=== PATIENT | female | born 1955 | race Caucasian/White ===

== ENCOUNTER 2020-04-11 06:45 | Inpatient (IN) | payer OTHER, SELFPAY ==
[2020-04-11] VITALS (12 sets, daily range): BP systolic 134–172; BP diastolic 56–99; PULSE 84–111; RESP 16–26; TEMP 36.9–37.1; O2SAT 91–97; BMI 44.8
--- NOTE | 2020-04-11 06:59 | PC.NURSE ---
orthopedic technician at bedside obtaining EKG.
--- NOTE | 2020-04-11 07:10 | ED.SOB ---
HPI - SOB/Dyspnea General Chief Complaint: Dyspnea Stated Complaint: SOB Time Seen by Provider: 04/11/20 07:10 Source: patient, EMS and old records reviewed Mode of arrival: EMS Limitations: other (very poor historian) History of Present Illness HPI Narrative: patient with recent PE and not sure she is taking her eliquis she is very anxious, has no chest pain, she is not the best historian but recent records reviewed, EMS was called for dyspnea the patient was found to be hypoxic with wheezes in the 60s, given duoneb and 6L NC - sats in 90s, the patient also notes she has had upper abdominal pain due to her breathing and some nausea MD elicited complaint: shortness of breath Pertinent past history: other (recent PE beginning of March) Onset (ago): day(s) Context: recent illness Timing: intermittent Severity: moderate Exacerbating factors: exertion Relieving factors: oxygen, rest and bronchodilators Known history of: PE Associated symptoms: abdominal pain Treatment prior to arrival: oxygen and bronchodilator Related Data Home Medications Medication Instructions Recorded Confirmed apixaban [Eliquis] 5 mg BID 04/11/20 04/11/20 aspirin [Aspirin Low Dose] 81 mg PO DAILY 04/11/20 04/11/20 buspirone [BuSpar] 5 mg PO TID 04/11/20 04/11/20 calcium carbonate [Calcium 600] 600 mg PO BID 04/11/20 04/11/20 cyanocobalamin (vitamin B-12) 1,000 mcg PO DAILY 04/11/20 04/11/20 [Vitamin B-12] famotidine 40 mg PO BEDTIME 04/11/20 04/11/20 gabapentin 800 mg PO TID 04/11/20 04/11/20 imatinib 400 mg PO DAILY 04/11/20 04/11/20 lurasidone [Latuda] 40 mg PO DAILY 04/11/20 04/11/20 mirabegron [Myrbetriq] 50 mg PO DAILY 04/11/20 04/11/20 omeprazole 40 mg PO DAILY 04/11/20 04/11/20 ondansetron 8 mg PO Q8H PRN 04/11/20 04/11/20 oxybutynin chloride 15 mg PO DAILY 04/11/20 04/11/20 tramadol 50 mg PO TID PRN 04/11/20 04/11/20 trazodone 300 mg PO BEDTIME 04/11/20 04/11/20 venlafaxine 75 mg PO DAILY 04/11/20 04/11/20 venlafaxine 150 mg PO DAILY 04/11/20 04/11/20 Allergies Allergy/AdvReac Type Severity Reaction Status Date / Time celecoxib [From CELEBREX] Allergy Mild DIZZY, Verified 04/11/20 07:46 TIRED alprazolam Allergy Unknown U Verified 04/11/20 07:46 carbamazepine [Tegretol] Allergy Unknown Unknown Verified 04/11/20 07:46 clonazepam Allergy Unknown U Verified 04/11/20 07:46 diclofenac Allergy Unknown Unknown Verified 04/11/20 07:46 lamotrigine Allergy Unknown NIGHTMARES Verified 04/11/20 07:46 meloxicam Allergy Unknown Unknown Verified 04/11/20 07:46 oxcarbazepine Allergy Unknown U Verified 04/11/20 07:46 pregabalin Allergy Unknown Unknown Verified 04/11/20 07:46 simvastatin [SIMVASTATIN] Allergy Unknown MUSCLE PAIN Verified 04/11/20 07:46 Darvon Allergy Unknown Unknown Uncoded 04/11/20 07:46 simvastatin AdvReac Unknown muscle pain Uncoded 04/11/20 07:46 Review of Systems Review of Systems: Constitutional : No Fever, No Chills ENT/Mouth : No sore throat, No Rhinorrhea Cardiovascular : No Chest Pain, positive SOB, No Orthopnea, no edema Respiratory : No Cough, No Sputum, No Wheezing, positive dyspnea, I have impairment in my breathing. Gastrointestinal : No Nausea, No Vomiting, No Diarrhea, + abdominal Pain, No Hematochezia, No Melena Genitourinary : No Dysuria, No Urinary Frequency, No Hematuria Musculoskeletal : No joint pain, No Myalgias Skin : No Skin Lesions, No rash Neuro : No Weakness, No Numbness, No Dizziness, No Headache Psych : + Anxiety/Panic, No Depression Heme/Lymph: No Bruising, No Lymphadenopathy Endocrine : No Polyuria, No Polydipsia All other systems reviewed and are negative [facility] Past Medical History Medical History (Updated 04/11/20 @ 11:28 by Nubia Alvarado DO) Anxiety Atrial fibrillation Bipolar 1 disorder GERD (gastroesophageal reflux disease) Leukemia in remission Pulmonary embolism Social History Social History (Updated 04/11/20 @ 07:12 by Nubia Alvarado DO) Alcohol intake: unknown Smoking Status: Former smoker Use of substances other than those prescribed or required for medical reasons: No Advance Directives: No Advance Directives Information Provided: Yes Physical Exam Vital Signs and I&O and Narrative: Vital Signs and I&O: Vital Signs Temp 98.6 F 04/11/20 08:38 Pulse 100 04/11/20 10:26 Resp 18 04/11/20 10:26 BP 144/85 H 04/11/20 10:26 Pulse Ox 97 04/11/20 10:26 Intake & Output 04/10/20 04/11/20 04/11/20 18:59 06:59 18:59 Output Total 1800 / 1800 Balance -1800 / -1800 Urine Output (Aver age ml/kg/hr) 1.65 Weight 90.718 kg Output: Output, Urine Am ount (Catheter) 1800 / 1800 Urethral 1800 / 1800 Other: Continuous Bladd er Irrigation Fluid - Amount I nstilled 2-way Urethral 0 Body Mass Index 44.8 Appearance: Alert. Oriented X3. mild distress. Eyes: Pupils equal, round and reactive to light. ENT: Pharynx normal. Neck: Normal inspection. Neck supple. CVS: tachycardic. Pulses normal. Respiratory: mild respiratory distress. Breath sounds decreased bilaterally, rales at base Abdomen: Soft and mild ttp along epigastric area Skin: Skin warm and dry. Normal skin color. Normal skin turgor. Extremities: No lower extremity edema. no pain noted Neuro: Oriented X 3. No motor deficit. No sensory deficit. Course Course Course Narrative: + BNP and + troponin, has no chest pain, has rales, IV morphine and IV lasix ordered, imaging pending Reevaluation(s) Reevaluation #1: will admit for further workup and diuresis MDM - SOB/Dyspnea MDM Narrative Medical decision making narrative: patient with hx of PE and afib here with c/o shortness of breath and nausea and epigastric pain at this time will need labs, EKG, CTA:PE unsure if she is taking her eliquis, her abdomen is not overly concerning but she c/o p ain and nausea will need CT scan for mass/obstruction, neb ordered, IV zofran, dispo per results and improvement Lab Data Result diagrams: 04/11/20 07:31 04/11/20 07:30 Labs: Lab Results 04/11/20 04/11/20 04/11/20 Range/Units 07:29 07:30 07:30 WBC (4.8-10.8) X10*3/uL RBC (4.20-5.50) X10*6/uL Hgb (12.0-16.0) g/dl Hct (37-47) % MCV (80-98) fL MCH (27.0-33.0) pg MCHC (31.0-35.0) g/dl RDW (11.0-16.0) % Plt Count (160-400) X10*3/uL MPV (9.4-12.3) fL Immature Gran % (Auto) (0.0-0.4) % Neut % (Auto) (45-73) % Lymph % (Auto) (20-40) % [place] % (Auto) (2-11) % Eos % (Auto) (0-4) % Baso % (Auto) (0-2) % Neut # (Auto) (2.0-8.3) X10*3/uL Lymph # (Auto) (1.2-4.9) X10*3/uL [place] # (Auto) (0.1-1.2) X10*3/uL Eos # (Auto) (0.0-0.4) X10*3/uL Baso # (Auto) (0.0-0.2) X10*3/uL Abs Immat Gran (auto) (0.00-0.03) X10*3/uL Absolute Nucleated RBC (0.0-0.012) X10*3/uL Nucleated RBC % (auto) (0.0-0.2) /100WBC Smear Tech's Comments PT 30.3 H (10.8-13.0) SEC INR 2.5 H (0.9-1.1) APTT 33.8 (24.1-38.0) SEC Sodium (135-145) mmol/L Potassium (3.3-5.1) mmol/l Chloride (96-108) mmol/L Carbon Dioxide (22-29) mmol/L Anion Gap (12-20) BUN (9-16) mg/dL Creatinine (0.5-1.4) mg/dL Estim Creat Clear Calc Estimated GFR Random Glucose (60-115) mg/dL Lactic Acid (0.5-2.0) mmol/L Calcium (8.4-10.2) mg/dL Magnesium (1.6-2.6) mg/dL Total Bilirubin (0.0-1.0) mg/dL Direct Bilirubin (0.0-0.5) mg/dL AST (5-31) U/L ALT (0-31) U/L Alkaline Phosphatase (39-117) U/L Troponin I High Sens 144.3 H (<3.5-17.0) ng/L B-Natriuretic Peptide 1062 H (<100) pg/mL Total Protein (6.5-8.0) g/dL Albumin (3.5-5.0) g/dL Lipase (8-78) U/L TSH (0.32-4.0) mIU/mL 04/11/20 04/11/20 04/11/20 Range/Units 07:30 07:30 07:30 WBC (4.8-10.8) X10*3/uL RBC (4.20-5.50) X10*6/uL Hgb (12.0-16.0) g/dl Hct (37-47) % MCV (80-98) fL MCH (27.0-33.0) pg MCHC (31.0-35.0) g/dl RDW (11.0-16.0) % Plt Count (160-400) X10*3/uL MPV (9.4-12.3) fL Immature Gran % (Auto) (0.0-0.4) % Neut % (Auto) (45-73) % Lymph % (Auto) (20-40) % [place] % (Auto) (2-11) % Eos % (Auto) (0-4) % Baso % (Auto) (0-2) % Neut # (Auto) (2.0-8.3) X10*3/uL Lymph # (Auto) (1.2-4.9) X10*3/uL [place] # (Auto) (0.1-1.2) X10*3/uL Eos # (Auto) (0.0-0.4) X10*3/uL Baso # (Auto) (0.0-0.2) X10*3/uL Abs Immat Gran (auto) (0.00-0.03) X10*3/uL Absolute Nucleated RBC (0.0-0.012) X10*3/uL Nucleated RBC % (auto) (0.0-0.2) /100WBC Smear Tech's Comments PT (10.8-13.0) SEC INR (0.9-1.1) APTT (24.1-38.0) SEC Sodium 136 (135-145) mmol/L Potassium 3.8 (3.3-5.1) mmol/l Chloride 97 (96-108) mmol/L Carbon Dioxide 28 (22-29) mmol/L Anion Gap 15 (12-20) BUN 11 (9-16) mg/dL Creatinine 0.74 (0.5-1.4) mg/dL Estim Creat Clear Calc 70.4 Estimated GFR > 60 Random Glucose 91 (60-115) mg/dL Lactic Acid 0.9 (0.5-2.0) mmol/L Calcium 8.6 (8.4-10.2) mg/dL Magnesium 1.7 (1.6-2.6) mg/dL Total Bilirubin 1.1 H (0.0-1.0) mg/dL Direct Bilirubin 0.7 H (0.0-0.5) mg/dL AST 38 H (5-31) U/L ALT 29 (0-31) U/L Alkaline Phosphatase 71 (39-117) U/L Troponin I High Sens (<3.5-17.0) ng/L B-Natriuretic Peptide (<100) pg/mL Total Protein 6.1 L (6.5-8.0) g/dL Albumin 4.0 (3.5-5.0) g/dL Lipase 20 (8-78) U/L TSH 0.12 L (0.32-4.0) mIU/mL 04/11/20 Range/Units 07:31 WBC 4.4 L (4.8-10.8) X10*3/uL RBC 2.42 L (4.20-5.50) X10*6/uL Hgb 8.0 L (12.0-16.0) g/dl Hct 25.4 L (37-47) % MCV 105.0 H (80-98) fL MCH 33.1 H (27.0-33.0) pg MCHC 31.5 (31.0-35.0) g/dl RDW 17.7 H (11.0-16.0) % Plt Count 220 (160-400) X10*3/uL MPV 9.8 (9.4-12.3) fL Immature Gran % (Auto) 0.5 H (0.0-0.4) % Neut % (Auto) 77.8 H (45-73) % Lymph % (Auto) 7.7 L (20-40) % [place] % (Auto) 12.8 H (2-11) % Eos % (Auto) 0.7 (0-4) % Baso % (Auto) 0.5 (0-2) % Neut # (Auto) 3.5 (2.0-8.3) X10*3/uL Lymph # (Auto) 0.3 L (1.2-4.9) X10*3/uL [place] # (Auto) 0.6 (0.1-1.2) X10*3/uL Eos # (Auto) 0.0 (0.0-0.4) X10*3/uL Baso # (Auto) 0.0 (0.0-0.2) X10*3/uL Abs Immat Gran (auto) 0.02 (0.00-0.03) X10*3/uL Absolute Nucleated RBC 0.050 H (0.0-0.012) X10*3/uL Nucleated RBC % (auto) 1.1 H (0.0-0.2) /100WBC Smear Tech's Comments VERIFIED PT (10.8-13.0) SEC INR (0.9-1.1) APTT (24.1-38.0) SEC Sodium (135-145) mmol/L Potassium (3.3-5.1) mmol/l Chloride (96-108) mmol/L Carbon Dioxide (22-29) mmol/L Anion Gap (12-20) BUN (9-16) mg/dL Creatinine (0.5-1.4) mg/dL Estim Creat Clear Calc Estimated GFR Random Glucose (60-115) mg/dL Lactic Acid (0.5-2.0) mmol/L Calcium (8.4-10.2) mg/dL Magnesium (1.6-2.6) mg/dL Total Bilirubin (0.0-1.0) mg/dL Direct Bilirubin (0.0-0.5) mg/dL AST (5-31) U/L ALT (0-31) U/L Alkaline Phosphatase (39-117) U/L Troponin I High Sens (<3.5-17.0) ng/L B-Natriuretic Peptide (<100) pg/mL Total Protein (6.5-8.0) g/dL Albumin (3.5-5.0) g/dL Lipase (8-78) U/L TSH (0.32-4.0) mIU/mL ECG Data Attestation: I personally reviewed and interpreted this ECG as follows: ECG interpretation date: 04/11/20 ECG interpretation time: 07:14 Interpretation: Rate: 109 Rhythm: sinus tachycardia [place]: normal Normal P waves. Normal CRUZ. LBBB ST T wave : nonspecific, no MICHELLE qTC:normal frequent PACs prior studies: no change 03/09/2020 The study has been interpreted contemporaneously by me. . EKG #2 Rate: 105 Rhythm: sinus tachycardia [place]: normal Normal P waves. Normal CRUZ. Normal QRS complex. LBBB ST T wave : nonspecific qTC: normal prior studies: unchanged The study has been interpreted contemporaneously by me. . Discharge Plan Discharge Clinical Impression: Acute dyspnea, CHF (congestive heart failure), Abdominal pain Patient Disposition: Admitted As Inpatient Prescriptions: No Action buspirone [BuSpar] 5 mg Tablet 5 mg PO TID RF: 0 cyanocobalamin (vitamin B-12) [Vitamin B-12] 1,000 mcg Tablet 1,000 mcg PO DAILY RF: 0 omeprazole 40 mg Capsule,Delayed Release(Dr/Ec) 40 mg PO DAILY RF: 0 aspirin [Aspirin Low Dose] 81 mg Tablet,Delayed Release (Dr/Ec) 81 mg PO DAILY RF: 0 tramadol 50 mg Tablet 50 mg PO TID PRN (Reason: Pain (Scale Score 4-6)) RF: 0 gabapentin 800 mg Tablet 800 mg PO TID RF: 0 trazodone 300 mg Tablet 300 mg PO BEDTIME RF: 0 imatinib 400 mg Tablet 400 mg PO DAILY RF: 0 Latuda 40 mg Tablet 40 mg PO DAILY RF: 0 Myrbetriq 50 mg Tablet Extended Release 24 Hr 50 mg PO DAILY RF: 0 Eliquis 5 mg Tablet 5 mg BID RF: 0 ondansetron 8 mg Tablet,Disintegrating 8 mg PO Q8H PRN (Reason: Nausea And Vomiting) RF: 0 calcium carbonate [Calcium 600] 600 mg calcium (1,500 mg) Tablet 600 mg PO BID RF: 0 venlafaxine 150 mg Capsule,Extended Release 24hr 150 mg PO DAILY RF: 0 venlafaxine 75 mg Tablet Extended Release 24hr 75 mg PO DAILY RF: 0 oxybutynin chloride 15 mg Tablet Extended Release 24hr 15 mg PO DAILY RF: 0 famotidine 40 mg Tablet 40 mg PO BEDTIME RF: 0
--- NOTE | 2020-04-11 07:12 | CT_ITS ---
EXAMINATION: CT ABDOMEN AND PELVIS WITH CONTRAST CLINICAL INFORMATION: Pain COMPARISON: CT chest 03/09/2020 TECHNIQUE: Multidetector volumetric images were obtained from the superior aspect of the liver through the pubic symphysis following administration 85 mL of Omnipaque 350 intravenous contrast. Sagittal and coronal reformatted images were obtained on the technologist's workstation. Oral contrast: No This CT examination was performed using dose optimization techniques as appropriate, variously including the following: *Automated exposure control *Adjustment of mA and/or kV according to patient size (this includes techniques or standardized protocols for targeted exams where dose is matched to indication/reason for exam; i.e. extremities or head) *Use of iterative reconstruction technique DLP: 533 mGy-cm FINDINGS: LUNG BASES: Moderate bilateral pleural effusions with bibasilar atelectasis. LIVER, GALLBLADDER, AND BILIARY TREE: No focal lesions. No biliary duct dilatation. The gallbladder is unremarkable with no evidence of radiopaque gallstones, gallbladder wall thickening, or obvious pericholecystic inflammatory changes. PANCREAS: Pancreas atrophic.. Haziness in the fat adjacent to the head and neck of the pancreas, could represent mild pancreatitis in the appropriate clinical circumstance. SPLEEN: Unremarkable. ADRENAL GLANDS: A 1.1 cm left adrenal nodule, Hounsfield measurements 19, indeterminate. Right adrenal gland appears unremarkable. KIDNEYS AND URETERS: No suspicious renal lesions. No calculi. No hydronephrosis. Mild bilateral perinephric stranding. BLADDER: Lutz catheter present, partially distended. GASTROINTESTINAL TRACT: Stomach is nondistended. No dilated small bowel loops. The large colon is nondistended. Lack of distention especially limits evaluation of the wall thickness of the descending and sigmoid colon. No pericolonic inflammatory changes are seen. There is small free fluid in the right lower quadrant. The tip of the appendix extends to the area of the free fluid and is obscured. More proximally, the appendix appears unremarkable. There is small free fluid in the pelvis. No free air is seen. ABDOMINAL WALL: Small fat-containing umbilical hernia. LYMPH NODES: No pathologically enlarged lymph nodes are seen. VASCULAR: Normal caliber aorta. Portal vein is enhancing. PELVIC VISCERA: Anteverted uterus, appearing within normal limits. Adnexa are within normal limits. Small free fluid in the pelvis. OSSEOUS STRUCTURES: Hardware in the proximal left femur. Grade 1 anterolisthesis of L4 and L5. There is undulation, depression of the superior aspect of the L3 vertebral body, of indeterminate age. Disc degenerative changes at L4-L5, L3-L4, with air within the disc space. Disc degenerative changes, with foci of air in the L2-L3 disc space well. IMPRESSION: 1. Pancreas is atrophic. There is haziness in the peripancreatic fat region of the head and neck. Clinically correlate, correlate with blood work, to evaluate for pancreatitis. 2. Moderate bilateral pleural effusions with bibasilar atelectasis. 3. Indeterminate 1.1 cm left adrenal nodule. Follow-up CT abdomen using adrenal mass protocol for further evaluation as clinically warranted. 4. The large colon is nondistended. Apparent prominence of the wall of the descending and sigmoid colon, could be related to lack of distention, with mild colitis not excluded. 5. There is small free fluid in the abdomen or pelvis. The tip of the appendix is obscured by the fluid, where the more proximal aspect of the appendix appears unremarkable. Please clinically correlate. 6. Undulation and depression of the superior aspect of the L3 vertebral body, of indeterminate age. Please clinically correlate. Further evaluation with MRI as clinically warranted. 7. There is air in the L2-L3, L3-L4, L4-L5 disc spaces. This could be related to disc degenerative changes. In the appropriate clinical circumstance, discitis cannot be excluded. Please clinically correlate.
--- NOTE | 2020-04-11 07:12 | CT_ITS ---
EXAMINATION: CT ANGIOGRAM OF THE CHEST WITH AND WITHOUT CONTRAST (CT PULMONARY ANGIOGRAM FOR PE) CLINICAL INFORMATION: Dyspnea, ? not taking her Eliquis. COMPARISON: 03/09/2020 TECHNIQUE: Prior to contrast administration, noncontrast localization images were obtained. Subsequently, multidetector volumetric imaging was performed from the thoracic inlet to below the diaphragms following the administration of 80 mL Omnipaque 350 intravenous contrast. No contrast reaction reported Sagittal, coronal, and MIP oblique sagittal reformatted images were obtained on the CT workstation, uploaded to PACS, and reviewed. This CT examination was performed using dose optimization techniques as appropriate, variously including the following: *Automated exposure control *Adjustment of mA and/or kV according to patient size (this includes techniques or standardized protocols for targeted exams where dose is matched to indication/reason for exam; i.e. extremities or head) *Use of iterative reconstruction technique Total exam dose-length product 1701 mGy-cm FINDINGS: PULMONARY ARTERIES: Grainy images from patient body habitus, suboptimal opacification of the pulmonary arteries, significant respiratory motion artifact, markedly degrading images, limiting evaluation. Patient had segmental pulmonary emboli demonstrated on the prior study of 03/09/2020. In today's study, no definite filling defects identified within the central pulmonary vasculature to indicate large pulmonary embolus. Limited evaluation of the segmental and subsegmental vasculature. The previously seen pulmonary emboli in the lower lobe segmental arteries are not clearly visualize in today's study. THORACIC AORTA: Normal caliber aorta. LUNG: Airspace opacities adjacent to the pleural effusions, probably reflecting atelectasis. There is heterogeneous attenuation of the lung parenchyma, probably related to a degree of inspiration, respiratory motion artifact. Scattered ground-glass opacities in bilateral lungs, nonspecific. Within the limitations of study, no suspicious nodules identified. PLEURA: Moderate bilateral pleural effusions. MEDIASTINUM: Heart is mildly enlarged. No pericardial effusion. No pathologically enlarged lymph nodes identified in the mediastinum or pantera. CHEST WALL/AXILLA: No axillary or internal mammary lymphadenopathy. OSSEOUS STRUCTURES: No acute or suspicious osseous abnormality. Bilateral shoulder joint arthritis. UPPER ABDOMEN: No reflux of contrast into the hepatic veins to suggest elevated right heart pressures. IMPRESSION: 1. Prior study 03/09/2020 was positive for segmental pulmonary emboli. Limited study today, including significant respiratory motion artifact degrading images, limiting evaluation. No definite significant filling defect is identified within the central pulmonary vasculature. Prior study of 03/09/2020 demonstrated lower lobe segmental pulmonary emboli, which are not evaluated in today's study. 2. Moderate bilateral pleural effusions with subjacent atelectasis. 3. Scattered ground-glass opacities in bilateral lungs, nonspecific, could be related to a degree of inspiration, respiratory motion, or could represent an infectious or inflammatory process. Follow-up/repeat CT scan for evaluation as clinically warranted. 4. Thyroid nodule. This is amenable to nonemergent thyroid ultrasound for further evaluation.
[2020-04-11] MEDS: Albuterol/Iprat 2.5/0.5MG 3 ML AMPUL.NEB INHALE (07:29)
[2020-04-11] MEDS: ondansetron HCL 4 MG/2 ML VIAL IVPUSH (07:41)
--- NOTE | 2020-04-11 07:43 | PC.NURSE ---
PT ANXIOUS AND STATES HER ABD IS PAINFUL AND DIFF BREATHING SHE HAD AN UPDRAFT AND WAS MEDICATED CHARTED
[2020-04-11 07:46] LABS: INTERNATIONAL NORM RATIO 2.5 (0.9-1.1); Prothrombin Time 30.3 SEC (10.8-13.0)
[2020-04-11 07:48] LABS: Partial Thromboplastin Time 33.8 SEC (24.1-38.0)
[2020-04-11 07:52] LABS: Basophils Percent Auto 0.5 % (0-2); Eosinophils Percent Auto 0.7 % (0-4); Hematocrit 25.4 % (37-47); Imm Gran Abs Auto 0.02 X10*3/uL (0.00-0.03); Imm Gran Pct Auto 0.5 % (0.0-0.4); Lymphocytes Absolute Auto 0.3 X10*3/uL (1.2-4.9); Lymphocytes Percent Auto 7.7 % (20-40); MANUAL DIFF FLAG SCAN; Mean Corpuscular HGB Conc 31.5 g/dl (31.0-35.0); Mean Corpuscular Hemoglobin 33.1 pg (27.0-33.0); Mean Platelet Volume 9.8 fL (9.4-12.3); Monocytes Absolute Auto 0.6 X10*3/uL (0.1-1.2); Monocytes Percent Auto 12.8 % (2-11); Neutrophils Absolute Auto 3.5 X10*3/uL (2.0-8.3); Neutrophils Percent Auto 77.8 % (45-73); Platelet Count 220 X10*3/uL (160-400); Red Blood Count 2.42 X10*6/uL (4.20-5.50); Red Cell Distribution Width 17.7 % (11.0-16.0); SCAN SMEAR FLAG 1; White Blood Count 4.4 X10*3/uL (4.8-10.8)
[2020-04-11 07:58] LABS: NRBC Pct Auto 1.1 /100WBC (0.0-0.2)
[2020-04-11 08:02] LABS: Lactic Acid 0.9 mmol/L (0.5-2.0)
[2020-04-11 08:04] LABS: Anion Gap 15 (12-20); Blood Urea Nitrogen 11 mg/dL (9-16); Calcium 8.6 mg/dL (8.4-10.2); Carbon Dioxide 28 mmol/L (22-29); Chloride 97 mmol/L (96-108); Creatinine Clr Calc Pharmacy 70.4; Estimated Glomerular Filt Rate > 60; Glucose Random 91 mg/dL (60-115); Potassium 3.8 mmol/l (3.3-5.1); Sodium 136 mmol/L (135-145)
[2020-04-11 08:07] LABS: Alanine Aminotransferase 29 U/L (0-31); Alkaline Phosphatase 71 U/L (39-117); Aspartate Amino Transferase 38 U/L (5-31); Bilirubin Direct 0.7 mg/dL (0.0-0.5); Bilirubin Total 1.1 mg/dL (0.0-1.0); Lipase 20 U/L (8-78); Magnesium 1.7 mg/dL (1.6-2.6); Total Protein 6.1 g/dL (6.5-8.0)
[2020-04-11 08:10] LABS: B Type Natriuretic Peptide 1062 pg/mL (<100)
[2020-04-11 08:13] LABS: Troponin-I High Sensitivity 144.3 ng/L (<3.5-17.0)
[2020-04-11] MEDS: Morphine Sulfate 2 MG/ML CARTRIDGE IVPUSH (08:13)
--- NOTE | 2020-04-11 08:13 | ECG_ITS ---
Test Reason : REPEAT SOB Blood Pressure : / mmHG Vent. Rate : 105 BPM Atrial Rate : 105 BPM P-R Int : 148 ms QRS Dur : 138 ms QT Int : 360 ms P-R-T Axes : 050 061 -35 degrees QTc Int : 475 ms Sinus tachycardia Left bundle branch block Abnormal ECG When compared with ECG of 09-MAR-2020 13:01, Premature atrial complexes are no longer Present Referred By: Nubia Alvarado Electronically Signed By:NATHALY STEPHENS
[2020-04-11] MEDS: Furosemide 40 MG/4 ML VIAL IVPUSH (08:18)
[2020-04-11 08:26] LABS: Thyroid Stimulating Hormone 0.12 mIU/mL (0.32-4.0)
[2020-04-11 08:59] LABS: SLIDE REVIEW VERIFIED
[2020-04-11] MEDS: iohexoL 350 MG/ML 100 ML INFUS..BTL IV (09:51)
--- NOTE | 2020-04-11 10:37 | PC.NURSE ---
pt states she is feeling better napping
--- NOTE | 2020-04-11 10:47 | PC.NURSE ---
please call with updates [place] [id number] [phone]
--- NOTE | 2020-04-11 13:53 | PC.NURSE ---
awaiting room assignment for admission resting quietly with periodic episodes of anxiety
--- NOTE | 2020-04-11 14:30 | PC.NURSE ---
REPORT GIVEN TO EDWARDO FOR ADMISSION
[2020-04-11] MEDS: Venlafaxine HCl ER 150 MG CAP.ER.24H PO (18:55)
[2020-04-11] MEDS: Mirabegron 50 MG TAB.ER.24H PO (18:55)
[2020-04-11] MEDS: busPIRone HCl 5 MG TABLET PO (18:55)
[2020-04-11] MEDS: Lurasidone HCl 40 MG TABLET PO (18:55)
[2020-04-11] MEDS: Furosemide 20 MG/2 ML VIAL IVPUSH (18:56)
[2020-04-11] MEDS: Gabapentin 400 MG CAPSULE 800 MG PO (18:56)
[2020-04-11 19:20] LABS: Alanine Aminotransferase 26 U/L (0-31); Albumin Level 3.6 g/dL (3.5-5.0); Alkaline Phosphatase 62 U/L (39-117); Aspartate Amino Transferase 30 U/L (5-31); Bilirubin Direct 0.7 mg/dL (0.0-0.5); Total Protein 5.5 g/dL (6.5-8.0)
--- NOTE | 2020-04-11 19:22 | PM.EVENT ---
Event Note Event Note: Patient seen and examined. Case discussed with Veronique Hernadez NP. Agree with her history and physical. 64 yo being admitted for chf. iv lasix cardiology consult 2d echo if not recently done trend trop-I -- likely demand mediated remainder per H&P rapid test for covid 19
[2020-04-11 19:37] LABS: Troponin-I High Sensitivity 153.2 ng/L (<3.5-17.0)
[2020-04-11] MEDS: LORazepam 2 MG/ML VIAL 0.5 MG IV (20:48)
[2020-04-11] MEDS: Apixaban 5 MG TABLET PO (20:49)
[2020-04-11 21:12] LABS: SARS COV2 PCR INHOUSE NEGATIVE (Negative)
[2020-04-11] MEDS: traZODone HCL 100 MG TABLET 300 MG PO (22:10)
[2020-04-11] MEDS: traMADoL HCL 50 MG TABLET PO (22:27)
[2020-04-12 04:00] VITALS: BP 125/78; PULSE 93; RESP 22; TEMP 36.8; O2SAT 93
[2020-04-12] MEDS: Omeprazole 40 MG CAPSULE.DR PO (06:27)
[2020-04-12 06:46] LABS: Basophils Percent Auto 0.7 % (0-2); Eosinophils Absolute Auto 0.1 X10*3/uL (0.0-0.4); Eosinophils Percent Auto 3.5 % (0-4); Hematocrit 24.1 % (37-47); Hemoglobin 7.4 g/dl (12.0-16.0); Imm Gran Abs Auto 0.02 X10*3/uL (0.00-0.03); Imm Gran Pct Auto 0.5 % (0.0-0.4); Lymphocytes Absolute Auto 0.6 X10*3/uL (1.2-4.9); Lymphocytes Percent Auto 13.6 % (20-40); MANUAL DIFF FLAG SCAN; Mean Corpuscular HGB Conc 30.7 g/dl (31.0-35.0); Mean Corpuscular Hemoglobin 32.3 pg (27.0-33.0); Mean Corpuscular Volume 105.2 fL (80-98); Mean Platelet Volume 9.9 fL (9.4-12.3); Monocytes Absolute Auto 0.7 X10*3/uL (0.1-1.2); Monocytes Percent Auto 17.9 % (2-11); NRBC Pct Auto 0.5 /100WBC (0.0-0.2); Neutrophils Absolute Auto 2.6 X10*3/uL (2.0-8.3); Neutrophils Percent Auto 63.8 % (45-73); Platelet Count 212 X10*3/uL (160-400); Red Blood Count 2.29 X10*6/uL (4.20-5.50); Red Cell Distribution Width 17.8 % (11.0-16.0); SCAN SMEAR FLAG 1
[2020-04-12 07:16] LABS: Anion Gap 11 (12-20); Blood Urea Nitrogen 7 mg/dL (9-16); Carbon Dioxide 35 mmol/L (22-29); Chloride 97 mmol/L (96-108); Creatinine Clr Calc Pharmacy 71.3; Estimated Glomerular Filt Rate > 60; Glucose Random 83 mg/dL (60-115); Potassium 3.3 mmol/l (3.3-5.1); Sodium 140 mmol/L (135-145)
[2020-04-12 07:20] LABS: B Type Natriuretic Peptide 1028 pg/mL (<100)
[2020-04-12 07:29] LABS: SLIDE REVIEW VERIFIED
[2020-04-12 07:32] LABS: Calcium 7.8 mg/dL (8.4-10.2)
[2020-04-12 07:41] VITALS: BP 116/71; PULSE 92; RESP 18; TEMP 36.8; O2SAT 93
[2020-04-12] MEDS: Furosemide 20 MG/2 ML VIAL IVPUSH ×2 (07:51→15:35)
[2020-04-12] MEDS: busPIRone HCl 5 MG TABLET PO ×3 (07:51→21:31)
[2020-04-12] MEDS: Cyanocobalamin (Vitamin B-12) 1,000 MCG TABLET 1000 MCG PO (07:51)
[2020-04-12] MEDS: Aspirin Enteric Coated 81 MG TABLET.DR PO (07:51)
[2020-04-12] MEDS: Apixaban 5 MG TABLET PO ×2 (07:52→21:31)
[2020-04-12] MEDS: Gabapentin 400 MG CAPSULE 800 MG PO ×3 (07:52→21:31)
[2020-04-12] MEDS: Lurasidone HCl 40 MG TABLET PO (07:53)
[2020-04-12] MEDS: Mirabegron 50 MG TAB.ER.24H PO (07:53)
[2020-04-12] MEDS: Venlafaxine HCl ER 150 MG CAP.ER.24H PO (07:54)
[2020-04-12] MEDS: Venlafaxine HCl ER 75 MG CAP.ER.24H PO (07:55)
--- NOTE | 2020-04-12 08:34 | MHC.CM.PN ---
Addendum entered by Nicci Gutierrez 04/12/20 09:09: PATIENT WILL NEED TRANSPORTATION WC VAN PER PT REQUEST. Original Note: IMM 04/12/20 FEMALE DX SOB. Lives with . Dependent adls, [facility] [employer] service in place, [place]. Pt uses WC. DP resume [facility] [employer] services will transport. CM will follow.
[2020-04-12 08:51] LABS: Basophils Percent Auto 0.5 % (0-2); Eosinophils Absolute Auto 0.2 X10*3/uL (0.0-0.4); Eosinophils Percent Auto 4.4 % (0-4); Hematocrit 26.8 % (37-47); Hemoglobin 8.3 g/dl (12.0-16.0); Imm Gran Abs Auto 0.02 X10*3/uL (0.00-0.03); Imm Gran Pct Auto 0.5 % (0.0-0.4); Lymphocytes Absolute Auto 0.4 X10*3/uL (1.2-4.9); Lymphocytes Percent Auto 10.7 % (20-40); MANUAL DIFF FLAG SCAN; Mean Corpuscular Hemoglobin 32.4 pg (27.0-33.0); Mean Corpuscular Volume 104.7 fL (80-98); Mean Platelet Volume 9.9 fL (9.4-12.3); Monocytes Absolute Auto 0.6 X10*3/uL (0.1-1.2); Monocytes Percent Auto 14.6 % (2-11); NRBC Pct Auto 0.5 /100WBC (0.0-0.2); Neutrophils Absolute Auto 2.9 X10*3/uL (2.0-8.3); Neutrophils Percent Auto 69.3 % (45-73); Platelet Count 235 X10*3/uL (160-400); Red Blood Count 2.56 X10*6/uL (4.20-5.50); Red Cell Distribution Width 17.9 % (11.0-16.0); SCAN SMEAR FLAG 1; White Blood Count 4.1 X10*3/uL (4.8-10.8)
[2020-04-12 09:27] LABS: Anion Gap 12 (12-20); Blood Urea Nitrogen 7 mg/dL (9-16); Calcium 8.4 mg/dL (8.4-10.2); Carbon Dioxide 34 mmol/L (22-29); Chloride 96 mmol/L (96-108); Creatinine Clr Calc Pharmacy 68.5; Estimated Glomerular Filt Rate > 60; Glucose Fasting 115 mg/dL (60-99); Potassium 3.5 mmol/l (3.3-5.1); Sodium 138 mmol/L (135-145)
[2020-04-12 09:29] LABS: Free T4 (Free Thyroxine) 1.69 ng/dL (0.71-1.85)
--- NOTE | 2020-04-12 11:13 | PM.CNCAR ---
History of Present Illness History of Present Illness Date of Consult: April 12, 2020 Requesting physician: Vinay Zarate Consult reason: congestive heart failure Chief complaint: SOB Narrative: This is a cardiology consultation for shortness of breath and congestive heart failure. Patient is a very poor historian and not really able to give any history at all. EMS was apparently call for shortness of breath and found to be hypoxic with wheezing in the 60s. She was given some nebulizers and oxygen. Then sats came to the 90s. She also was having some abdominal pain in the upper abdomen due to her breathing and some nausea. Subsequently she was admitted with a diagnosis of congestive heart failure. Patient is not able to tell me anything more this time. When I questioned her regarding coronary disease or any prior cardiac issues she states she does not know. Review of Systems Review of Systems: Cardiac positive for shortness of breath. No angina. No palpitations, dizzy spells or syncope. No significant leg swelling. Remainder of the 10 system review is negative. [facility] Past Medical History Medical History (Updated 04/12/20 @ 11:22 by Greg Matt MD) Anxiety Atrial fibrillation Bipolar 1 disorder GERD (gastroesophageal reflux disease) Leukemia in remission Pulmonary embolism Family History Pertinent family history: No significant family history relevant to this admission. Social History Social History Household Members: Spouse Housing: Apartment Alcohol intake: unknown Smoking Status: Former smoker Use of substances other than those prescribed or required for medical reasons: No Currently Displaying Signs/Symptoms of Drug Intoxication Withdrawal: No Have you been hit, kicked, punched, or otherwise hurt by someone within the past year? If so, by whom?: No Do you feel safe in your current relationship?: No Is there a partner from a previous relationship who is making you feel unsafe now?: No Are you made to feel afraid or neglected: No Advance Directives: No Advance Directives Information Provided: Yes Do you have thoughts of harming others: None Recently lost weight without trying: No service: No Current occupational status: disabled Meds Allergies Allergy/AdvReac Type Severity Reaction Status Date / Time celecoxib [From CELEBREX] Allergy Mild DIZZY, Verified 04/11/20 07:46 TIRED alprazolam Allergy Unknown U Verified 04/11/20 07:46 carbamazepine [Tegretol] Allergy Unknown Unknown Verified 04/11/20 07:46 clonazepam Allergy Unknown U Verified 04/11/20 07:46 diclofenac Allergy Unknown Unknown Verified 04/11/20 07:46 lamotrigine Allergy Unknown NIGHTMARES Verified 04/11/20 07:46 meloxicam Allergy Unknown Unknown Verified 04/11/20 07:46 oxcarbazepine Allergy Unknown U Verified 04/11/20 07:46 pregabalin Allergy Unknown Unknown Verified 04/11/20 07:46 simvastatin [SIMVASTATIN] Allergy Unknown MUSCLE PAIN Verified 04/11/20 07:46 Darvon Allergy Unknown Unknown Uncoded 04/11/20 07:46 simvastatin AdvReac Unknown muscle pain Uncoded 04/11/20 07:46 Home Medications Medication Instructions Recorded Confirmed Type apixaban [Eliquis] 5 mg BID 04/11/20 04/11/20 History aspirin [Aspirin Low Dose] 81 mg PO DAILY 04/11/20 04/11/20 History buspirone [BuSpar] 5 mg PO TID 04/11/20 04/11/20 History calcium carbonate [Calcium 600] 600 mg PO BID 04/11/20 04/11/20 History cyanocobalamin (vitamin B-12) 1,000 mcg PO DAILY 04/11/20 04/11/20 History [Vitamin B-12] famotidine 40 mg PO BEDTIME 04/11/20 04/11/20 History gabapentin 800 mg PO TID 04/11/20 04/11/20 History imatinib 400 mg PO DAILY 04/11/20 04/11/20 History lurasidone [Latuda] 40 mg PO DAILY 04/11/20 04/11/20 History mirabegron [Myrbetriq] 50 mg PO DAILY 04/11/20 04/11/20 History omeprazole 40 mg PO DAILY 04/11/20 04/11/20 History ondansetron 8 mg PO Q8H PRN 04/11/20 04/11/20 History oxybutynin chloride 15 mg PO DAILY 04/11/20 04/11/20 History tramadol 50 mg PO TID PRN 04/11/20 04/11/20 History trazodone 300 mg PO BEDTIME 04/11/20 04/11/20 History venlafaxine 75 mg PO DAILY 04/11/20 04/11/20 History venlafaxine 150 mg PO DAILY 04/11/20 04/11/20 History Physical Exam Vital Signs and I&O and Narrative: Vital Signs and I&O: Vital Signs Temp 98.2 F 04/12/20 07:41 Pulse 92 04/12/20 07:41 Resp 18 04/12/20 07:41 BP 116/71 04/12/20 07:41 Pulse Ox 93 04/12/20 07:41 Comfortable, no distress No pallor, icterus or cyanosis HEENT -unremarkable JVD- normal Cardiac- normal heart sounds, no murmurs, gallops or rubs, normal PMI Respiratory- few scattered crackles Abdomen- soft, nontender Neuro- alert and oriented Lower extremities- no significant edema, warm well perfused Results Labs and Meds Result diagrams: 04/12/20 08:21 04/12/20 08:20 Lab results: Laboratory Tests 04/11/20 04/11/20 04/12/20 18:29 18:29 05:41 Hgb Creatinine Troponin I High Sens 153.2 H B-Natriuretic Peptide 1028 H Albumin 3.6 04/12/20 04/12/20 08:20 08:21 Hgb 8.3 L Creatinine 0.76 Troponin I High Sens B-Natriuretic Peptide Albumin EKG Interpretation EKG Comments: EKG was reviewed by me. She has underlying sinus tachycardia at 01:05/Min. Left bundle-branch block type pattern. Overall, similar to the recent study from March. Telemetry was reviewed. She has frequent ectopy. Some of it looks like supraventricular with aberrancy. PVCs could also be possible but less likely. Assessment and Plan (1) Acute dyspnea: Status: Acute (2) CHF (congestive heart failure): Qualifiers: Heart failure chronicity: acute Heart failure type: unspecified Qualified Code(s): I50.9 - Heart failure, unspecified Status: Acute (3) LBBB (left bundle branch block): Status: Acute (4) Pulmonary embolism: Status: Acute Difficult to obtain a clear history but based on patient's description, recent shortness of breath as well as a history of pulmonary embolism. Cardiac BNP is clearly elevated. We will obtain an echocardiogram for LV function assessment/ RV function as well as pulmonary hypertension. Continue with gentle diuretics. We will follow up with you.
[2020-04-12 12:00] VITALS: BP 169/75; PULSE 94; RESP 18; TEMP 36.9; O2SAT 94
--- NOTE | 2020-04-12 13:00 | CA_ITS ---
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 The visually estimated ejection fraction is between 45-50%. - Evidence suggests grade II (moderate) diastolic dysfunction. - There is mild aortic valve stenosis. - There is mild mitral annular calcification. - Mild pulmonary hypertension is present. Findings Left Ventricle Normal left ventricular cavity size. There is mildly increased left ventricular wall thickness. The left ventricular systolic function is mildly decreased. The visually estimated ejection fraction is between 45-50%. There is paradoxical septal motion consistent with a left bundle branch block. E/E prime ratio is >15, consistent with elevated filling pressures. Evidence suggests grade II (moderate) diastolic dysfunction. Right Ventricle The right ventricle was not well visualized. Atria The left atrium is moderately dilated. The right atrium is normal in size. Aortic Valve There is a normal trileaflet aortic valve. There is mild aortic valve stenosis. The peak aortic velocity is 2.53 m/s with a calculated peak gradient of 26 mmHg. The mean gradient is 15 mmHg. The aortic valve area is 1.72 cm2. There is no aortic valve regurgitation. Mitral Valve There is mild mitral annular calcification. There is trace mitral valve regurgitation. There is no mitral valve stenosis. Pulmonic Valve The pulmonic valve was not well visualized. Tricuspid Valve Normal tricuspid valve structure. There is trace tricuspid valve regurgitation. The right ventricular systolic pressure is 38 mmHg. Mild pulmonary hypertension is present. Great Vessels The aortic annulus, sinuses of valsalva, and asc aorta are normal in size. Venous The inferior vena cava is normal in size and collapses greater than 50% with inspiration. Pericardium/Pleural There is no evidence of pericardial effusion. There is a large left sided pleural effusion. Prior Study Comparison No significant change compared to prior study dated: 03/05/2019. Measurements 2D Linear Measurements IVSd: 1.17 0.6-0.9/0.6-1.0 cm LVIDd: 4.78 3.9-5.3/4.2-5.9 cm LVIDd Index: 2.75 2.4-3.2/2.2-3.1 cm/m2 LVIDs: 3.01 2.0-3.6 cm LVPWd: 1.14 0.7-1.1 cm Ao Root: 3.50 2.1-3.5 cm LA Diam: 3.20 2.7-3.8/3.0-4.0 cm LAIDs Index: 1.84 1.5-2.3 cm/m2 LV Mass: 257.07 67-162/88-224 g LV Mass Index: 147.74 43-95/49-115 g/m2 LVOT Diam: 2.00 3.0+(-)1.3 cm 2D Systolic Function EF 4C: 53.90 >55% EF 2C: 48.80 >55% EF BiP: 50.50 >55% Mitral Valve MV Pk E: 1.12 MV PK A: 1.30 MV Decel Time: 129.00 E/A: 0.90 E'Lateral: 8.51 E'Medial: 4.35 E/E' Med: 25.70 E/E' Lat: 13.20 PHT: 38.00 MVA PHT: 5.79 Decel [place]: 8.66 Aortic Valve AoV Pk Kojo: 2.53 AoV Mn Kojo: 1.79 AoV VTI: 0.53 AoV Pk Grad: 26.00 Aov Mn Grad: 15.00 MARIA LUZ Cont.VTI: 1.72 LVOT LVOT Pk Kojo: 1.37 LVOT Mn Kojo: 0.93 LVOT VTI: 0.29 LVOT Pk Grad: 8.00 LVOT Mn Grad: 4.00 LVOT Diam: 2.00 LVOT Area: 3.14 Diastolic Function MV Pk E: 1.12 MV Pk A: 1.30 E/A: 0.90 E'Medial: 4.35 E/E' Med: 25.70 E' Laterial: 8.51 E/E' Lat: 13.20 Tricuspid Valve TR Pk Kojo: 2.95 TR Pk Grad: 35.00 RA Press: 3.00 RVSP: 38.00 Great Vessels Aorta Ao Root-2D: 3.50 2.0-3.7 cm Ao Asc: 3.50 2.1-3.4 cm Pulmonary Valve PV Pk Kojo: 1.43 Peak PV Grad: 8.00 Updated in Other Vendor System with Status of Final Greg Matt MD electronically signed on 04/12/2020 5:10:28 PM with status of Final
--- NOTE | 2020-04-12 14:17 | PM.IMPN ---
Subjective Subjective Date of Service: 04/12/20 Interval History: seen and examined reports breathing better difficult to obtain history, requiring constant redirection seen later with the bedside. updates given at that time, pt reports improvement from AM Review of Systems General - no fevers or chills Cardiovascular - no chest pain Respiratory short of breath, but improving Abdominal- no abdominal pain, nausea, vomiting, diarrhea Physical Exam Vital Signs and I&O and Narrative: Vital Signs and I&O: Vital Signs Temp 98.4 F 04/12/20 12:00 Pulse 94 04/12/20 12:00 Resp 18 04/12/20 12:00 BP 169/75 H 04/12/20 12:00 Pulse Ox 94 04/12/20 12:00 Intake & Output 04/11/20 04/12/20 04/12/20 18:59 06:59 18:59 Intake Total 240 / 240 240 / 240 Output Total 3200 / 4960 1760 / 4960 Balance -3200 / -4720 -1520 / -4720 240 / 240 Urine Output (Aver age ml/kg/hr) 2.94 1.62 1.62 Intake: Intake, Oral Harjeet unt 240 / 240 240 / 240 Output: Output, Urine Am ount 1400 / 1400 Output, Urine Am ount (Catheter) 1800 / 3560 1760 / 3560 2-way Urethral 1400 / 1400 Urethral 1800 / 2160 360 / 2160 Other: Breakfast % Eate n 75% Lunch % Eaten 75% Urine Color Yellow Continuous Bladd er Irrigation Fluid - Amount I nstilled 2-way Urethral 0 Body Mass Index 44.8 General - no acute distress, appears comfortable Cardiovascular - rales, mostly at bases, no jvd Lungs - normal respiratory effort, clear to auscultation bilaterally, no wheezing Abdomen - soft, nontender, no rebound regarding Extremities - no edema bilaterally Neuro - awake and alert, no focal deficits Objective Data Current Medications Generic Name Dose Route Start Last Admin Trade Name Freq PRN Reason Stop Dose Admin Apixaban 5 mg 04/11/20 21:00 04/12/20 07:52 Apixaban 5 Mg Tablet PO 5 mg BID SHEN Administration Aspirin 81 mg 04/12/20 09:00 04/12/20 07:51 Aspirin Enteric Coated 81 Mg Tablet. PO 81 mg DAILY SHEN Administration Buspirone HCl 5 mg 04/11/20 15:54 04/12/20 07:51 Buspirone Hcl 5 Mg Tablet PO 5 mg TID SHEN Administration Calcium Carbonate 500 mg 04/11/20 21:00 04/12/20 07:52 Calcium Carbonate 500 Mg Tablet PO 500 mg BID SHEN Administration Cyanocobalamin 1,000 mcg 04/12/20 09:00 04/12/20 07:51 Cyanocobalamin (Vitamin B-12) 1,000 Mcg Tablet PO 1,000 mcg DAILY SHEN Administration Furosemide 20 mg 04/11/20 17:00 04/12/20 07:51 Furosemide 20 Mg/2 Ml Vial IVPUSH 20 mg BIDWM SHEN Administration Protocol Gabapentin 800 mg 04/11/20 15:54 04/12/20 07:52 Gabapentin 400 Mg Capsule PO 800 mg TID SHEN Administration Lurasidone HCl 40 mg 04/11/20 15:54 04/12/20 07:53 Lurasidone Hcl 40 Mg Tablet PO 40 mg DAILY SHEN Administration Mirabegron 50 mg 04/11/20 15:54 04/12/20 07:53 Mirabegron 50 Mg Tab.Er.24h PO 50 mg DAILY SHEN Administration Non-Formulary Medication 400 mg 04/11/20 15:54 Imatinib PO DAILY [facility] Omeprazole 40 mg 04/12/20 06:30 04/12/20 06:27 Omeprazole 40 Mg Capsule.Dr PO 40 mg DAILY@0630 SHEN Administration Ondansetron HCl 4 mg 04/11/20 19:21 Ondansetron Hcl 4 Mg/2 Ml Vial IVPUSH Q8H PRN Nausea and Vomiting Oxybutynin Chloride 15 mg 04/12/20 09:00 04/12/20 07:54 Oxybutynin Chloride Er 5 Mg Tab.Er.24 PO 15 mg DAILY SHEN Administration Pharmacy Consult 1 each 04/11/20 08:18 Consult Rx Perform Med Rec MISCELLANE ONCE PRN Consult order Tramadol HCl 50 mg 04/11/20 15:54 04/11/20 22:27 Tramadol Hcl 50 Mg Tablet PO 50 mg TID PRN Administration Pain (Scale Score 4-6) Trazodone HCl 300 mg 04/11/20 21:00 04/11/20 22:10 Trazodone Hcl 100 Mg Tablet PO 300 mg BEDTIME SHEN Administration Venlafaxine HCl 150 mg 04/11/20 15:54 04/12/20 07:54 Venlafaxine Hcl Er 150 Mg Cap.Er.24h PO 150 mg DAILY SHEN Administration Venlafaxine HCl 75 mg 04/12/20 09:00 04/12/20 07:55 Venlafaxine Hcl Er 75 Mg Cap.Er.24h PO 75 mg DAILY SHEN Administration Labs CBC & Chem 7: 04/12/20 08:21 04/12/20 08:20 Labs: Laboratory Results - last 24 hr 04/11/20 04/11/20 04/11/20 18:29 18:29 19:46 MCV MCH MCHC RDW Plt Count MPV Immature Gran % (Auto) Neut % (Auto) Lymph % (Auto) [place] % (Auto) Eos % (Auto) Baso % (Auto) Neut # (Auto) Lymph # (Auto) [place] # (Auto) Eos # (Auto) Baso # (Auto) Abs Immat Gran (auto) Absolute Nucleated RBC Nucleated RBC % (auto) Smear Tech's Comments Anion Gap Estim Creat Clear Calc Estimated GFR Random Glucose Fasting Glucose Calcium Total Bilirubin 1.0 Direct Bilirubin 0.7 H AST 30 ALT 26 Alkaline Phosphatase 62 Troponin I High Sens 153.2 H B-Natriuretic Peptide Total Protein 5.5 L Albumin 3.6 Free T4 Coronavirus (PCR) NEGATIVE 04/12/20 04/12/20 04/12/20 05:41 05:41 05:41 MCV 105.2 H MCH 32.3 MCHC 30.7 L RDW 17.8 H Plt Count 212 MPV 9.9 Immature Gran % (Auto) 0.5 H Neut % (Auto) 63.8 Lymph % (Auto) 13.6 L [place] % (Auto) 17.9 H Eos % (Auto) 3.5 Baso % (Auto) 0.7 Neut # (Auto) 2.6 Lymph # (Auto) 0.6 L [place] # (Auto) 0.7 Eos # (Auto) 0.1 Baso # (Auto) 0.0 Abs Immat Gran (auto) 0.02 Absolute Nucleated RBC 0.020 H Nucleated RBC % (auto) 0.5 H Smear Tech's Comments VERIFIED Anion Gap 11 L Estim Creat Clear Calc 71.3 Estimated GFR > 60 Random Glucose 83 Fasting Glucose Calcium 7.8 L Total Bilirubin Direct Bilirubin AST ALT Alkaline Phosphatase Troponin I High Sens B-Natriuretic Peptide 1028 H Total Protein Albumin Free T4 Coronavirus (PCR) 04/12/20 04/12/20 08:20 08:21 MCV 104.7 H MCH 32.4 MCHC 31.0 RDW 17.9 H Plt Count 235 MPV 9.9 Immature Gran % (Auto) 0.5 H Neut % (Auto) 69.3 Lymph % (Auto) 10.7 L [place] % (Auto) 14.6 H Eos % (Auto) 4.4 H Baso % (Auto) 0.5 Neut # (Auto) 2.9 Lymph # (Auto) 0.4 L [place] # (Auto) 0.6 Eos # (Auto) 0.2 Baso # (Auto) 0.0 Abs Immat Gran (auto) 0.02 Absolute Nucleated RBC 0.020 H Nucleated RBC % (auto) 0.5 H Smear Tech's Comments Anion Gap 12 Estim Creat Clear Calc 68.5 Estimated GFR > 60 Random Glucose Fasting Glucose 115 H Calcium 8.4 Total Bilirubin Direct Bilirubin AST ALT Alkaline Phosphatase Troponin I High Sens B-Natriuretic Peptide Total Protein Albumin Free T4 1.69 Coronavirus (PCR) Microbiology Microbiology Results: Microbiology 04/11/20 08:05 Blood - Venous Blood Culture - Preliminary No growth after 24 hours. 04/11/20 07:29 Blood - Venous Blood Culture - Preliminary No growth after 24 hours. 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 1. acute respiratory failure with hypoxia From fluid overload, possibly due to heart failure See details below 2. question congestive heart failure BNP is up she is improving with some IV Lasix, will continue with 20 mg twice daily 2D echo to be completed Cardiology input appreciated 3. pulmonary embolism, recently diagnosed Continue her Eliquis 4. CML Continue imatinib -- needs to be brought in 5. mood Continue her chronic psychiatric medications at her home doses 6. pancytopenia Chronic, presumably related to her CML Continue monitoring next full code DVT prophylaxis, on Eliquis
[2020-04-12 14:20] VITALS: BMI 44.8
[2020-04-12 15:34] VITALS: BP 105/53; PULSE 91; RESP 20; TEMP 36.5; O2SAT 96
[2020-04-12 19:46] VITALS: BP 96/45; PULSE 107; RESP 18; TEMP 36.8; O2SAT 92
[2020-04-12 20:00] VITALS: BP 96/45; PULSE 107; RESP 18; TEMP 36.8; O2SAT 91
[2020-04-12] MEDS: traMADoL HCL 50 MG TABLET PO (20:27)
[2020-04-12] MEDS: traZODone HCL 100 MG TABLET 300 MG PO (21:31)
[2020-04-13] VITALS (10 sets, daily range): BP systolic 101–142; BP diastolic 54–90; PULSE 72–100; RESP 18–22; TEMP 36.5–37.2; O2SAT 94–98
[2020-04-13] MEDS: traMADoL HCL 50 MG TABLET PO ×3 (04:46→22:01)
[2020-04-13] MEDS: Omeprazole 40 MG CAPSULE.DR PO (05:44)
[2020-04-13 06:53] LABS: Basophils Percent Auto 0.4 % (0-2); Eosinophils Absolute Auto 0.3 X10*3/uL (0.0-0.4); Eosinophils Percent Auto 6.3 % (0-4); Hematocrit 23.5 % (37-47); Hemoglobin 7.2 g/dl (12.0-16.0); Imm Gran Abs Auto 0.01 X10*3/uL (0.00-0.03); Imm Gran Pct Auto 0.2 % (0.0-0.4); Lymphocytes Absolute Auto 0.5 X10*3/uL (1.2-4.9); Lymphocytes Percent Auto 10.9 % (20-40); MANUAL DIFF FLAG SCAN; Mean Corpuscular HGB Conc 30.6 g/dl (31.0-35.0); Mean Corpuscular Hemoglobin 32.1 pg (27.0-33.0); Mean Corpuscular Volume 104.9 fL (80-98); Mean Platelet Volume 10.1 fL (9.4-12.3); Monocytes Absolute Auto 0.7 X10*3/uL (0.1-1.2); Monocytes Percent Auto 15.5 % (2-11); Neutrophils Absolute Auto 3.1 X10*3/uL (2.0-8.3); Neutrophils Percent Auto 66.7 % (45-73); Platelet Count 212 X10*3/uL (160-400); Red Blood Count 2.24 X10*6/uL (4.20-5.50); Red Cell Distribution Width 17.7 % (11.0-16.0); SCAN SMEAR FLAG 1; White Blood Count 4.6 X10*3/uL (4.8-10.8)
[2020-04-13 07:26] LABS: Anion Gap 10 (12-20); Blood Urea Nitrogen 10 mg/dL (9-16); Calcium 7.9 mg/dL (8.4-10.2); Carbon Dioxide 36 mmol/L (22-29); Chloride 95 mmol/L (96-108); Creatinine Clr Calc Pharmacy 68.5; Estimated Glomerular Filt Rate > 60; Glucose Fasting 111 mg/dL (60-99); Potassium 3.4 mmol/l (3.3-5.1); Sodium 138 mmol/L (135-145)
[2020-04-13 07:38] LABS: SLIDE REVIEW VERIFIED
[2020-04-13] MEDS: Furosemide 20 MG/2 ML VIAL IVPUSH ×2 (08:48→16:19)
[2020-04-13] MEDS: Venlafaxine HCl ER 75 MG CAP.ER.24H PO (08:48)
[2020-04-13] MEDS: Aspirin Enteric Coated 81 MG TABLET.DR PO (08:48)
[2020-04-13] MEDS: Venlafaxine HCl ER 150 MG CAP.ER.24H PO (08:49)
[2020-04-13] MEDS: Lurasidone HCl 40 MG TABLET PO (08:49)
[2020-04-13] MEDS: Apixaban 5 MG TABLET PO ×2 (08:49→22:01)
[2020-04-13] MEDS: busPIRone HCl 5 MG TABLET PO ×3 (08:49→22:01)
[2020-04-13] MEDS: Gabapentin 400 MG CAPSULE 800 MG PO ×3 (08:49→22:01)
[2020-04-13] MEDS: Mirabegron 50 MG TAB.ER.24H PO (08:49)
[2020-04-13] MEDS: Cyanocobalamin (Vitamin B-12) 1,000 MCG TABLET 1000 MCG PO (08:49)
[2020-04-13] MEDS: Metoprolol Tartrate 25 MG TABLET PO ×2 (10:01→22:02)
--- NOTE | 2020-04-13 11:43 | P.PNCA_ITS ---
Subjective Subjective Interval history: Seen and examined patient. She states that her breathing is better today. However, she still not a good historian and difficult to obtain lot of information. No anginal-type symptoms. Review of Systems Review of Systems Denies any angina. Shortness of breath is at baseline. No dizzy spells or syncopal episodes. Remainder of the 10 system review is negative. Physical Exam Vital Signs and I&O: Vital Signs Temp 98.0 F 04/13/20 11:01 Pulse 85 04/13/20 11:01 Resp 18 04/13/20 11:01 BP 105/61 04/13/20 11:01 Pulse Ox 96 04/13/20 08:00 Comfortable, no distress No pallor, icterus or cyanosis HEENT -unremarkable JVD- normal Cardiac- normal heart sounds, 2/6 FRANK aortic area, no gallops or rubs, normal PMI Respiratory- few scattered crackles Abdomen- soft, nontender Neuro- alert and oriented Lower extremities- no significant edema, warm well perfused Progress Note: A&P Assessment and plan (1) Acute dyspnea: Status: Acute (2) CHF (congestive heart failure): Status: Acute (3) LBBB (left bundle branch block): Status: Acute (4) Pulmonary embolism: Status: Acute Assessment and Plan: Difficult to obtain a clear history but based on patient's description, recent shortness of breath as well as a history of pulmonary embolism. Cardiac BNP is clearly elevated. Echocardiogram Conclusions: - The left ventricular systolic function is mildly decreased. The visually estimated ejection fraction is between 45-50%. - Evidence suggests grade II (moderate) diastolic dysfunction. - There is mild aortic valve stenosis. - There is mild mitral annular calcification. - Mild pulmonary hypertension is present. Telemetry shows underlying sinus rhythm but there is lot of PACs and probably runs of atrial tachycardia; I really doubt these are NSVT episodes. overall, we can treat her with gentle diuretics for diastolic heart failure. We can start her on beta-blockers due to the telemetry runs of atrial tachycardia. There is a mention of proximal atrial fibrillation that was apparently a transient episode during endoscopy but I am again not clear if that was ?atrial tachycardia as well. In any case, she needs anticoagulation for the pulmonary embolism. Fall Risk Details Current Medications: Current Medications Generic Name Dose Route Start Last Admin Trade Name Freq PRN Reason Stop Dose Admin Apixaban 5 mg 04/11/20 21:00 04/13/20 08:49 Apixaban 5 Mg Tablet PO 5 mg BID SHEN Administration Aspirin 81 mg 04/12/20 09:00 04/13/20 08:48 Aspirin Enteric Coated 81 Mg Tablet. PO 81 mg DAILY SHEN Administration Buspirone HCl 5 mg 04/11/20 15:54 04/13/20 08:49 Buspirone Hcl 5 Mg Tablet PO 5 mg TID SHEN Administration Calcium Carbonate 500 mg 04/11/20 21:00 04/13/20 08:49 Calcium Carbonate 500 Mg Tablet PO 500 mg BID SHEN Administration Cyanocobalamin 1,000 mcg 04/12/20 09:00 04/13/20 08:49 Cyanocobalamin (Vitamin B-12) 1,000 Mcg Tablet PO 1,000 mcg DAILY SHEN Administration Furosemide 20 mg 04/11/20 17:00 04/13/20 08:48 Furosemide 20 Mg/2 Ml Vial IVPUSH 20 mg BIDWM SHEN Administration Protocol Gabapentin 800 mg 04/11/20 15:54 04/13/20 08:49 Gabapentin 400 Mg Capsule PO 800 mg TID SHEN Administration Lurasidone HCl 40 mg 04/11/20 15:54 04/13/20 08:49 Lurasidone Hcl 40 Mg Tablet PO 40 mg DAILY SHEN Administration Mirabegron 50 mg 04/11/20 15:54 04/13/20 08:49 Mirabegron 50 Mg Tab.Er.24h PO 50 mg DAILY SHEN Administration Non-Formulary Medication 400 mg 04/11/20 15:54 Imatinib PO DAILY [facility] Omeprazole 40 mg 04/12/20 06:30 04/13/20 05:44 Omeprazole 40 Mg Capsule. PO 40 mg DAILY@0630 [facility] Administration Ondansetron HCl 4 mg 04/11/20 19:21 Ondansetron Hcl 4 Mg/2 Ml Vial IVPUSH Q8H PRN Nausea and Vomiting Oxybutynin Chloride 15 mg 04/12/20 09:00 04/13/20 08:49 Oxybutynin Chloride Er 5 Mg Tab.Er.24 PO 15 mg DAILY SHEN Administration Pharmacy Consult 1 each 04/11/20 08:18 Consult Rx Perform Med Rec MISCELLANE ONCE PRN Consult order Tramadol HCl 50 mg 04/11/20 15:54 04/13/20 04:46 Tramadol Hcl 50 Mg Tablet PO 50 mg TID PRN Administration Pain (Scale Score 4-6) Trazodone HCl 300 mg 04/11/20 21:00 04/12/20 21:31 Trazodone Hcl 100 Mg Tablet PO 300 mg BEDTIME SHEN Administration Venlafaxine HCl 150 mg 04/11/20 15:54 04/13/20 08:49 Venlafaxine Hcl Er 150 Mg Cap.Er.24h PO 150 mg DAILY SHEN Administration Venlafaxine HCl 75 mg 04/12/20 09:00 04/13/20 08:48 Venlafaxine Hcl Er 75 Mg Cap.Er.24h PO 75 mg DAILY SHEN Administration Time Spent With Patient Time: Total time spent is greater than 50% in coordination of care (as documented) at patient's floor/unit and/or counseling patient: Time with patient: 15 - 24 minutes
--- NOTE | 2020-04-13 16:07 | PM.IMPN ---
Subjective Subjective Date of Service: 04/13/20 Interval History: seen and examined breathing improved very emtional and difficulty articulating her concerns reports not eating well, reports dysphagia but no odynophagia or abdominal pain Review of Systems General - no fevers or chills Cardiovascular - no chest pain Respiratory - sob improved Abdominal- no abdominal pain, nausea, vomiting, diarrhea ent - dysphagia, no odynophagia Physical Exam Vital Signs and I&O and Narrative: Vital Signs and I&O: Vital Signs Temp 97.7 F 04/13/20 15:34 Pulse 97 04/13/20 15:34 Resp 22 H 04/13/20 15:34 BP 106/58 L 04/13/20 15:34 Pulse Ox 94 04/13/20 15:34 Intake & Output 04/12/20 04/13/20 04/13/20 18:59 06:59 18:59 Intake Total 240 / 240 522 / 522 Output Total 300 / 1300 1000 / 1300 500 / 500 Balance -60 / -1060 -1000 / -1060 22 / 22 Urine Output (Aver age ml/kg/hr) 0.28 0.92 0.46 Weight 90.718 kg Intake: Intake, Oral [place] unt 240 / 240 240 / 240 Intake (Blood Pr oduct) Amount 282 / 282 Red Blood Cell s Aph (E0685) 282 / 282 Unit [id number] Output: Output, Urine Am ount 500 / 500 Output, Urine Am ount (Catheter) 300 / 1300 1000 / 1300 2-way Urethral 300 / 300 Urethral 300 / 1000 700 / 1000 Other: Breakfast % Eate n 75% Lunch % Eaten 75% 75% Urine sky Urine Color Yellow Tea Hilda Body Mass Index 44.8 General - no acute distress, appears comfortable Cardiovascular - regular rate and rhythm, S1-S2 Lungs - rhonchi, improving Abdomen - soft, nontender, no rebound regarding Extremities - no edema bilaterally Neuro - awake and alert, no focal deficits Objective Data Current Medications Generic Name Dose Route Start Last Admin Trade Name Freq PRN Reason Stop Dose Admin Apixaban 5 mg 04/11/20 21:00 04/13/20 08:49 Apixaban 5 Mg Tablet PO 5 mg BID SHEN Administration Aspirin 81 mg 04/12/20 09:00 04/13/20 08:48 Aspirin Enteric Coated 81 Mg Tablet. PO 81 mg DAILY SHEN Administration Buspirone HCl 5 mg 04/11/20 15:54 04/13/20 08:49 Buspirone Hcl 5 Mg Tablet PO 5 mg TID SHEN Administration Calcium Carbonate 500 mg 04/11/20 21:00 04/13/20 08:49 Calcium Carbonate 500 Mg Tablet PO 500 mg BID SHEN Administration Cyanocobalamin 1,000 mcg 04/12/20 09:00 04/13/20 08:49 Cyanocobalamin (Vitamin B-12) 1,000 Mcg Tablet PO 1,000 mcg DAILY SHEN Administration Furosemide 20 mg 04/11/20 17:00 04/13/20 08:48 Furosemide 20 Mg/2 Ml Vial IVPUSH 20 mg BIDWM SHEN Administration Protocol Gabapentin 800 mg 04/11/20 15:54 04/13/20 08:49 Gabapentin 400 Mg Capsule PO 800 mg TID SHEN Administration Lurasidone HCl 40 mg 04/11/20 15:54 04/13/20 08:49 Lurasidone Hcl 40 Mg Tablet PO 40 mg DAILY SHEN Administration Mirabegron 50 mg 04/11/20 15:54 04/13/20 08:49 Mirabegron 50 Mg Tab.Er.24h PO 50 mg DAILY SHEN Administration (Pt Own) Imatinib 1 each 04/14/20 09:00 400mg Tab) PO DAILY SHEN Omeprazole 40 mg 04/12/20 06:30 04/13/20 05:44 Omeprazole 40 Mg Capsule.Dr PO 40 mg DAILY@0630 SHEN Administration Ondansetron HCl 4 mg 04/11/20 19:21 Ondansetron Hcl 4 Mg/2 Ml Vial IVPUSH Q8H PRN Nausea and Vomiting Oxybutynin Chloride 15 mg 04/12/20 09:00 04/13/20 08:49 Oxybutynin Chloride Er 5 Mg Tab.Er.24 PO 15 mg DAILY SHEN Administration Pharmacy Consult 1 each 04/11/20 08:18 Consult Rx Perform Med Rec MISCELLANE ONCE PRN Consult order Tramadol HCl 50 mg 04/11/20 15:54 04/13/20 11:48 Tramadol Hcl 50 Mg Tablet PO 50 mg TID PRN Administration Pain (Scale Score 4-6) Trazodone HCl 300 mg 04/11/20 21:00 04/12/20 21:31 Trazodone Hcl 100 Mg Tablet PO 300 mg BEDTIME SHEN Administration Venlafaxine HCl 150 mg 04/11/20 15:54 04/13/20 08:49 Venlafaxine Hcl Er 150 Mg Cap.Er.24h PO 150 mg DAILY SHEN Administration Venlafaxine HCl 75 mg 04/12/20 09:00 04/13/20 08:48 Venlafaxine Hcl Er 75 Mg Cap.Er.24h PO 75 mg DAILY SHEN Administration Labs CBC & Chem 7: 04/13/20 06:01 04/13/20 06:01 Microbiology Microbiology Results: Microbiology 04/11/20 08:05 Blood - Venous Blood Culture - Preliminary No growth after 48 hours. 04/11/20 07:29 Blood - Venous Blood Culture - Preliminary No growth after 48 hours. 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 1. acute respiratory failure with hypoxia From fluid overload, possibly due to heart failure, recent pe wean o2 as possible See details below 2. Acute HFrEF / arrythmia echo showing ef down but about the same as echo from [facility] change to PO lasix by tomorrow low dose metoprolol Cardiology input appreciated low dose bb 3. pulmonary embolism, recently diagnosed Continue her Eliquis 4. CML Continue imatinib -- needs to be brought in 5. mood Continue her chronic psychiatric medications at her home doses 6. pancytopenia Chronic, presumably related to her CML Continue monitoring next full code DVT prophylaxis, on Eliquis
[2020-04-13] MEDS: traZODone HCL 100 MG TABLET 300 MG PO (22:01)
[2020-04-14] VITALS (7 sets, daily range): BP systolic 95–136; BP diastolic 53–74; PULSE 70–86; RESP 16–22; TEMP 36.2–37.1; O2SAT 90–97
--- NOTE | 2020-04-14 | XR_ITS ---
EXAMINATION: XR ANKLE, LEFT CLINICAL INFORMATION: Lateral malleolar fracture, follow-up. COMPARISON: 03/09/2020 left ankle radiographs. TECHNIQUE: AP, lateral, and mortise views of the left ankle. FINDINGS: Again seen is a minimally displaced lateral malleolus fracture. There is a nondisplaced transverse fracture of the medial malleolus distally. The tibiotalar joint space is unremarkable. The tarsal bones are normally aligned. The soft tissues are unremarkable. Moderate to severe small vessel arteriosclerosis is again noted. IMPRESSION: 1. Minimally displaced lateral malleolus fracture without significant change. 2. Nondisplaced medial malleolus fracture was not seen previously. The lack of significant soft tissues swelling suggests this is not acute and is likely occult on the previous study.
[2020-04-14] MEDS: Omeprazole 40 MG CAPSULE.DR PO (06:29)
[2020-04-14] MEDS: traMADoL HCL 50 MG TABLET PO ×2 (06:32→13:41)
[2020-04-14 06:57] LABS: Basophils Percent Auto 0.7 % (0-2); Eosinophils Absolute Auto 0.4 X10*3/uL (0.0-0.4); Eosinophils Percent Auto 9.8 % (0-4); Hematocrit 26.9 % (37-47); Hemoglobin 8.2 g/dl (12.0-16.0); Imm Gran Abs Auto 0.01 X10*3/uL (0.00-0.03); Imm Gran Pct Auto 0.2 % (0.0-0.4); Lymphocytes Absolute Auto 0.7 X10*3/uL (1.2-4.9); Lymphocytes Percent Auto 15.3 % (20-40); MANUAL DIFF FLAG SCAN; Mean Corpuscular HGB Conc 30.5 g/dl (31.0-35.0); Mean Corpuscular Hemoglobin 31.3 pg (27.0-33.0); Mean Corpuscular Volume 102.7 fL (80-98); Mean Platelet Volume 10.1 fL (9.4-12.3); Monocytes Absolute Auto 0.8 X10*3/uL (0.1-1.2); Monocytes Percent Auto 18.7 % (2-11); Neutrophils Absolute Auto 2.4 X10*3/uL (2.0-8.3); Neutrophils Percent Auto 55.3 % (45-73); Platelet Count 196 X10*3/uL (160-400); Red Blood Count 2.62 X10*6/uL (4.20-5.50); Red Cell Distribution Width 19.6 % (11.0-16.0); SCAN SMEAR FLAG 1; White Blood Count 4.4 X10*3/uL (4.8-10.8)
[2020-04-14 07:34] LABS: Anion Gap 11 (12-20); Blood Urea Nitrogen 13 mg/dL (9-16); Calcium 8.5 mg/dL (8.4-10.2); Carbon Dioxide 36 mmol/L (22-29); Chloride 95 mmol/L (96-108); Creatinine Clr Calc Pharmacy 68.5; Estimated Glomerular Filt Rate > 60; Glucose Fasting 88 mg/dL (60-99); Sodium 138 mmol/L (135-145)
[2020-04-14 08:23] LABS: SLIDE REVIEW VERIFIED
[2020-04-14] MEDS: Cyanocobalamin (Vitamin B-12) 1,000 MCG TABLET 1000 MCG PO (10:21)
[2020-04-14] MEDS: Venlafaxine HCl ER 150 MG CAP.ER.24H PO (10:21)
[2020-04-14] MEDS: Lurasidone HCl 40 MG TABLET PO (10:21)
[2020-04-14] MEDS: Apixaban 5 MG TABLET PO ×2 (10:21→22:39)
[2020-04-14] MEDS: Venlafaxine HCl ER 75 MG CAP.ER.24H PO (10:21)
[2020-04-14] MEDS: Metoprolol Tartrate 25 MG TABLET PO ×2 (10:21→22:39)
[2020-04-14] MEDS: Gabapentin 400 MG CAPSULE 800 MG PO ×3 (10:22→22:38)
[2020-04-14] MEDS: busPIRone HCl 5 MG TABLET PO ×3 (10:22→22:38)
[2020-04-14] MEDS: Aspirin Enteric Coated 81 MG TABLET.DR PO (10:22)
[2020-04-14] MEDS: Mirabegron 50 MG TAB.ER.24H PO (10:22)
--- NOTE | 2020-04-14 10:44 | PM.PNCARD ---
Subjective Subjective Interval history: Seen regarding shortness of breath. Patient states that she feels better in that regard. No new cardiac complaints. Review of Systems Review of Systems Cardiac- improved shortness of breath. No angina. No palpitations, dizzy spells or syncopal episodes. Remainder of the 10 system review is negative. Physical Exam Vital Signs and I&O: Vital Signs Temp 97.2 F 04/14/20 07:15 Pulse 71 04/14/20 07:15 Resp 18 04/14/20 07:15 BP 126/69 04/14/20 07:15 Pulse Ox 94 04/14/20 07:15 Intake & Output 04/13/20 04/14/20 04/14/20 18:59 06:59 18:59 Intake Total 522 / 762 240 / 762 120 / 120 Output Total 500 / 1300 800 / 1300 Balance 22 / -538 -560 / -538 120 / 120 Urine Output (Average ml/kg/hr) 0.46 0.73 0.73 Intake: Intake, Oral Amount 240 / 480 240 / 480 120 / 120 Intake (Blood Product) Amount 282 / 282 Red Blood Cells Aph (E0685) 282 / 282 Unit [id number] Output: Output, Urine Amount 500 / 500 Output, Urine Amount (Catheter) 800 / 800 2-way Urethral 800 / 800 Other: Meal Refused No NPO No Breakfast % Eaten 25% Lunch % Eaten 75% Dinner % Eaten 100% Urine sky sky Urine Color Hilda Tea Stool Bedpan Weight 200 lb Comfortable, no distress No pallor, icterus or cyanosis HEENT -unremarkable JVD- normal Cardiac- normal heart sounds, 2/6 FRANK aortic area, no gallops or rubs, normal PMI Respiratory- few scattered crackles Abdomen- soft, nontender Neuro- alert and oriented Lower extremities- no significant edema, warm well perfused Progress Note: A&P Assessment and plan (1) Acute dyspnea: Status: Acute (2) LBBB (left bundle branch block): Status: Acute (3) Atrial tachycardia: Status: Acute (4) Acute diastolic CHF (congestive heart failure): Status: Acute (5) Pulmonary embolism: Status: Acute Assessment and Plan: Difficult to obtain a clear history but based on patient's description, recent shortness of breath as well as a history of pulmonary embolism. Cardiac BNP is clearly elevated. Echocardiogram Conclusions: - The left ventricular systolic function is mildly decreased. The visually estimated ejection fraction is between 45-50%. - Evidence suggests grade II (moderate) diastolic dysfunction. - There is mild aortic valve stenosis. - There is mild mitral annular calcification. - Mild pulmonary hypertension is present. Telemetry shows underlying sinus rhythm; Much improved PACs after starting beta-blockers. Overall, we can treat her with gentle diuretics for diastolic heart failure. Continue beta-blockers due to the telemetry runs of atrial tachycardia. There is a mention of paroxysmal atrial fibrillation that was apparently a transient episode during endoscopy but I am again not clear if that was ?atrial tachycardia as well. In any case, she needs anticoagulation for the pulmonary embolism. Fall Risk Details Current Medications: Current Medications Generic Name Dose Route Start Last Admin Trade Name Freq PRN Reason Stop Dose Admin Apixaban 5 mg 04/11/20 21:00 04/14/20 10:21 Apixaban 5 Mg Tablet PO 5 mg BID SHEN Administration Aspirin 81 mg 04/12/20 09:00 04/14/20 10:22 Aspirin Enteric Coated 81 Mg Tablet.Dr PO 81 mg DAILY SHEN Administration Buspirone HCl 5 mg 04/11/20 15:54 04/14/20 10:22 Buspirone Hcl 5 Mg Tablet PO 5 mg TID SHEN Administration Calcium Carbonate 500 mg 04/11/20 21:00 04/14/20 10:21 Calcium Carbonate 500 Mg Tablet PO 500 mg BID SHEN Administration Cyanocobalamin 1,000 mcg 04/12/20 09:00 04/14/20 10:21 Cyanocobalamin (Vitamin B-12) 1,000 Mcg Tablet PO 1,000 mcg DAILY SHEN Administration Gabapentin 800 mg 04/11/20 15:54 04/14/20 10:22 Gabapentin 400 Mg Capsule PO 800 mg TID SHEN Administration Lurasidone HCl 40 mg 04/11/20 15:54 04/14/20 10:21 Lurasidone Hcl 40 Mg Tablet PO 40 mg DAILY SHEN Administration Metoprolol Tartrate 25 mg 04/13/20 21:00 04/14/20 10:21 Metoprolol Tartrate 25 Mg Tablet PO 25 mg BID SHEN Administration Protocol Mirabegron 50 mg 04/11/20 15:54 04/14/20 10:22 Mirabegron 50 Mg Tab.Er.24h PO 50 mg DAILY SHEN Administration (Pt Own) Imatinib 1 each 10/09/20 09:00 04/14/20 10:23 400mg Tab) PO 1 each DAILY SHEN Administration Omeprazole 40 mg 04/12/20 06:30 04/14/20 06:29 Omeprazole 40 Mg Capsule.Dr PO 40 mg DAILY@0630 SHEN Administration Ondansetron HCl 4 mg 04/11/20 19:21 Ondansetron Hcl 4 Mg/2 Ml Vial IVPUSH Q8H PRN Nausea and Vomiting Oxybutynin Chloride 15 mg 04/12/20 09:00 04/14/20 10:20 Oxybutynin Chloride Er 5 Mg Tab.Er.24 PO 15 mg DAILY SHEN Administration Pharmacy Consult 1 each 04/11/20 08:18 Consult Rx Perform Med Rec MISCELLANE ONCE PRN Consult order Tramadol HCl 50 mg 04/11/20 15:54 04/14/20 06:32 Tramadol Hcl 50 Mg Tablet PO 50 mg TID PRN Administration Pain (Scale Score 4-6) Trazodone HCl 300 mg 04/11/20 21:00 04/13/20 22:01 Trazodone Hcl 100 Mg Tablet PO 300 mg BEDTIME SHEN Administration Venlafaxine HCl 150 mg 04/11/20 15:54 04/14/20 10:21 Venlafaxine Hcl Er 150 Mg Cap.Er.24h PO 150 mg DAILY SHEN Administration Venlafaxine HCl 75 mg 04/12/20 09:00 04/14/20 10:21 Venlafaxine Hcl Er 75 Mg Cap.Er.24h PO 75 mg DAILY SHEN Administration Time Spent With Patient Time: Total time spent is greater than 50% in coordination of care (as documented) at patient's floor/unit and/or counseling patient: Time with patient: 15 - 24 minutes
--- NOTE | 2020-04-14 13:24 | MHC.CM.PN ---
[facility] TRANSPORT
--- NOTE | 2020-04-14 14:38 | PM.IMPN ---
Subjective Subjective Date of Service: 04/14/20 Interval History: seen and examined no new complaints Review of Systems General - no fevers or chills Cardiovascular - no chest pain Respiratory - no shortness of breath or cough Abdominal- no abdominal pain, nausea, vomiting, diarrhea Physical Exam Vital Signs and I&O and Narrative: Vital Signs and I&O: Vital Signs Temp 97.8 F 04/14/20 12:00 Pulse 71 04/14/20 07:15 Resp 18 04/14/20 12:00 BP 136/74 04/14/20 12:00 Pulse Ox 95 04/14/20 12:00 Intake & Output 04/13/20 04/14/20 04/14/20 18:59 06:59 18:59 Intake Total 522 / 762 240 / 762 580 / 580 Output Total 500 / 1300 800 / 1300 450 / 450 Balance 22 / -538 -560 / -538 130 / 130 Urine Output (Aver age ml/kg/hr) 0.46 0.73 0.41 Intake: Intake, Oral [place] unt 240 / 480 240 / 480 580 / 580 Intake (Blood Pr oduct) Amount 282 / 282 Red Blood Cell s Aph (E0685) 282 / 282 Unit [id number] Output: Output, Urine Am ount 500 / 500 Output, Urine Am ount (Catheter) 800 / 800 450 / 450 2-way Urethral 800 / 800 Urethral 450 / 450 Other: Meal Refused No No NPO No Breakfast % Eate n 25% Lunch % Eaten 75% 50% Dinner % Eaten 100% Urine sky sky Urine Color Hilda Tea Stool Bedpan Body Mass Index 44.8 General - no acute distress, appears comfortable Cardiovascular - regular rate and rhythm, S1-S2 Lungs - no distress Abdomen - soft, nontender, no rebound regarding Extremities - no edema bilaterally Neuro - awake and alert, no focal deficits Objective Data Current Medications Generic Name Dose Route Start Last Admin Trade Name Freq PRN Reason Stop Dose Admin Apixaban 5 mg 04/11/20 21:00 04/14/20 10:21 Apixaban 5 Mg Tablet PO 5 mg BID SHEN Administration Aspirin 81 mg 04/12/20 09:00 04/14/20 10:22 Aspirin Enteric Coated 81 Mg Tablet. PO 81 mg DAILY SHEN Administration Buspirone HCl 5 mg 04/11/20 15:54 04/14/20 13:41 Buspirone Hcl 5 Mg Tablet PO 5 mg TID SHEN Administration Calcium Carbonate 500 mg 04/11/20 21:00 04/14/20 10:21 Calcium Carbonate 500 Mg Tablet PO 500 mg BID SHEN Administration Cyanocobalamin 1,000 mcg 04/12/20 09:00 04/14/20 10:21 Cyanocobalamin (Vitamin B-12) 1,000 Mcg Tablet PO 1,000 mcg DAILY SHEN Administration Gabapentin 800 mg 04/11/20 15:54 04/14/20 13:41 Gabapentin 400 Mg Capsule PO 800 mg TID SHEN Administration Lurasidone HCl 40 mg 04/11/20 15:54 04/14/20 10:21 Lurasidone Hcl 40 Mg Tablet PO 40 mg DAILY SHEN Administration Metoprolol Tartrate 25 mg 04/13/20 21:00 04/14/20 10:21 Metoprolol Tartrate 25 Mg Tablet PO 25 mg BID SHEN Administration Protocol Mirabegron 50 mg 04/11/20 15:54 04/14/20 10:22 Mirabegron 50 Mg Tab.Er.24h PO 50 mg DAILY SHEN Administration (Pt Own) Imatinib 1 each 04/14/20 09:00 04/14/20 10:23 400mg Tab) PO 1 each DAILY SHEN Administration Omeprazole 40 mg 04/12/20 06:30 04/14/20 06:29 Omeprazole 40 Mg Capsule.Dr PO 40 mg DAILY@0630 SHEN Administration Ondansetron HCl 4 mg 04/11/20 19:21 Ondansetron Hcl 4 Mg/2 Ml Vial IVPUSH Q8H PRN Nausea and Vomiting Oxybutynin Chloride 15 mg 04/12/20 09:00 04/14/20 10:20 Oxybutynin Chloride Er 5 Mg Tab.Er.24 PO 15 mg DAILY SHEN Administration Pharmacy Consult 1 each 04/11/20 08:18 Consult Rx Perform Med Rec MISCELLANE ONCE PRN Consult order Tramadol HCl 50 mg 04/11/20 15:54 04/14/20 13:41 Tramadol Hcl 50 Mg Tablet PO 50 mg TID PRN Administration Pain (Scale Score 4-6) Trazodone HCl 300 mg 04/11/20 21:00 04/13/20 22:01 Trazodone Hcl 100 Mg Tablet PO 300 mg BEDTIME SHEN Administration Venlafaxine HCl 150 mg 04/11/20 15:54 04/14/20 10:21 Venlafaxine Hcl Er 150 Mg Cap.Er.24h PO 150 mg DAILY SHEN Administration Venlafaxine HCl 75 mg 04/12/20 09:00 04/14/20 10:21 Venlafaxine Hcl Er 75 Mg Cap.Er.24h PO 75 mg DAILY SHEN Administration Labs CBC & Chem 7: 04/14/20 05:59 04/14/20 05:59 Labs: Laboratory Results - last 24 hr 04/14/20 04/14/20 05:59 05:59 MCV 102.7 H MCH 31.3 MCHC 30.5 L RDW 19.6 H Plt Count 196 MPV 10.1 Immature Gran % (Auto) 0.2 Neut % (Auto) 55.3 Lymph % (Auto) 15.3 L Ray % (Auto) 18.7 H Eos % (Auto) 9.8 H Baso % (Auto) 0.7 Lymph # (Auto) 0.7 L Ray # (Auto) 0.8 Eos # (Auto) 0.4 Baso # (Auto) 0.0 Abs Immat Gran (auto) 0.01 Absolute Neuts (auto) 2.4 Absolute Nucleated RBC 0.000 Nucleated RBC % (auto) 0.0 Smear Tech's Comments VERIFIED Anion Gap 11 L Estim Creat Clear Calc 68.5 Estimated GFR > 60 Fasting Glucose 88 Calcium 8.5 Microbiology Microbiology Results: Microbiology 04/11/20 08:05 Blood - Venous Blood Culture - Preliminary No growth after 48 hours. 04/11/20 07:29 Blood - Venous Blood Culture - Preliminary No growth after 48 hours. 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 1. acute respiratory failure with hypoxia From fluid overload, possibly due to heart failure, recent pe wean o2 as possible See details below 2. Acute HFrEF / arrythmia echo showing reduced EF but about the same as echo from [facility] PO lasix low dose metoprolol Cardiology input appreciated remove asya 3. pulmonary embolism, recently diagnosed Continue her Eliquis 4. CML Continue imatinib -- needs to be brought in 5. mood Continue her chronic psychiatric medications at her home doses 6. pancytopenia Chronic, presumably related to her CML Continue monitoring full code DVT prophylaxis, on Eliquis
--- NOTE | 2020-04-14 14:45 | PM.CNOR ---
History of Present Illness HPI Chief complaint: left ankle pain Review of Systems Review of Systems: Yes all other systems are reviewed and are negative [facility] Past Medical History Medical History Anxiety Atrial fibrillation Atrial tachycardia Bipolar 1 disorder GERD (gastroesophageal reflux disease) Leukemia in remission Pulmonary embolism Social History Social History Household Members: Spouse Housing: Apartment Alcohol intake: unknown Smoking Status: Former smoker Use of substances other than those prescribed or required for medical reasons: No Currently Displaying Signs/Symptoms of Drug Intoxication Withdrawal: No Have you been hit, kicked, punched, or otherwise hurt by someone within the past year? If so, by whom?: No Do you feel safe in your current relationship?: No Is there a partner from a previous relationship who is making you feel unsafe now?: No Are you made to feel afraid or neglected: No Advance Directives: No Advance Directives Information Provided: Yes Do you have thoughts of harming others: None Do you have a plan to hurt others: No Plan Recently lost weight without trying: No service: No Current occupational status: disabled Meds Allergies Allergy/AdvReac Type Severity Reaction Status Date / Time celecoxib [From CELEBREX] Allergy Mild DIZZY, Verified 04/11/20 07:46 TIRED alprazolam Allergy Unknown U Verified 04/11/20 07:46 carbamazepine [Tegretol] Allergy Unknown Unknown Verified 04/11/20 07:46 clonazepam Allergy Unknown U Verified 04/11/20 07:46 diclofenac Allergy Unknown Unknown Verified 04/11/20 07:46 lamotrigine Allergy Unknown NIGHTMARES Verified 04/11/20 07:46 meloxicam Allergy Unknown Unknown Verified 04/11/20 07:46 oxcarbazepine Allergy Unknown U Verified 04/11/20 07:46 pregabalin Allergy Unknown Unknown Verified 04/11/20 07:46 simvastatin [SIMVASTATIN] Allergy Unknown MUSCLE PAIN Verified 04/11/20 07:46 Darvon Allergy Unknown Unknown Uncoded 04/11/20 07:46 simvastatin AdvReac Unknown muscle pain Uncoded 04/11/20 07:46 Home Medications Medication Instructions Recorded Confirmed Type apixaban [Eliquis] 5 mg BID 04/11/20 04/11/20 History aspirin [Aspirin Low Dose] 81 mg PO DAILY 04/11/20 04/11/20 History buspirone [BuSpar] 5 mg PO TID 04/11/20 04/11/20 History calcium carbonate [Calcium 600] 600 mg PO BID 04/11/20 04/11/20 History cyanocobalamin (vitamin B-12) 1,000 mcg PO DAILY 04/11/20 04/11/20 History [Vitamin B-12] famotidine 40 mg PO BEDTIME 04/11/20 04/11/20 History gabapentin 800 mg PO TID 04/11/20 04/11/20 History imatinib 400 mg PO DAILY 04/11/20 04/11/20 History lurasidone [Latuda] 40 mg PO DAILY 04/11/20 04/11/20 History mirabegron [Myrbetriq] 50 mg PO DAILY 04/11/20 04/11/20 History omeprazole 40 mg PO DAILY 04/11/20 04/11/20 History ondansetron 8 mg PO Q8H PRN 04/11/20 04/11/20 History oxybutynin chloride 15 mg PO DAILY 04/11/20 04/11/20 History tramadol 50 mg PO TID PRN 04/11/20 04/11/20 History trazodone 300 mg PO BEDTIME 04/11/20 04/11/20 History venlafaxine 75 mg PO DAILY 04/11/20 04/11/20 History venlafaxine 150 mg PO DAILY 04/11/20 04/11/20 History Physical Exam Vital Signs and I&O and Narrative: Vital Signs and I&O: Vital Signs Temp 97.8 F 04/14/20 12:00 Pulse 71 04/14/20 07:15 Resp 18 04/14/20 12:00 BP 136/74 04/14/20 12:00 Pulse Ox 95 04/14/20 12:00 Intake & Output 04/13/20 04/14/20 04/14/20 18:59 06:59 18:59 Intake Total 522 / 762 240 / 762 580 / 580 Output Total 500 / 1300 800 / 1300 450 / 450 Balance 22 / -538 -560 / -538 130 / 130 Urine Output (Aver age ml/kg/hr) 0.46 0.73 0.41 Intake: Intake, Oral [place] unt 240 / 480 240 / 480 580 / 580 Intake (Blood Pr oduct) Amount 282 / 282 Red Blood Cell s Aph (E0685) 282 / 282 Unit [id number] Output: Output, Urine Am ount 500 / 500 Output, Urine Am ount (Catheter) 800 / 800 450 / 450 2-way Urethral 800 / 800 Urethral 450 / 450 Other: Meal Refused No No NPO No Breakfast % Eate n 25% Lunch % Eaten 75% 50% Dinner % Eaten 100% Urine sky sky Urine Color Hilda Tea Stool Bedpan Body Mass Index 44.8 Const: General: cooperative and no acute distress Orientation/consciousness: patient oriented x3 Resp: Effort & Inspection: normal respiratory effort and able to speak in complete sentences Cardio: Peripheral pulses: Peripheral pulses 2+ throughout Neuro: General: patient oriented x3 Extrem: Other: Left ankle skin intact. No erythema or swelling. There is mild tenderness to palpation over the lateral malleolus. Full range of motion without pain. Pulses present. Sensation intact. X-rays of the left ankle are significant for minimally displaced lateral malleolar fracture without change from previous studies. Results Labs Result Diagrams: 04/14/20 05:59 04/14/20 05:59 Labs: Abnormal lab results 04/14/20 04/14/20 Range/Units 05:59 05:59 WBC 4.4 L (4.8-10.8) X10*3/uL RBC 2.62 L (4.20-5.50) X10*6/uL Hgb 8.2 L (12.0-16.0) g/dl Hct 26.9 L (37-47) % MCV 102.7 H (80-98) fL MCHC 30.5 L (31.0-35.0) g/dl RDW 19.6 H (11.0-16.0) % Lymph % (Auto) 15.3 L (20-40) % [place] % (Auto) 18.7 H (2-11) % Eos % (Auto) 9.8 H (0-4) % Lymph # (Auto) 0.7 L (1.2-4.9) X10*3/uL Chloride 95 L (96-108) mmol/L Carbon Dioxide 36 H (22-29) mmol/L Anion Gap 11 L (12-20) H & H 04/11/20 04/12/20 04/12/20 Range/Units 07:31 05:41 08:21 Hgb 8.0 L 7.4 L 8.3 L (12.0-16.0) g/dl Hct 25.4 L 24.1 L 26.8 L (37-47) % 04/13/20 04/14/20 Range/Units 06:01 05:59 Hgb 7.2 L 8.2 L (12.0-16.0) g/dl Hct 23.5 L 26.9 L (37-47) % Coagulation 04/11/20 Range/Units 07:30 INR 2.5 H (0.9-1.1) All other labs normal. Assessment and Plan (1) Lateral malleolar fracture: Status: Acute I recommend she continue to weightbear as tolerated with the boot. I would like her to see me back in the office in 4 weeks with x-rays, sooner if needed.
--- NOTE | 2020-04-14 14:59 | MHC.CM.PN ---
Pt is active with [facility]. They will resume services at [place]. CM will follow
[2020-04-14] MEDS: Furosemide 20 MG TABLET PO (16:46)
[2020-04-14] MEDS: traZODone HCL 100 MG TABLET 300 MG PO (22:38)
[2020-04-15] VITALS: BP 113/59; PULSE 70; RESP 20; TEMP 36.4; O2SAT 93
[2020-04-15] MEDS: traMADoL HCL 50 MG TABLET PO ×2 (00:03→11:19)
[2020-04-15 04:00] VITALS: BP 127/77; PULSE 98; RESP 20; TEMP 36.4; O2SAT 94
[2020-04-15] MEDS: Omeprazole 40 MG CAPSULE.DR PO (05:29)
[2020-04-15 08:00] VITALS: BP 119/92; PULSE 82; RESP 16; TEMP 36.6; O2SAT 97
[2020-04-15] MEDS: ondansetron HCL 4 MG/2 ML VIAL IVPUSH (08:53)
[2020-04-15] MEDS: Venlafaxine HCl ER 150 MG CAP.ER.24H PO (08:55)
[2020-04-15] MEDS: Cyanocobalamin (Vitamin B-12) 1,000 MCG TABLET 1000 MCG PO (08:55)
[2020-04-15] MEDS: Metoprolol Tartrate 25 MG TABLET PO (08:55)
[2020-04-15] MEDS: Furosemide 20 MG TABLET PO (08:55)
[2020-04-15] MEDS: Gabapentin 400 MG CAPSULE 800 MG PO ×2 (08:55→15:09)
[2020-04-15] MEDS: Mirabegron 50 MG TAB.ER.24H PO (08:55)
[2020-04-15] MEDS: Apixaban 5 MG TABLET PO (08:55)
[2020-04-15] MEDS: Lurasidone HCl 40 MG TABLET PO (08:55)
[2020-04-15] MEDS: busPIRone HCl 5 MG TABLET PO ×2 (08:55→15:09)
[2020-04-15] MEDS: Venlafaxine HCl ER 75 MG CAP.ER.24H PO (08:56)
[2020-04-15 12:00] VITALS: BP 106/46; PULSE 76; RESP 20; TEMP 37.2; O2SAT 96
--- NOTE | 2020-04-15 13:25 | MHC.CM.PN ---
Per MD discussion, Patient has been medically cleared for dc to home today with [facility]. Patient was active with [facility], who has been notified verbally and via faxed dc summary, of today's dc. Patient and are aware of and in agreement with the dc plan. Second IMM addressed with Patient. Patient will return home via [facility] at 4 PM.
--- NOTE | 2020-04-15 15:22 | PM.DS ---
DS: Providers Provider Date of admission: 04/11/20 15:33 Primary care physician: Vandana Gomez MD Consults: 04/11/20 15:54 Consult to Cardiology Routine Consulting Provider: [facility] Cardiovascular Services Reason for consultation: CHF Has provider been notified: No 04/13/20 13:31 Consult to Orthopedics Routine Consulting Provider: Oniel Mancini Reason for consultation: follow ankle fracture DS: Diagnosis Discharge Diagnosis (1) Acute respiratory failure with hypoxia: Status: Inactive (2) Acute systolic HF (heart failure): Status: Acute (3) Acute on chronic anemia: Status: Acute (4) Pulmonary embolism: Status: Acute (5) Lateral malleolar fracture: Status: Acute DS: Summary Hospital Course Hospital Course: Patient presented with multiple problems. Workup was initiated for her shortness of breath which was presumed secondary to acute congestive heart failure. She underwent IV diuresis, cardiology consultation and 2D echo. Echo showed a reduced ejection fraction between 45-50, unchanged from her prior echo at [facility].. She was transitioned from IV Lasix to p.o. 20 mg at the time of discharge. there was a question regarding patient's cardiac rhythm with frequent ectopic beats. detailed review was done by Cardiology and deemed not to have atrial fibrillation. Nonetheless, since she is on Eliquis for her history of pulmonary embolism, she will be covered with anticoagulation. She was commenced on low-dose metoprolol 25 b.i.d.. patient's hospital course was further complicated by acute on chronic anemia. She was transfused 1 unit packed red cells with improvement in her symptoms as well as H&H. Lastly in regards to the patient's known left ankle fracture, she was unable to make it to her orthopedic appointments as an outpatient and so ortho evaluated her in house. They recommended weight-bearing as tolerated and to see them in the office in about 4 weeks or sooner with x-rays. Patient's oxygen requirements did improve in the hospital but she was evaluated for home O2 at the time of discharge for which she qualified. Detailed discussion with the patient and her was held daily in regards to appropriate disposition. Physical therapy evaluation and subsequent short-term rehab was discussed, however the opted for home with services. Time Spent with Patient Time attestation: Total time spent providing and/or coordinating discharge services: Physical Exam Vital Signs: Vital Signs: Vital Signs Temp Pulse Resp BP Pulse Ox 04/15/20 12:00 98.9 F 76 20 106/46 L 96 04/15/20 08:00 97.8 F 82 16 119/92 H 97 04/15/20 04:00 97.6 F 98 20 127/77 94 04/15/20 00:00 97.5 F 70 20 113/59 L 93 04/14/20 22:39 81 108/53 L 04/14/20 20:00 98.8 F 86 20 113/56 L 95 04/14/20 16:00 98.3 F 79 22 H 116/62 90 L Body Mass Index 44.8 DS: Data Data Completed and Pending Labs on day of discharge: Preliminary micro results at discharge 04/11/20 08:05 Blood Culture - Preliminary Blood - Venous No growth after 48 hours. 04/11/20 07:29 Blood Culture - Preliminary Blood - Venous No growth after 48 hours. Discharge Plan Discharge Patient Disposition: Home Health Service Referrals: [facility] [Outside] Vandana Gomez MD [Primary Care Provider] - 1 Week (Please call and schedule a follow up appointment within 1 week.) Oniel Mancini PA-C [Physician Voltage Inspector] - 4 Weeks (follow up in 4 weeks) Discharge Medications: New furosemide 20 mg Tablet 20 mg PO DAILY Qty: 30 RF: 0 metoprolol tartrate 25 mg Tablet 25 mg PO BID Qty: 60 RF: 0 Continued buspirone 5 mg Tablet 5 mg PO TID RF: 0 cyanocobalamin (vitamin B-12) [Vitamin B-12] 1,000 mcg Tablet 1,000 mcg PO DAILY RF: 0 omeprazole 40 mg Capsule,Delayed Release(Dr/Ec) 40 mg PO DAILY RF: 0 aspirin [Aspirin Low Dose] 81 mg Tablet,Delayed Release (Dr/Ec) 81 mg PO DAILY RF: 0 tramadol 50 mg Tablet 50 mg PO TID PRN (Reason: Pain (Scale Score 4-6)) RF: 0 gabapentin 800 mg Tablet 800 mg PO TID RF: 0 trazodone 300 mg Tablet 300 mg PO BEDTIME RF: 0 imatinib 400 mg Tablet 400 mg PO DAILY RF: 0 Latuda 40 mg Tablet 40 mg PO DAILY RF: 0 Myrbetriq 50 mg Tablet Extended Release 24 Hr 50 mg PO DAILY RF: 0 Eliquis 5 mg Tablet 5 mg BID RF: 0 ondansetron 8 mg Tablet,Disintegrating 8 mg PO Q8H PRN (Reason: Nausea And Vomiting) RF: 0 calcium carbonate [Calcium 600] 600 mg calcium (1,500 mg) Tablet 600 mg PO BID RF: 0 venlafaxine 150 mg Capsule,Extended Release 24hr 150 mg PO DAILY RF: 0 venlafaxine 75 mg Tablet Extended Release 24hr 75 mg PO DAILY RF: 0 oxybutynin chloride 15 mg Tablet Extended Release 24hr 15 mg PO DAILY RF: 0 famotidine 40 mg Tablet 40 mg PO BEDTIME RF: 0 Discharge Orders: Discharge Order (Routine); Ordered 04/15/20 Ordered By: Vinay Zarate Diet: advance to your usual diet Activity on Discharge: As tolerated Discharge Date/Time: 04/15/20 16:04 Visit Report Forms: Patient Portal Discharge page Care Plan Goals: To feel better and stay out of the hospital Health Concerns: chf pulmonary embolism Plan of Treatment: take lasix take metoprolol take eliquis
[2020-04-15 15:39] VITALS: BP 108/58; PULSE 75; RESP 18; TEMP 37.1; O2SAT 97
== END 2020-04-15 16:04 | disposition home health service (06) | DRG 291 ==
LOC: HO.ED 11:45 → HO.S3 15:45 → HO.IMC 16:20
PROVIDERS: Admitting Provider Nurse Practitioner Acute Care; Emergency Provider Emergency Medicine; PCP Internal Medicine; Visit Provider Family Medicine
DX: I50.21 Acute systolic (congestive) heart failure (principal); J96.01 Acute respiratory failure with hypoxia; C95.91 Leukemia, unspecified, in remission; D61.818 Other pancytopenia; I44.7 Left bundle-branch block, unspecified; F41.9 Anxiety disorder, unspecified; F31.9 Bipolar disorder, unspecified; Z20.828 Contact with and (suspected) exposure to other viral communicable diseases; Z86.711 Personal history of pulmonary embolism; Z87.891 Personal history of nicotine dependence; S82.62XA Displaced fracture of lateral malleolus of left fibula, initial encounter for closed fracture; X58.XXXA Exposure to other specified factors, initial encounter; Y93.9 Activity, unspecified; Y92.9 Unspecified place or not applicable; Y99.9 Unspecified external cause status; Z91.14 Patient's other noncompliance with medication regimen; Z88.6 Allergy status to analgesic agent; Z79.01 Long term (current) use of anticoagulants; Z79.82 Long term (current) use of aspirin; Z79.899 Other long term (current) drug therapy
CPT/HCPCS: 36415; 71275; 73610; 74177; 80048; 80076; 83605; 83690; 83735; 83880; 84439; 84443; 84484; 85025; 85610; 85730; 86850; 86900; 86901; 86920; 86923; 87040; 87635; 92610; 93005; 93010; 93306; 96374; 96375; 96376; 99284; 99285; J1940; J2060; J2270; J2405; P9016; Q9957

== ENCOUNTER 2020-04-16 18:49 | Emergency (ER) | payer OTHER, SELFPAY ==
[2020-04-16 18:59] VITALS: PULSE 100; RESP 18; TEMP 36.8; O2SAT 98; BMI 45.5
--- NOTE | 2020-04-16 19:14 | XR_ITS ---
EXAMINATION: XR CHEST CLINICAL INFORMATION: Shortness of breath COMPARISON: CT angiogram chest 04/11/2020, single view chest 10/23/2006, report only TECHNIQUE: Frontal view of the chest was obtained. FINDINGS: Heart size within normal limits. There is no evidence of CHF. At the left lung base in the retrocardiac region there is atelectasis/infiltrate similar findings seen on the prior CT scan. A pleural fusion is present on the left which I suspect may be decreased when compared to the prior exam although comparison is difficult as this CT is supine in the chest radiograph is upright. No definite right-sided pleural effusion is present although a moderate-sized effusion was present at the time of the prior CT. A small subpulmonic right pleural effusion cannot be entirely excluded. Severe degenerative changes present in the shoulders. IMPRESSION: 1. Atelectasis/infiltrate posterior basal segment left lower lobe. 2. Left pleural effusion
--- NOTE | 2020-04-16 19:14 | ECG_ITS ---
Test Reason : ANXIETY Blood Pressure : / mmHG Vent. Rate : 103 BPM Atrial Rate : 103 BPM P-R Int : 158 ms QRS Dur : 092 ms QT Int : 344 ms P-R-T Axes : 041 002 061 degrees QTc Int : 450 ms Sinus tachycardia with Premature atrial complexes Possible Left atrial enlargement Nonspecific ST abnormality Intra-ventricular conduction delay Abnormal ECG When compared with ECG of 11-APR-2020 08:32, Premature atrial complexes are now Present Left bundle branch block is no longer Present Referred By: Belinda Torres Electronically Signed By:REGAN ABRAHAM MD
--- NOTE | 2020-04-16 19:15 | ED.ANXIETY ---
HPI - Anxiety General Chief Complaint: Anxiety Stated Complaint: anxiety Time Seen by Provider: 04/16/20 19:00 History of Present Illness HPI narrative: patient is a 64-year-old female with a history of an of anxiety. History of pulmonary emboli. Currently on Eliquis. Patient claims compliance with medication. Also history of congestive heart failure patient was in the emergency department on April [address] scan of the chest which did not show any large PE. Also had CT scan of the abdomen at that time did not show any acute abdomen. Patient's feel very anxious was sent back to the emergency department for further evaluation. Patient cannot give detailed history given her condition. No fever no chills no chest pain or shortness of breath no diaphoresis Related Data Home Medications Medication Instructions Recorded Confirmed Eliquis 5 mg BID 04/11/20 04/11/20 Latuda 40 mg PO DAILY 04/11/20 04/11/20 Myrbetriq 50 mg PO DAILY 04/11/20 04/11/20 aspirin [Aspirin Low Dose] 81 mg PO DAILY 04/11/20 04/11/20 buspirone 5 mg PO TID 04/11/20 04/11/20 calcium carbonate [Calcium 600] 600 mg PO BID 04/11/20 04/11/20 cyanocobalamin (vitamin B-12) 1,000 mcg PO DAILY 04/11/20 04/11/20 [Vitamin B-12] famotidine 40 mg PO BEDTIME 04/11/20 04/11/20 gabapentin 800 mg PO TID 04/11/20 04/11/20 imatinib 400 mg PO DAILY 04/11/20 04/11/20 omeprazole 40 mg PO DAILY 04/11/20 04/11/20 ondansetron 8 mg PO Q8H PRN 04/11/20 04/11/20 oxybutynin chloride 15 mg PO DAILY 04/11/20 04/11/20 tramadol 50 mg PO TID PRN 04/11/20 04/11/20 trazodone 300 mg PO BEDTIME 04/11/20 04/11/20 venlafaxine 75 mg PO DAILY 04/11/20 04/11/20 venlafaxine 150 mg PO DAILY 04/11/20 04/11/20 Previous Rx's Medication Instructions Recorded furosemide 20 mg PO DAILY #30 tab 04/15/20 metoprolol tartrate 25 mg PO BID #60 tab 04/15/20 Allergies Allergy/AdvReac Type Severity Reaction Status Date / Time celecoxib [From CELEBREX] Allergy Mild DIZZY, Verified 04/11/20 07:46 TIRED alprazolam Allergy Unknown U Verified 04/11/20 07:46 carbamazepine [Tegretol] Allergy Unknown Unknown Verified 04/11/20 07:46 clonazepam Allergy Unknown U Verified 04/11/20 07:46 diclofenac Allergy Unknown Unknown Verified 04/11/20 07:46 lamotrigine Allergy Unknown NIGHTMARES Verified 04/11/20 07:46 meloxicam Allergy Unknown Unknown Verified 04/11/20 07:46 oxcarbazepine Allergy Unknown U Verified 04/11/20 07:46 pregabalin Allergy Unknown Unknown Verified 04/11/20 07:46 simvastatin [SIMVASTATIN] Allergy Unknown MUSCLE PAIN Verified 04/11/20 07:46 Darvon Allergy Unknown Unknown Uncoded 04/11/20 07:46 simvastatin AdvReac Unknown muscle pain Uncoded 04/11/20 07:46 Review of Systems Review of Systems: unobtainable due to patient's extreme anxiety. COUNT INCLUDES THE [facility] Past Medical History Medical History Acute on chronic anemia Acute respiratory failure with hypoxia Acute systolic HF (heart failure) Anxiety Atrial fibrillation Atrial tachycardia Bipolar 1 disorder GERD (gastroesophageal reflux disease) Leukemia in remission Pulmonary embolism Social History Social History Household Members: Spouse Housing: Apartment Alcohol intake: unknown Smoking Status: Former smoker Advance Directives: No Advance Directives Information Provided: No service: No Current occupational status: disabled Physical Exam Vital Signs: Vital Signs: Vital Signs Temp Pulse Resp Pulse Ox 04/16/20 18:59 98.2 F 100 18 98 Body Mass Index 45.5 O2 sats 98% on room air. Normal. Appearance: Alert. Oriented X3. Extremely anxious. Able to speak in complete sentences Eyes: Pupils equal, round and reactive to light. ENT: Pharynx normal. Neck: Normal inspection. Neck supple. No lymph nodes noted. No crepitus CVS: Normal heart rate and rhythm. Pulses normal. Normal S1 and S2 Respiratory: No respiratory distress. Breath sounds normal. No Wheezing. No rales Abdomen: Soft and nontender. No rigidity. No distention. good BS x4 Skin: Skin warm and dry. Normal skin color. Normal skin turgor. Extremities: No lower extremity edema. Neurovascular intact to all extremities. No Lacerations. No Rash Neuro: Oriented X 3. No motor deficit. No sensory deficit. Moving all extermities. No slurred speech MDM - Anxiety MDM Narrative Medical decision making narrative: patient evaluated by Care Team. Once patient be evaluated by social Work in the morning. Currently in stable condition. Patient has no suicidal homicidal ideation at this time. Per feels extremely anxious. Patient had a recent workup for PE already. CTA of the chest and CT of the abdomen pelvis done recently. Differential Diagnosis Differential diagnosis: Likely panic disorder Medical Records Attestation: I reviewed the patient's medical records. Lab Data Attestation: I reviewed the patient's lab results. Result diagrams: 04/16/20 20:12 04/16/20 20:12 Labs: Lab Results 04/16/20 04/16/20 04/16/20 Range/Units 20:11 20:12 20:12 WBC 5.7 (4.8-10.8) X10*3/uL RBC 2.85 L (4.20-5.50) X10*6/uL Hgb 8.9 L (12.0-16.0) g/dl Hct 28.5 L (37-47) % MCV 100.0 H (80-98) fL MCH 31.2 (27.0-33.0) pg MCHC 31.2 (31.0-35.0) g/dl RDW 17.4 H (11.0-16.0) % Plt Count 200 (160-400) X10*3/uL MPV 9.3 L (9.4-12.3) fL Immature Gran % (Auto) 0.4 (0.0-0.4) % Neut % (Auto) 75.7 H (45-73) % Lymph % (Auto) 9.5 L (20-40) % [place] % (Auto) 12.2 H (2-11) % Eos % (Auto) 1.8 (0-4) % Baso % (Auto) 0.4 (0-2) % Lymph # (Auto) 0.5 L (1.2-4.9) X10*3/uL [place] # (Auto) 0.7 (0.1-1.2) X10*3/uL Eos # (Auto) 0.1 (0.0-0.4) X10*3/uL Baso # (Auto) 0.0 (0.0-0.2) X10*3/uL Abs Immat Gran (auto) 0.02 (0.00-0.03) X10*3/uL Absolute Neuts (auto) 4.3 (2.0-8.3) X10*3/uL Absolute Nucleated RBC 0.000 (0.0-0.012) X10*3/uL Nucleated RBC % (auto) 0.0 (0.0-0.2) /100WBC Smear Tech's Comments VERIFIED Sodium (135-145) mmol/L Potassium (3.3-5.1) mmol/l Chloride (96-108) mmol/L Carbon Dioxide (22-29) mmol/L Anion Gap (12-20) BUN (9-16) mg/dL Creatinine (0.5-1.4) mg/dL Estim Creat Clear Calc Estimated GFR Random Glucose (60-115) mg/dL Calcium (8.4-10.2) mg/dL Total Bilirubin (0.0-1.0) mg/dL AST (5-31) U/L ALT (0-31) U/L Alkaline Phosphatase (39-117) U/L B-Natriuretic Peptide 856 H (<100) pg/mL Total Protein (6.5-8.0) g/dL Albumin (3.5-5.0) g/dL Ethyl Alcohol < 10 mg/dL 04/16/20 Range/Units 20:12 WBC (4.8-10.8) X10*3/uL RBC (4.20-5.50) X10*6/uL Hgb (12.0-16.0) g/dl Hct (37-47) % MCV (80-98) fL MCH (27.0-33.0) pg MCHC (31.0-35.0) g/dl RDW (11.0-16.0) % Plt Count (160-400) X10*3/uL MPV (9.4-12.3) fL Immature Gran % (Auto) (0.0-0.4) % Neut % (Auto) (45-73) % Lymph % (Auto) (20-40) % [place] % (Auto) (2-11) % Eos % (Auto) (0-4) % Baso % (Auto) (0-2) % Lymph # (Auto) (1.2-4.9) X10*3/uL [place] # (Auto) (0.1-1.2) X10*3/uL Eos # (Auto) (0.0-0.4) X10*3/uL Baso # (Auto) (0.0-0.2) X10*3/uL Abs Immat Gran (auto) (0.00-0.03) X10*3/uL Absolute Neuts (auto) (2.0-8.3) X10*3/uL Absolute Nucleated RBC (0.0-0.012) X10*3/uL Nucleated RBC % (auto) (0.0-0.2) /100WBC Smear Tech's Comments Sodium 137 (135-145) mmol/L Potassium 3.8 (3.3-5.1) mmol/l Chloride 99 (96-108) mmol/L Carbon Dioxide 31 H (22-29) mmol/L Anion Gap 11 L (12-20) BUN 8 L (9-16) mg/dL Creatinine 0.73 (0.5-1.4) mg/dL Estim Creat Clear Calc 72.0 Estimated GFR > 60 Random Glucose 90 (60-115) mg/dL Calcium 8.8 (8.4-10.2) mg/dL Total Bilirubin 0.8 (0.0-1.0) mg/dL AST 20 (5-31) U/L ALT 19 (0-31) U/L Alkaline Phosphatase 61 (39-117) U/L B-Natriuretic Peptide (<100) pg/mL Total Protein 5.5 L (6.5-8.0) g/dL Albumin 3.5 (3.5-5.0) g/dL Ethyl Alcohol mg/dL Discharge Plan Discharge Clinical Impression: Acute anxiety Prescriptions: No Action buspirone 5 mg Tablet 5 mg PO TID RF: 0 cyanocobalamin (vitamin B-12) [Vitamin B-12] 1,000 mcg Tablet 1,000 mcg PO DAILY RF: 0 omeprazole 40 mg Capsule,Delayed Release(Dr/Ec) 40 mg PO DAILY RF: 0 aspirin [Aspirin Low Dose] 81 mg Tablet,Delayed Release (Dr/Ec) 81 mg PO DAILY RF: 0 tramadol 50 mg Tablet 50 mg PO TID PRN (Reason: Pain (Scale Score 4-6)) RF: 0 gabapentin 800 mg Tablet 800 mg PO TID RF: 0 trazodone 300 mg Tablet 300 mg PO BEDTIME RF: 0 imatinib 400 mg Tablet 400 mg PO DAILY RF: 0 Latuda 40 mg Tablet 40 mg PO DAILY RF: 0 Myrbetriq 50 mg Tablet Extended Release 24 Hr 50 mg PO DAILY RF: 0 Eliquis 5 mg Tablet 5 mg BID RF: 0 ondansetron 8 mg Tablet,Disintegrating 8 mg PO Q8H PRN (Reason: Nausea And Vomiting) RF: 0 calcium carbonate [Calcium 600] 600 mg calcium (1,500 mg) Tablet 600 mg PO BID RF: 0 venlafaxine 150 mg Capsule,Extended Release 24hr 150 mg PO DAILY RF: 0 venlafaxine 75 mg Tablet Extended Release 24hr 75 mg PO DAILY RF: 0 oxybutynin chloride 15 mg Tablet Extended Release 24hr 15 mg PO DAILY RF: 0 famotidine 40 mg Tablet 40 mg PO BEDTIME RF: 0 furosemide 20 mg Tablet 20 mg PO DAILY Qty: 30 RF: 0 metoprolol tartrate 25 mg Tablet 25 mg PO BID Qty: 60 RF: 0
[2020-04-16] MEDS: LORazepam 1 MG TABLET PO ×2 (19:25→23:45)
--- NOTE | 2020-04-16 20:02 | PC.NURSE ---
Patient increasingly anxious requiring continuous reassurance & redirection. Pt states she feels her throat is closing. Resp even & unlabored, pt able to yell out for this nurse numerous times. Pt speaking in full clear sentences, o2 sat 96% on RA. Pt has been medicated per EMAR, ekg done, PCT at bedside for labs now.
[2020-04-16 20:17] LABS: Basophils Percent Auto 0.4 % (0-2); Eosinophils Absolute Auto 0.1 X10*3/uL (0.0-0.4); Eosinophils Percent Auto 1.8 % (0-4); Hematocrit 28.5 % (37-47); Hemoglobin 8.9 g/dl (12.0-16.0); Imm Gran Abs Auto 0.02 X10*3/uL (0.00-0.03); Imm Gran Pct Auto 0.4 % (0.0-0.4); Lymphocytes Absolute Auto 0.5 X10*3/uL (1.2-4.9); Lymphocytes Percent Auto 9.5 % (20-40); MANUAL DIFF FLAG SCAN; Mean Corpuscular HGB Conc 31.2 g/dl (31.0-35.0); Mean Corpuscular Hemoglobin 31.2 pg (27.0-33.0); Mean Platelet Volume 9.3 fL (9.4-12.3); Monocytes Absolute Auto 0.7 X10*3/uL (0.1-1.2); Monocytes Percent Auto 12.2 % (2-11); Neutrophils Absolute Auto 4.3 X10*3/uL (2.0-8.3); Neutrophils Percent Auto 75.7 % (45-73); Platelet Count 200 X10*3/uL (160-400); Red Blood Count 2.85 X10*6/uL (4.20-5.50); Red Cell Distribution Width 17.4 % (11.0-16.0); SCAN SMEAR FLAG 1; White Blood Count 5.7 X10*3/uL (4.8-10.8)
[2020-04-16 20:32] LABS: SLIDE REVIEW VERIFIED
[2020-04-16 20:39] LABS: Ethanol < 10 mg/dL
[2020-04-16 20:42] LABS: Alanine Aminotransferase 19 U/L (0-31); Albumin Level 3.5 g/dL (3.5-5.0); Alkaline Phosphatase 61 U/L (39-117); Anion Gap 11 (12-20); Aspartate Amino Transferase 20 U/L (5-31); Bilirubin Total 0.8 mg/dL (0.0-1.0); Blood Urea Nitrogen 8 mg/dL (9-16); Calcium 8.8 mg/dL (8.4-10.2); Carbon Dioxide 31 mmol/L (22-29); Chloride 99 mmol/L (96-108); Estimated Glomerular Filt Rate > 60; Glucose Random 90 mg/dL (60-115); Potassium 3.8 mmol/l (3.3-5.1); Sodium 137 mmol/L (135-145); Total Protein 5.5 g/dL (6.5-8.0)
[2020-04-16 20:52] LABS: B Type Natriuretic Peptide 856 pg/mL (<100)
--- NOTE | 2020-04-16 21:55 | MHC.CARE ---
CARE team consult requested by ED physician for 64 year old female who arrived to ED with complaints of anxiety associated with being home and unable to care for herself or her . Pt discharged from [facility] medical floor on 04/15/20, had another admission in March, and was in STR following surgery on her left foot (?). Pt initially did not respond to this fiction and nonfiction prose writer when contact was attempted, instead opening her eyes slightly and then closing them again and pushing her face further into her pillow. ED physician and nurse updated, and nurse assisted with engaging with pt. Pt was restless, hyperverbal, tangential, and agitated throughout the consultation, kicking her legs, complaining that she wasn't covered or she was too warm, crying about having to wear an orthopedic boot, and stating that she needs to be in a snf because she can't be home wearing the boot for the next 4 weeks. Pt was difficult to redirect, and with her constant thrashing around in bed and asking this fiction and nonfiction prose writer to help her readjust her pillows, blankets, and incline of the stretcher it was challenging to speak with pt about her anxiety. Pt began crying several times when talking about being home with the boot on, stating that she has to pee every hour and would have to keep the boot on even though she doesn't have to have it on when she isn't walking or bearing weight on it. Pt reported that she can't go home, and that if she goes home that she'll end up right back here. Pt would not share whether she and her had a EXPENSE ANALYST or visiting nurse that assisted with ADLs, and would become irritated when the question was asked. Pt began to cry again after starting to say if I have to go home with this boot, I'll... oh I can't say it because I know what will happen, I don't want to I don't want to kill myself, I just don't want to go home with this on me. Pt was not receptive to discussing outpatient supports and providers, instead kicking the blankets around and talking about her bottom being exposed. This fiction and nonfiction prose writer consulted with ED physician to request that pt speak with someone from Case Management, who would be more knowledgeable of qualifications and requirements for any fci facility placements. Pt is preoccupied with the notion of returning home, insisting that she needs to go to a snf until she doesn't have to wear the boot, and was not receptive to behavioral health intervention at this time. If pt demonstrates concerning behavior that requires crisis evaluation, [facility] crisis will be consulted due to pt's insurance ([facility] medicare). Per [facility], pt has no history of crisis evaluations, however pt has care management through her insurance company and is connected with some [facility] services.
[2020-04-16 23:06] VITALS: BP 130/71; PULSE 80; RESP 20; TEMP 36.7; O2SAT 96
--- NOTE | 2020-04-16 23:08 | PC.NURSE ---
PT REFUSING TO GO HOME, STATING SHE IS NOT SAFE TO BE HOME. REQUESTING SKILLED NURSING PLACEMENT.
[2020-04-17] VITALS (14 sets, daily range): BP systolic 109–155; BP diastolic 62–83; PULSE 68–115; RESP 16–20; TEMP 36.4–37.2; O2SAT 93–97
[2020-04-17 00:48] LABS: Amphetamine Screen Urine Not Detected (Not Detect); Barbiturates, Urine Not Detected (Not Detect); Benzodiazepines Screen Urine Not Detected (Not Detect); Cannabinoid Screen Urine Not Detected (Not Detect); Cocaine Screen Urine Not Detected (Not Detect); Opiate Screen Urine Not Detected (Not Detect); Phencyclidine Screen Urine Not Detected (Not Detect)
[2020-04-17 01:17] LABS: Troponin-I High Sensitivity 58.6 ng/L (<3.5-17.0)
[2020-04-17] MEDS: Dicyclomine HCl 10 MG CAPSULE PO (05:26)
--- NOTE | 2020-04-17 05:59 | PC.NURSE ---
PT HAS BEEN RELENTLESSLY ON CALLBELL, YELLING, CRYING, ALL NIGHT. THIS RN HAS BEEN CALLED TO THE ROOM >40 TIMES SINCE 0000. PT IS VERY RESTLESS, HAS SLEPT NO MORE THAN 1-2 HOURS THROUGH THE NIGHT. ON/OFF THE BEDPAIN. PT IS ABLE TO LIFT BOTTOM AND MOVE ABOUT STRETCHER W/MINIMAL ASSISTANCE. PT HAD C/O ABD PAIN- GIVEN BENTYL PER JOHN. PT GIVEN HALDOL PRN PER MD D/T RESTLESSNESS & BELLY PAIN. CHARGE NURSE AT BEDSIDE TO HELP W/CARE.
--- NOTE | 2020-04-17 06:56 | PC.NURSE ---
DESPITE MULTIPLE PLACEMENTS ON THE BEDPAN, CALL SILVA WITHIN REACH, RN FOUND PT TO BE YELLING OUT I SHIT IN THE BED PT SITTING UP IN STRETCHER W/LARGE FORMED BOWEL MOVEMENT ON PAD BETWEEN HER LEGS. PT WAS CLEANED, SHEETS CHANGED, REPOSITIONED, CALL SILVA PLACED IN HANDS AND CURTAIN LEFT OPEN. PT HAS ALL NEEDS MET AT THIS TIME.
[2020-04-17] MEDS: diphenhydrAMINE HCL 25 MG TABLET PO (08:17)
--- NOTE | 2020-04-17 09:40 | CT_ITS ---
EXAMINATION: CT HEAD WITHOUT CONTRAST CLINICAL INFORMATION: Mental status change and agitation COMPARISON: Previous exam 03/09/2020 TECHNIQUE: Contiguous axial imaging was performed from the skull base to vertex without intravenous administration of contrast. This CT examination was performed using dose optimization techniques as appropriate, variously including the following: *Automated exposure control *Adjustment of mA and/or kV according to patient size (this includes techniques or standardized protocols for targeted exams where dose is matched to indication/reason for exam; i.e. extremities or head) *Use of iterative reconstruction technique DLP: 980 mGy-cm FINDINGS: There is no evidence of an extra-axial collection. There is no evidence of intra or extra-axial hemorrhage. The ventricles and extra-axial CSF spaces are appropriate. There is an old right basal ganglia lacunar infarct and left frontal subcortical and periventricular white matter infarct that appears unchanged. No mass, mass effect or acute infarct is seen. No skull fracture is seen. There is underaeration or hypoplasia of the right frontal sinus. There is a device in the right ear near the semicircular canals that appear unchanged.. Visualized paranasal sinuses, mastoid air cells and middle ears are otherwise clear. IMPRESSION: No acute findings. 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
--- NOTE | 2020-04-17 09:52 | PC.NURSE ---
PT REFUSED BREAKFAST EARLIER STATING THAT SHE IS SLIGHTLY NAUSEOUS. MD AWARE. PT MED X 1 WITH ZOFRAN 4MG SL X 1.
--- NOTE | 2020-04-17 09:52 | PC.NURSE ---
confirmed pt medications with [facility] in [place]
--- NOTE | 2020-04-17 10:14 | MHC.CM.ED ---
Received case management consult overnight. Patient was recently dischrged from [facility] for STR. Patient has not been doing well at home. Physical therapy eval is pending. Spoke with patient's , Denys via telephone at [phone]. He feels patient needs to return to short term rehab. SNF choices: 1)[facility] 2)[facility]. Referrals made via allscripts. Continue to monitor for d/c neeeds.
[2020-04-17 11:29] LABS: Glucose Urine UA NEG (NEG); Leukocyte Esterase Urine NEG (NEG); Nitrite Urine NEG (NEG); Urine Blood TRACE (NEG); Urine Ketones 40 MG/DL (NEG); Urine Protein NEG (NEG-TRACE)
[2020-04-17 11:37] LABS: Appearance Urine CLEAR; Color Urine YELLOW
[2020-04-17 11:48] LABS: Bacteria Urine TRACE /LPF; RBC Urine 0-2 /HPF (0); Squamous Epithelial Cell Urine 1+ /LPF
--- NOTE | 2020-04-17 12:40 | MHC.CM.ED ---
[facility]. [facility] able to offer [facility] bed. Requesting physical therapy eval. Physical therapist came to evaluate patient. Patient refused to participate in eval. Covid swab ordered and pending. Continue to monitor for d/c needs.
--- NOTE | 2020-04-17 14:09 | MHC.CM.ED ---
[facility] is going to attempt to obtain correction authorization from [facility]. Continue to mointor for d/c needs.
--- NOTE | 2020-04-17 15:00 | PC.NURSE ---
Report received from Frances RIOS. Patient resting on stretcher, frequently repositioning self. Frequently calling out and requesting for head of bed to be raised/lowered, repositioned, and cleaned. Patient appears to be in no distress. Respirations regular and even. Skin pwd. Call butler in reach.
[2020-04-17] MEDS: Gabapentin 400 MG CAPSULE 800 MG PO ×2 (16:08→21:50)
[2020-04-17] MEDS: Furosemide 20 MG TABLET PO (16:09)
[2020-04-17] MEDS: busPIRone HCl 5 MG TABLET PO ×2 (16:09→21:50)
[2020-04-17] MEDS: Venlafaxine HCl ER 150 MG CAP.ER.24H PO (16:09)
[2020-04-17] MEDS: Apixaban 5 MG TABLET PO ×2 (16:09→21:50)
[2020-04-17] MEDS: Lurasidone HCl 40 MG TABLET PO (16:10)
[2020-04-17] MEDS: Omeprazole 40 MG CAPSULE.DR PO (16:11)
--- NOTE | 2020-04-17 17:00 | PC.NURSE ---
Patient moved into hospital bed. Reports bed is more comfortable and now able to reposition bed by self. Patient continues to yell out for multiple requests. All needs continually met. Patient linen and gown changed multiple times due to urinary incontinence. Respirations remain regular and even. Skin pwd. Call butler in reach.
--- NOTE | 2020-04-17 19:11 | PC.NURSE ---
REPORT RECEIVED. PATIENT IN BED. FREQUENTLY YELLING OUT. DOES NOT USE CALL SILVA.
--- NOTE | 2020-04-17 19:34 | PC.NURSE ---
PATIENT REQUESTING ALL 4 SIDE RAILS UP AT THIS TIME. THIS HAS REDUCED PATIENT SCREAMING OUT.
--- NOTE | 2020-04-17 21:46 | MHC.CARE ---
CARE team provided support to pt while ED nurse and tech were caring for other patients. This proposal manager writer helped pt reposition her pillows, bed, and blankets several times. Pt was given lubricating jelly for her lips, which appeared chapped, and a warm wash cloth for her eyes/face as she was complaining that she had eye boogers. This proposal manager writer offered emotional support to pt, who was expressing that she felt that she was acting cuckoo and doesn't know what's wrong with her. Pt repeatedly requested medication for generalized pain, which was relayed to the ED physician.
[2020-04-17] MEDS: Metoprolol Tartrate 25 MG TABLET PO (21:47)
[2020-04-17] MEDS: traMADoL HCL 50 MG TABLET PO (21:50)
[2020-04-17] MEDS: traZODone HCL 100 MG TABLET 300 MG PO (21:50)
[2020-04-18 02:00] VITALS: BP 109/56; PULSE 105; RESP 18; O2SAT 92
[2020-04-18] MEDS: Acetaminophen 325 MG TABLET 650 MG PO (02:17)
[2020-04-18] MEDS: LORazepam 1 MG TABLET 2 MG PO (02:17)
--- NOTE | 2020-04-18 02:35 | PC.NURSE ---
medicated with tylenol and ativan as charted per patient request. Continues to cry out. patient is able to move self and wants everything done for her. Multiple staff have explained to patient that she is capable of moving her pillows her self and should attempt to do so versus crying out for staff to do everything for her.
--- NOTE | 2020-04-18 03:45 | PC.NURSE ---
PT SLEEPING NO S/S OF DISTRESS NOTED. NURSE TO NURSE REPORT RECEIVED FROM JAN RIOS AT 0300
[2020-04-18 04:00] VITALS: BP 125/57; PULSE 88; RESP 18; TEMP 37; O2SAT 93
--- NOTE | 2020-04-18 04:25 | PC.NURSE ---
pt sat on room air 88% and on 2l sat improved to 97%
[2020-04-18 06:00] VITALS: BP 95/32; PULSE 74; RESP 16; TEMP 37.1
[2020-04-18 08:00] VITALS: RESP 18
[2020-04-18 10:00] VITALS: BP 122/65; PULSE 98; RESP 20; TEMP 36.9
--- NOTE | 2020-04-18 10:21 | MHC.CM.ED ---
PATIENT ASSIGNED HCP AGENT (SPOUSE DAKOTA) DOCUMENTATION NOW IN CHART. COPY UPLOADED TO SCOUT BROWN
--- NOTE | 2020-04-18 10:56 | MHC.CM.ED ---
PATIENT TO TRANSFER TO [facility] FOR NOON [facility]IA [facility]. RN, UNIT, PATIENT AND SPOUSE (DAKOTA [phone]) AWARE.
[2020-04-18] MEDS: Gabapentin 400 MG CAPSULE 800 MG PO (11:06)
[2020-04-18] MEDS: Omeprazole 40 MG CAPSULE.DR PO (11:07)
[2020-04-18] MEDS: Metoprolol Tartrate 25 MG TABLET PO (11:07)
[2020-04-18] MEDS: busPIRone HCl 5 MG TABLET PO (11:07)
[2020-04-18] MEDS: Aspirin Enteric Coated 81 MG TABLET.DR PO (11:07)
[2020-04-18] MEDS: Apixaban 5 MG TABLET PO (11:08)
[2020-04-18] MEDS: Furosemide 20 MG TABLET PO (11:08)
[2020-04-18] MEDS: Venlafaxine HCl ER 75 MG CAP.ER.24H PO (11:08)
[2020-04-18] MEDS: Venlafaxine HCl ER 150 MG CAP.ER.24H PO (11:09)
[2020-04-18] MEDS: Acetaminophen 325 MG TABLET 975 MG PO (11:44)
[2020-04-18] MEDS: Lurasidone HCl 40 MG TABLET PO (11:44)
== END 2020-04-19 05:53 | disposition skilled nursing facility (03) ==
PROVIDERS: Emergency Medicine; Emergency Medicine Emergency Medical Services; Emergency Provider Emergency Medicine
DX: F41.9 Anxiety disorder, unspecified (principal); Z20.828 Contact with and (suspected) exposure to other viral communicable diseases; Z86.711 Personal history of pulmonary embolism; I48.91 Unspecified atrial fibrillation; Z79.01 Long term (current) use of anticoagulants; Z79.899 Other long term (current) drug therapy
CPT/HCPCS: 36415; 70450; 71045; 80053; 80307; 80320; 81001; 83880; 84484; 85025; 87635; 93005; 97162; 99284; 99285; Q0163

== ENCOUNTER 2020-04-19 06:51 | Outpatient (REF) | payer OTHER, SELFPAY ==
[2020-04-19 07:43] LABS: Hematocrit 29.1 % (37-47); Mean Corpuscular HGB Conc 30.9 g/dl (31.0-35.0); Mean Corpuscular Hemoglobin 30.8 pg (27.0-33.0); Mean Corpuscular Volume 99.7 fL (80-98); Mean Platelet Volume 10.5 fL (9.4-12.3); Platelet Count 245 X10*3/uL (160-400); Red Blood Count 2.92 X10*6/uL (4.20-5.50); Red Cell Distribution Width 17.2 % (11.0-16.0); White Blood Count 4.9 X10*3/uL (4.8-10.8)
[2020-04-19 08:08] LABS: Alanine Aminotransferase 18 U/L (0-31); Albumin Level 3.2 g/dL (3.5-5.0); Alkaline Phosphatase 58 U/L (39-117); Anion Gap 12 (12-20); Aspartate Amino Transferase 19 U/L (5-31); Bilirubin Total 0.8 mg/dL (0.0-1.0); Blood Urea Nitrogen 15 mg/dL (9-16); Calcium 7.7 mg/dL (8.4-10.2); Carbon Dioxide 29 mmol/L (22-29); Chloride 97 mmol/L (96-108); Estimated Glomerular Filt Rate 55; Glucose Random 75 mg/dL (60-115); Potassium 3.4 mmol/l (3.3-5.1); Sodium 135 mmol/L (135-145); Total Protein 5.1 g/dL (6.5-8.0)
== END 2020-04-19 06:52 | disposition home or self-care (01) ==
LOC: HO.MMNH1L 06:51
PROVIDERS: Visit Provider Family Medicine
DX: I48.91 Unspecified atrial fibrillation (principal)
CPT/HCPCS: 36415; 80053; 85027

== ENCOUNTER 2020-04-24 | Outpatient (REF) | payer OTHER, SELFPAY ==
[2020-04-24 06:00] LABS: Hematocrit 27.7 % (37-47); Hemoglobin 8.5 g/dl (12.0-16.0); Mean Corpuscular HGB Conc 30.7 g/dl (31.0-35.0); Mean Corpuscular Hemoglobin 31.3 pg (27.0-33.0); Mean Corpuscular Volume 101.8 fL (80-98); Mean Platelet Volume 9.9 fL (9.4-12.3); Platelet Count 256 X10*3/uL (160-400); Red Blood Count 2.72 X10*6/uL (4.20-5.50); Red Cell Distribution Width 15.9 % (11.0-16.0); White Blood Count 4.2 X10*3/uL (4.8-10.8)
[2020-04-24 06:19] LABS: Anion Gap 8 (12-20); Blood Urea Nitrogen 15 mg/dL (9-16); Calcium 8.2 mg/dL (8.4-10.2); Carbon Dioxide 32 mmol/L (22-29); Chloride 102 mmol/L (96-108); Estimated Glomerular Filt Rate > 60; Glucose Random 80 mg/dL (60-115); Potassium 4.3 mmol/l (3.3-5.1); Sodium 138 mmol/L (135-145)
== END 2020-04-24 00:01 | disposition home or self-care (01) ==
LOC: HO.MMNH1L
PROVIDERS: Visit Provider Family Medicine
DX: I48.91 Unspecified atrial fibrillation (principal); M05.9 Rheumatoid arthritis with rheumatoid factor, unspecified
CPT/HCPCS: 36415; 80048; 85027

== ENCOUNTER 2020-04-27 18:25 | Outpatient (REF) | payer OTHER, SELFPAY | END 2020-04-27 18:26 | disposition home or self-care (01) | LOC: HO.MMNH1L 18:25 | PROVIDERS: Visit Provider Family Medicine | DX: Z20.828 Contact with and (suspected) exposure to other viral communicable diseases (principal) | CPT/HCPCS: 87635 ==

== ENCOUNTER 2020-05-01 | Outpatient (REF) | payer OTHER, SELFPAY ==
[2020-05-01 08:46] LABS: Hematocrit 25.5 % (37-47); Hemoglobin 7.7 g/dl (12.0-16.0); Mean Corpuscular HGB Conc 30.2 g/dl (31.0-35.0); Mean Corpuscular Hemoglobin 31.2 pg (27.0-33.0); Mean Corpuscular Volume 103.2 fL (80-98); Mean Platelet Volume 9.6 fL (9.4-12.3); Platelet Count 199 X10*3/uL (160-400); Red Blood Count 2.47 X10*6/uL (4.20-5.50); Red Cell Distribution Width 15.7 % (11.0-16.0); White Blood Count 3.8 X10*3/uL (4.8-10.8)
[2020-05-01 10:05] LABS: Anion Gap 11 (12-20); Blood Urea Nitrogen 9 mg/dL (9-16); Carbon Dioxide 35 mmol/L (22-29); Chloride 101 mmol/L (96-108); Estimated Glomerular Filt Rate > 60; Glucose Random 78 mg/dL (60-115); Potassium 4.3 mmol/l (3.3-5.1); Sodium 143 mmol/L (135-145)
== END 2020-05-01 00:01 | disposition home or self-care (01) ==
LOC: HO.MMNH1L
PROVIDERS: Visit Provider Family Medicine
DX: I48.91 Unspecified atrial fibrillation (principal); M05.9 Rheumatoid arthritis with rheumatoid factor, unspecified
CPT/HCPCS: 36415; 80048; 85027

== ENCOUNTER 2020-05-08 | Outpatient (REF) | payer OTHER, SELFPAY ==
[2020-05-08 07:09] LABS: Hematocrit 24.6 % (37-47); Hemoglobin 7.6 g/dl (12.0-16.0); Mean Corpuscular HGB Conc 30.9 g/dl (31.0-35.0); Mean Corpuscular Hemoglobin 31.5 pg (27.0-33.0); Mean Corpuscular Volume 102.1 fL (80-98); Mean Platelet Volume 9.9 fL (9.4-12.3); Platelet Count 165 X10*3/uL (160-400); Red Blood Count 2.41 X10*6/uL (4.20-5.50); Red Cell Distribution Width 16.3 % (11.0-16.0); White Blood Count 3.2 X10*3/uL (4.8-10.8)
[2020-05-08 07:41] LABS: Anion Gap 12 (12-20); Blood Urea Nitrogen 10 mg/dL (9-16); Calcium 7.6 mg/dL (8.4-10.2); Carbon Dioxide 30 mmol/L (22-29); Chloride 103 mmol/L (96-108); Estimated Glomerular Filt Rate > 60; Glucose Random 78 mg/dL (60-115); Sodium 141 mmol/L (135-145)
== END 2020-05-08 00:01 | disposition home or self-care (01) ==
LOC: HO.MMNH1L
PROVIDERS: Visit Provider Family Medicine
DX: Z20.828 Contact with and (suspected) exposure to other viral communicable diseases (principal); M05.9 Rheumatoid arthritis with rheumatoid factor, unspecified; I48.91 Unspecified atrial fibrillation
CPT/HCPCS: 36415; 80048; 85027; U0003

== ENCOUNTER 2020-05-15 | Outpatient (REF) | payer OTHER, SELFPAY ==
[2020-05-15 06:38] LABS: Hematocrit 26.9 % (37-47); Hemoglobin 8.1 g/dl (12.0-16.0); Mean Corpuscular HGB Conc 30.1 g/dl (31.0-35.0); Mean Corpuscular Hemoglobin 30.9 pg (27.0-33.0); Mean Corpuscular Volume 102.7 fL (80-98); Mean Platelet Volume 10.1 fL (9.4-12.3); Platelet Count 198 X10*3/uL (160-400); Red Blood Count 2.62 X10*6/uL (4.20-5.50); Red Cell Distribution Width 15.9 % (11.0-16.0); White Blood Count 3.6 X10*3/uL (4.8-10.8)
[2020-05-15 07:13] LABS: Anion Gap 9 (12-20); Blood Urea Nitrogen 14 mg/dL (9-16); Calcium 8.2 mg/dL (8.4-10.2); Carbon Dioxide 32 mmol/L (22-29); Chloride 104 mmol/L (96-108); Estimated Glomerular Filt Rate > 60; Glucose Random 83 mg/dL (60-115); Potassium 4.1 mmol/l (3.3-5.1); Sodium 141 mmol/L (135-145)
== END 2020-05-15 00:01 | disposition home or self-care (01) ==
LOC: HO.MMNH1L
PROVIDERS: Visit Provider Family Medicine
DX: M05.9 Rheumatoid arthritis with rheumatoid factor, unspecified (principal); I48.91 Unspecified atrial fibrillation
CPT/HCPCS: 36415; 80048; 85027

== ENCOUNTER 2020-05-22 | Outpatient (REF) | payer OTHER, SELFPAY ==
[2020-05-22 07:35] LABS: Hemoglobin 7.7 g/dl (12.0-16.0); Mean Corpuscular HGB Conc 30.8 g/dl (31.0-35.0); Mean Corpuscular Hemoglobin 31.6 pg (27.0-33.0); Mean Corpuscular Volume 102.5 fL (80-98); Mean Platelet Volume 10.1 fL (9.4-12.3); Platelet Count 173 X10*3/uL (160-400); Red Blood Count 2.44 X10*6/uL (4.20-5.50); Red Cell Distribution Width 15.6 % (11.0-16.0); White Blood Count 3.3 X10*3/uL (4.8-10.8)
[2020-05-22 07:58] LABS: Anion Gap 12 (12-20); Blood Urea Nitrogen 13 mg/dL (9-16); Calcium 7.9 mg/dL (8.4-10.2); Carbon Dioxide 29 mmol/L (22-29); Chloride 102 mmol/L (96-108); Estimated Glomerular Filt Rate > 60; Glucose Random 77 mg/dL (60-115); Sodium 139 mmol/L (135-145)
== END 2020-05-22 00:01 | disposition home or self-care (01) ==
LOC: HO.MMNH1L
PROVIDERS: Visit Provider Family Medicine
DX: M05.9 Rheumatoid arthritis with rheumatoid factor, unspecified (principal); I48.91 Unspecified atrial fibrillation
CPT/HCPCS: 36415; 80048; 85027

== ENCOUNTER 2020-05-24 13:25 | Outpatient (REF) | payer OTHER, SELFPAY ==
--- NOTE | 2020-05-24 13:30 | XR_ITS ---
EXAMINATION: XR ANKLE, LEFT CLINICAL INFORMATION: Left ankle fracture, follow-up. COMPARISON: Left ankle radiographs dated 04/14/2020. TECHNIQUE: AP, lateral, and mortise views of the left ankle. FINDINGS: Again seen is a minimally displaced oblique fracture of the lateral malleolus. There is a nondisplaced transverse fracture of the medial malleolus. Minimal tibiotalar degenerative joint changes are seen. The tarsal bones are normally aligned. Moderate to severe small vessel arterial sclerosis is again noted. XR/XR ankle LT min 3V IMPRESSION: 1. No displaced lateral malleolus fracture without significant change. 2. Transverse medial malleolar fracture is less pronounced consistent with interval healing.
== END 2020-05-24 13:26 | disposition home or self-care (01) ==
LOC: HO.HOSX 13:25
PROVIDERS: PCP Internal Medicine; Visit Provider Physician Assistant
DX: S82.63XA Displaced fracture of lateral malleolus of unspecified fibula, initial encounter for closed fracture (principal); X58.XXXA Exposure to other specified factors, initial encounter; Y93.9 Activity, unspecified; Y92.9 Unspecified place or not applicable; Y99.8 Other external cause status
CPT/HCPCS: 73610; 99212

== ENCOUNTER 2020-06-20 17:18 | Outpatient (REF) | payer OTHER, SELFPAY | END 2020-06-20 17:19 | disposition home or self-care (01) | LOC: HO.LAB 17:18 | PROVIDERS: PCP Internal Medicine; Visit Provider Internal Medicine | DX: Z20.828 Contact with and (suspected) exposure to other viral communicable diseases (principal) | CPT/HCPCS: C9803; U0003 ==

== ENCOUNTER → 2020-07-11 15:12 | Outpatient (BNVA) | payer OTHER, SELFPAY | PROVIDERS: PCP Internal Medicine; Visit Provider Student in an Organized Health Care Education/Training Program | DX: M19.011 Primary osteoarthritis, right shoulder (principal); M19.012 Primary osteoarthritis, left shoulder; R26.9 Unspecified abnormalities of gait and mobility; M81.0 Age-related osteoporosis without current pathological fracture | CPT/HCPCS: 20610; 99212 ==

== ENCOUNTER → 2020-07-12 14:41 | Outpatient (BNVA) | payer OTHER, SELFPAY | PROVIDERS: PCP Internal Medicine; Visit Provider Internal Medicine | DX: I48.0 Paroxysmal atrial fibrillation (principal); I50.32 Chronic diastolic (congestive) heart failure; I44.7 Left bundle-branch block, unspecified; I35.0 Nonrheumatic aortic (valve) stenosis | CPT/HCPCS: 99212 ==

== ENCOUNTER → 2020-07-19 14:39 | Outpatient (REF) | payer OTHER, SELFPAY ==
--- NOTE | 2020-07-19 14:27 | ECG_ITS ---
Hook-up date: 2020-07-19 15:52:00 Duration: 47:59:00 Test Indications: PAF Medications: 976998 QRS complexes 149 Ventricular ectopics which represent <1 % of total QRS comp. 89223 Supraventricular ectopics which represent 13 % of total QRS comp. * Paced QRS complexs which represent % of total QRS comp. VENTRICULAR ECTOPY 141 Isolated 0 Bigeminal Cycles 4 Couplets 0 Runs 0 Beats in Runs * Beats LONGEST at * BPM at :: -- * Beats FASTEST at * BPM at :: -- SUPRAVENTRICULAR ECTOPY 54656 Isolated 5101 Couplets 1159 Runs 4190 Beats in Runs 38 Beats LONGEST at 175 BPM at 23:55:59 2020-07-19 4 Beats FASTEST at 277 BPM at 10:41:22 2020-07-21 HEART RATES 61 MIN at 02:31:25 2020-07-21 97 AVG 205 MAX at 12:42:09 2020-07-20 LONGEST RR 1.3360 secs at 07:21:10 2020-07-21 S-T LEVELS Channel 1 - 128 mm at 15:52:00 2020-07-19 - 128 mm at 15:52:00 2020-07-19 Channel 2 - 128 mm at 15:52:00 2020-07-19 - 128 mm at 15:52:00 2020-07-19 Channel 3 - 128 mm at 03:51:11 -- - 128 mm at 03:51:11 Basic rhythm Normal sinus rhythm No long pause or profound bradycardia Frequent Premature atrial complexes Frequent bursts of SVE with wide QRS c/w AF with aberrancy with HR as high as 175 bpm Rare Premature ventricular complexes Patient did not report any symptoms in the diary Referred By: Greg Matt Overread By: GILBERTO STALEY MD
== END ==
LOC: HO.CARD 14:39
PROVIDERS: PCP Internal Medicine; Visit Provider Internal Medicine
DX: I48.0 Paroxysmal atrial fibrillation (principal)
CPT/HCPCS: 93225; 93226

== ENCOUNTER → 2020-07-28 14:39 | Outpatient (BNVA) | payer OTHER, SELFPAY | PROVIDERS: PCP Internal Medicine; Visit Provider Student in an Organized Health Care Education/Training Program | DX: M81.0 Age-related osteoporosis without current pathological fracture (principal) | CPT/HCPCS: 96402; J0897 ==

== ENCOUNTER 2020-07-31 15:00 | Outpatient (RCR) | payer OTHER, SELFPAY ==
[2020-07-20 15:13] VITALS: BP 133/78; PULSE 77; O2SAT 98
--- NOTE | 2020-07-21 08:34 | MHC.PT.EP ---
[facility] [place] Office [place] Office [place] Office [address] Antoinette Youssef [address] [phone] F: [phone] F: [phone] F: [phone] F: [phone] Physical Therapy Plan of Care Date of Evaluation: 07/20/20 Date of Surgery: N/A Diagnosis: unspecified abnormalities of gait and mobility Assessment: pt limited by multiple cardiovascular pathologies impairing her ability to perform functional ambulation in both the household and community settings. She is also limited by low back and B hip pain as a result of hip bursitis and recent post-op femur fx status. She would benefit from a gentle strengthening and stretching program as well as functional training w/ emphasis on CV endurance to improve functional independence. pt presents to physical therapy with pain, decreased range of motion, decreased strength, impaired functional mobility, impaired postural awareness, and gait deviations. pt is a fair candidate for skilled PT due to age, potential remediation of impairments, typical disease/condition progression and prognosis, comorbidities, and motivation. pt would benefit from tailored strengthening and stretching exercise program, functional training, gait training, postural re-training, neuromuscular re-education, modalities as needed for pain, equipment safety demonstration. Frequency and Duration: The patient will be seen 2/wk for 6 wks Short Term Goals: pt will be I w/ HEP to promote self-management of condition. pt will participate in 6MWT to determine baseline ambulation endurance w/ LRAD. Alf Goals: pt will report <2/10 low back and B hip pain w/ static standing to promote improved tolerance for ADLs. 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 Treatment Plan: Modalities to reduce pain, spasms and effusion. Manual therapy to restore motion and function. Therapeutic exercise to improve strength and flexibility. Neuromuscular re-education for posture and balance. Therapeutic activities to return to functional activities of daily living. Electronically signed by: Alondra Killian PT, DPT Please sign and return to therapist. Thank you for your referral.
--- NOTE | 2020-08-28 09:06 | MHC.PT.DC ---
[facility] [place] Office [place] Office [place] Office [address] [facility] [phone] F: [phone] F: [phone] F: [phone] F: [phone] Physical Therapy Discharge Report Diagnosis: unspecified abnormalities of gait and mobility Date of Surgery: N/A Date of Evaluation: 07/20/20 Date of Discharge: 08/28/20 Treatments to Date: 2 Cancellations to Date: 12 No Shows to Date: 0 Discharge Status: Patient Elected to Stop Discharge Summary: The patient called to discharge herself from physical therapy due to transportation limitations. The patient is discharged from this physical therapy plan of care at this time. Electronically signed by: Alondra Killian PT, DPT Please sign and return to therapist. Thank you for your referral.
== END 2020-08-28 09:06 | disposition other institution (70) ==
LOC: HO.PT 15:00
PROVIDERS: Visit Provider Student in an Organized Health Care Education/Training Program
DX: R26.9 Unspecified abnormalities of gait and mobility (principal)
CPT/HCPCS: 97110; 97162; 97530

== ENCOUNTER → 2020-08-29 15:26 | Outpatient (BNVA) | payer OTHER, SELFPAY | PROVIDERS: PCP Internal Medicine; Visit Provider Internal Medicine | DX: I48.0 Paroxysmal atrial fibrillation (principal); I50.32 Chronic diastolic (congestive) heart failure; I35.0 Nonrheumatic aortic (valve) stenosis; I44.7 Left bundle-branch block, unspecified | CPT/HCPCS: Q3014 ==

== ENCOUNTER 2020-09-22 14:44 | Outpatient (REF) | payer OTHER, SELFPAY ==
[2020-09-22 16:58] LABS: Alanine Aminotransferase 13 U/L (0-31); Albumin Level 3.9 g/dL (3.5-5.0); Alkaline Phosphatase 67 U/L (39-117); Anion Gap 10 (12-20); Aspartate Amino Transferase 17 U/L (5-31); Bilirubin Total 0.3 mg/dL (0.0-1.0); Blood Urea Nitrogen 14 mg/dL (9-16); Calcium 8.3 mg/dL (8.4-10.2); Carbon Dioxide 27 mmol/L (22-29); Chloride 104 mmol/L (96-108); Estimated Glomerular Filt Rate > 60; Glucose Random 85 mg/dL (60-115); Potassium 4.2 mmol/L (3.3-5.1); Sodium 137 mmol/L (135-145); Total Protein 6.2 g/dL (6.5-8.0)
[2020-09-26 14:21] LABS: Vitamin D 25-OH, D2 <4 ng/mL; Vitamin D 25-OH, D3 31 ng/mL; Vitamin D 25-OH, Total 31 ng/mL (30-100)
[2020-09-27 23:02] LABS: HPV mRNA E6/E7 rflx Not Detected (Not Detected)
== END 2020-09-22 14:45 | disposition home or self-care (01) ==
LOC: HO.LAB 14:44
PROVIDERS: Absent Provider Student in an Organized Health Care Education/Training Program; PCP Internal Medicine; Visit Provider Advanced Practice Midwife
DX: Z01.419 Encounter for gynecological examination (general) (routine) without abnormal findings (principal); Z11.51 Encounter for screening for human papillomavirus (HPV); R87.610 Atypical squamous cells of undetermined significance on cytologic smear of cervix (ASC-US); M81.0 Age-related osteoporosis without current pathological fracture
CPT/HCPCS: 36415; 80053; 82306; 87624; 88142

== ENCOUNTER 2020-10-26 11:58 | Outpatient (REF) | payer OTHER, SELFPAY ==
[2020-10-26 14:08] LABS: MANUAL DIFF FLAG NO
[2020-10-26 14:23] LABS: Basophils Percent Auto 0.8 % (0-2); Eosinophils Absolute Auto 0.2 X10*3/uL (0.0-0.4); Eosinophils Percent Auto 4.2 % (0-4); Hematocrit 26.4 % (37-47); Hemoglobin 7.5 g/dl (12.0-16.0); Imm Gran Abs Auto 0.01 X10*3/uL (0.00-0.03); Imm Gran Pct Auto 0.3 % (0.0-0.4); Lymphocytes Absolute Auto 0.9 X10*3/uL (1.2-4.9); Lymphocytes Percent Auto 23.5 % (20-40); Mean Corpuscular HGB Conc 28.4 g/dl (31.0-35.0); Mean Corpuscular Hemoglobin 24.6 pg (27.0-33.0); Mean Corpuscular Volume 86.6 fL (80-98); Monocytes Absolute Auto 0.4 X10*3/uL (0.1-1.2); Neutrophils Absolute Auto 2.3 X10*3/uL (2.0-8.3); Neutrophils Percent Auto 61.2 % (45-73); Platelet Count 248 X10*3/uL (160-400); Red Blood Count 3.05 X10*6/uL (4.20-5.50); Red Cell Distribution Width 17.7 % (11.0-16.0); White Blood Count 3.8 X10*3/uL (4.8-10.8)
[2020-10-26 14:41] LABS: Cholesterol 191 mg/dL; HDL Cholesterol 47 mg/dL; LDL Cholesterol Calculated 113 mg/dl; Triglycerides 158 mg/dL
== END 2020-10-26 11:59 | disposition home or self-care (01) ==
LOC: HO.HMGCLDS 11:58
PROVIDERS: PCP Internal Medicine; Visit Provider Internal Medicine
DX: Z00.01 Encounter for general adult medical examination with abnormal findings (principal); D64.9 Anemia, unspecified; I48.0 Paroxysmal atrial fibrillation
CPT/HCPCS: 36415; 80061; 85025

== ENCOUNTER → 2020-11-08 14:57 | Outpatient (BNVA) | payer OTHER, SELFPAY | PROVIDERS: PCP Internal Medicine; Visit Provider Student in an Organized Health Care Education/Training Program | DX: M19.011 Primary osteoarthritis, right shoulder (principal); M19.012 Primary osteoarthritis, left shoulder; M81.0 Age-related osteoporosis without current pathological fracture | CPT/HCPCS: 20610; 99212 ==

== ENCOUNTER → 2020-11-28 12:37 | Outpatient (BNVA) | payer OTHER, SELFPAY | PROVIDERS: PCP Internal Medicine; Referring Provider Internal Medicine; Visit Provider Internal Medicine | DX: I48.0 Paroxysmal atrial fibrillation (principal); I50.32 Chronic diastolic (congestive) heart failure; I35.0 Nonrheumatic aortic (valve) stenosis; I44.7 Left bundle-branch block, unspecified | CPT/HCPCS: 99212 ==

== ENCOUNTER 2020-12-05 13:21 | Outpatient (REF) | payer OTHER, SELFPAY ==
[2020-12-05 16:37] LABS: MANUAL DIFF FLAG NO
[2020-12-05 16:42] LABS: Basophils Percent Auto 0.4 % (0-2); Eosinophils Absolute Auto 0.1 X10*3/uL (0.0-0.4); Eosinophils Percent Auto 1.6 % (0-4); Hematocrit 30.4 % (37-47); Hemoglobin 8.9 g/dl (12.0-16.0); Imm Gran Abs Auto 0.01 X10*3/uL (0.00-0.03); Imm Gran Pct Auto 0.2 % (0.0-0.4); Lymphocytes Absolute Auto 0.9 X10*3/uL (1.2-4.9); Lymphocytes Percent Auto 17.3 % (20-40); Mean Corpuscular HGB Conc 29.3 g/dl (31.0-35.0); Mean Corpuscular Hemoglobin 26.3 pg (27.0-33.0); Mean Corpuscular Volume 89.9 fL (80-98); Mean Platelet Volume 9.6 fL (9.4-12.3); Monocytes Absolute Auto 0.5 X10*3/uL (0.1-1.2); Monocytes Percent Auto 9.4 % (2-11); Neutrophils Absolute Auto 3.7 X10*3/uL (2.0-8.3); Neutrophils Percent Auto 71.1 % (45-73); Platelet Count 260 X10*3/uL (160-400); Red Blood Count 3.38 X10*6/uL (4.20-5.50); Red Cell Distribution Width 20.9 % (11.0-16.0); White Blood Count 5.1 X10*3/uL (4.8-10.8)
[2020-12-05 16:57] LABS: Glucose Urine UA NEG (NEG); Leukocyte Esterase Urine 2+ (NEG); Nitrite Urine POS (NEG); PH 6.5 (5.0-8.0); Specific Gravity - Urine 1.015 (1.005-1.025); UACC Culture Trigger YES; Urine Blood NEG (NEG); Urine Ketones NEG (NEG); Urine Protein NEG (NEG-TRACE)
[2020-12-05 17:00] LABS: Appearance Urine CLOUDY; Color Urine YELLOW
[2020-12-05 17:17] LABS: Anion Gap 13 (12-20); Blood Urea Nitrogen 17 mg/dL (9-16); Calcium 8.5 mg/dL (8.4-10.2); Carbon Dioxide 28 mmol/L (22-29); Chloride 105 mmol/L (96-108); Estimated Glomerular Filt Rate > 60; Glucose Fasting 90 mg/dL (60-99); Iron 27 mcg/dL (30-160); Percent Iron Saturation 5 % (15-50); Potassium 4.6 mmol/L (3.3-5.1); Sodium 141 mmol/L (135-145); Total Iron Binding Capacity 517 mcg/dL (228-428); Unsaturated Iron Binding 490 ug/dL
[2020-12-05 17:39] LABS: TSH reflex Free T4 0.13 uIU/mL (0.32-4.0); Vitamin D 25-OH Total 22.9 ng/mL (>30)
[2020-12-05 17:42] LABS: Bacteria Urine 2+ /LPF; Mucus Urine TRACE /LPF
[2020-12-05 17:50] LABS: Folate 19.6 ng/mL (> or = 4.0); Vitamin B12 709 pg/mL (200-900)
[2020-12-05 18:12] LABS: Free T4 (Free Thyroxine) 1.15 ng/dL (0.71-1.85)
== END 2020-12-05 13:22 | disposition home or self-care (01) ==
LOC: HO.HMGCLDS 13:21
PROVIDERS: PCP Internal Medicine; Visit Provider Internal Medicine
DX: D64.9 Anemia, unspecified (principal); R06.00 Dyspnea, unspecified; I10 Essential (primary) hypertension
CPT/HCPCS: 36415; 80048; 81001; 81003; 82306; 82607; 82746; 83540; 84439; 84443; 85025; 87086

== ENCOUNTER → 2020-12-21 09:58 | Outpatient (REF) | payer OTHER, SELFPAY ==
--- NOTE | ~2020-12-21 | NM_ITS ---
Lexiscan Myocardial perfusion study Indication: Diastolic heart failure, atrial fibrillation, assess for coronary disease and ischemia Technique: The patient was brought in for a Lexiscan perfusion study on 12/21/2020 and was injected 0.4 mg of Lexiscan intravenously. Within a minute of this injection 35 mCi of sestamibi was given intravenously. Images were obtained using the SPECT gamma camera interlaced with the gating device. Images were obtained in supine position. Resting perfusion study was performed on 12/22/2020. Patient was administered 35 mCi of sestamibi intravenously at rest. Images were then obtained in supine position. Total DLP 196mGy-cm. Images were processed with the software and compared side to side in short axis, horizontal long axis and vertical long axis views. Findings: Raw acquisition was reviewed. Patient's arms by his side. The stress perfusion study showed diminished tracer uptake along the anterior wall. With CT attenuation correction, there seems to be significant improvement and hence probably all soft tissue attenuation. The gated study shows mildly diminished LV systolic function with calculated LVEF of 49%. LV cavity is normal in size. The gated study shows normal wall thickening and contraction of segments. Resting study shows no significant perfusion abnormality. Gating at rest reveals normal wall motion with ejection fraction at 50%. The findings are consistent with no definite reversible or fixed perfusion defects. NM/NM willow perf SPECT rest & str Impression: 1. Myocardial perfusion imaging study shows likely normal myocardial perfusion. No definitive evidence of any ischemia or infarction. 2. Gated LVEF is 49% during stress and 50% during rest. 3. Transient ischemic dilatation not present. EKG component of the test reported separately.
--- NOTE | 2020-12-21 10:03 | CA_ITS ---
Acquisition Time: 2020-12-21 10:34:10 Total Exercise Time: 00:02:00 Test Indications: Abnormal ECG Medications: FUROSEMIDE APIXABAN GABAPENTIN BUSPIRONE METOPROLOL LATUDA Protocol: LEXISCAN Max HR: 125 BPM 80% of Pred: 155 BPM Max BP: 144/074 mmHG Max Work Load: 1.0 METS Pharmacological stress test with Lexiscan injection, while sitting and kicking her legs, without anginal symptoms, with isolated PACs, atrial cuplets and triplets, with normotensive response to injection, with nondiagnostic EKG for ischemia. Nuclear images pending. Test reviewed with Dr Matt.\ Referred By: Greg Matt Overread By: MARISOL KWAN
== END ==
LOC: HO.CARD 09:58
PROVIDERS: Visit Provider Internal Medicine
DX: I50.32 Chronic diastolic (congestive) heart failure (principal); I48.91 Unspecified atrial fibrillation; R94.31 Abnormal electrocardiogram [ECG] [EKG]
CPT/HCPCS: 78452; 93017; A9500; J0280; J2785

== ENCOUNTER → 2020-12-21 12:38 | Outpatient (REF) | payer OTHER, SELFPAY | LOC: HO.SL 12:38 | PROVIDERS: PCP Internal Medicine; Visit Provider Internal Medicine | DX: G47.33 Obstructive sleep apnea (adult) (pediatric) (principal); I48.91 Unspecified atrial fibrillation; R06.83 Snoring; I50.32 Chronic diastolic (congestive) heart failure | CPT/HCPCS: 95806 ==

== ENCOUNTER → 2021-01-18 13:24 | Outpatient (BNVA) | payer OTHER, SELFPAY | PROVIDERS: PCP Internal Medicine; Visit Provider Internal Medicine | DX: I48.0 Paroxysmal atrial fibrillation (principal); I35.0 Nonrheumatic aortic (valve) stenosis; I44.7 Left bundle-branch block, unspecified; I50.32 Chronic diastolic (congestive) heart failure; Z79.899 Other long term (current) drug therapy | CPT/HCPCS: 99212 ==

== ENCOUNTER → 2021-01-30 13:09 | Outpatient (BNVA) | payer OTHER, SELFPAY | PROVIDERS: PCP Internal Medicine; Visit Provider Student in an Organized Health Care Education/Training Program | DX: M81.0 Age-related osteoporosis without current pathological fracture (principal) | CPT/HCPCS: 96372; J0897 ==

== ENCOUNTER → 2021-02-09 14:39 | Outpatient (BNVA) | payer OTHER, SELFPAY | PROVIDERS: PCP Internal Medicine; Visit Provider Student in an Organized Health Care Education/Training Program | DX: M19.011 Primary osteoarthritis, right shoulder (principal); M19.012 Primary osteoarthritis, left shoulder; M81.0 Age-related osteoporosis without current pathological fracture | CPT/HCPCS: 20610; 99212 ==

== ENCOUNTER 2021-03-20 14:19 | Outpatient (REF) | payer MEDICARE, SELFPAY | END 2021-03-20 14:20 | disposition home or self-care (01) | LOC: HO.LNP 14:19 | PROVIDERS: PCP Internal Medicine | DX: R32 Unspecified urinary incontinence (principal) | CPT/HCPCS: 51798; 87086; 99212 ==

== ENCOUNTER 2021-04-24 14:58 | Outpatient (REF) | payer MEDICARE, SELFPAY ==
[2021-04-24 17:13] LABS: C Reactive Protein 0.46 mg/dL (< or = 0.50)
[2021-04-26 07:16] LABS: Antibody to SS-A Antigen <1.0 NEG AI (<1.0 NEG); Antibody to SS-B Antigen <1.0 NEG AI (<1.0 NEG)
== END 2021-04-24 14:59 | disposition home or self-care (01) ==
LOC: HO.HMGCLDS 14:58
PROVIDERS: PCP Internal Medicine; Visit Provider Internal Medicine
DX: R68.2 Dry mouth, unspecified (principal)
CPT/HCPCS: 36415; 86140; 86235

== ENCOUNTER 2021-04-27 13:57 | Outpatient (REF) | payer MEDICARE, SELFPAY ==
--- NOTE | ~2021-04-27 | MM_ITS ---
EXAMINATION: MM SCREENING DIGITAL BREAST TOMOSYNTHESIS, BILATERAL CLINICAL INFORMATION: Screening. Asymptomatic. The lifetime risk of breast cancer based on the Tyrer-Cuzick Model is 5%. COMPARISON: Mammography: 01/05/2020, 09/28/2018, 09/04/2017 TECHNIQUE: Digital breast tomosynthesis is performed in both the craniocaudal and mediolateral oblique views along with computer-aided detection (CAD). Synthesized 2D images are generated from the tomosynthesis. Additional bilateral CC views and additional bilateral MLO views are provided. FINDINGS: There are scattered areas of fibroglandular density (ACR BI-RADS breast composition Category b). Parenchymal pattern is similar to prior studies. Minor asymmetry mid medial right breast is stable to decreased. There is no interval mass or architectural abnormality or developing density. No abnormal calcifications. The axilla and skin contours are unremarkable. MM/MM tomosynthesis screening BI IMPRESSION: No mammographic evidence of malignancy. ASSESSMENT: BI-RADS 2: Benign RECOMMENDATION: Routine annual mammography screening. This patient's information was entered into a reminder system with a target due date for their next mammogram.
--- NOTE | ~2021-04-27 | MM_ITS ---
EXAMINATION: BONE DENSITOMETRY CLINICAL INDICATION: Age-related osteoporosis without current pathological fracture. COMPARISON: Previous BD dated 12/18/2018 and baseline BD dated 06/17/2008. TECHNIQUE: Using a ipsy DXA System (software version: 13.1) manufactured by [employer], dual-energy x-ray absorptiometry was performed of the lumbar spine and right hip. The images are of good technical quality. Summary results are attached. FINDINGS: AP SPINE L1-L2 (excluding L3 and L4): The data of L1-L4 has been changed to exclude the L3 and L4 vertebral bodies, because degenerative changes at these levels may cause overestimation of lumbar spine density. Current: BMD 0.916 g/cm2, Z-score -0.9, T-score -2.1, osteopenia, 9.0% increase from previous, 8.9% increase from baseline (<5% change is not significant). Prior: BMD 0.840 g/cm2. Baseline: BMD 0.841 g/cm2. RIGHT FEMUR, NECK: Current: BMD 0.564 g/cm2, Z-score -2.2, T-score -3.4, osteoporosis. Prior: BMD 0.617 g/cm2. Baseline: BMD 0.726 g/cm2. RIGHT FEMUR, TOTAL: Current: BMD 0.714 g/cm2, Z-score -1.4, T-score -2.3, osteopenia, 2.7% decrease from previous, 20.9% decrease from baseline (<5% change is not significant). Prior: BMD 0.734 g/cm2. Baseline: BMD 0.903 g/cm2. IDENTIFIED RISK FACTORS: Osteoporosis, height loss, history of fracture (adult), anticonvulsants, menopause. HISTORY OF FRACTURE: Left lower leg. MEDICATIONS: Calcium supplements or multivitamin, vitamin D, Prolia. MM/XR DEXA axial skeleton IMPRESSION: 1. DIAGNOSIS: Osteoporosis based on the lowest T-score value of -3.4 in the femoral neck applying World Health Organization criteria. 2. 2. 10-YEAR FRACTURE RISK PREDICTION, FRAX: According to the guidelines, FRAX calculation should only be performed on patients in the osteopenia bone density category. Therefore, FRAX was not performed on this patient. 3. Treatment Recommendations: NOF guidelines recommend consideration for treatment in postmenopausal women and men age 50 and older presenting with the following: -A hip or vertebral (clinical or morphometric) fracture. -T-score less than or equal to -2.5 at the femoral neck or spine after appropriate evaluation to exclude secondary causes. -Low bone mass at the hip or spine and a 10-year fracture probability by FRAX of greater than or equal to 3% for hip fracture or greater than or equal to 20% for major osteoporotic fracture based on the [place] adapted WHO algorithm. 4. Other Recommendations: All treatment decisions require clinical judgment and consideration of individual patient factors, including patient preferences, comorbidities, previous drug use, risk factors not captured in the FRAX model (e.g. frailty, falls, vitamin D deficiency, increased bone turnover, interval significant decline in bone density) and possible under or overestimation of fracture risk by FRAX. Additional medical evaluation for secondary cause of low bone mineral density may be appropriate. FUTURE SCAN RECOMMENDATION: People with diagnosed cases of osteoporosis or at high risk for fracture should have regular bone mineral density tests. For patients eligible for Medicare, routine testing is allowed once every 2 years. The testing frequency can be increased to one year for patients who have rapidly progressing disease, those who are receiving or discontinuing medical therapy to restore bone mass, or have additional risk factors.
== END 2021-04-27 13:58 | disposition home or self-care (01) ==
LOC: HO.MAMMO 13:57
PROVIDERS: PCP Internal Medicine; Visit Provider Student in an Organized Health Care Education/Training Program
DX: Z12.31 Encounter for screening mammogram for malignant neoplasm of breast (principal); M81.0 Age-related osteoporosis without current pathological fracture
CPT/HCPCS: 77063; 77067; 77080

== ENCOUNTER 2021-05-22 11:11 | Outpatient (REF) | payer MEDICARE, SELFPAY ==
[2021-05-22 14:56] LABS: Free T4 (Free Thyroxine) 1.23 ng/dL (0.71-1.85); Thyroid Stimulating Hormone 0.29 uIU/mL (0.32-4.0)
[2021-05-23 21:32] LABS: Triiodothyronine T3 Free 3.1 pg/mL (2.3-4.2)
== END 2021-05-22 11:12 | disposition home or self-care (01) ==
LOC: HO.HMGCLDS 11:11
PROVIDERS: PCP Internal Medicine; Visit Provider Internal Medicine
DX: R79.89 Other specified abnormal findings of blood chemistry (principal)
CPT/HCPCS: 36415; 84439; 84443; 84481

== ENCOUNTER 2021-06-05 16:34 | Emergency (ER) | payer MEDICARE, SELFPAY ==
--- NOTE | ~2021-06-05 | CT_ITS ---
EXAMINATION: CT CHEST WITHOUT CONTRAST CLINICAL INFORMATION: Dysphasia and hoarseness COMPARISON: CT angiogram chest 04/11/2020 TECHNIQUE: Multidetector volumetric CT imaging of the chest was done. Axial MIP volume rendering provided. Sagittal and coronal reformatted images were obtained. This CT examination was performed using dose optimization techniques as appropriate, variously including the following: *Automated exposure control *Adjustment of mA and/or kV according to patient size (this includes techniques or standardized protocols for targeted exams where dose is matched to indication/reason for exam; i.e. extremities or head) *Use of iterative reconstruction technique DLP: 589 mGy-cm FINDINGS: LUNGS: Punctate right lower lobe granuloma is seen. A perifissural 5 mm triangular nodular density seen adjacent left hemidiaphragm most likely lymph node. If this was present previously, it was obscured by the previously present pleural effusion and atelectasis. The lungs are otherwise clear with no evidence of inflammation or nodules. MEDIASTINUM: Again noted is an enlarged left lobe of the thyroid extending down into the mediastinum adjacent to the great vessels. Punctate calcifications are present as well. Appearances are unchanged when compared to the prior CT scan. Heart size normal. Coronary artery calcifications are seen. No aortic aneurysm is present. No mediastinal mass is detected. PLEURA: Previously seen pleural effusions have completely cleared. AXILLA: No lymphadenopathy. UPPER ABDOMEN: Unremarkable. OSSEOUS STRUCTURES: Unremarkable. CT/CT chest wo con IMPRESSION: 1. A cause for the patient's dyspnea or stenosis has not been found. 2. An enlarged thyroid goiter is once again demonstrated. Baseline thyroid ultrasound is recommended. 3. Previously seen bilateral pleural effusions have totally cleared. 4. 5 mm left-sided nodule probably a lymph node. According to the UPDATED 2017 Fleischner Society recommendations, the advised follow-up imaging for solid nodules < 6 mm is: LOW RISK PATIENT: No routine follow-up. HIGH RISK PATIENT: Optional CT at 12 months. Fleischner guidelines were followed.
[2021-06-05 19:25] VITALS: BP 110/88; PULSE 78; RESP 16; TEMP 36.1; O2SAT 96; BMI 44.8
--- NOTE | 2021-06-05 21:48 | ED.GENADULT ---
HPI - General Adult General Chief complaint: General Medical Stated complaint: difficulty swallowing Time Seen by Provider: 06/05/21 21:09 Source: patient Mode of arrival: ambulatory History of Present Illness HPI narrative: 65-year-old female with history of smoking presents with 6 months difficulty swallowing but denies any unexplained weight loss and as a matter fact states that she has gained weight and also has had a least phlegm and hoarseness of voice. She denies any difficulty with breathing and does have a follow-up primary care provider on 06/27. She otherwise denies any, chills, ear pain, chest pain/palpitations. Related Data Home Medications Medication Instructions Recorded Confirmed gabapentin 800 mg tablet 800 mg PO TID 04/11/20 02/09/21 lurasidone 40 mg tablet (Latuda) 40 mg PO DAILY 04/11/20 02/09/21 trazodone 300 mg tablet 300 mg PO BEDTIME 04/11/20 02/09/21 venlafaxine 75 mg tablet,extended 75 mg PO DAILY 04/11/20 02/09/21 release 24 hr imatinib 400 mg tablet 400 mg PO DAILY 06/13/20 02/09/21 buspirone 5 mg tablet 10 mg PO TID tab 07/12/20 02/09/21 Previous Rx's Medication Instructions Recorded furosemide 20 mg tablet 20 mg PO DAILY #30 tab 04/15/20 denosumab 60 mg/mL subcutaneous 60 mg SUBCUT [id number] #1 ml 07/21/20 syringe (Prolia) metoprolol tartrate 50 mg tablet 50 mg PO BID #180 tab 08/29/20 mirabegron 50 mg tablet,extended 50 mg PO DAILY 90 Days #90 tab 11/02/20 release 24 hr oxybutynin chloride 15 mg 15 mg PO DAILY 90 Days #90 tab 11/16/20 tablet,extended release 24 hr ferrous fumarate 325 mg (106 mg 325 mg PO DAILY #30 tab 12/07/20 iron) tablet ferrous fumarate 200 mg (65 mg 1 tab PO BID #60 tab 12/12/20 iron)-vit C 25 mg tablet,extend release tramadol 50 mg tablet 50 mg PO Q6H PRN #120 tab 01/16/21 food supplemt, lactose-reduced 1 ea PO .qd 28 Days #5688 ml 01/22/21 (Ensure High Protein) omeprazole 40 mg capsule,delayed 40 mg PO DAILY #90 cap 02/02/21 release apixaban 5 mg tablet (Eliquis) 5 mg PO BID 90 Days #180 tab 02/05/21 calcium carbonate 500 mg (1,250 1 tab PO DAILY #30 tab 03/15/21 mg)-vitamin D3 400 unit tablet nystatin 100,000 unit/gram topical 1 appl TOPICAL BID PRN #60 g 04/02/21 powder Magic Mouthwash 5 ml PO TID #240 ml 04/25/21 Diphen/Lido/Antacid 1:1:1 240 mL suspension cholecalciferol (vitamin D3) 1,250 1,250 mcg PO QWEEK 90 Days #13 cap 05/02/21 mcg (50,000 unit) capsule ondansetron HCl 8 mg tablet 8 mg PO TID PRN #20 tab 05/07/21 Allergies Allergy/AdvReac Type Severity Reaction Status Date / Time simvastatin [SIMVASTATIN] Allergy Intermediate MUSCLE PAIN Verified 04/24/21 13:46 lamotrigine AdvReac Intermediate NIGHTMARES Verified 04/24/21 13:46 celecoxib [From CELEBREX] AdvReac Mild DIZZY, Verified 04/24/21 13:46 TIRED Darvon Allergy Unknown Unknown Uncoded 04/24/21 13:46 Review of Systems Review of Systems: Pertinent positives and negatives as stated in HPI 10 point review of systems is otherwise negative. [facility] Past Medical History Source: nursing notes reviewed Medical History Acute on chronic anemia Acute respiratory failure with hypoxia Anemia Anxiety Atrial fibrillation Atrial tachycardia Bipolar 1 disorder Chronic diastolic (congestive) heart failure Gait instability GERD (gastroesophageal reflux disease) Lateral malleolar fracture Leukemia in remission Non-rheumatic aortic stenosis Osteoporosis PAF (paroxysmal atrial fibrillation) Primary osteoarthritis, left shoulder Primary osteoarthritis, right shoulder Pulmonary embolism Urgency-frequency syndrome Vitamin D deficiency Surgical History History of section History of ear surgery History of femur fracture Family History Family History Unknown Unknown family medical history Social History Social History Household Members: Spouse Housing: Apartment Alcohol intake: former Patient Tobacco Use Status: Former Tobacco user Quit Date: 1999 Advance Directives: No Advance Directives Information Provided: Yes Advance Directives Date on File: 06/15/04 service: No Current occupational status: disabled Physical Exam Vital Signs: Vital Signs: Last Vital Signs Temp 96.9 F 06/05/21 19:25 Pulse 78 06/05/21 19:25 Resp 16 06/05/21 19:25 BP 110/88 06/05/21 19:25 Pulse Ox 96 06/05/21 19:25 Body Mass Index 44.8 VITAL SIGNS: Reviewed. GENERAL: Elderly, chronically ill, well nourished, in no acute distress. HEAD: Normocephalic/atraumatic EYES: PERRLA, EOMI OROPHARYNX: no oral lesions noted, posterior pharynx clear, dry mucosa NECK: Supple, no adenopathy LUNGS: Normal breath sounds, no stridor, no wheeze/rales/rhonchi, no tachypnea SpO2<96> CARDIOVASCULAR: Regular rate and rhythm without noted murmurs ABDOMEN: Soft, non-tender, non-distended with bowel sounds. NEUROLOGIC: Alert and oriented x 4. Strength and sensation to light touch were grossly intact x 4. Course Course Course Narrative: 65-year-old female with history and clinical presentation concerning for possible esophageal or vocal cord/laryngeal difficulty but there are no signs compromise and clinical presentation in consistent with inability to consume necessary calories. Review of CT for patient's current symptoms and patient will be discharged home in stable condition with instructions to follow-up with her established ENT physician regarding the coarse voice and provided with a referral to speak with Gastroenterology regarding her difficulty with swallowing. Discharge Plan Discharge Clinical Impression: Hoarseness of voice, Dysphagia Patient Disposition: Home, Self-Care Instructions: Dysphagia (ED) Additional Instructions: 1. Resume all medications as prescribed. 2. Call the office of your ENT doctor to set up an appointment for your hoarse voice. 3. You have been provided with a referral to follow-up with Gastroenterology to be further evaluated for your difficulty in swallowing. 4. Please keep your scheduled appointment on 06/27 with your primary care provider. Return to the ER for worsening symptoms. Prescriptions: No Action Prolia 60 mg/mL syringe 60 mg subcut [id number] Qty: 1 RF: 1 mirabegron 50 mg tablet extended release 24 hr 50 mg PO DAILY 90 Days Qty: 90 RF: 2 oxybutynin chloride 15 mg tablet extended release 24 hr 15 mg PO DAILY 90 Days Qty: 90 RF: 2 tramadol 50 mg tablet 50 mg PO Q6H PRN (Reason: pain) Qty: 120 RF: 3 Ensure High Protein Liquid 1 ea PO .qd 28 Days Qty: 5688 RF: 6 omeprazole 40 mg capsule,delayed release(DR/EC) 40 mg PO DAILY Qty: 90 RF: 0 Eliquis 5 mg tablet 5 mg PO BID 90 Days Qty: 180 RF: 3 calcium carbonate-vitamin D3 500 mg(1,250mg) -400 unit tablet 1 tab PO DAILY Qty: 30 RF: 4 nystatin 100,000 unit/gram powder 1 appl topical BID PRN (Reason: Intertrigo) Qty: 60 RF: 3 Magic Mouthwash Diphen/Lido/Antacid 1:1:1 240 mL suspension 5 ml PO TID Qty: 240 RF: 0 cholecalciferol (vitamin D3) 1,250 mcg (50,000 unit) capsule 1,250 mcg PO QWEEK 90 Days Qty: 13 RF: 0 ondansetron HCl 8 mg tablet 8 mg PO TID PRN (Reason: nausea and vomiting) Qty: 20 RF: 0 gabapentin 800 mg Tablet 800 mg PO TID RF: 0 trazodone 300 mg Tablet 300 mg PO BEDTIME RF: 0 Latuda 40 mg Tablet 40 mg PO DAILY RF: 0 venlafaxine 75 mg Tablet Extended Release 24hr 75 mg PO DAILY RF: 0 furosemide 20 mg Tablet 20 mg PO DAILY Qty: 30 RF: 0 buspirone 5 mg tablet 10 mg PO TID RF: 0 ferrous fumarate-vitamin C 200 mg (65 mg iron)-25 mg Tablet Extended Release 1 tab PO BID Qty: 60 RF: 3 imatinib 400 mg tablet 400 mg PO DAILY RF: 0 ferrous fumarate 325 mg (106 mg iron) tablet 325 mg PO DAILY Qty: 30 RF: 5 metoprolol tartrate 50 mg tablet 50 mg PO BID Qty: 180 RF: 4 Referrals: Vandana Gomez MD [Primary Care Provider] - 2 days Baudilio Berrios MD [Physician] - 2 days (65-year-old female with history looking presents with 6 months of dysphagia, but no unexplained weight loss noted, no evidence of thrush, and CT scan negative for obvious new causes for symptoms. Would appreciate evaluation and treatment as indicated.)
== END 2021-06-06 00:24 | disposition home or self-care (01) ==
PROVIDERS: Emergency Provider Student in an Organized Health Care Education/Training Program; PCP Internal Medicine
DX: R13.10 Dysphagia, unspecified (principal); R49.0 Dysphonia; I48.0 Paroxysmal atrial fibrillation
CPT/HCPCS: 71250; 99283; 99284

== ENCOUNTER → 2021-09-20 13:43 | Outpatient (BNVA) | payer MEDICARE, SELFPAY | PROVIDERS: PCP Internal Medicine; Referring Provider Internal Medicine; Visit Provider Internal Medicine | DX: I50.32 Chronic diastolic (congestive) heart failure (principal); I25.10 Atherosclerotic heart disease of native coronary artery without angina pectoris; I48.0 Paroxysmal atrial fibrillation; I35.0 Nonrheumatic aortic (valve) stenosis; I44.7 Left bundle-branch block, unspecified; Z79.01 Long term (current) use of anticoagulants; Z79.899 Other long term (current) drug therapy | CPT/HCPCS: 93005; 99212 ==

== ENCOUNTER → 2022-02-28 13:21 | Outpatient (REF) | payer MEDICARE, SELFPAY ==
--- NOTE | 2022-02-28 13:31 | CA_ITS ---
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 The calculated ejection fraction is 53% by biplane method. - Aortic valve sclerosis, but no significant stenosis. - There is mild mitral annular calcification. Findings Procedure Information Contrast agent, definity, is being given per protocol without apparent complications. Left Ventricle Normal left ventricular cavity size. There is normal left ventricular wall thickness. The left ventricular systolic function is low normal. The calculated ejection fraction is 53% by biplane method. There is no evidence of regional wall motion abnormalities. E/E prime ratio is >15, consistent with elevated filling pressures. Evidence suggests grade I (mild) diastolic dysfunction. Right Ventricle Normal right ventricular cavity size and systolic function. Atria Both atria are normal in size. Aortic Valve There is mild calcification of the aortic valve. There is trace (trivial) aortic valve regurgitation. No significant aortic stenosis. Mitral Valve There is mild mitral annular calcification. There is no mitral valve regurgitation. There is no mitral valve stenosis. Pulmonic Valve The pulmonic valve is likely normal. Tricuspid Valve There is trace tricuspid valve regurgitation. The pulmonary artery systolic pressure is normal. Great Vessels The asc aorta is normal in size. Venous The inferior vena cava is normal in size and collapses greater than 50% with inspiration. Pericardium/Pleural There is no evidence of pericardial effusion. Prior Study Comparison No significant change compared to prior study dated: 04/12/2020. Measurements 2D Linear Measurements IVSd: 0.86 0.6-0.9/0.6-1.0 cm LVIDd: 4.81 3.9-5.3/4.2-5.9 cm LVIDd Index: 2.70 2.4-3.2/2.2-3.1 cm/m2 LVIDs: 3.80 2.0-3.6 cm LVPWd: 0.96 0.7-1.1 cm LA Diam: 3.10 2.7-3.8/3.0-4.0 cm LAIDs Index: 1.74 1.5-2.3 cm/m2 LV Mass: 186.12 67-162/88-224 g LV Mass Index: 104.56 43-95/49-115 g/m2 LVOT Diam: 2.00 3.0+(-)1.3 cm 2D Systolic Function EF 4C: 52.30 >55% EF 2C: 54.40 >55% EF BiP: 53.10 >55% Mitral Valve MV Pk E: 0.78 MV PK A: 1.07 MV Decel Time: 238.00 E/A: 0.70 E'Lateral: 6.09 E'Medial: 4.35 E/E' Med: 18.00 E/E' Lat: 12.90 PHT: 70.00 MVA PHT: 3.14 Decel [place]: 3.30 Aortic Valve AoV Pk Kojo: 2.10 AoV Mn Kojo: 1.44 AoV VTI: 0.39 AoV Pk Grad: 18.00 Aov Mn Grad: 10.00 MARIA LUZ Cont.VTI: 1.88 AI Pk Kojo: 4.23 AI [place]: 3.14 LVOT LVOT Pk Kojo: 1.25 LVOT Mn Kojo: 0.85 LVOT VTI: 0.23 LVOT Pk Grad: 6.00 LVOT Mn Grad: 3.00 LVOT Diam: 2.00 LVOT Area: 3.14 Diastolic Function MV Pk E: 0.78 MV Pk A: 1.07 E/A: 0.70 E'Medial: 4.35 E/E' Med: 18.00 E' Laterial: 6.09 E/E' Lat: 12.90 Right Ventricle TAPSE (mm): 16.30 TVS' Kojo: 10.00 Tricuspid Valve TR Pk Kojo: 2.06 TR Pk Grad: 17.00 RA Press: 3.00 RVSP: 20.00 Great Vessels Aorta Sinus of Valsalva: 3.50 2.0-3.5 cm Ao Asc: 3.60 2.1-3.4 cm Pulmonary Valve PV Pk Kojo: 1.08 Peak PV Grad: 5.00 Updated in Other Vendor System with Status of Final Greg Matt MD electronically signed on 03/01/2022 9:56:52 AM with status of Final
== END ==
LOC: HO.CARD 13:21
PROVIDERS: Visit Provider Internal Medicine
DX: I35.0 Nonrheumatic aortic (valve) stenosis (principal)
CPT/HCPCS: 93306; Q9957

== ENCOUNTER 2022-05-28 13:52 | Outpatient (REF) | payer OTHER, SELFPAY ==
--- NOTE | ~2022-05-28 | XR_ITS ---
EXAMINATION: XR ANKLE, LEFT CLINICAL INFORMATION: Pain COMPARISON: Previous x-ray May 2020 TECHNIQUE: AP, lateral, and mortise views of the left ankle. FINDINGS: The bones are osteopenic. There is an old healed fracture of the distal shaft of the fibula. No acute fracture or dislocation. Normal ankle mortise. Severe vascular calcification. XR/XR ankle LT min 3V IMPRESSION: Osteopenia. Old healed left distal fibular shaft fracture. Severe atherosclerotic disease.
[2022-05-28 16:33] LABS: MANUAL DIFF FLAG NO
[2022-05-28 16:40] LABS: Basophils Percent Auto 0.4 % (0-2); Eosinophils Absolute Auto 0.2 X10*3/uL (0.0-0.4); Eosinophils Percent Auto 3.1 % (0-4); Hemoglobin 11.6 g/dl (12.0-16.0); Imm Gran Abs Auto 0.02 X10*3/uL (0.00-0.03); Imm Gran Pct Auto 0.3 % (0.0-0.4); Lymphocytes Absolute Auto 0.9 X10*3/uL (1.2-4.9); Lymphocytes Percent Auto 13.4 % (20-40); Mean Corpuscular HGB Conc 31.4 g/dl (31.0-35.0); Mean Corpuscular Hemoglobin 33.4 pg (27.0-33.0); Mean Corpuscular Volume 106.6 fL (80.0-98.0); Monocytes Absolute Auto 0.7 X10*3/uL (0.1-1.2); Monocytes Percent Auto 10.1 % (2-11); Neutrophils Absolute Auto 4.9 x10*3/uL (2.0-8.3); Neutrophils Percent Auto 72.7 % (45-73); Platelet Count 209 X10*3/uL (160-400); Red Blood Count 3.47 X10*6/uL (4.20-5.50); Red Cell Distribution Width 12.8 % (11.0-16.0); White Blood Count 6.7 X10*3/uL (4.8-10.8)
[2022-05-28 16:48] LABS: Anion Gap 14 (12-20); Blood Urea Nitrogen 9 mg/dL (9-16); Calcium 8.7 mg/dL (8.4-10.2); Carbon Dioxide 26 mmol/L (22-29); Chloride 104 mmol/L (96-108); Estimated Glomerular Filt Rate > 60; Glucose Random 114 mg/dL (60-115); Sodium 140 mmol/L (135-145)
== END 2022-05-28 13:53 | disposition home or self-care (01) ==
LOC: HO.HMGCX 13:52
PROVIDERS: PCP Internal Medicine; Visit Provider Physician Assistant
DX: N93.9 Abnormal uterine and vaginal bleeding, unspecified (principal); R63.0 Anorexia; M25.572 Pain in left ankle and joints of left foot
CPT/HCPCS: 36415; 73610; 80048; 85025

== ENCOUNTER 2022-05-29 12:32 | Outpatient (REF) | payer OTHER, SELFPAY ==
--- NOTE | ~2022-05-29 | MM_ITS ---
EXAMINATION: MM SCREENING DIGITAL BREAST TOMOSYNTHESIS, BILATERAL CLINICAL INFORMATION: Screening. Asymptomatic. The lifetime risk of breast cancer based on the Tyrer-Cuzick Model is 5%. COMPARISON: Mammography: 04/27/2021, 01/05/2020, 09/28/2018 TECHNIQUE: Digital breast tomosynthesis is performed in both the craniocaudal and mediolateral oblique views along with computer-aided detection (CAD). Synthesized 2D images are generated from the tomosynthesis. Additional bilateral CC views are provided. Technologist notes technically challenging exam, requiring 2 technologists to perform. Exam tailored to patient capabilities with inherent limitations. FINDINGS: There are scattered areas of fibroglandular density (ACR BI-RADS breast composition Category b). There are no significant masses, abnormal calcifications, or other abnormalities. There is no developing density or interval mass or architectural abnormality. No abnormal calcifications. [id number] on MLO projections are limited for the posterior upper breast and axilla. The skin contours are smooth. MM/MM tomosynthesis screening BI IMPRESSION: -No mammographic evidence of malignancy. -Patient study limitations. ASSESSMENT: BI-RADS 2: Benign RECOMMENDATION: Routine annual mammography screening. This patient's information was entered into a reminder system with a target due date for their next mammogram.
== END 2022-05-29 12:33 | disposition home or self-care (01) ==
LOC: HO.MAMMO 12:32
PROVIDERS: PCP Internal Medicine; Visit Provider Internal Medicine
DX: Z12.31 Encounter for screening mammogram for malignant neoplasm of breast (principal)
CPT/HCPCS: 77063; 77067

== ENCOUNTER → 2022-07-30 11:31 | Outpatient (BNVA) | payer OTHER, MEDICAID, SELFPAY | PROVIDERS: PCP Internal Medicine; Visit Provider Nurse Practitioner Family | DX: R32 Unspecified urinary incontinence (principal); N32.81 Overactive bladder | CPT/HCPCS: 51798; 99212 ==

== ENCOUNTER 2022-08-01 13:51 | Outpatient (REF) | payer OTHER, MEDICAID, SELFPAY ==
[2022-08-01 16:22] LABS: MANUAL DIFF FLAG NO
[2022-08-01 16:25] LABS: Basophils Percent Auto 0.2 % (0-2); Eosinophils Absolute Auto 0.1 X10*3/uL (0.0-0.4); Eosinophils Percent Auto 0.6 % (0-4); Hematocrit 31.9 % (37.0-47.0); Hemoglobin 10.4 g/dl (12.0-16.0); Imm Gran Abs Auto 0.03 X10*3/uL (0.00-0.03); Imm Gran Pct Auto 0.3 % (0.0-0.4); Lymphocytes Absolute Auto 0.7 X10*3/uL (1.2-4.9); Lymphocytes Percent Auto 7.1 % (20-40); Mean Corpuscular HGB Conc 32.6 g/dl (31.0-35.0); Mean Corpuscular Hemoglobin 34.4 pg (27.0-33.0); Mean Corpuscular Volume 105.6 fL (80.0-98.0); Mean Platelet Volume 9.7 fL (9.4-12.3); Monocytes Absolute Auto 0.7 X10*3/uL (0.1-1.2); Neutrophils Absolute Auto 8.3 x10*3/uL (2.0-8.3); Neutrophils Percent Auto 84.8 % (45-73); Platelet Count 177 X10*3/uL (160-400); Red Blood Count 3.02 X10*6/uL (4.20-5.50); Red Cell Distribution Width 15.4 % (11.0-16.0); White Blood Count 9.7 X10*3/uL (4.8-10.8)
[2022-08-01 16:51] LABS: Alanine Aminotransferase 26 U/L (0-31); Albumin Level 3.7 g/dL (3.5-5.0); Alkaline Phosphatase 61 U/L (39-117); Anion Gap 9 (12-20); Aspartate Amino Transferase 17 U/L (5-31); Bilirubin Direct 0.3 mg/dL (0.0-0.5); Bilirubin Total 0.7 mg/dL (0.0-1.0); Blood Urea Nitrogen 18 mg/dL (9-16); Carbon Dioxide 30 mmol/L (22-29); Chloride 102 mmol/L (96-108); Cholesterol 168 mg/dL; Estimated Glomerular Filt Rate > 60; Glucose Random 92 mg/dL (60-115); HDL Cholesterol 63 mg/dL; Iron 45 mcg/dL (30-160); LDL Cholesterol Calculated 91 mg/dl; Percent Iron Saturation 18 % (15-50); Sodium 137 mmol/L (135-145); Total Iron Binding Capacity 253 mcg/dL (228-428); Total Protein 5.6 g/dL (6.5-8.0); Triglycerides 70 mg/dL; Unsaturated Iron Binding 208 ug/dL
[2022-08-01 17:05] LABS: Vitamin D 25-OH Total 33.9 ng/mL (>30)
[2022-08-01 17:09] LABS: Vitamin B12 474 pg/mL (200-900)
== END 2022-08-01 13:52 | disposition home or self-care (01) ==
LOC: HO.HMGCLDS 13:51
PROVIDERS: PCP Internal Medicine; Visit Provider Internal Medicine
DX: Z00.01 Encounter for general adult medical examination with abnormal findings (principal); N95.9 Unspecified menopausal and perimenopausal disorder; D64.9 Anemia, unspecified
CPT/HCPCS: 36415; 80048; 80061; 80076; 82306; 82607; 83540; 85025

== ENCOUNTER → 2022-08-14 12:45 | Outpatient (BNVA) | payer OTHER, SELFPAY | PROVIDERS: PCP Internal Medicine; Referring Provider Internal Medicine; Visit Provider Internal Medicine | DX: Z01.810 Encounter for preprocedural cardiovascular examination (principal); I48.0 Paroxysmal atrial fibrillation; I50.32 Chronic diastolic (congestive) heart failure; I25.10 Atherosclerotic heart disease of native coronary artery without angina pectoris; I35.0 Nonrheumatic aortic (valve) stenosis; I44.7 Left bundle-branch block, unspecified | CPT/HCPCS: 93005; 99212 ==

== ENCOUNTER 2022-08-20 15:12 | Emergency (ER) | payer OTHER, SELFPAY ==
--- NOTE | 2022-08-20 15:45 | ED_ITS ---
HPI - Psych General Chief Complaint: Psychiatric Symptoms Stated Complaint: CRISIS Time Seen by Provider: 08/20/22 15:30 Source: patient and EMS Mode of arrival: wheelchair Limitations: no limitations History of Present Illness HPI Narrative: 66-year-old female history of bipolar disorder presents to the emergency department with suicidal ideation. States her of 17 years within the last month. Patient denies any falls or injuries chest pain cough or fever patient is nonambulatory at baseline MD complaint: suicidal ideation Related Data Home Medications Medication Instructions Recorded Confirmed gabapentin 800 mg tablet 800 mg PO TID 04/11/20 08/14/22 imatinib 400 mg tablet 400 mg PO DAILY 06/13/20 08/14/22 aripiprazole 5 mg tablet 5 mg PO BID 06/07/21 08/14/22 aripiprazole 2 mg tablet 2 mg PO DAILY 07/30/22 08/14/22 buspirone 10 mg tablet 10 mg PO TID 07/30/22 08/14/22 cyanocobalamin (vitamin B-12) 1,000 mcg PO DAILY 07/30/22 08/14/22 1,000 mcg tablet ferrous fumarate 325 mg (106 mg 325 mg PO DAILY 07/30/22 08/14/22 iron) tablet (Ferretts) venlafaxine 150 mg 150 mg PO DAILY 07/30/22 08/14/22 capsule,extended release 24 hr trazodone 100 mg tablet 300 mg PO BEDTIME 08/14/22 08/14/22 Previous Rx's Medication Instructions Recorded furosemide 20 mg tablet 20 mg PO DAILY #30 tabs 04/15/20 denosumab 60 mg/mL subcutaneous 60 mg subcut [id number] #1 mL 07/21/20 syringe (Prolia) disposable beds pads #30 ea 09/28/21 apixaban 5 mg tablet (Eliquis) 5 mg PO BID 90 days #180 tabs 12/05/21 nystatin 100,000 unit/gram topical 1 appl topical BID PRN Intertrigo 04/18/22 powder #60 grams rosuvastatin 10 mg tablet (Crestor) 10 mg PO DAILY #90 tabs 04/19/22 metoprolol tartrate 50 mg tablet 50 mg PO BID #180 tabs 04/29/22 omeprazole 40 mg capsule,delayed 40 mg PO DAILY #90 caps 06/19/22 release diaper,brief,adult,disposable #80 ea 06/25/22 disposable gloves (Vinyl Gloves) #200 ea 06/25/22 calcium carbonate 500 mg-vitamin 1 tab PO DAILY #90 tabs 06/27/22 D3 10 mcg (400 unit) tablet mirabegron 50 mg tablet,extended 50 mg PO DAILY 90 days #90 tabs 07/30/22 release 24 hr (Myrbetriq) oxybutynin chloride 15 mg 15 mg PO DAILY 90 days #90 tabs 07/30/22 tablet,extended release 24 hr nystatin-triamcinolone 100,000 1 appl topical DAILY PRN Rash 08/13/22 unit/g-0.1 % topical cream under breast/skin folds 10 days #60 grams Allergies Allergy/AdvReac Type Severity Reaction Status Date / Time simvastatin [SIMVASTATIN] Allergy Intermediate MUSCLE PAIN Verified 08/14/22 13:04 lamotrigine AdvReac Intermediate NIGHTMARES Verified 08/14/22 13:04 celecoxib [From CELEBREX] AdvReac Mild DIZZY, Verified 08/14/22 13:04 TIRED Darvon Allergy Unknown Unknown Uncoded 08/14/22 13:04 Review of Systems Review of Systems: Review of systems: General: Patient denies any fever chills recent illness or falls Musculoskeletal: Denies back pain or body aches or other injuries HEENT: denies headache, runny nose, ear pain Respiratory: denies shortness of breath, cough Cardiovascular: no chest pain or palpitations : denies dysuria, frequency Abdomen: no nausea vomiting denies abdominal pain Extremities: no swelling, no pain Skin: no diaphoresis Yes all other systems are reviewed and are negative [facility] Past Medical History Medical History (Updated 08/20/22 @ 17:10 by Sascha Molina DO) Acute on chronic anemia Anxiety Bipolar 1 disorder Chronic diastolic (congestive) heart failure CML in remission Colon cancer screening Gait instability GERD (gastroesophageal reflux disease) Hoarseness Lateral malleolar fracture Leukemia in remission Non-rheumatic aortic stenosis Osteoporosis PAF (paroxysmal atrial fibrillation) Primary osteoarthritis, left shoulder Primary osteoarthritis, right shoulder Pulmonary embolism Urgency-frequency syndrome Vitamin D deficiency Surgical History History of section History of ear surgery History of femur fracture Family History Family History Unknown Unknown family medical history Daughter Mental health disorder Social History Social History Household Members: Spouse Housing: Apartment Alcohol intake: former Patient Tobacco Use Status: Former Tobacco user Quit Date: 1999 e-Cigarette/Vaping Use: Never Used Advance Directives Date on File: 06/15/04 service: No Current occupational status: disabled Cognitive needs: No Hearing needs: No Vision needs: Yes Physical Exam Vital Signs: Vital Signs: Last Vital Signs Temp 98.9 F 08/20/22 15:56 Pulse 90 08/20/22 15:56 Resp 18 08/20/22 15:56 BP 134/53 L 08/20/22 15:56 Pulse Ox 99 08/20/22 15:56 O2 Del Method 08/20/22 15:56 BMI result Body Mass Index 38.7 General: Well-appearing well-nourished in no signs of distress HEENT: Normocephalic atraumatic Neck: No signs of JVD, no masses no tenderness or lymphadenopathy Cardiovascular: Regular rate and rhythm Respiratory: Clear to auscultation bilaterally Abdomen: Soft nontender no masses Extremities: Normal pedal pulses no signs of edema Skin: Dry warm no rashes Back: No tenderness full ROM Medical Decision Making Medical Decision Making MDM Narrative: of some labs for overdose segmental here the patient be seen by crisis. Labs show a UTI I will give rocephin and cephalexin at this time. Differential Diagnosis Differential Diagnoses: The differential diagnosis associated with the presentation includes Admission/Observation Consideration of admission/observation: Escalation of care including admission/observation considered Lab Data [facility] Lab Attestation statement: I reviewed the patient's lab results. 08/20/22 16:19 08/20/22 16:19 Labs: Lab Results 08/20/22 08/20/22 08/20/22 Range/Units 16:19 16:19 16:19 WBC 6.9 (4.8-10.8) X10*3/uL RBC 3.48 L (4.20-5.50) X10*6/uL Hgb 11.7 L (12.0-16.0) g/dl Hct 35.8 L (37.0-47.0) % MCV 102.9 H (80.0-98.0) fL MCH 33.6 H (27.0-33.0) pg MCHC 32.7 (31.0-35.0) g/dl RDW 14.8 (11.0-16.0) % Plt Count 259 D (160-400) X10*3/uL MPV 8.9 L (9.4-12.3) fL Immature Gran % (Auto) 0.4 (0.0-0.4) % Neut % (Auto) 77.0 H (45-73) % Lymph % (Auto) 12.0 L (20-40) % [place] % (Auto) 9.7 (2-11) % Eos % (Auto) 0.3 (0-4) % Baso % (Auto) 0.6 (0-2) % Lymph # (Auto) 0.8 L (1.2-4.9) X10*3/uL [place] # (Auto) 0.7 (0.1-1.2) X10*3/uL Eos # (Auto) 0.0 (0.0-0.4) X10*3/uL Baso # (Auto) 0.0 (0.0-0.2) X10*3/uL Abs Immat Gran (auto) 0.03 (0.00-0.03) X10*3/uL Absolute Neuts (auto) 5.3 (2.0-8.3) x10*3/uL Absolute Nucleated RBC 0.000 (0.0-0.012) X10*3/uL Nucleated RBC % (auto) 0.0 (0.0-0.2) /100WBC Sodium 143 (135-145) mmol/L Potassium 3.7 (3.3-5.1) mmol/L Chloride 106 (96-108) mmol/L Carbon Dioxide 26 (22-29) mmol/L Anion Gap 15 (12-20) BUN 13 (9-16) mg/dL Creatinine 0.71 (0.5-1.4) mg/dL Estim Creat Clear Calc 65.3 Estimated GFR > 60 Random Glucose 95 (60-115) mg/dL Calcium 9.4 (8.4-10.2) mg/dL Total Bilirubin 0.6 (0.0-1.0) mg/dL Direct Bilirubin 0.2 (0.0-0.5) mg/dL AST 19 (5-31) U/L ALT 15 (0-31) U/L Alkaline Phosphatase 73 (39-117) U/L Total Protein 6.1 L (6.5-8.0) g/dL Albumin 4.0 (3.5-5.0) g/dL Lipase 9 (8-78) U/L Urine Color Urine Appearance Urine pH (5.0-9.0) Ur Specific [place] (1.005-1.025) Urine Protein (Neg-Trace) mg/dL Urine Glucose (UA) (Negative) mg/dL Urine Ketones (Negative) mg/dL Urine Blood (Negative) Urine Nitrite (Negative) Ur Leukocyte Esterase (Negative) Urine RBC (0-2) /HPF Urine WBC (0-5) /HPF Ur Squamous Epith Cells (0-2) /HPF Urine Bacteria (None Seen) Hyaline Casts (0-2) /LPF Salicylates < 5.0 L (15-30) mg/dL Urine Opiates Screen (Not Detect) Urine Fentanyl Screen (Not Detect) Acetaminophen < 17 (<30) mcg/mL Ur Barbiturates Screen (Not Detect) Ur Phencyclidine Scrn (Not Detect) Ur Amphetamines Screen (Not Detect) U Benzodiazepines Scrn (Not Detect) Urine Cocaine Screen (Not Detect) U Marijuana (THC) Screen (Not Detect) Ethyl Alcohol mg/dL COVID-19 (BELLE) Negative (Negative) COVID-19 Clin Com See Note 08/20/22 08/20/22 08/20/22 Range/Units 16:19 16:19 16:19 WBC (4.8-10.8) X10*3/uL RBC (4.20-5.50) X10*6/uL Hgb (12.0-16.0) g/dl Hct (37.0-47.0) % MCV (80.0-98.0) fL MCH (27.0-33.0) pg MCHC (31.0-35.0) g/dl RDW (11.0-16.0) % Plt Count (160-400) X10*3/uL MPV (9.4-12.3) fL Immature Gran % (Auto) (0.0-0.4) % Neut % (Auto) (45-73) % Lymph % (Auto) (20-40) % [place] % (Auto) (2-11) % Eos % (Auto) (0-4) % Baso % (Auto) (0-2) % Lymph # (Auto) (1.2-4.9) X10*3/uL [place] # (Auto) (0.1-1.2) X10*3/uL Eos # (Auto) (0.0-0.4) X10*3/uL Baso # (Auto) (0.0-0.2) X10*3/uL Abs Immat Gran (auto) (0.00-0.03) X10*3/uL Absolute Neuts (auto) (2.0-8.3) x10*3/uL Absolute Nucleated RBC (0.0-0.012) X10*3/uL Nucleated RBC % (auto) (0.0-0.2) /100WBC Sodium (135-145) mmol/L Potassium (3.3-5.1) mmol/L Chloride (96-108) mmol/L Carbon Dioxide (22-29) mmol/L Anion Gap (12-20) BUN (9-16) mg/dL Creatinine (0.5-1.4) mg/dL Estim Creat Clear Calc Estimated GFR Random Glucose (60-115) mg/dL Calcium (8.4-10.2) mg/dL Total Bilirubin (0.0-1.0) mg/dL Direct Bilirubin (0.0-0.5) mg/dL AST (5-31) U/L ALT (0-31) U/L Alkaline Phosphatase (39-117) U/L Total Protein (6.5-8.0) g/dL Albumin (3.5-5.0) g/dL Lipase (8-78) U/L Urine Color Yellow Urine Appearance Clear Urine pH 7.0 (5.0-9.0) Ur Specific [place] >= 1.030 H (1.005-1.025) Urine Protein 30 (1+) H (Neg-Trace) mg/dL Urine Glucose (UA) Negative (Negative) mg/dL Urine Ketones 15 (Negative) mg/dL Urine Blood Negative (Negative) Urine Nitrite Negative (Negative) Ur Leukocyte Esterase Moderate (2+) H (Negative) Urine RBC 3-5 H (0-2) /HPF Urine WBC 11-20 H (0-5) /HPF Ur Squamous Epith Cells 6-10 (0-2) /HPF Urine Bacteria Trace (None Seen) Hyaline Casts 0-2 (0-2) /LPF Salicylates (15-30) mg/dL Urine Opiates Screen Not Detected (Not Detect) Urine Fentanyl Screen POSITIVE H (Not Detect) Acetaminophen (<30) mcg/mL Ur Barbiturates Screen Not Detected (Not Detect) Ur Phencyclidine Scrn Not Detected (Not Detect) Ur Amphetamines Screen POSITIVE H (Not Detect) U Benzodiazepines Scrn Not Detected (Not Detect) Urine Cocaine Screen Not Detected (Not Detect) U Marijuana (THC) Screen Not Detected (Not Detect) Ethyl Alcohol < 10 mg/dL COVID-19 (BELLE) (Negative) COVID-19 Clin Com Discharge Plan Discharge Clinical Impression: Suicidal ideation, Bipolar 1 disorder, Urinary tract infection Patient Disposition: Still a Patient Prescriptions: No Action Prolia 60 mg/mL syringe 60 mg subcut [id number] Qty: 1 1RF (DME) disposable beds pads See Rx Instructions .Route .MEDSUPPLY Qty: 30 3RF Rx Instructions: As directed Eliquis 5 mg tablet 5 mg PO BID 90 Days Qty: 180 3RF nystatin 100,000 unit/gram powder 1 appl topical BID PRN (Reason: Intertrigo) Qty: 60 3RF rosuvastatin [Crestor] 10 mg tablet 10 mg PO DAILY Qty: 90 3RF metoprolol tartrate 50 mg tablet 50 mg PO BID Qty: 180 3RF omeprazole 40 mg capsule,delayed release(DR/EC) 40 mg PO DAILY Qty: 90 0RF (DME) diaper,brief,adult,disposable Misc See Rx Instructions .Route Qty: 80 3RF Rx Instructions: As directed-adult disposable pull ups 2XL (DME) disposable gloves [Vinyl Gloves] Misc See Rx Instructions .Route Qty: 200 3RF Rx Instructions: As directed calcium carbonate-vitamin D3 500 mg-10 mcg (400 unit) tablet 1 tab PO DAILY Qty: 90 1RF nystatin-triamcinolone 100,000-0.1 unit/g-% cream 1 appl topical DAILY PRN (Reason: Rash under breast/skin folds) 10 Days Qty: 60 0RF gabapentin 800 mg Tablet 800 mg PO TID furosemide 20 mg Tablet 20 mg PO DAILY Qty: 30 0RF Protocol: Hold for SBP< HOLD for SBP < : 90 imatinib 400 mg tablet 400 mg PO DAILY aripiprazole 5 mg tablet 5 mg PO BID buspirone 10 mg tablet 10 mg PO TID Ferretts 325 mg (106 mg iron) tablet 325 mg PO DAILY aripiprazole 2 mg tablet 2 mg PO DAILY cyanocobalamin (vitamin B-12) 1,000 mcg tablet 1,000 mcg PO DAILY venlafaxine 150 mg capsule,extended release 24hr 150 mg PO DAILY oxybutynin chloride 15 mg tablet extended release 24hr 15 mg PO DAILY 90 Days Qty: 90 3RF Myrbetriq 50 mg tablet extended release 24 hr 50 mg PO DAILY 90 Days Qty: 90 3RF trazodone 100 mg tablet 300 mg PO BEDTIME
[2022-08-20 15:56] VITALS: BP 134/53; PULSE 80; PULSE 90; RESP 18; TEMP 37.2; O2SAT 98; O2SAT 99; BMI 38.7
--- NOTE | 2022-08-20 16:00 | PC.NURSE ---
late entry- pt arrived at ed for depression pt changing into hospital gown ed provider at bedside for exam. pt placed on bedpan. urine sample obtained
[2022-08-20 16:25] LABS: MANUAL DIFF FLAG NO
[2022-08-20 16:29] LABS: Basophils Percent Auto 0.6 % (0-2); Eosinophils Percent Auto 0.3 % (0-4); Hematocrit 35.8 % (37.0-47.0); Hemoglobin 11.7 g/dl (12.0-16.0); Imm Gran Abs Auto 0.03 X10*3/uL (0.00-0.03); Imm Gran Pct Auto 0.4 % (0.0-0.4); Lymphocytes Absolute Auto 0.8 X10*3/uL (1.2-4.9); Mean Corpuscular HGB Conc 32.7 g/dl (31.0-35.0); Mean Corpuscular Hemoglobin 33.6 pg (27.0-33.0); Mean Corpuscular Volume 102.9 fL (80.0-98.0); Mean Platelet Volume 8.9 fL (9.4-12.3); Monocytes Absolute Auto 0.7 X10*3/uL (0.1-1.2); Monocytes Percent Auto 9.7 % (2-11); Neutrophils Absolute Auto 5.3 x10*3/uL (2.0-8.3); Platelet Count 259 X10*3/uL (160-400); Red Blood Count 3.48 X10*6/uL (4.20-5.50); Red Cell Distribution Width 14.8 % (11.0-16.0); White Blood Count 6.9 X10*3/uL (4.8-10.8)
[2022-08-20 16:31] LABS: Appearance Urine Clear; Color Urine Yellow; Glucose Urine UA Negative (Negative); Leukocyte Esterase Urine Moderate (2+) (Negative); Nitrite Urine Negative (Negative); Specific Gravity - Urine >= 1.030 (1.005-1.025); UMIC TRIGGER UACC YES; Urine Blood Negative (Negative); Urine Ketones 15 mg/dL (Negative); Urine Protein 30 (1+) mg/dL (Neg-Trace)
[2022-08-20 16:36] LABS: Bacteria Urine Trace (None Seen); Hyaline Casts Urine 0-2 /LPF (0-2); UACC Culture Trigger YES
[2022-08-20 16:41] LABS: Amphetamine Screen Urine POSITIVE (Not Detect); Barbiturates, Urine Not Detected (Not Detect); Benzodiazepines Screen Urine Not Detected (Not Detect); Cannabinoid Screen Urine Not Detected (Not Detect); Cocaine Screen Urine Not Detected (Not Detect); Fentanyl, urine POSITIVE (Not Detect); Opiate Screen Urine Not Detected (Not Detect); Phencyclidine Screen Urine Not Detected (Not Detect)
[2022-08-20 16:44] LABS: Acetaminophen LAB < 17 mcg/mL (<30); Alanine Aminotransferase 15 U/L (0-31); Alkaline Phosphatase 73 U/L (39-117); Anion Gap 15 (12-20); Aspartate Amino Transferase 19 U/L (5-31); Bilirubin Direct 0.2 mg/dL (0.0-0.5); Bilirubin Total 0.6 mg/dL (0.0-1.0); Blood Urea Nitrogen 13 mg/dL (9-16); Calcium 9.4 mg/dL (8.4-10.2); Carbon Dioxide 26 mmol/L (22-29); Chloride 106 mmol/L (96-108); Creatinine Clr Calc Pharmacy 65.3; Estimated Glomerular Filt Rate > 60; Ethanol < 10 mg/dL; Glucose Random 95 mg/dL (60-115); Lipase 9 U/L (8-78); Potassium 3.7 mmol/L (3.3-5.1); Salicylate < 5.0 mg/dL (15-30); Sodium 143 mmol/L (135-145); Total Protein 6.1 g/dL (6.5-8.0)
[2022-08-20 16:51] LABS: COVID-19 Test Negative (Negative); IDNOW Serial# 16C4AD1C
--- NOTE | 2022-08-20 17:15 | PC.NURSE ---
late entry- iv placed in R AC pt tolerated well. pt medicated according to sep. pt placed on bedpan
[2022-08-20] MEDS: cephALEXin 500 MG CAPSULE PO ×2 (17:46→23:32)
[2022-08-20] MEDS: cefTRIAXone sodium 1 GM in 0.9 % Sodium Chloride 50 ML IV (17:46)
[2022-08-20] MEDS: Acetaminophen 325 MG TABLET 650 MG PO (17:46)
--- NOTE | 2022-08-20 19:09 | PC.NURSE ---
pt continues to call out to use bedpan. pt able to produce urine.
[2022-08-20 21:03] VITALS: RESP 18
[2022-08-20 23:23] VITALS: BP 158/80; PULSE 103; RESP 17; TEMP 37.4; O2SAT 98
[2022-08-20] MEDS: traZODone HCL 100 MG TABLET 300 MG PO (23:32)
[2022-08-20] MEDS: Gabapentin 400 MG CAPSULE 800 MG PO (23:32)
[2022-08-20] MEDS: ARIPiprazole 5 MG TABLET PO (23:32)
[2022-08-20] MEDS: Metoprolol Tartrate 50 MG TABLET PO (23:33)
[2022-08-20] MEDS: Apixaban 5 MG TABLET PO (23:33)
[2022-08-21] VITALS (8 sets, daily range): BP systolic 99–148; BP diastolic 42–90; PULSE 74–80; RESP 16–18; TEMP 36.7–37.2; O2SAT 93–98
--- NOTE | 2022-08-21 04:53 | PC.NURSE ---
This RN contacting the Care Team regarding pending Care Team consult. Per Care Team, the consult is pending as she was just started on ABX for a UTI. Per Care Team, plan to wait until morning until they are able to consult with MD regarding UTI.
--- NOTE | 2022-08-21 05:03 | PC.NURSE ---
Patient is alert and oriented x3. Patient is able to make her needs known. Patient deneis SI. Patient reports she mentioned SI with no plan to MD on initial assessment, however has not been having any SI while at ED. R forearm 20 G IV line patent. Flushed with 3 m on NS. Patient reports chronic pain in Left shoulder, arm 3/10 on 0-10 pain scale. Pain is at tolerable level. Patient reports pain is managed with Gabapentin at home. Patient has been using bedpan with 1 assist. Patient denies urinary symptoms at present.
[2022-08-21] MEDS: oxyBUTYnin chloride ER 5 MG TAB.ER.24 15 MG PO (09:54)
[2022-08-21] MEDS: Mirabegron 50 MG TAB.ER.24H PO (09:55)
[2022-08-21] MEDS: ARIPiprazole 2 MG TABLET PO (09:55)
[2022-08-21] MEDS: Calcium + Vitamin D 250 MG TABLET 500 MG PO (09:55)
[2022-08-21] MEDS: Atorvastatin Calcium 40 MG TABLET PO (09:55)
[2022-08-21] MEDS: ARIPiprazole 5 MG TABLET PO ×2 (09:55→21:45)
[2022-08-21] MEDS: Metoprolol Tartrate 50 MG TABLET PO ×2 (09:55→21:45)
[2022-08-21] MEDS: Ferrous Sulfate 324 MG TABLET.DR PO (09:55)
[2022-08-21] MEDS: Omeprazole 40 MG CAPSULE.DR PO (09:55)
[2022-08-21] MEDS: Gabapentin 400 MG CAPSULE 800 MG PO ×3 (09:55→21:44)
[2022-08-21] MEDS: Apixaban 5 MG TABLET PO ×2 (09:55→21:45)
[2022-08-21] MEDS: busPIRone HCl 10 MG TABLET PO ×2 (09:55→23:32)
[2022-08-21] MEDS: Acetaminophen 325 MG TABLET 650 MG PO (09:56)
[2022-08-21] MEDS: Venlafaxine HCl ER 150 MG CAP.ER.24H PO (09:56)
[2022-08-21] MEDS: Cyanocobalamin (Vitamin B-12) 1,000 MCG TABLET 1000 MCG PO (09:56)
[2022-08-21] MEDS: cephALEXin 500 MG CAPSULE PO ×4 (09:56→21:44)
--- NOTE | 2022-08-21 11:30 | PC.NURSE ---
pt denies any si/hi.
--- NOTE | 2022-08-21 11:50 | MHC.CARE ---
Seen by CARE team and did not meet inpatient level of care, referred to hospital case management.
--- NOTE | 2022-08-21 13:11 | MHC.CM.ED ---
Addendum entered by Yanna Martinez 08/21/22 14:25: Patient lives alone. 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 PCP verified. Patient received 2 J&J vaccines. HCP on file has patient's late listed. New HCP completed. Patient agreeable to residential placement and aware referral has been broadcasted. T/W attempted to update patient's daughter, Tiffany, via telephone at [phone]. Left message explaining residential placement was trying to be obtained and to call with any questions. Original Note: Received case management consult from Dr Molina. Patient was brought to the ER for Crisis eval. Patient was cleared by Care Team of requiring inpatient level of psych. Patient is alert and oriented. Her about 1 month ago. Since then she has been having a difficult time coping with that loss. Patient has medical issues at baseline that have made it difficult to be home alone, which has added extra stress to her mental health. Patient and daughter, Tiffany, feel patient is currently not safe at home due to increased weakness. Patient receives home health aides services at home through [facility]. Until patient and Tiffany are able to obtain more home health aide hours or a safer living situation, such as assisted living, residential care at a fpc facility would be safer for patient at this time. T/W agrees with this assessment. Continue to monitor for d/c needs.
--- NOTE | 2022-08-21 15:48 | PC.NURSE ---
report received from BLANCA Daniels pt appear asleep no signs of acute distress notice breathing equally unlabored close monitoring maintained
--- NOTE | 2022-08-21 16:42 | MHC.CM.ED ---
HCP completed with patient. Signed and copies given. Uploaded into [facility] and [facility]. Cristal agreeable to nursing home care in local facility. [facility] following. Several referrals still remain. Daughter/HCP Tiffany called and updates given. CM following for discharge planning.
[2022-08-21] MEDS: traZODone HCL 100 MG TABLET 300 MG PO (21:45)
[2022-08-22] VITALS (8 sets, daily range): BP systolic 112–142; BP diastolic 60–84; PULSE 68–81; RESP 15–19; TEMP 36.4–37.1; O2SAT 94–99
[2022-08-22] MEDS: oxyBUTYnin chloride ER 5 MG TAB.ER.24 15 MG PO (09:05)
[2022-08-22] MEDS: Gabapentin 400 MG CAPSULE 800 MG PO ×3 (09:05→21:55)
[2022-08-22] MEDS: ARIPiprazole 5 MG TABLET PO ×2 (09:06→21:55)
[2022-08-22] MEDS: Calcium + Vitamin D 250 MG TABLET 500 MG PO (09:06)
[2022-08-22] MEDS: Atorvastatin Calcium 40 MG TABLET PO (09:06)
[2022-08-22] MEDS: Metoprolol Tartrate 50 MG TABLET PO ×2 (09:06→21:55)
[2022-08-22] MEDS: Venlafaxine HCl ER 150 MG CAP.ER.24H PO (09:06)
[2022-08-22] MEDS: ARIPiprazole 2 MG TABLET PO (09:06)
[2022-08-22] MEDS: Omeprazole 40 MG CAPSULE.DR PO (09:06)
[2022-08-22] MEDS: Mirabegron 50 MG TAB.ER.24H PO (09:07)
[2022-08-22] MEDS: cephALEXin 500 MG CAPSULE PO ×4 (09:07→21:55)
[2022-08-22] MEDS: Ferrous Sulfate 324 MG TABLET.DR PO (09:07)
[2022-08-22] MEDS: Cyanocobalamin (Vitamin B-12) 1,000 MCG TABLET 1000 MCG PO (09:07)
--- NOTE | 2022-08-22 09:17 | PC.NURSE ---
Pt is alert/oriented. Denies SI or HI and at this time. Pt reports no feelings of depression or psych sx. Med compliant. Calm and cooperative. VSS. Speaking full sentences. Case management consult. ATe all of breakfast
--- NOTE | 2022-08-22 10:06 | MHC.CM.ED ---
Patient remains in ER. Trying to find custoidal care at a half-way facility. Updated provided to T[place]nay via telephone. No bed offers at this time. Referral broadcasted within 50 miles. Patient and Tiffany are aware bed availability locally has been tight. Continue to monitor for d/c needs.
[2022-08-22] MEDS: Apixaban 5 MG TABLET PO ×2 (10:17→21:55)
[2022-08-22] MEDS: Venlafaxine HCl ER 75 MG CAP.ER.24H PO (10:17)
--- NOTE | 2022-08-22 10:31 | PC.NURSE ---
Pt asleep, breathing even/unlabored.
--- NOTE | 2022-08-22 16:04 | PC.NURSE ---
pt resting on stretcher, no apparent distress at this time. Denies SI, denies pain. Pt repositioned without issue
--- NOTE | 2022-08-22 17:21 | MHC.EDTECH ---
Assisted pt onto bedpan. Pt was cleaned up, repositioned and all new linens changed @1700
--- NOTE | 2022-08-22 19:20 | PC.NURSE ---
assumed care of patient at 1900 - patient resting comfortably on stretcher in hallway. no apparent distress. will CTM
--- NOTE | 2022-08-22 19:28 | MHC.EDTECH ---
pt ambulated to the bathroom with a walker and a gaitbelt on she felt secure and safe with you walking with her, she is now sitting in a chair at the bedside coloring and having some jello,
--- NOTE | 2022-08-22 20:42 | MHC.EDTECH ---
pt ambulated again to the restroom and back to chair she sat there til i moved her belongings into room 8 ., as she complained of being in the hallway since she got here,and no TV so she is very happy now where she is
[2022-08-22] MEDS: busPIRone HCl 10 MG TABLET PO (21:55)
[2022-08-22] MEDS: traZODone HCL 100 MG TABLET 300 MG PO (21:56)
--- NOTE | 2022-08-22 23:32 | PC.NURSE ---
patient ambulates to and from bathroom using walker and gait belt with 1 staff assist. patient is steady on her feet and able to get self up from toilet using walker.
--- NOTE | 2022-08-22 23:42 | MHC.EDTECH ---
pt has the purewick in for the night she feels its good so she doesnt have to get up and down fro bed she said being short its hard the bed is to high and it is at its lowest she is having a tuna sandwich and a jello
[2022-08-23 05:20] VITALS: BP 127/76; PULSE 69; RESP 18; TEMP 36.4; O2SAT 96
--- NOTE | 2022-08-23 05:21 | MHC.EDTECH ---
pt is resting quietly , refilled her water, she has no other issues
--- NOTE | 2022-08-23 06:47 | MHC.EDTECH ---
pt has a new canister i emptied out 600 cc of urine , pt had a good night
[2022-08-23 08:58] VITALS: BP 174/84; PULSE 68; RESP 18; O2SAT 94
[2022-08-23] MEDS: Gabapentin 400 MG CAPSULE 800 MG PO ×3 (09:03→20:49)
[2022-08-23] MEDS: oxyBUTYnin chloride ER 5 MG TAB.ER.24 15 MG PO (09:03)
[2022-08-23] MEDS: Omeprazole 40 MG CAPSULE.DR PO (09:03)
[2022-08-23] MEDS: Cyanocobalamin (Vitamin B-12) 1,000 MCG TABLET 1000 MCG PO (09:03)
[2022-08-23] MEDS: Metoprolol Tartrate 50 MG TABLET PO ×2 (09:03→21:53)
[2022-08-23] MEDS: Ferrous Sulfate 324 MG TABLET.DR PO (09:03)
[2022-08-23] MEDS: Apixaban 5 MG TABLET PO ×2 (09:04→20:50)
[2022-08-23] MEDS: Atorvastatin Calcium 40 MG TABLET PO (09:04)
[2022-08-23] MEDS: Calcium + Vitamin D 250 MG TABLET 500 MG PO (09:04)
[2022-08-23] MEDS: ARIPiprazole 5 MG TABLET PO ×2 (09:07→20:50)
[2022-08-23] MEDS: Mirabegron 50 MG TAB.ER.24H PO (09:07)
[2022-08-23] MEDS: ARIPiprazole 2 MG TABLET PO (09:07)
[2022-08-23] MEDS: Venlafaxine HCl ER 150 MG CAP.ER.24H PO (09:07)
[2022-08-23 09:21] VITALS: BP 155/68; PULSE 87; RESP 17; TEMP 36.7; O2SAT 94
[2022-08-23] MEDS: Venlafaxine HCl ER 75 MG CAP.ER.24H PO (10:30)
--- NOTE | 2022-08-23 12:52 | MHC.CM.ED ---
Patient remains in ER. No bed offers at [facility] time[facility] Continue to monitor for d/c needs.
--- NOTE | 2022-08-23 14:31 | PC.NURSE ---
ASSUMED CARE OF THIS PT AT 1430. PT TRANSFERRED TO [facility] 7.
[2022-08-23] MEDS: Acetaminophen 325 MG TABLET 650 MG PO ×2 (15:49→21:52)
[2022-08-23 16:17] VITALS: PULSE 65; RESP 18; TEMP 36.5; O2SAT 94
--- NOTE | 2022-08-23 16:17 | PC.NURSE ---
Addendum entered by Elizabeth Feng RN 08/23/22 16:20: ADDITION TO PREVIOUS NSG NOTE: PT ASSISTED TO BEDSIDE COMMODE. REFUSED ASSISTANCE TO BATHROOM. Original Note: PT C/O OF 04/15 R HIP PAIN THAT SHE RELATES TO BURSITIS. PRN PAIN MED GIVEN DOCUMENTED. COLORING AT THIS TIME. VSS.
[2022-08-23 20:30] VITALS: BP 155/71; PULSE 70; RESP 17; TEMP 36.2; O2SAT 96
[2022-08-23] MEDS: traZODone HCL 100 MG TABLET 300 MG PO (20:50)
--- NOTE | 2022-08-23 21:00 | PC.NURSE ---
This television script writer assumed care of this Pt at 1900. Pt reports 02/13 hip pain states It's my bursitis pain . Meds given as documented. Pt stand by assist to commode. [place] and PO fluids given.
[2022-08-23] MEDS: busPIRone HCl 10 MG TABLET PO (21:53)
[2022-08-24] MEDS: Acetaminophen 325 MG TABLET 650 MG PO ×3 (04:50→18:53)
[2022-08-24 05:42] VITALS: BP 129/65; PULSE 78; RESP 17; TEMP 36.8; O2SAT 95
[2022-08-24] MEDS: Mirabegron 50 MG TAB.ER.24H PO (08:29)
[2022-08-24] MEDS: Gabapentin 400 MG CAPSULE 800 MG PO ×3 (08:29→20:51)
[2022-08-24] MEDS: ARIPiprazole 5 MG TABLET PO ×2 (08:29→20:50)
[2022-08-24] MEDS: Apixaban 5 MG TABLET PO ×2 (08:29→20:51)
[2022-08-24] MEDS: Calcium + Vitamin D 250 MG TABLET 500 MG PO (08:29)
[2022-08-24] MEDS: Metoprolol Tartrate 50 MG TABLET PO ×2 (08:29→20:50)
[2022-08-24] MEDS: Atorvastatin Calcium 40 MG TABLET PO (08:29)
[2022-08-24] MEDS: Venlafaxine HCl ER 150 MG CAP.ER.24H PO (08:29)
[2022-08-24] MEDS: Ferrous Sulfate 324 MG TABLET.DR PO (08:29)
[2022-08-24] MEDS: Cyanocobalamin (Vitamin B-12) 1,000 MCG TABLET 1000 MCG PO (08:29)
[2022-08-24] MEDS: Omeprazole 40 MG CAPSULE.DR PO (08:29)
[2022-08-24] MEDS: ARIPiprazole 2 MG TABLET PO (08:29)
[2022-08-24] MEDS: Venlafaxine HCl ER 75 MG CAP.ER.24H PO (08:29)
[2022-08-24] MEDS: oxyBUTYnin chloride ER 5 MG TAB.ER.24 15 MG PO (08:30)
[2022-08-24 14:51] VITALS: BP 119/54; PULSE 68; RESP 12; O2SAT 94
--- NOTE | 2022-08-24 18:47 | PC.NURSE ---
pt ate 100% of dinner, assisted to commode to void. mostly independent.
[2022-08-24] MEDS: traZODone HCL 100 MG TABLET 300 MG PO (20:50)
[2022-08-24] MEDS: busPIRone HCl 10 MG TABLET PO (20:55)
--- NOTE | 2022-08-24 21:10 | MHC.EDTECH ---
pt used the comode and asked about using a purewick for nighttime instead of getting up frequently.
[2022-08-24 22:53] VITALS: BP 121/76; PULSE 69; RESP 16; O2SAT 96
[2022-08-25 06:45] VITALS: BP 133/57; PULSE 62; RESP 18; TEMP 37; O2SAT 96
[2022-08-25] MEDS: Gabapentin 400 MG CAPSULE 800 MG PO ×3 (08:29→21:12)
[2022-08-25] MEDS: Atorvastatin Calcium 40 MG TABLET PO (08:29)
[2022-08-25] MEDS: oxyBUTYnin chloride ER 5 MG TAB.ER.24 15 MG PO (08:30)
[2022-08-25] MEDS: Ferrous Sulfate 324 MG TABLET.DR PO (08:31)
[2022-08-25] MEDS: ARIPiprazole 2 MG TABLET PO (08:31)
[2022-08-25] MEDS: Mirabegron 50 MG TAB.ER.24H PO (08:31)
[2022-08-25] MEDS: Calcium + Vitamin D 250 MG TABLET 500 MG PO (08:31)
[2022-08-25] MEDS: Apixaban 5 MG TABLET PO ×2 (08:32→21:12)
[2022-08-25] MEDS: Cyanocobalamin (Vitamin B-12) 1,000 MCG TABLET 1000 MCG PO (08:32)
[2022-08-25] MEDS: Metoprolol Tartrate 50 MG TABLET PO (08:32)
[2022-08-25] MEDS: Omeprazole 40 MG CAPSULE.DR PO (08:32)
[2022-08-25] MEDS: Venlafaxine HCl ER 75 MG CAP.ER.24H PO (08:32)
[2022-08-25] MEDS: Venlafaxine HCl ER 150 MG CAP.ER.24H PO (08:32)
[2022-08-25] MEDS: ARIPiprazole 5 MG TABLET PO ×2 (08:32→21:12)
[2022-08-25] MEDS: Acetaminophen 325 MG TABLET 650 MG PO ×3 (08:41→21:12)
[2022-08-25 14:00] VITALS: BP 144/67; PULSE 78; RESP 16; TEMP 36.7; O2SAT 92
--- NOTE | 2022-08-25 14:04 | PC.NURSE ---
I could not access the patient's response from her earlier pain medication, when I tried to on the MAR it was greyed out. She did get some effectiveness from the pain meds 10/14.
[2022-08-25 18:01] LABS: Appearance Urine Clear; Color Urine Yellow; Glucose Urine UA Negative (Negative); Leukocyte Esterase Urine Negative (Negative); Nitrite Urine Negative (Negative); PH 5.5 (5.0-9.0); Specific Gravity - Urine 1.015 (1.005-1.025); Urine Blood Negative (Negative); Urine Ketones Negative (Negative); Urine Protein Negative (Neg-Trace)
[2022-08-25 19:37] VITALS: BP 127/58; PULSE 78; TEMP 36.7; O2SAT 94
[2022-08-25] MEDS: traZODone HCL 100 MG TABLET 300 MG PO (21:13)
[2022-08-25] MEDS: busPIRone HCl 10 MG TABLET PO (21:21)
--- NOTE | 2022-08-25 21:22 | PC.NURSE ---
Pt ODEN x 3 assisted to bedside commode 1 assist via stand pivot supervision. Pt has steady gait. Pt c/o 10/10 R shoulder and hip pain. Pt medicated per SEP. Pt requested diann farrukh for med administration.
[2022-08-26 00:27] VITALS: BP 124/73; PULSE 66; RESP 17; TEMP 36.4; O2SAT 94
[2022-08-26] MEDS: Acetaminophen 325 MG TABLET 650 MG PO ×4 (04:04→21:41)
[2022-08-26 06:10] VITALS: BP 142/60; PULSE 62; RESP 19; TEMP 36.6; O2SAT 94
[2022-08-26] MEDS: Mirabegron 50 MG TAB.ER.24H PO (09:16)
[2022-08-26] MEDS: Atorvastatin Calcium 40 MG TABLET PO (09:17)
[2022-08-26] MEDS: ARIPiprazole 5 MG TABLET PO ×2 (09:18→20:14)
[2022-08-26] MEDS: Apixaban 5 MG TABLET PO ×2 (09:20→20:14)
[2022-08-26] MEDS: Venlafaxine HCl ER 150 MG CAP.ER.24H PO (09:21)
[2022-08-26] MEDS: Venlafaxine HCl ER 75 MG CAP.ER.24H PO (09:21)
[2022-08-26] MEDS: ARIPiprazole 2 MG TABLET PO (09:22)
[2022-08-26] MEDS: Cyanocobalamin (Vitamin B-12) 1,000 MCG TABLET 1000 MCG PO (09:22)
[2022-08-26] MEDS: Omeprazole 40 MG CAPSULE.DR PO (09:22)
[2022-08-26] MEDS: Metoprolol Tartrate 50 MG TABLET PO ×2 (09:22→20:15)
[2022-08-26] MEDS: Ferrous Sulfate 324 MG TABLET.DR PO (09:23)
[2022-08-26] MEDS: oxyBUTYnin chloride ER 5 MG TAB.ER.24 15 MG PO (09:24)
[2022-08-26] MEDS: Gabapentin 400 MG CAPSULE 800 MG PO ×3 (09:25→20:14)
[2022-08-26] MEDS: Calcium + Vitamin D 250 MG TABLET 500 MG PO (09:26)
[2022-08-26] MEDS: busPIRone HCl 10 MG TABLET PO ×2 (09:33→21:47)
--- NOTE | 2022-08-26 09:41 | MHC.CM.PN ---
PT AWAITING USP PLACEMENT [facility] FOLLOWING NO OPEN BED OF YET
[2022-08-26 14:35] VITALS: BP 124/65; PULSE 70; RESP 14; O2SAT 93
--- NOTE | 2022-08-26 15:30 | MHC.EDTECH ---
Brought patient fresh ice water and a pack of warm wipes.
--- NOTE | 2022-08-26 16:17 | MHC.EDTECH ---
1:1 assist to commode and provided patient care.
--- NOTE | 2022-08-26 16:40 | MHC.EDTECH ---
Brought patient saltine crackers.
--- NOTE | 2022-08-26 19:10 | PC.NURSE ---
Stand by assist to bedside commode.
[2022-08-26 20:09] VITALS: BP 99/46; PULSE 82; RESP 18; O2SAT 93
[2022-08-26] MEDS: traZODone HCL 100 MG TABLET 300 MG PO (20:15)
--- NOTE | 2022-08-26 20:52 | MHC.EDTECH ---
Pt 1:1 assist to commode and pt care. Assist in reposition.
[2022-08-27 00:02] VITALS: BP 131/76; PULSE 81; RESP 17; TEMP 36.7; O2SAT 96
--- NOTE | 2022-08-27 00:03 | MHC.EDTECH ---
i resumed care for the 11-7 shift, vitals were taken and pt has her walker to ambulate when needed to BR
[2022-08-27 04:33] VITALS: BP 122/73; PULSE 69; RESP 17; TEMP 36.4; O2SAT 96
--- NOTE | 2022-08-27 04:34 | MHC.EDTECH ---
pt got up to commode on her own and back to bed she said she was hungry so she was given a ham sandwich and a pudding and water
[2022-08-27] MEDS: Venlafaxine HCl ER 150 MG CAP.ER.24H PO (09:39)
[2022-08-27] MEDS: Calcium + Vitamin D 250 MG TABLET 500 MG PO (09:39)
[2022-08-27 09:40] VITALS: BP 155/97; PULSE 76; RESP 18; O2SAT 96
[2022-08-27] MEDS: Gabapentin 400 MG CAPSULE 800 MG PO ×3 (09:42→22:09)
[2022-08-27] MEDS: Cyanocobalamin (Vitamin B-12) 1,000 MCG TABLET 1000 MCG PO (09:42)
[2022-08-27] MEDS: Venlafaxine HCl ER 75 MG CAP.ER.24H PO (09:42)
[2022-08-27] MEDS: Apixaban 5 MG TABLET PO ×2 (09:42→22:10)
[2022-08-27] MEDS: Atorvastatin Calcium 40 MG TABLET PO (09:42)
[2022-08-27] MEDS: ARIPiprazole 5 MG TABLET PO ×2 (09:43→22:10)
[2022-08-27] MEDS: Ferrous Sulfate 324 MG TABLET.DR PO (09:43)
[2022-08-27] MEDS: ARIPiprazole 2 MG TABLET PO (09:43)
[2022-08-27] MEDS: Mirabegron 50 MG TAB.ER.24H PO (09:43)
[2022-08-27] MEDS: Metoprolol Tartrate 50 MG TABLET PO ×2 (09:44→22:09)
[2022-08-27] MEDS: Omeprazole 40 MG CAPSULE.DR PO (09:45)
[2022-08-27] MEDS: busPIRone HCl 10 MG TABLET PO ×2 (10:14→22:09)
[2022-08-27] MEDS: Acetaminophen 325 MG TABLET 650 MG PO ×3 (10:14→22:09)
[2022-08-27] MEDS: oxyBUTYnin chloride ER 5 MG TAB.ER.24 15 MG PO (10:14)
--- NOTE | 2022-08-27 10:27 | MHC.EDTECH ---
PT PUT HERSELF ON COMMODE 2 TIMES AND TECH HELPED CLEAN AND PUT BACK ON BED ONCE AND THEN ON RECLINER.
[2022-08-27 20:01] VITALS: BP 109/42; PULSE 82; RESP 17; TEMP 36.8; O2SAT 96
--- NOTE | 2022-08-27 21:54 | PC.NURSE ---
pt ambulated independently to bedside commode. pt rang call butler for assistance wiping after use of commode. pt repositioned into bed
[2022-08-27] MEDS: traZODone HCL 100 MG TABLET 300 MG PO (22:09)
--- NOTE | 2022-08-27 22:14 | PC.NURSE ---
pt medicated according to sep. rn adjusted blankets for pt. pt states no new needs at this time
[2022-08-28 05:09] VITALS: BP 133/54; PULSE 68; RESP 16; TEMP 36.5; O2SAT 95
[2022-08-28 08:12] VITALS: BP 140/68; PULSE 94; RESP 17; TEMP 36.7; O2SAT 96
[2022-08-28] MEDS: Atorvastatin Calcium 40 MG TABLET PO (08:20)
[2022-08-28] MEDS: oxyBUTYnin chloride ER 5 MG TAB.ER.24 15 MG PO (08:20)
[2022-08-28] MEDS: ARIPiprazole 2 MG TABLET PO (08:20)
[2022-08-28] MEDS: Venlafaxine HCl ER 75 MG CAP.ER.24H PO (08:20)
[2022-08-28] MEDS: Cyanocobalamin (Vitamin B-12) 1,000 MCG TABLET 1000 MCG PO (08:21)
[2022-08-28] MEDS: Apixaban 5 MG TABLET PO ×2 (08:21→20:22)
[2022-08-28] MEDS: Gabapentin 400 MG CAPSULE 800 MG PO ×3 (08:21→20:21)
[2022-08-28] MEDS: Omeprazole 40 MG CAPSULE.DR PO (08:21)
[2022-08-28] MEDS: Ferrous Sulfate 324 MG TABLET.DR PO (08:21)
[2022-08-28] MEDS: Calcium + Vitamin D 250 MG TABLET 500 MG PO (08:21)
[2022-08-28] MEDS: ARIPiprazole 5 MG TABLET PO ×2 (08:21→20:22)
[2022-08-28] MEDS: Venlafaxine HCl ER 150 MG CAP.ER.24H PO (08:21)
[2022-08-28] MEDS: Metoprolol Tartrate 50 MG TABLET PO ×2 (08:21→20:21)
[2022-08-28] MEDS: Mirabegron 50 MG TAB.ER.24H PO (08:24)
[2022-08-28] MEDS: busPIRone HCl 10 MG TABLET PO (08:26)
[2022-08-28] MEDS: Acetaminophen 325 MG TABLET 650 MG PO ×3 (08:26→21:07)
--- NOTE | 2022-08-28 08:43 | PC.NURSE ---
Patient alert and oriented x3, vague on situation. Denies headache, chest pain, SOB. Reports pain in hips and shoulder, given Tylenol per EMAR. Lung sounds diminished throughout. + bowel sounds. OOB to commode independently/minimal assist. VSS. All needs met at this time.
[2022-08-28 13:45] VITALS: BP 141/83; PULSE 74; RESP 18; TEMP 36.6; O2SAT 94
--- NOTE | 2022-08-28 14:01 | MHC.CM.PN ---
Addendum entered by Ambar Padilla RN 08/28/22 14:05: CALL BACK FROM NUMBER (HORACIO) WHO SAYS THAT HIS SISTER'S PHONE IS NOT WORKING RIGHT NOW T/W WILL NEED TO GET PERMISSION FROM PATIENT TO SPEAK TO HORACIO Original Note: CALL TO HARLEEN AT [phone]. NO ABILITY TO LEAVE MESSAGE CALL TO ALTERNATE NUMBER [phone] MESSAGE LEFT FOR CALL BACK TO UPDATE DAUGHTER OF NO BED OFFERS AND TO ASK IF PATIENT CAN DC HOME WITH ADDITIONAL SERVICES
--- NOTE | 2022-08-28 14:45 | PC.NURSE ---
THIS RN ASSUMED CARE OF THIS PT AT 1100. PT IN BED SLEEPING AT THE TIME OF ASSUMING CARE. PT ASSISTED TO AND FROM BEDSIDE COMMODE X4. PT ASSISTED WITH REPOSITIONING. PT SITTING IN RECLINER AT THIS TIME. DAUGHTER (HARLEEN [phone]) CALLED FOR UPDATE.
[2022-08-28 16:00] VITALS: BP 122/87; PULSE 73; RESP 16; TEMP 36.9; O2SAT 98
--- NOTE | 2022-08-28 16:00 | MHC.EDTECH ---
THIS PCT ASSUMED CARE OF PT AT 1500 ,ROUNDING DONE ,VITALS SIGN TAKEN PT SITTING UP IN CHAIR ,TALKING ON PHONE ,PT IN GOOD SPIRITS ,CONVERSATING WITH THIS PCT SAID EVERY ONE HERE IS SO NICE ,OFFER SNACK ,BUT PT SAID SHE WAS OK .
--- NOTE | 2022-08-28 17:31 | MHC.EDTECH ---
patient ring call butler for saltine cracker and diann farrukh .
--- NOTE | 2022-08-28 18:58 | MHC.EDTECH ---
pt was served dinner ate 100 of turkey ,green beans and rice ,drank 2 1% milk had 2 budding for dinner ,pt was able to toilet herself on bedside commode ,after dinner pt watching wheeled [employer] .
--- NOTE | 2022-08-28 20:00 | MHC.EDTECH ---
pt was offer to get washed up ,but pt refused .
--- NOTE | 2022-08-28 20:49 | MHC.CM.ED ---
Spoke with nursing staff. Pt is able to ambulate to BR and use commode, but wants help. Does not need help. Attempted to call Daughter/HCP Tfifany (new telephone [phone]) and left 2 messages to return call. PT recommends ? trial of home PT, but probably at baseline. No referrals yet. [facility] [place] for [facility] care. If no response, CM will need to call daughter to discuss discharge plans. CM will follow for discharge needs.
[2022-08-28] MEDS: traZODone HCL 100 MG TABLET 300 MG PO (21:08)
[2022-08-28 21:22] VITALS: BP 118/58; PULSE 74; RESP 16; TEMP 36.6; O2SAT 98
--- NOTE | 2022-08-28 22:00 | MHC.EDTECH ---
2200 rounding done ,vitals sign taken ,pt use bedside commode independently ,voided lg amount of urine .
[2022-08-29 06:00] VITALS: BP 124/56; PULSE 98; RESP 18; TEMP 36.6; O2SAT 92
--- NOTE | 2022-08-29 06:30 | PC.NURSE ---
Assumed care of pt. at 1900. Pt. sitting up in bed at that time watching tv. Pt. independent using commode and is continent of urine and stool. Pt. reporting pain in her hips. Pt. medicated with tylenol PRN per MAR along with night time meds. Pt. slept through most of the night, awakening early to turn on tv. At this time pt. is back to sleep. Pt. is pending placement. VSS. Will continue to monitor.
[2022-08-29] MEDS: oxyBUTYnin chloride ER 5 MG TAB.ER.24 15 MG PO (08:07)
[2022-08-29] MEDS: Venlafaxine HCl ER 75 MG CAP.ER.24H PO (08:08)
[2022-08-29] MEDS: Apixaban 5 MG TABLET PO ×2 (08:08→20:31)
[2022-08-29] MEDS: Cyanocobalamin (Vitamin B-12) 1,000 MCG TABLET 1000 MCG PO (08:08)
[2022-08-29] MEDS: Ferrous Sulfate 324 MG TABLET.DR PO (08:08)
[2022-08-29] MEDS: Gabapentin 400 MG CAPSULE 800 MG PO ×3 (08:08→20:31)
[2022-08-29] MEDS: Calcium + Vitamin D 250 MG TABLET 500 MG PO (08:08)
[2022-08-29] MEDS: ARIPiprazole 5 MG TABLET PO ×2 (08:09→20:31)
[2022-08-29] MEDS: Atorvastatin Calcium 40 MG TABLET PO (08:09)
[2022-08-29] MEDS: Omeprazole 40 MG CAPSULE.DR PO (08:09)
[2022-08-29] MEDS: Metoprolol Tartrate 50 MG TABLET PO (08:09)
[2022-08-29] MEDS: Mirabegron 50 MG TAB.ER.24H PO (08:09)
[2022-08-29] MEDS: ARIPiprazole 2 MG TABLET PO (08:09)
[2022-08-29] MEDS: busPIRone HCl 10 MG TABLET PO ×2 (08:23→20:30)
[2022-08-29] MEDS: Venlafaxine HCl ER 150 MG CAP.ER.24H PO (08:24)
[2022-08-29] MEDS: Acetaminophen 325 MG TABLET 650 MG PO ×3 (08:28→20:29)
--- NOTE | 2022-08-29 08:30 | MHC.EDTECH ---
Patient wash and clean, patient ate 100% of breakfast .Patient up on the recline watching Tv.
--- NOTE | 2022-08-29 12:01 | MHC.CM.PN ---
PT HAS AN ACCEPTING SNF, [facility], HOWEVER THEY DO NOT HAVE AN OPEN BED TODAY THEY SAY THEY MAY HAVE ONE TOMORROW CM ATTEMPTED TO CONTACT PTS DAUGHTER, HARLEEN [phone] HOWEVER A MALE ANSWERED AND INDICATED SHE WAS NOT AVAILABLE AT THIS TIME HE STATED HE WOULD GIVE HER THE MESSAGE TO CALL CM
--- NOTE | 2022-08-29 12:51 | MHC.CM.PN ---
CM MET WITH PT TO INFORM HER [facility] HAS CLINICALLY ACCEPTED PENDING AN OPEN BED, WHICH THEY INDICATED MAY BE TOMORROW CM ALSO INFORMED HER AN ATTEMPT WAS MADE TO CONTACT HER DAUGHTER WITH ABOVE INFO, HOWEVER SHE WAS UNAVAILABLE PT REPORTS HER DAUGHTERS PHONE IS TURNED OFF HOWEVER SHE IS UNSURE WHY SHE IS BEING CALLED ANYWAY SINCE SHE [PT] IS FULLY ALERT AND ORIENTED CM AGREED PT CAN UPDATE DAUGHTER WHEN THEY SPEAK
--- NOTE | 2022-08-29 14:11 | MHC.EDTECH ---
walked patient 40 feet and sat on recliner . patient relaxing and watching tv.
[2022-08-29 14:17] VITALS: BP 108/53; PULSE 75; RESP 12; O2SAT 96
--- NOTE | 2022-08-29 15:46 | MHC.EDTECH ---
Patient ambulated with walker to overflow double doors and back to recliner. Gave patient saltine crackers.
--- NOTE | 2022-08-29 15:58 | MHC.EDTECH ---
Brought patient fresh pitcher of ice water and a cup of diet gingerale.
--- NOTE | 2022-08-29 18:24 | MHC.CM.ED ---
Addendum entered by Chelsi Bernal 08/29/22 19:32: Patient tells CM that she can go home tomorrow. States she feels much better emotionally and has been ambulating to the BR in overflow. Nurses report patient has been independent all day. Pt sttes she gets 291/2 hours [employer] from [facility] [employer] ([phone]). They are not in [facility]. Office is closed. Will need to call in the morning regarding resumption of services. Pt states she will also call them in the morning. Spoke with daughter/HCP Tiffany who agrees with discharge tomorrow and states she will transport home. Requests a phone call when her mother is ready for discharge. Tiffany states her phone has been reconnected and she can be reached at [phone]. HCP has been changed with new phone [phone]. CM has not updated [facility] regarding bed acceptance, incase patient changes her mind in the morning. Original Note: Pt is requesting a new HCP be completed, as her daughter's phone number is incorrect. HCP #1 Tiffany Castañeda ([phone]) and HCP #2 Juan Castañeda ([phone]). Reviewed, completed and signed. Copies given and Uploaded into [facility] and [facility]. Pt may have a bed at [facility] in [place]. Pt is agreeable, but states she ambulated to the bathroom twice without difficulty. Moving in bed. OOB to chair. Pt states she may be able to go home. CM told patient we could re-assess how she feels and if she does not think she needs halfway care and feels well, she can go home. CM will follow for d/c planning
--- NOTE | 2022-08-29 18:37 | MHC.EDTECH ---
Brought patient 1% milk.
--- NOTE | 2022-08-29 19:02 | PC.NURSE ---
pt got up independently to bedside commode and back to bed, with no issues
[2022-08-29 20:00] VITALS: BP 97/57; PULSE 70; RESP 16; O2SAT 96
[2022-08-29] MEDS: traZODone HCL 100 MG TABLET 300 MG PO (20:31)
--- NOTE | 2022-08-30 00:04 | PC.NURSE ---
Took over care at 11pm from Chaz, Pt assisted to bedside commode, pt denies any si or HI, pt clam and cooperative. Pt resting in bed. Will continue to monitor.
[2022-08-30 00:19] VITALS: BP 103/50; PULSE 114; RESP 18; TEMP 37; O2SAT 92
[2022-08-30 07:47] VITALS: BP 118/50; PULSE 78; RESP 18; TEMP 36.3; O2SAT 96
[2022-08-30] MEDS: Venlafaxine HCl ER 75 MG CAP.ER.24H PO (08:10)
[2022-08-30] MEDS: ARIPiprazole 5 MG TABLET PO (08:10)
[2022-08-30] MEDS: ARIPiprazole 2 MG TABLET PO (08:10)
[2022-08-30] MEDS: oxyBUTYnin chloride ER 5 MG TAB.ER.24 15 MG PO (08:10)
[2022-08-30] MEDS: Mirabegron 50 MG TAB.ER.24H PO (08:10)
[2022-08-30] MEDS: Venlafaxine HCl ER 150 MG CAP.ER.24H PO (08:10)
[2022-08-30] MEDS: Apixaban 5 MG TABLET PO (08:10)
[2022-08-30] MEDS: Gabapentin 400 MG CAPSULE 800 MG PO (08:10)
[2022-08-30] MEDS: Omeprazole 40 MG CAPSULE.DR PO (08:10)
[2022-08-30] MEDS: Ferrous Sulfate 324 MG TABLET.DR PO (08:11)
[2022-08-30] MEDS: Atorvastatin Calcium 40 MG TABLET PO (08:11)
[2022-08-30] MEDS: Metoprolol Tartrate 50 MG TABLET PO (08:11)
[2022-08-30] MEDS: Calcium + Vitamin D 250 MG TABLET 500 MG PO (08:11)
[2022-08-30] MEDS: Cyanocobalamin (Vitamin B-12) 1,000 MCG TABLET 1000 MCG PO (08:11)
--- NOTE | 2022-08-30 10:12 | MHC.CM.ED ---
Addendum entered by Yanna Martinez 08/30/22 13:28: No agencies have been able to accept patient at this time. [facility] will provide physical therapy next . T/W spoke with patient's daughter, Tiffany. Tiffany will be here around 230pm to transport patient home. T/W spoke [facility]. They are aware patient will be discharged home today because the patient called them. Patient, Tiffany, Pallavi RIOS and Danae DAMON aware. Original Note: Patient remains in ER overflow. Patient still feels she can safely return home. Physical therapy is recommending home therapy. Patient is active with [facility]. T/W spoke with Anjali at [facility]. Their physical therapy department will not be able to see patient before next . Anjali recommends referring out. Referral made in [facility]. Waiting to hear which agency can accept patient. Continue to monitor for d/c needs.
--- NOTE | 2022-08-30 11:26 | PC.NURSE ---
patient up to bedside commode with stand by assist. able to make needs known. call butler within reach
== END 2022-08-30 14:36 | disposition home or self-care (01) ==
PROVIDERS: Nurse Practitioner Family; Emergency Provider Student in an Organized Health Care Education/Training Program; PCP Internal Medicine
DX: F31.5 Bipolar disorder, current episode depressed, severe, with psychotic features (principal); R45.851 Suicidal ideations; R30.0 Dysuria; N39.0 Urinary tract infection, site not specified; R26.89 Other abnormalities of gait and mobility; Z20.822 Contact with and (suspected) exposure to COVID-19; Z20.828 Contact with and (suspected) exposure to other viral communicable diseases; Z79.899 Other long term (current) drug therapy; Z87.891 Personal history of nicotine dependence; Z63.4 Disappearance and death of family member
CPT/HCPCS: 36415; 80048; 80076; 80143; 80179; 80307; 81001; 81003; 82077; 83690; 85025; 87086; 87635; 96365; 96366; 97162; 99285; J0696; S9485

== ENCOUNTER 2022-11-29 12:42 | Emergency (ER) | payer OTHER, SELFPAY ==
--- NOTE | ~2022-11-29 | XR_ITS ---
EXAMINATION: Thoracic spine, lumbar spine, sacrum and coccyx. CLINICAL INDICATION: Back pain COMPARISON: CT lumbar spine 04/09/2017. TECHNIQUE: Sacrum/coccyx 3 views. Lumbar spine 3 views. Dorsal spine 2 views. FINDINGS: Sacrum/coccyx: There is a normal symmetry of SI joints. The sacrum is unremarkable. No fracture or lytic process seen. Lumbar spine: There is normal lumbar lordosis. This grade 1 anterolisthesis L4 over L5. Loss of L4-L5 and L3-L4 disc heights with vacuum disc phenomena. Mild loss of superior endplate L3 vertebral height is noted. Rest of the vertebral heights are normal. No lytic or sclerotic process seen the paravertebral soft tissues are normal. Dorsal spine: There is normal thoracic kyphosis. The vertebral heights, alignment and disc heights are normal. No visible acute fracture, dislocation or subluxation seen. No lytic process. XR/XR lumbar spine 2-3V IMPRESSION: 1. Unremarkable sacrum and coccyx. 2. Grade 1 anterolisthesis L4 over L5. There are degenerative disc changes L3-L4 and L4-L5 disc levels with vacuum disc phenomena. 3. Mild superior endplate compression fracture L3 vertebra of indeterminate age. 4. Unremarkable dorsal spine exam. No visible acute fracture or dislocation seen.
--- NOTE | ~2022-11-29 | XR_ITS ---
EXAMINATION: Thoracic spine, lumbar spine, sacrum and coccyx. CLINICAL INDICATION: Back pain COMPARISON: CT lumbar spine 04/09/2017. TECHNIQUE: Sacrum/coccyx 3 views. Lumbar spine 3 views. Dorsal spine 2 views. FINDINGS: Sacrum/coccyx: There is a normal symmetry of SI joints. The sacrum is unremarkable. No fracture or lytic process seen. Lumbar spine: There is normal lumbar lordosis. This grade 1 anterolisthesis L4 over L5. Loss of L4-L5 and L3-L4 disc heights with vacuum disc phenomena. Mild loss of superior endplate L3 vertebral height is noted. Rest of the vertebral heights are normal. No lytic or sclerotic process seen the paravertebral soft tissues are normal. Dorsal spine: There is normal thoracic kyphosis. The vertebral heights, alignment and disc heights are normal. No visible acute fracture, dislocation or subluxation seen. No lytic process. XR/XR thoracic spine 3V IMPRESSION: 1. Unremarkable sacrum and coccyx. 2. Grade 1 anterolisthesis L4 over L5. There are degenerative disc changes L3-L4 and L4-L5 disc levels with vacuum disc phenomena. 3. Mild superior endplate compression fracture L3 vertebra of indeterminate age. 4. Unremarkable dorsal spine exam. No visible acute fracture or dislocation seen.
--- NOTE | ~2022-11-29 | XR_ITS ---
EXAMINATION: Thoracic spine, lumbar spine, sacrum and coccyx. CLINICAL INDICATION: Back pain COMPARISON: CT lumbar spine 04/09/2017. TECHNIQUE: Sacrum/coccyx 3 views. Lumbar spine 3 views. Dorsal spine 2 views. FINDINGS: Sacrum/coccyx: There is a normal symmetry of SI joints. The sacrum is unremarkable. No fracture or lytic process seen. Lumbar spine: There is normal lumbar lordosis. This grade 1 anterolisthesis L4 over L5. Loss of L4-L5 and L3-L4 disc heights with vacuum disc phenomena. Mild loss of superior endplate L3 vertebral height is noted. Rest of the vertebral heights are normal. No lytic or sclerotic process seen the paravertebral soft tissues are normal. Dorsal spine: There is normal thoracic kyphosis. The vertebral heights, alignment and disc heights are normal. No visible acute fracture, dislocation or subluxation seen. No lytic process. XR/XR sacrum coccyx min 2V IMPRESSION: 1. Unremarkable sacrum and coccyx. 2. Grade 1 anterolisthesis L4 over L5. There are degenerative disc changes L3-L4 and L4-L5 disc levels with vacuum disc phenomena. 3. Mild superior endplate compression fracture L3 vertebra of indeterminate age. 4. Unremarkable dorsal spine exam. No visible acute fracture or dislocation seen.
[2022-11-29 12:52] VITALS: BP 130/80; PULSE 74; O2SAT 95
[2022-11-29 12:55] VITALS: BP 111/66; PULSE 68; RESP 17; O2SAT 94
[2022-11-29 12:58] VITALS: BMI 44.8
[2022-11-29] MEDS: ondansetron HCL 4 MG/2 ML VIAL IVPUSH (14:19)
[2022-11-29] MEDS: Morphine Sulfate 4 MG/ML CARTRIDGE IVPUSH (14:20)
[2022-11-29 14:24] LABS: MANUAL DIFF FLAG NO
[2022-11-29 14:45] LABS: Alanine Aminotransferase 30 U/L (0-31); Albumin Level 3.2 g/dL (3.5-5.0); Alkaline Phosphatase 61 U/L (39-117); Anion Gap 9 (12-20); Aspartate Amino Transferase 19 U/L (5-31); Bilirubin Direct 0.3 mg/dL (0.0-0.5); Bilirubin Total 0.8 mg/dL (0.0-1.0); Blood Urea Nitrogen 17 mg/dL (9-16); Calcium 8.6 mg/dL (8.4-10.2); Carbon Dioxide 30 mmol/L (22-29); Chloride 108 mmol/L (96-108); Creatinine Clr Calc Pharmacy 68.5; Estimated Glomerular Filt Rate > 60; Glucose Random 95 mg/dL (60-115); Lipase 8 U/L (8-78); Magnesium 1.7 mg/dL (1.6-2.6); Sodium 143 mmol/L (135-145); Total Protein 4.9 g/dL (6.5-8.0)
[2022-11-29 14:54] LABS: Basophils Percent Auto 0.5 % (0-2); Eosinophils Percent Auto 0.2 % (0-4); Imm Gran Abs Auto 0.01 X10*3/uL (0.00-0.03); Imm Gran Pct Auto 0.2 % (0.0-0.4); Lymphocytes Absolute Auto 0.6 X10*3/uL (1.2-4.9); Lymphocytes Percent Auto 10.7 % (20-40); Mean Platelet Volume 9.2 fL (9.4-12.3); Monocytes Absolute Auto 0.5 X10*3/uL (0.1-1.2); Monocytes Percent Auto 8.7 % (2-11); Neutrophils Absolute Auto 4.8 x10*3/uL (2.0-8.3); Neutrophils Percent Auto 79.7 % (45-73); Platelet Count 129 X10*3/uL (160-400); Red Blood Count 2.57 X10*6/uL (4.20-5.50); Red Cell Distribution Width 15.4 % (11.0-16.0)
[2022-11-29 14:55] LABS: Mean Corpuscular Volume 112.8 fL (80.0-98.0)
--- NOTE | 2022-11-29 14:56 | ED_ITS ---
HPI - Back Pain/Injury General Chief Complaint: Back Pain/Injury Stated Complaint: Low back pain x 3 days per EMS Time Seen by Provider: 11/29/22 13:06 Source: patient and RN notes reviewed Mode of arrival: ambulatory Limitations: no limitations History of Present Illness HPI Narrative: This is a 67-year-old female, with a past medical history of AFib on Eliquis, hypertension, bilateral frozen shoulder pain, and chronic hip pain, who presents to the emergency department today with complaints of atraumatic back pain x 3 days. Patient reports that she has had no recent trauma, injury, heavy lifting or falls. Patient reports that the pain worsens with positional changes. She typically ambulates with a walker and wheelchair. She has taken Tylenol for her symptoms which has provided her with minimal relief. Patient denies any fevers, chills, headache, chest pain, shortness of breath, palpitations, abdominal pain, vomiting, or diarrhea. Admits to having some nausea secondary to pain. She denies any urinary or bowel incontinence. Denies any saddle anesthesia. Denies any weakness numbness or tingling in her legs. No recent weight loss. No other complaints or concerns at this time. MD elicited complaint: back pain Onset (ago): day(s) Timing: constant Severity: severe Similar Symptoms Previously: No Location: lumbar spine and sacrum Radiation: none Exacerbating factors: movement Relieving factors: immobilization Associated symptoms: denies other symptoms Treatments prior to arrival: acetaminophen Work related injury: No Related Data Home Medications Medication Instructions Recorded Confirmed gabapentin 800 mg tablet 800 mg PO TID 04/11/20 11/29/22 buspirone 10 mg tablet 10 mg PO TID PRN Anxiety 07/30/22 11/29/22 venlafaxine 150 mg 150 mg PO DAILY 07/30/22 11/29/22 capsule,extended release 24 hr trazodone 100 mg tablet 300 mg PO BEDTIME 08/14/22 11/29/22 aripiprazole 10 mg tablet 10 mg PO DAILY 11/29/22 11/29/22 calcium carbonate 500 mg-vitamin 1 tab PO DAILY 11/29/22 11/29/22 D3 10 mcg (400 unit) tablet (Calcium 500 With D) cyanocobalamin (vitamin B-12) 1,000 mcg PO DAILY 11/29/22 11/29/22 1,000 mcg tablet ferrous fumarate 325 mg (106 mg 325 mg PO DAILY 11/29/22 11/29/22 iron) tablet (Ferretts) imatinib 400 mg tablet 400 mg PO DAILY 11/29/22 11/29/22 melatonin 3 mg tablet 3 - 9 mg PO BEDTIME insomnia 11/29/22 11/29/22 metoprolol tartrate 50 mg tablet 50 mg PO BID 11/29/22 11/29/22 nystatin 100,000 unit/gram topical 1 appl topical BID 11/29/22 11/29/22 powder nystatin-triamcinolone 100,000 1 appl topical BID 11/29/22 11/29/22 unit/g-0.1 % topical cream rosuvastatin 10 mg tablet 10 mg PO DAILY 11/29/22 11/29/22 venlafaxine 75 mg capsule,extended 75 mg PO DAILY 11/29/22 11/29/22 release 24 hr Previous Rx's Medication Instructions Recorded mirabegron 50 mg tablet,extended 50 mg PO DAILY 90 days #90 tabs 07/30/22 release 24 hr (Myrbetriq) oxybutynin chloride 15 mg 15 mg PO DAILY 90 days #90 tabs 07/30/22 tablet,extended release 24 hr omeprazole 40 mg capsule,delayed 40 mg PO DAILY #90 caps 09/11/22 release apixaban 5 mg tablet (Eliquis) 5 mg PO BID #180 tabs 10/30/22 Allergies Allergy/AdvReac Type Severity Reaction Status Date / Time simvastatin [SIMVASTATIN] Allergy Intermediate MUSCLE PAIN Verified 10/21/22 22:57 lamotrigine AdvReac Intermediate NIGHTMARES Verified 10/21/22 22:57 celecoxib [From CELEBREX] AdvReac Mild DIZZY, Verified 10/21/22 22:57 TIRED Darvon Allergy Unknown Unknown Uncoded 10/21/22 22:57 Review of Systems Review of Systems: Constitutional: No Weight loss, No Fever, No Chills, No Night Sweats, No Fatigue, No Malaise ENT/Mouth: No Hearing loss, No Ear Pain, No Nasal Congestion, No Sinus Pain, No Hoarseness, No sore throat, No Rhinorrhea, No Swallowing Difficulty Eyes: No Eye Pain, No Swelling, No Redness, No Foreign Body, No Discharge, No Vision Changes Cardiovascular: No Chest Pain, No SOB, No Dyspnea on Exertion, No Orthopnea, No Edema, No Palpitations Respiratory: No Cough, No Sputum, No Wheezing, No Smoke Exposure, No Dyspnea Gastrointestinal: No Nausea, No Vomiting, No Diarrhea, No Constipation, No Abdominal pain, No Hematochezia, No Melena Genitourinary: No irregular bleeding, No Dysuria, No Urinary Frequency, No Hem aturia, No Urinary Incontinence/retention, No Urgency, No Flank Pain, No Urinary Flow Changes, No Hesitancy Musculoskeletal: +back pain, No joint pain, No Myalgias, No Joint Swelling Skin: No Skin Lesions, No rash Neuro: No Weakness, No Numbness, No Paresthesias, No Loss of Consciousness, No Dizziness, No Headache Psych: No Anxiety/Panic, No Depression, No SI/HI/AH/VH, No Social Issues, Heme/Lymph: No Bruising, No Bleeding,No Lymphadenopathy Endocrine: No Polyuria, No Polydipsia, No Temperature Intolerance Yes all other systems are reviewed and are negative Constitutional: Constitutional: Reports as per [facility] Past Medical History Attestation statement: The following information was validated with the patient. Medical History Acute on chronic anemia Anxiety Bipolar 1 disorder Chronic diastolic (congestive) heart failure CML in remission Colon cancer screening Erythema intertrigo Gait instability GERD (gastroesophageal reflux disease) Hoarseness Lateral malleolar fracture Leukemia in remission Non-rheumatic aortic stenosis Osteoporosis PAF (paroxysmal atrial fibrillation) Primary osteoarthritis, left shoulder Primary osteoarthritis, right shoulder Pulmonary embolism Urgency-frequency syndrome Vitamin D deficiency Surgical History History of section History of ear surgery History of femur fracture Family History Family History Unknown Unknown family medical history Daughter Mental health disorder Social History Social History Household Members: Spouse Housing: Apartment Alcohol intake: former Patient Tobacco Use Status: Former Tobacco user Quit Date: 1999 e-Cigarette/Vaping Use: Never Used Advance Directives: No Advance Directives Information Provided: No Advance Directives Date on File: 06/15/04 service: No Current occupational status: disabled Cognitive needs: No Hearing needs: No Vision needs: Yes Physical Exam Vital Signs: Vital Signs: Last Vital Signs Temp 98.3 F 12/02/22 00:20 Pulse 84 12/02/22 00:20 Resp 18 12/02/22 00:20 BP 120/60 12/02/22 00:20 Pulse Ox 93 12/02/22 00:20 O2 Del Method Room Air 12/02/22 00:20 O2 Flow Rate 3.5 11/30/22 06:34 BMI result Body Mass Index 44.8 Const: General: cooperative, comfortable and no acute distress Orientation/consciousness: patient oriented x3 Limitations: no limitations HEENT: Head: Yes normal to inspection, Yes normocephalic and Yes atraumatic Ears: hearing grossly normal bilaterally General nose exam: Normal external nose present Face and sinus: Yes normal facial exam Mouth: Normal oral and palatal mucosa present, oropharynx normal and moist mucous membranes Throat: Yes posterior oropharynx normal Eyes: General: appearance normal, both eyes and all related structures Eyelids: Yes eyelids normal Conjunctivae: conjunctivae normal Sclerae: sclerae normal Pupils: Equal, round and reactive pupils present EOM: EOMs intact bilaterally Neck: Neck: Yes normal visual inspection, Yes full ROM and Yes no lymphadenopathy Lymphatic: no lymphadenopathy noted Chest: Chest palpation & inspection: normal inspection of the chest Resp: Effort & Inspection: normal respiratory effort and able to speak in complete sentences Auscultation: clear to auscultation bilaterally, no crackles, no rales, no rhonchi and no wheezes Cardio: Rate: regular rate Rhythm: regular rhythm Heart sounds: S1 n ormal heart sound present and S2 normal heart sound present GI: Inspection: Yes normal to inspection : General: Yes no CVA tenderness Back/Spine/Pelvis: Other: Tenderness to palpation over the lumbar midline spine, no step off or deformities. No overlying skin changes. Distal circulation and sensation intact. Back: no CVA tenderness Thoracic/Lumbar Spine: thoracic and lumbar spine normal to inspection Sacrum: no ecchymosis, no erythema and no swelling Coccyx: no swelling and no tenderness Skin: General skin exam: no rashes or lesions noted Trauma: no lacerations or abrasions Wounds: no wounds Neuro: General: patient oriented x3 and moves all extremities Cranial nerves: Yes Equal, round and reactive pupils present Extrem: General: Yes normal to inspection Right upper extremity: normal to inspection Left upper extremity: normal to inspection Right lower extremity: normal to inspection Left lower extremity: normal to inspection Course Course Course Narrative: 11/30/22--956--physician observation continued. Labs and imaging reviewed. Physical therapy evaluated patient this morning and recommended STR. Pending case management evaluation 12/01/22--0034--physician observation continued. No reported complaints overnight. Patient pending case management placement 12/02 -- 94 -- physician observation continued. No acute overnight events. Ty lenol around the clock added to her p.r.n. Flexeril order. She is also on 800 mg of gabapentin 3 times a day. will follow-up with case management. Reevaluation(s) Reevaluation #1: Pt re-evaluated, no relief with morphine 4mg. Will administer prednisone, flexeril, and lidocaine patch. Time: 16:44 Reevaluation #2: Patient is still experiencing significant pain in her back. Given x-ray results the of Mild superior endplate compression fracture L3 vertebra of indeterminate age. Grade 1 anterolisthesis L4 over L5. There are degenerative disc changes L3- L4 and L4-L5 disc levels with vacuum disc phenomena. Patient would benefit from being evaluated by physical therapy. Patient willing to stay overnight to be seen in the morning. Physician observation initiated. Time: 17:27 Medications Administered Generic Name Dose Route Start Last Admin Trade Name Freq PRN Reason Stop Dose Admin Apixaban 5 mg 11/30/22 09:00 12/01/22 20:47 Apixaban 5 Mg Tablet PO 5 mg BID SHEN Administration Aripiprazole 10 mg 11/30/22 09:00 12/01/22 08:37 Aripiprazole 10 Mg Tablet PO 10 mg DAILY SHEN Administration Atorvastatin Calcium 40 mg 11/30/22 09:00 12/01/22 08:37 Atorvastatin Calcium 40 Mg Tablet PO 40 mg DAILY SHEN Administration Buspirone HCl 10 mg 11/29/22 23:08 12/01/22 20:47 Buspirone Hcl 10 Mg Tablet PO 10 mg TID PRN Administration Anxiety Calcium Carbonate 500 mg 11/30/22 09:00 12/01/22 08:36 Calcium Carbonate 500 Mg Tablet PO 500 mg DAILY SHEN Administration Cyanocobalamin 1,000 mcg 11/30/22 09:00 12/01/22 08:36 Cyanocobalamin (Vitamin B-12) 1,000 Mcg Tablet PO 1,000 mcg DAILY SHEN Administration Cyclobenzaprine HCl 10 mg 11/30/22 16:14 12/02/22 06:19 Cyclobenzaprine Hcl 10 Mg Tablet PO 10 mg TID PRN Administration Pain, Moderate(Pain Scale 4-6) Gabapentin 800 mg 11/30/22 09:00 12/01/22 20:47 Gabapentin 400 Mg Capsule PO 800 mg TID SHEN Administration Lidocaine 1 patch 11/30/22 16:15 12/01/22 08:38 Lidocaine 4 % Patch Adh..Patch TRANSDERMA 1 patch DAILY SHEN Administration Protocol Melatonin 6 mg 11/30/22 21:00 11/29/22 23:51 Melatonin 3 Mg Tablet PO 6 mg BEDTIME PRN Administration insomnia Metoprolol Tartrate 50 mg 11/30/22 09:00 12/01/22 20:47 Metoprolol Tartrate 50 Mg Tablet PO 50 mg BID SHEN Administration Protocol Mirabegron 50 mg 11/30/22 09:00 12/01/22 08:37 Mirabegron 50 Mg Tab.Er.24h PO 50 mg DAILY SHEN Administration Pat Own (Ferrous 325 mg 11/30/22 09:00 12/01/22 09:16 Fumarate [Ferretts] PO 325 mg 325 Mg Tablet) DAILY SHEN Administration Pt Own (Imatinib 400 400 mg 11/30/22 17:00 12/01/22 18:47 Mg Tablet) PO 400 mg DAILY@1700 SHEN Administration Nystatin 1 appl 11/30/22 09:00 12/01/22 20:47 Nystatin Powder 15 Gm Bottle TOPICAL 1 appl BID SHEN Administration Protocol Nystatin/Triamcinolone Acetonide 1 appl 11/30/22 09:00 12/01/22 20:47 Nystatin/Triamcinolone Cream 15 Gm Tube TOPICAL 1 appl BID SHEN Administration Protocol Omeprazole 40 mg 11/30/22 09:00 12/01/22 08:35 Omeprazole 40 Mg Capsule.Dr PO 40 mg DAILY SHEN Administration Oxybutynin Chloride 15 mg 11/30/22 09:00 12/01/22 08:37 Oxybutynin Chloride Er 5 Mg Tab.Er.24 PO 15 mg DAILY SHEN Administration Trazodone HCl 300 mg 11/30/22 21:00 12/01/22 20:47 Trazodone Hcl 100 Mg Tablet PO 300 mg BEDTIME SHEN Administration Venlafaxine HCl 75 mg 11/30/22 09:00 12/01/22 08:35 Venlafaxine Hcl Er 75 Mg Cap.Er.24h PO 75 mg DAILY SHEN Administration Venlafaxine HCl 150 mg 11/30/22 09:00 12/01/22 08:35 Venlafaxine Hcl Er 150 Mg Cap.Er.24h PO 150 mg DAILY SHEN Administration Vitamin D 10 mcg 11/30/22 09:00 12/01/22 09:16 Cholecalciferol (Vitamin D3) 10 Mcg Tablet PO 10 mcg DAILY SHEN Administration Discontinued Medications Generic Name Dose Route Start Last Admin Trade Name Freq PRN Reason Stop Dose Admin Acetaminophen 975 mg 12/02/22 02:01 12/02/22 02:16 Acetaminophen 325 Mg Tablet PO 12/02/22 02:02 975 mg ONCE ONE Administration Cyclobenzaprine HCl 10 mg 11/29/22 16:08 11/29/22 16:42 Cyclobenzaprine Hcl 10 Mg Tablet PO 11/29/22 16:09 10 mg ONCE ONE Administration Cyclobenzaprine HCl 10 mg 11/29/22 21:42 11/29/22 21:50 Cyclobenzaprine Hcl 10 Mg Tablet PO 11/29/22 21:43 10 mg ONCE ONE Administration Lidocaine 1 patch 11/29/22 16:08 11/29/22 16:42 Lidocaine 4 % Patch Adh..Patch TRANSDERMA 11/29/22 16:09 1 patch ONCE ONE Administration Protocol Morphine Sulfate 4 mg 11/29/22 13:45 11/29/22 14:20 Morphine Sulfate 4 Mg/Ml Cartridge IVPUSH 11/29/22 13:46 4 mg ONCE ONE Administration Protocol Morphine Sulfate 2 mg 11/29/22 23:09 11/29/22 23:51 Morphine Sulfate 2 Mg/Ml Cartridge IVPUSH 11/29/22 23:10 2 mg ONCE ONE Administration Protocol Morphine Sulfate 15 mg 11/30/22 01:57 11/30/22 02:06 Morphine Sulfate Immed Release 15 Mg Tablet PO 11/30/22 01:58 15 mg ONCE ONE Administration Ondansetron HCl 4 mg 11/29/22 13:45 11/29/22 14:19 Ondansetron Hcl 4 Mg/2 Ml Vial IVPUSH 11/29/22 13:46 4 mg ONCE ONE Administration Prednisone 60 mg 11/29/22 16:08 11/29/22 16:42 Prednisone 20 Mg Tablet PO 11/29/22 16:09 60 mg ONCE ONE Administration Medical Decision Making Medical Decision Making [facility] Narrative: 67-year-old female, with a past medical history of AFib on Eliquis, hypertension, bilateral frozen shoulder pain, and chronic hip pain, who presents to the emergency department today with complaints of atraumatic back pain x 3 days. On examination, VSS. TTP overlying the lumbar midline spine and sacrum/coccyx. Pt has no red flag symptoms. Typically ambulates with walker and wheelchair however reports that her back pain worsens with ambulation and with movement. Pt oftentimes changing positions due to pain in back. Plan: Labs, xray t-spine, l-spine, sacrum/coccyx, pain management and antiemetic. Differential Diagnosis Differential Diagnoses: The differential diagnosis associated with the presentation includes Disc herniation, spinal spenosis, cauda equina syndrome - unlikely, maligancy/mass, UTI Admission/Observation Consideration of admission/observation: Escalation of care including admission/observation considered Lab Data [facility] Lab Attestation statement: I reviewed the patient's lab results. 11/29/22 12:32 11/29/22 14:15 Labs: Lab Results 11/29/22 11/29/22 11/29/22 Range/Units 14:15 14:48 16:36 WBC 6.0 (4.8-10.8) X10*3/uL RBC 2.57 L D (4.20-5.50) X10*6/uL Hgb 9.0 L D (12.0-16.0) g/dl Hct 29.0 L (37.0-47.0) % MCV 112.8 H (80.0-98.0) fL MCH 35.0 H (27.0-33.0) pg MCHC 31.0 (31.0-35.0) g/dl RDW 15.4 (11.0-16.0) % Plt Count 129 L D (160-400) X10*3/uL MPV 9.2 L (9.4-12.3) fL Immature Gran % (Auto) 0.2 (0.0-0.4) % Neut % (Auto) 79.7 H (45-73) % Lymph % (Auto) 10.7 L (20-40) % [place] % (Auto) 8.7 (2-11) % Eos % (Auto) 0.2 (0-4) % Baso % (Auto) 0.5 (0-2) % Lymph # (Auto) 0.6 L (1.2-4.9) X10*3/uL [place] # (Auto) 0.5 (0.1-1.2) X10*3/uL Eos # (Auto) 0.0 (0.0-0.4) X10*3/uL Baso # (Auto) 0.0 (0.0-0.2) X10*3/uL Abs Immat Gran (auto) 0.01 (0.00-0.03) X10*3/uL Absolute Neuts (auto) 4.8 (2.0-8.3) x10*3/uL Absolute Nucleated RBC 0.000 (0.0-0.012) X10*3/uL Nucleated RBC % (auto) 0.0 (0.0-0.2) /100WBC Sodium 143 (135-145) mmol/L Potassium 4.0 (3.3-5.1) mmol/L Chloride 108 (96-108) mmol/L Carbon Dioxide 30 H (22-29) mmol/L Anion Gap 9 L (12-20) BUN 17 H (9-16) mg/dL Creatinine 0.73 (0.5-1.4) mg/dL Estim Creat Clear Calc 68.5 Estimated GFR > 60 Random Glucose 95 (60-115) mg/dL Calcium 8.6 D (8.4-10.2) mg/dL Magnesium 1.7 (1.6-2.6) mg/dL Total Bilirubin 0.8 (0.0-1.0) mg/dL Direct Bilirubin 0.3 (0.0-0.5) mg/dL AST 19 (5-31) U/L ALT 30 (0-31) U/L Alkaline Phosphatase 61 (39-117) U/L Total Protein 4.9 L (6.5-8.0) g/dL Albumin 3.2 L (3.5-5.0) g/dL Lipase 8 (8-78) U/L Urine Color Yellow Urine Appearance Clear Urine pH 6.5 (5.0-9.0) Ur Specific [place] 1.010 (1.005-1.025) Urine Protein Negative (Neg-Trace) mg/dL Urine Glucose (UA) Negative (Negative) mg/dL Urine Ketones Negative (Negative) mg/dL Urine Blood Negative (Negative) Urine Nitrite Negative (Negative) Ur Leukocyte Esterase Negative (Negative) COVID-19 ([facility]) (Negative) COVID-19 Clin Com 11/30/22 Range/Units 10:14 WBC (4.8-10.8) X10*3/uL RBC (4.20-5.50) X10*6/uL Hgb (12.0-16.0) g/dl Hct (37.0-47.0) % MCV (80.0-98.0) fL MCH (27.0-33.0) pg MCHC (31.0-35.0) g/dl RDW (11.0-16.0) % Plt Count (160-400) X10*3/uL MPV (9.4-12.3) fL Immature Gran % (Auto) (0.0-0.4) % Neut % (Auto) (45-73) % Lymph % (Auto) (20-40) % [place] % (Auto) (2-11) % Eos % (Auto) (0-4) % Baso % (Auto) (0-2) % Lymph # (Auto) (1.2-4.9) X10*3/uL [place] # (Auto) (0.1-1.2) X10*3/uL Eos # (Auto) (0.0-0.4) X10*3/uL Baso # (Auto) (0.0-0.2) X10*3/uL Abs Immat Gran (auto) (0.00-0.03) X10*3/uL Absolute Neuts (auto) (2.0-8.3) x10*3/uL Absolute Nucleated RBC (0.0-0.012) X10*3/uL Nucleated RBC % (auto) (0.0-0.2) /100WBC Sodium (135-145) mmol/L Potassium (3.3-5.1) mmol/L Chloride (96-108) mmol/L Carbon Dioxide (22-29) mmol/L Anion Gap (12-20) BUN (9-16) mg/dL Creatinine (0.5-1.4) mg/dL Estim Creat Clear Calc Estimated GFR Random Glucose (60-115) mg/dL Calcium (8.4-10.2) mg/dL Magnesium (1.6-2.6) mg/dL Total Bilirubin (0.0-1.0) mg/dL Direct Bilirubin (0.0-0.5) mg/dL AST (5-31) U/L ALT (0-31) U/L Alkaline Phosphatase (39-117) U/L Total Protein (6.5-8.0) g/dL Albumin (3.5-5.0) g/dL Lipase (8-78) U/L Urine Color Urine Appearance Urine pH (5.0-9.0) Ur Specific [place] (1.005-1.025) Urine Protein (Neg-Trace) mg/dL Urine Glucose (UA) (Negative) mg/dL Urine Ketones (Negative) mg/dL Urine Blood (Negative) Urine Nitrite (Negative) Ur Leukocyte Esterase (Negative) COVID-19 ([facility]) Negative (Negative) COVID-19 Clin Com See Note Independent Interpretation I performed an independent interpretation of an: Plain X-Ray Radiology Impression Discussion of test interpretation with radiology: I have reviewed the radiologist's reading. Radiologist Impression: EXAMINATION: Thoracic spine, lumbar spine, sacrum and coccyx. CLINICAL INDICATION: Back pain COMPARISON: CT lumbar spine 04/09/2017. TECHNIQUE: Sacrum/coccyx 3 views. Lumbar spine 3 views. Dorsal spine 2 views. FINDINGS: Sacrum/coccyx: There is a normal symmetry of SI joints. The sacrum is unremarkable. No fracture or lytic process seen. Lumbar spine: There is normal lumbar lordosis. This grade 1 anterolisthesis L4 over L5. Loss of L4-L5 and L3-L4 disc heights with vacuum disc phenomena. Mild loss of superior endplate L3 vertebral height is noted. Rest of the vertebral heights are normal. No lytic or sclerotic process seen the paravertebral soft tissues are normal. Dorsal spine: There is normal thoracic kyphosis. The vertebral heights, alignment and disc heights are normal. No visible acute fracture, dislocation or subluxation seen. No lytic process. XR/XR thoracic spine 3V IMPRESSION: 1.? Unremarkable sacrum and coccyx. 2.? Grade 1 anterolisthesis L4 over L5. There are degenerative disc changes L3-L4 and L4-L5 disc levels with vacuum disc phenomena. 3.? Mild superior endplate compression fracture L3 vertebra of indeterminate age. 4. Unremarkable dorsal spine exam. No visible acute fracture or dislocation seen. Dictated By: Dio Rivera MD External Record Review External record reviewed: Inpatient record, Office record, Outpatient record, Prior outpatient labs, Prior outpatient radiology, Primary care record and Outside ED record Discharge Plan Discharge Clinical Impression: Back pain Patient Disposition: Still a Patient Instructions: Vertebral Compression Fracture (ED), Acute Low Back Pain (ED) Additional Instructions: Your back x-ray today showed degenerative disc disease. You also have a compression fracture of the L3 vertebra. Any new or worsening symptoms occur please return for re-evaluation. Follow-up with your primary care physician. Prescriptions: No Action omeprazole 40 mg capsule,delayed release(DR/EC) 40 mg PO DAILY Qty: 90 0RF Eliquis 5 mg tablet 5 mg PO BID Qty: 180 1RF gabapentin 800 mg Tablet 800 mg PO TID venlafaxine 75 mg capsule,extended release 24hr 75 mg PO DAILY Rx Instructions: take along with 150 mg venlafaxine for total dose 225 mg cyanocobalamin (vitamin B-12) 1,000 mcg tablet 1,000 mcg PO DAILY melatonin 3 mg tablet 3 - 9 mg PO BEDTIME metoprolol tartrate 50 mg tablet 50 mg PO BID nystatin-triamcinolone 100,000-0.1 unit/g-% cream 1 appl topical BID nystatin 100,000 unit/gram powder 1 appl topical BID aripiprazole 10 mg tablet 10 mg PO DAILY rosuvastatin 10 mg tablet 10 mg PO DAILY calcium carbonate-vitamin D3 [Calcium 500 With D] 500 mg-10 mcg (400 unit) tablet 1 tab PO DAILY Ferretts 325 mg (106 mg iron) tablet 325 mg PO DAILY imatinib 400 mg tablet 400 mg PO DAILY buspirone 10 mg tablet 10 mg PO TID PRN (Reason: Anxiety) venlafaxine 150 mg capsule,extended release 24hr 150 mg PO DAILY Rx Instructions: TAKE ALONG WITH 75 MG VENLAFAXINE FOR 225 MG DAILY DOSE oxybutynin chloride 15 mg tablet extended release 24hr 15 mg PO DAILY 90 Days Qty: 90 3RF Myrbetriq 50 mg tablet extended release 24 hr 50 mg PO DAILY 90 Days Qty: 90 3RF trazodone 100 mg tablet 300 mg PO BEDTIME
[2022-11-29 16:20] VITALS: BP 144/99; O2SAT 92
[2022-11-29] MEDS: predniSONE 20 MG TABLET 60 MG PO (16:42)
[2022-11-29] MEDS: Cyclobenzaprine HCl 10 MG TABLET PO ×2 (16:42→21:50)
[2022-11-29] MEDS: Lidocaine 4 % Patch ADH..PATCH 1 PATCH TRANSDERMA (16:42)
[2022-11-29 17:00] LABS: Appearance Urine Clear; Color Urine Yellow; Glucose Urine UA Negative (Negative); Leukocyte Esterase Urine Negative (Negative); Nitrite Urine Negative (Negative); PH 6.5 (5.0-9.0); Urine Blood Negative (Negative); Urine Ketones Negative (Negative); Urine Protein Negative (Neg-Trace)
--- NOTE | 2022-11-29 18:23 | PC.NURSE ---
patient alert, oriented x4. reports mild improvement with back pain post pain medications. ED provider aware. using bedpan. call butler placed within reach. will CTM
--- NOTE | 2022-11-29 19:21 | PC.NURSE ---
I assumed care of the pt at 1900. RN assisted pt with the bedpan. Pt states she walks with a walker at home. Pt is A&Ox4, GCS 15. Pt is able to move around in bed freely and roll without complications.
--- NOTE | 2022-11-29 19:57 | PHA.MEDREC ---
Pharmacy Consult ? Medication Reconciliation Pharmacy has completed the medication reconciliation. Pharmacy had to correct med rec done by nursing. For some reason nurse did med rec at 1905 on a Friday evening. After speaking to the patient I found what she was really on and corrected med rec.
[2022-11-29 20:00] VITALS: BP 157/75; PULSE 99; RESP 14; TEMP 36.8; O2SAT 92
--- NOTE | 2022-11-29 21:23 | PC.NURSE ---
Assisted pt with the bedpan. A Purewick was put in place to assist with incontinence. Pt reporting 8/10 pain in the back.
[2022-11-29 21:32] VITALS: BP 157/75; PULSE 95; RESP 18; TEMP 36.8; O2SAT 90
[2022-11-29 21:47] VITALS: BP 137/66; PULSE 102; RESP 16; TEMP 36.8; O2SAT 92
--- NOTE | 2022-11-29 21:52 | PC.NURSE ---
Pt O2 noted to drop into 80's when she is asleep. Pt cannot tolerate sitting upright due to severe back pain. Pt was put on 2 LPM O2 while she sleeps.O2 increased to 96%
[2022-11-29] MEDS: Melatonin 3 MG TABLET 6 MG PO (23:51)
[2022-11-29] MEDS: Morphine Sulfate 2 MG/ML CARTRIDGE IVPUSH (23:51)
--- NOTE | 2022-11-30 01:21 | PC.NURSE ---
pt arrived via stretcher from the main ed, pt placed in bed, c/o lower back pain
[2022-11-30] MEDS: Morphine Sulfate Immed Release 15 MG TABLET PO (02:06)
--- NOTE | 2022-11-30 02:09 | PC.NURSE ---
pt medicated with 15mg of morphine po
--- NOTE | 2022-11-30 05:52 | PC.NURSE ---
pt reassesed for pain reported tolerable 5/10 pain, awake most of the night
[2022-11-30 06:34] VITALS: BP 124/77; RESP 20; TEMP 36.9; O2SAT 99
[2022-11-30 08:16] VITALS: BP 124/77; PULSE 118; O2SAT 98
[2022-11-30] MEDS: Venlafaxine HCl ER 150 MG CAP.ER.24H PO (09:35)
[2022-11-30] MEDS: Venlafaxine HCl ER 75 MG CAP.ER.24H PO (09:35)
[2022-11-30] MEDS: Cholecalciferol (Vitamin D3) 10 MCG TABLET PO (09:35)
[2022-11-30] MEDS: Omeprazole 40 MG CAPSULE.DR PO (09:36)
[2022-11-30] MEDS: Gabapentin 400 MG CAPSULE 800 MG PO ×3 (09:36→20:12)
[2022-11-30] MEDS: oxyBUTYnin chloride ER 5 MG TAB.ER.24 15 MG PO (09:36)
[2022-11-30] MEDS: Apixaban 5 MG TABLET PO ×2 (09:36→20:12)
[2022-11-30] MEDS: Atorvastatin Calcium 40 MG TABLET PO (09:36)
[2022-11-30] MEDS: ARIPiprazole 10 MG TABLET PO (09:36)
[2022-11-30] MEDS: Metoprolol Tartrate 50 MG TABLET PO ×2 (09:36→20:12)
[2022-11-30] MEDS: Cyanocobalamin (Vitamin B-12) 1,000 MCG TABLET 1000 MCG PO (09:36)
[2022-11-30] MEDS: Mirabegron 50 MG TAB.ER.24H PO (09:37)
[2022-11-30 10:48] LABS: COVID-19 Test Negative (Negative); IDNOW Serial# BCCEAD1C
--- NOTE | 2022-11-30 12:38 | MHC.CM.ED ---
Addendum entered by Yanna Martinez 11/30/22 14:28: Will need [facility] Level 2. T/W already submitted for this and received Level 2. Original Note: Received case management consult overnight. Patient came to the ER due to back pain. Work up essentially negative. Physical therapy eval completed. Short term rehab is recommended. Met with patient and son, Juan in regards to discharge planning. Patient lives alone, ambulates with a walker while in the home, uses a wheelchair outside, has [employer] hours and is active with [facility]. PCP verified. Copy of HCP verified to be on file. Patient received 2 J&J vaccines. Patient has been to [facility] in the past and is requesting referral there. Referral made via [facility]. [facility] doesn't have a bed at this time. List of other facilities contracted with patient's insurance provided to patient and Juan. Referral broadcasted at this time to see what facilities have beds available at this time. Continue to monitor for d/c needs.
[2022-11-30] MEDS: Cyclobenzaprine HCl 10 MG TABLET PO (16:33)
[2022-11-30] MEDS: busPIRone HCl 10 MG TABLET PO (17:10)
[2022-11-30] MEDS: Lidocaine 4 % Patch ADH..PATCH 1 PATCH TRANSDERMA (17:11)
[2022-11-30 18:06] VITALS: BP 104/79; PULSE 101; RESP 20; TEMP 36.9; O2SAT 99
--- NOTE | 2022-11-30 19:31 | PC.NURSE ---
Assisted pt with a brief change, placed purewick correctly, and repositioned pt to her leftside
[2022-11-30] MEDS: traZODone HCL 100 MG TABLET 300 MG PO (20:12)
--- NOTE | 2022-11-30 22:08 | PC.NURSE ---
Pt ca&ox3, no signs of distress. Pt resting comfortably. Will continue to monitor.
--- NOTE | 2022-11-30 22:32 | PC.NURSE ---
Pt ca&ox3, resting comfortably. no signs of distress. Will continue to monitor.
[2022-12-01 05:57] VITALS: BP 108/72; PULSE 66; RESP 14; TEMP 36.6; O2SAT 94
[2022-12-01 07:07] VITALS: BP 157/50; PULSE 73; RESP 12; TEMP 36.8; O2SAT 93
[2022-12-01] MEDS: Venlafaxine HCl ER 75 MG CAP.ER.24H PO (08:35)
[2022-12-01] MEDS: Omeprazole 40 MG CAPSULE.DR PO (08:35)
[2022-12-01] MEDS: Gabapentin 400 MG CAPSULE 800 MG PO ×3 (08:35→20:47)
[2022-12-01] MEDS: Venlafaxine HCl ER 150 MG CAP.ER.24H PO (08:35)
[2022-12-01] MEDS: Metoprolol Tartrate 50 MG TABLET PO ×2 (08:36→20:47)
[2022-12-01] MEDS: Cyanocobalamin (Vitamin B-12) 1,000 MCG TABLET 1000 MCG PO (08:36)
[2022-12-01] MEDS: Atorvastatin Calcium 40 MG TABLET PO (08:37)
[2022-12-01] MEDS: oxyBUTYnin chloride ER 5 MG TAB.ER.24 15 MG PO (08:37)
[2022-12-01] MEDS: Apixaban 5 MG TABLET PO ×2 (08:37→20:47)
[2022-12-01] MEDS: ARIPiprazole 10 MG TABLET PO (08:37)
[2022-12-01] MEDS: Mirabegron 50 MG TAB.ER.24H PO (08:37)
[2022-12-01 08:38] VITALS: BP 149/65; PULSE 77; RESP 20; O2SAT 94
[2022-12-01] MEDS: Nystatin Powder 15 GM BOTTLE 1 APPL TOPICAL ×2 (08:38→20:47)
[2022-12-01] MEDS: Nystatin/Triamcinolone Cream 15 GM TUBE 1 APPL TOPICAL ×2 (08:38→20:47)
[2022-12-01] MEDS: Lidocaine 4 % Patch ADH..PATCH 1 PATCH TRANSDERMA (08:38)
[2022-12-01] MEDS: busPIRone HCl 10 MG TABLET PO ×2 (08:41→20:47)
[2022-12-01] MEDS: Cholecalciferol (Vitamin D3) 10 MCG TABLET PO (09:16)
[2022-12-01] MEDS: Cyclobenzaprine HCl 10 MG TABLET PO ×3 (09:19→22:08)
--- NOTE | 2022-12-01 11:20 | MHC.EDTECH ---
Patient AM care was done bed change , reposition . Patient relaxing watching TV.
[2022-12-01 14:09] VITALS: BP 136/51; PULSE 68; RESP 12; O2SAT 93
--- NOTE | 2022-12-01 19:45 | PC.NURSE ---
I assumed care of the pt at 1900. Pt is resting in bed at this time.Pt is A&Ox4, GCS 15. Pt complaining of 6/10 pain in the low back when she is not moving. Pain increases when she moves or coughs. Pt is on a purewick that is working adequately. Pt is waiting for placement.
[2022-12-01] MEDS: traZODone HCL 100 MG TABLET 300 MG PO (20:47)
--- NOTE | 2022-12-01 21:08 | PC.NURSE ---
Pt was claned and repositioned in bed. Pt has no complaints at this time. Medicate per SEP. Nystatin applied to the groin area.
--- NOTE | 2022-12-01 21:30 | MHC.EDTECH ---
700 cc emptied from pt's pureAppinyck
--- NOTE | 2022-12-01 21:31 | PC.NURSE ---
Called report to Elana in overflow. Pt being transported to bed 3 in overflow.
[2022-12-02 00:20] VITALS: BP 120/60; PULSE 84; RESP 18; TEMP 36.8; O2SAT 93
[2022-12-02] MEDS: Acetaminophen 325 MG TABLET 975 MG PO (02:16)
[2022-12-02] MEDS: Cyclobenzaprine HCl 10 MG TABLET PO (06:19)
[2022-12-02 08:12] VITALS: BP 133/71; PULSE 73; RESP 16; O2SAT 91
[2022-12-02] MEDS: Apixaban 5 MG TABLET PO ×2 (08:41→21:02)
[2022-12-02] MEDS: Venlafaxine HCl ER 150 MG CAP.ER.24H PO (08:41)
[2022-12-02] MEDS: Acetaminophen 325 MG TABLET 650 MG PO ×3 (08:42→19:40)
[2022-12-02] MEDS: Metoprolol Tartrate 50 MG TABLET PO ×2 (08:42→21:02)
[2022-12-02] MEDS: Cyanocobalamin (Vitamin B-12) 1,000 MCG TABLET 1000 MCG PO (08:42)
[2022-12-02] MEDS: Atorvastatin Calcium 40 MG TABLET PO (08:42)
[2022-12-02] MEDS: Gabapentin 400 MG CAPSULE 800 MG PO ×3 (08:42→21:02)
[2022-12-02] MEDS: Omeprazole 40 MG CAPSULE.DR PO (08:42)
[2022-12-02] MEDS: oxyBUTYnin chloride ER 5 MG TAB.ER.24 15 MG PO (08:43)
[2022-12-02] MEDS: Lidocaine 4 % Patch ADH..PATCH 1 PATCH TRANSDERMA (08:47)
[2022-12-02] MEDS: Mirabegron 50 MG TAB.ER.24H PO (10:44)
[2022-12-02] MEDS: Venlafaxine HCl ER 75 MG CAP.ER.24H PO (10:44)
[2022-12-02] MEDS: ARIPiprazole 10 MG TABLET PO (10:45)
[2022-12-02] MEDS: Cholecalciferol (Vitamin D3) 10 MCG TABLET PO (10:45)
[2022-12-02] MEDS: busPIRone HCl 10 MG TABLET PO (10:48)
--- NOTE | 2022-12-02 10:48 | PC.NURSE ---
obtained report from mimi, resumed care at 930, patient a&o to person/place, pure wick intact/draining, pt had missing meds- was awaiting for pharmacy to bring to floor and administered when brought, pt c/o low back pain- lido -patch intact, lungs diminished throughout, will continue to monitor
--- NOTE | 2022-12-02 13:10 | MHC.CM.ED ---
Patient remains in ER overflow. [facility] is patient's 1st choice. Trying to see if they have a bed available. Met with patient to explain [facility] might not have a bed. Patient requesting [facility] as 2nd choice. Referral made via [employer]. Referral was broadcasted to all facilities within 25 miles that are contracted with patient's ins. [facility], [facility], [facility], and [facility] may be able to offer beds if [facility] or [facility] are unable to offer. Continue to monitor for d/c needs.
--- NOTE | 2022-12-02 13:20 | PC.NURSE ---
patient awake/alert- pt being demanding, full bed change performed, new pure wick placed, pt medicated with tylenol per scheduled order, call butler within reach, will continue to monitor
[2022-12-02] MEDS: Docusate Sodium 100 MG CAPSULE PO ×2 (14:20→21:02)
[2022-12-02 14:22] VITALS: BP 124/40; PULSE 77; RESP 18; TEMP 36.8; O2SAT 95
--- NOTE | 2022-12-02 14:32 | PC.NURSE ---
patient c/o constipation and requesting bowel regime, notified provider- pt was medicated per new orders. pt continues to c/o 02/13 lower back pain and states she gets no relief from anything she takes, pure wick patient/draining, vss, call butler within reach, will continue to monitor.
--- NOTE | 2022-12-02 15:16 | PC.NURSE ---
report received from BLANCA Evans Pt is sleeping at this time, respirations even and unlabored, skin pwd, no apparent distress
--- NOTE | 2022-12-02 16:49 | PC.NURSE ---
pt up in bed eating breakfast, pt is unwilling to sit up fully in bed and reports 8/10 back pain. This RN encouraged patient to move around lightly with some assistance from this RN and/or techs. Called about home medication, pharmacy will be bringing medications downstairs
--- NOTE | 2022-12-02 17:39 | PC.NURSE ---
still awaiting 1700 medication from pharmacy
--- NOTE | 2022-12-02 18:40 | PC.NURSE ---
pt repositioned in bed by this RN, purewick replaced. Pt medicated per MAR
--- NOTE | 2022-12-02 19:53 | MHC.EDTECH ---
Pure wick catheter emptied 200ml. SG.
[2022-12-02 21:00] VITALS: BP 127/79; PULSE 78; RESP 16; O2SAT 94
[2022-12-02] MEDS: traZODone HCL 100 MG TABLET 300 MG PO (21:02)
[2022-12-02] MEDS: Nystatin Powder 15 GM BOTTLE 1 APPL TOPICAL (21:10)
[2022-12-02] MEDS: Nystatin/Triamcinolone Cream 15 GM TUBE 1 APPL TOPICAL (21:10)
[2022-12-02 21:12] VITALS: TEMP 36.7
--- NOTE | 2022-12-02 22:34 | PC.NURSE ---
[id number]; Patient alert and oriented, reports chronic back pain, rating pain 6/10, on scheduled p.o. tylenol. L/s diminished in the bases, abd soft, purewick in place, vitals stable. Bedtime medications administered without issue. Patient repositioned, snack provided, call butler within reach.
--- NOTE | 2022-12-03 00:30 | MHC.EDTECH ---
THIS PCT ASSUMED CARE OF PT AT 2300 ,PT WAS INC OF URINE ,BEDDING CHANGE ,CARE GIVEN ,FRESH ICE WATER GIVEN ,BEDSIDE TRASH BAG EMPTY ,PT IN GOOD SPRITS .
[2022-12-03] MEDS: Acetaminophen 325 MG TABLET 650 MG PO ×4 (01:34→20:32)
--- NOTE | 2022-12-03 02:00 | MHC.EDTECH ---
ROUNDING DONE PT AWAKE IN BED ,PT POSITION ON LEFT SIDE .
--- NOTE | 2022-12-03 03:33 | PC.NURSE ---
Assumed care of pt at 23:00. Pt A&O, reporting 9/10 pain to lower back. Pt given SHEN Tylenol for the pain, changed, and repositioned with call butler within reach. Pt resting quietly in bed with personal belongings at bedside.
--- NOTE | 2022-12-03 04:00 | MHC.EDTECH ---
0400 ROUNDING DONE ,PT SLEEPING .
[2022-12-03 05:35] VITALS: BP 136/70; PULSE 99; RESP 18; TEMP 36.7; O2SAT 95
--- NOTE | 2022-12-03 05:35 | MHC.EDTECH ---
rounding done ,vitals sign taken ,pt was inc ,care given ,new pure wick in place ,800 ml urine empty from pure wick ,fresh ice water given .
[2022-12-03] MEDS: Lidocaine 4 % Patch ADH..PATCH 1 PATCH TRANSDERMA (08:05)
[2022-12-03] MEDS: Cholecalciferol (Vitamin D3) 10 MCG TABLET PO (08:07)
[2022-12-03] MEDS: Apixaban 5 MG TABLET PO ×2 (08:07→20:32)
[2022-12-03] MEDS: Metoprolol Tartrate 50 MG TABLET PO ×2 (08:07→20:32)
[2022-12-03] MEDS: Mirabegron 50 MG TAB.ER.24H PO (08:07)
[2022-12-03] MEDS: ARIPiprazole 10 MG TABLET PO (08:07)
[2022-12-03] MEDS: Atorvastatin Calcium 40 MG TABLET PO (08:07)
[2022-12-03] MEDS: busPIRone HCl 10 MG TABLET PO ×2 (08:07→20:38)
[2022-12-03] MEDS: Gabapentin 400 MG CAPSULE 800 MG PO ×3 (08:07→20:32)
[2022-12-03] MEDS: Omeprazole 40 MG CAPSULE.DR PO (08:07)
[2022-12-03] MEDS: oxyBUTYnin chloride ER 5 MG TAB.ER.24 15 MG PO (08:08)
[2022-12-03] MEDS: Venlafaxine HCl ER 150 MG CAP.ER.24H PO (08:08)
[2022-12-03] MEDS: Cyanocobalamin (Vitamin B-12) 1,000 MCG TABLET 1000 MCG PO (08:09)
[2022-12-03] MEDS: Venlafaxine HCl ER 75 MG CAP.ER.24H PO (08:09)
[2022-12-03] MEDS: Docusate Sodium 100 MG CAPSULE PO ×2 (08:09→20:32)
[2022-12-03] MEDS: Nystatin/Triamcinolone Cream 15 GM TUBE 1 APPL TOPICAL ×2 (08:20→20:34)
[2022-12-03] MEDS: Nystatin Powder 15 GM BOTTLE 1 APPL TOPICAL ×2 (08:20→20:34)
--- NOTE | 2022-12-03 09:36 | PC.NURSE ---
obtained report-assumed care of patient at 915 am, patient a&ox2, pt has continuous c/o back pain 7-02/13- pt states nothing helps her pain, pt is repositioned often for comfort, lbm today-pt had stated yesterday she wished to have stool softeners which were given to her. lungs diminished/clear, pure wick intact/draining but patient is also using the bedpan, call butler within reach, will continue to monitor
[2022-12-03] MEDS: Cyclobenzaprine HCl 10 MG TABLET PO (13:16)
--- NOTE | 2022-12-03 13:55 | PC.NURSE ---
patient a&ox3, pt is very demanding, needy and refuses to do anything for herself, this nurse has encouraged the patient to be more independent in obtaining items off her side table, changing the channel on her tv, eating her meals as well as pulling her covers up- pt continues to ring asking for assistance with all of this. pt also asking to get oob to ambulate with her walker and sit in a chair, this nurse obtained a recliner for the patient to sit in, once recliner was obtained the patient became defensive stating she cant sit that she needs to lay in bed, this nurse will continue to encourage the patient to become more independent with her ADLs, her call butler is within reach, will continue to monitor.
[2022-12-03 14:00] VITALS: BP 126/74; PULSE 91; RESP 18; TEMP 36.6; O2SAT 95
--- NOTE | 2022-12-03 14:10 | PC.NURSE ---
per Physical therapy- pt is able to get oob as tolerated and use her home rolling walker. PT did eval on her 11/30/22.
--- NOTE | 2022-12-03 14:41 | PC.NURSE ---
pt was overheard speaking with family on her phone telling them they are just making me stay in this bed and arent letting me oob this nurse confronted the patient and stated she was offered to get oob to the chair and to walk with her rolling walker which she had refused, this nurse made the patient get oob to the chair, pt was reluctant to get oob and stated well what if I have to use the bathroom this nurse stated to the patient that if she needed to use the bathroom per PT she will use her rolling walker and ambulate to the bathroom. the patient was upset that she had to ambulate to the bathroom vs use a bed lomas. this nurse will continue to encourage the patient to participate more with ADLs and promote walking/oob activity while she is on this unit.
--- NOTE | 2022-12-03 14:49 | PC.NURSE ---
patient began yelling that she was going to be incontinent while sitting in her chair, this nurse walked over to the patient, made the patient get out of the chair with her wheeled walker, the patient stood up and sat down on her walker/chair and stated she cant walk and she wanted a bedpan, this nurse encouraged the patient and stated she can walk- and got the patient to stand back up, patient ambulated well with the wheeled walker and standby assist to the bathroom.
--- NOTE | 2022-12-03 14:55 | MHC.EDTECH ---
patient was able to walk to and from the bathroom with a staff on standby. patient was ambulating well and steady.
--- NOTE | 2022-12-03 15:31 | MHC.CM.ED ---
Review of referrals does not support any offers: Pt was able to ambulate w/her walker >25ft without assist. Pt may no longer need STR. Will request PT to re eval pt for alternative d/c plan.
--- NOTE | 2022-12-03 16:18 | MHC.EDTECH ---
patient walked from the recliner to the bathroom without any assistance. patient did not complain of pain or discomfort while walking.
--- NOTE | 2022-12-03 16:25 | MHC.EDTECH ---
patient was able to wipe independently and stated I can't reach . when staff assisted, patient was clean already. Patient stood up from the toilet and walked back to the bathroom and stated, I can't walk, I am going to flop. Patient was steady on her feet and walked without assistance.
--- NOTE | 2022-12-03 17:09 | MHC.EDTECH ---
patient walked to the bathroom. patient stated I am shaky, I have a tendency to do that. Staff reassured patient that she has been walking steady today and then, patient got up and walked steady to the bathroom without assistance.
--- NOTE | 2022-12-03 17:38 | PC.NURSE ---
pt had a bandaid she pulled off her rt middle finger, pt then called nurse to show that it was red, provider Sumit was notified and will see the patient when he is able.
--- NOTE | 2022-12-03 18:08 | PC.NURSE ---
pharmacy was called for missing med
--- NOTE | 2022-12-03 18:17 | PC.NURSE ---
pt continues to ambulate with [employer] assist Pull and use of her own wheeled walker, pt is oob sitting in the chair for the duration of this afternoon, pt does continue to have back pain which is chronic in nature- pt is medicated per order.
--- NOTE | 2022-12-03 19:13 | MHC.EDTECH ---
Patient is alert and oriented to baseline will continue to monitor ED rounds are done
--- NOTE | 2022-12-03 20:05 | PC.NURSE ---
Pt ambulatory with rollator to restroom and back into bed. Purewick placed.
[2022-12-03] MEDS: cephALEXin 500 MG CAPSULE PO (20:32)
[2022-12-03] MEDS: traZODone HCL 100 MG TABLET 300 MG PO (20:32)
[2022-12-03 20:34] VITALS: BP 178/61; PULSE 80; RESP 19; TEMP 36.3; O2SAT 97
[2022-12-04] MEDS: Acetaminophen 325 MG TABLET 650 MG PO ×3 (01:31→13:20)
--- NOTE | 2022-12-04 01:31 | PC.NURSE ---
Pt medicated per SEP. Given sandwich per request.
--- NOTE | 2022-12-04 03:11 | PC.NURSE ---
Pt up to recliner at bedside.
--- NOTE | 2022-12-04 03:29 | PC.NURSE ---
Pt ambulatory with walker to restroom
--- NOTE | 2022-12-04 03:40 | PC.NURSE ---
Pt back to bed from restroom. Able to get herself into bed with no assistance. Did need assistance with boost in bed.
[2022-12-04 05:38] VITALS: BP 140/87; PULSE 90; RESP 17; TEMP 36.6; O2SAT 96
[2022-12-04] MEDS: Gabapentin 400 MG CAPSULE 800 MG PO ×2 (07:35→15:34)
[2022-12-04] MEDS: Metoprolol Tartrate 50 MG TABLET PO (07:36)
[2022-12-04] MEDS: cephALEXin 500 MG CAPSULE PO ×3 (07:36→17:59)
[2022-12-04] MEDS: Apixaban 5 MG TABLET PO (07:36)
[2022-12-04] MEDS: Venlafaxine HCl ER 150 MG CAP.ER.24H PO (07:36)
[2022-12-04] MEDS: Omeprazole 40 MG CAPSULE.DR PO (07:36)
[2022-12-04] MEDS: Docusate Sodium 100 MG CAPSULE PO (07:37)
[2022-12-04] MEDS: oxyBUTYnin chloride ER 5 MG TAB.ER.24 15 MG PO (07:37)
[2022-12-04] MEDS: Cyanocobalamin (Vitamin B-12) 1,000 MCG TABLET 1000 MCG PO (07:38)
[2022-12-04] MEDS: Venlafaxine HCl ER 75 MG CAP.ER.24H PO (07:38)
[2022-12-04] MEDS: Mirabegron 50 MG TAB.ER.24H PO (07:38)
[2022-12-04] MEDS: Atorvastatin Calcium 40 MG TABLET PO (07:38)
[2022-12-04] MEDS: Cholecalciferol (Vitamin D3) 10 MCG TABLET PO (07:38)
[2022-12-04] MEDS: ARIPiprazole 10 MG TABLET PO (07:39)
[2022-12-04] MEDS: Lidocaine 4 % Patch ADH..PATCH 1 PATCH TRANSDERMA (07:39)
[2022-12-04] MEDS: Nystatin Powder 15 GM BOTTLE 1 APPL TOPICAL (07:40)
[2022-12-04 07:51] VITALS: BP 159/75; PULSE 100; RESP 18; TEMP 36.8; O2SAT 96
--- NOTE | 2022-12-04 08:00 | PC.NURSE ---
pt is a/o x 4 no sob/tristin noted speaks in full sentences. pt states that she has frozen shoulder syndrome . pt c/o 03/16 lower back pain. pt eating breakfast. pt aware of plan of care.
[2022-12-04] MEDS: Nystatin/Triamcinolone Cream 15 GM TUBE 1 APPL TOPICAL (08:24)
--- NOTE | 2022-12-04 09:09 | MHC.EDTECH ---
gave patient shower, pt ambulated to the bathroom. tolerated well.
--- NOTE | 2022-12-04 12:23 | MHC.CM.ED ---
Addendum entered by Yanna Martinez 12/04/22 15:01: Patient and son Juan in agreement for patient to return home. Patient is active with [facility] for SN. Patient has [facility] for insurance. Per Anjali at [facility], they will provide physical therapy. Juan will be here around 7pm to transport patient home. Patient, Juan, Frances RN and Lexi DAMON aware. Addendum entered by Yanna Martinez 12/04/22 13:42: [facility] and [facility] both [facility] to [facility] a bed. T/W met with patient. Patient feels both facilities are too far away. T/W spoke with patient's son, Juan via telephone at [phone]. Juan feels both facilities are too far but is also unsure about patient going home. Juan will speak to patient. Juan will then contact to verify what the d/c plan will be. Original Note: Patient remains in ER overflow. Physical therapy still recommending STR. No bed offers at this time. Referral broadcasted to all facilities within 50 miles that are contracted with [facility]. Continue to monitor for d/c needs.
[2022-12-04] MEDS: Cyclobenzaprine HCl 10 MG TABLET PO (13:32)
--- NOTE | 2022-12-04 15:53 | PC.NURSE ---
Patient walked to bathroom with walker with stand by assist.
== END 2022-12-04 18:59 | disposition home or self-care (01) ==
PROVIDERS: Physician Assistant; Physician Assistant Medical; Emergency Provider Emergency Medicine; PCP Internal Medicine
DX: M54.50 Low back pain, unspecified (principal); M51.36 Other intervertebral disc degeneration, lumbar region; M48.56XA Collapsed vertebra, not elsewhere classified, lumbar region, initial encounter for fracture; L03.011 Cellulitis of right finger; I10 Essential (primary) hypertension; I48.0 Paroxysmal atrial fibrillation; Z87.891 Personal history of nicotine dependence; Z79.01 Long term (current) use of anticoagulants; Z79.899 Other long term (current) drug therapy
CPT/HCPCS: 36415; 72072; 72100; 72220; 80048; 80076; 81003; 83690; 83735; 85025; 87635; 96374; 96375; 96376; 97116; 97163; 97530; 99285; J2270; J2405

== ENCOUNTER 2022-12-04 23:49 | Inpatient (IN) | payer OTHER, SELFPAY ==
--- NOTE | ~2022-12-04 | XR_ITS ---
EXAMINATION: XR CHEST CLINICAL INFORMATION: Back pain COMPARISON: 11/29/2022 TECHNIQUE: Frontal view of the chest was obtained. FINDINGS: Lung volumes are symmetric. No focal consolidation is seen. No evidence of pneumothorax, pleural effusion, or pulmonary edema. Cardiac silhouette appears at the upper limits of normal in size. No acute osseous findings are seen. Degenerative changes are noted in the shoulders. XR/XR chest 1V IMPRESSION: No acute cardiopulmonary findings.
[2022-12-05] VITALS (11 sets, daily range): BP systolic 107–148; BP diastolic 38–89; PULSE 74–125; RESP 16–20; TEMP 36.1–37.1; O2SAT 95–100; BMI 44.8; BMI 41.0; BMI 44.4
--- NOTE | 2022-12-05 00:07 | ECG_ITS ---
Test Reason : TACHYCARDIA Blood Pressure : / mmHG Vent. Rate : 108 BPM Atrial Rate : 108 BPM P-R Int : 146 ms QRS Dur : 088 ms QT Int : 336 ms P-R-T Axes : 063 -20 061 degrees QTc Int : 450 ms Sinus tachycardia with frequent Premature atrial complexes with intermittent aberrant ventricular conduction Moderate voltage criteria for LVH, may be normal variant ( R in aVL , Federico product ) Anterior infarct , age undetermined Abnormal ECG When compared with ECG of 16-APR-2020 19:51, Premature atrial complexes are no longer Present Referred By: Generic ED Physician Electronically Signed By:GILBERTO STALEY MD
--- NOTE | 2022-12-05 00:41 | ED.BACK ---
HPI - Back Pain/Injury General Chief Complaint: Back Pain/Injury Stated Complaint: INCR BACK PAIN,RECENT COMP FX,HR 190 Time Seen by Provider: 12/05/22 00:38 Source: patient Mode of arrival: EMS History of Present Illness HPI Narrative: 67-year-old female who was discharged earlier in the day and now returns with complaints of significant back pain and bursitis but otherwise denies racing heart, chest pain, shortness of breath. Related Data Home Medications Medication Instructions Recorded Confirmed gabapentin 800 mg tablet 800 mg PO TID 04/11/20 11/29/22 buspirone 10 mg tablet 10 mg PO TID PRN Anxiety 07/30/22 11/29/22 venlafaxine 150 mg 150 mg PO DAILY 07/30/22 11/29/22 capsule,extended release 24 hr trazodone 100 mg tablet 300 mg PO BEDTIME 08/14/22 11/29/22 aripiprazole 10 mg tablet 10 mg PO DAILY 11/29/22 11/29/22 calcium carbonate 500 mg-vitamin 1 tab PO DAILY 11/29/22 11/29/22 D3 10 mcg (400 unit) tablet (Calcium 500 With D) cyanocobalamin (vitamin B-12) 1,000 mcg PO DAILY 11/29/22 11/29/22 1,000 mcg tablet ferrous fumarate 325 mg (106 mg 325 mg PO DAILY 11/29/22 11/29/22 iron) tablet (Ferretts) imatinib 400 mg tablet 400 mg PO DAILY 11/29/22 11/29/22 melatonin 3 mg tablet 3 - 9 mg PO BEDTIME insomnia 11/29/22 11/29/22 metoprolol tartrate 50 mg tablet 50 mg PO BID 11/29/22 11/29/22 nystatin 100,000 unit/gram topical 1 appl topical BID 11/29/22 11/29/22 powder nystatin-triamcinolone 100,000 1 appl topical BID 11/29/22 11/29/22 unit/g-0.1 % topical cream rosuvastatin 10 mg tablet 10 mg PO DAILY 11/29/22 11/29/22 venlafaxine 75 mg capsule,extended 75 mg PO DAILY 11/29/22 11/29/22 release 24 hr Previous Rx's Medication Instructions Recorded mirabegron 50 mg tablet,extended 50 mg PO DAILY 90 days #90 tabs 07/30/22 release 24 hr (Myrbetriq) oxybutynin chloride 15 mg 15 mg PO DAILY 90 days #90 tabs 07/30/22 tablet,extended release 24 hr omeprazole 40 mg capsule,delayed 40 mg PO DAILY #90 caps 09/11/22 release apixaban 5 mg tablet (Eliquis) 5 mg PO BID #180 tabs 10/30/22 tramadol 50 mg tablet 50 mg PO BID PRN pain #7 tabs 12/04/22 Allergies Allergy/AdvReac Type Severity Reaction Status Date / Time simvastatin [SIMVASTATIN] Allergy Intermediate MUSCLE PAIN Verified 12/05/22 00:17 lamotrigine AdvReac Intermediate NIGHTMARES Verified 12/05/22 00:17 celecoxib [From CELEBREX] AdvReac Mild DIZZY, Verified 12/05/22 00:17 TIRED Darvon Allergy Unknown Unknown Uncoded 10/21/22 22:57 Review of Systems Review of Systems: Pertinent positives and negatives as stated in HPI [facility] Past Medical History Source: nursing notes reviewed Medical History Acute on chronic anemia Anxiety Bipolar 1 disorder Chronic diastolic (congestive) heart failure CML in remission Colon cancer screening Erythema intertrigo Gait instability GERD (gastroesophageal reflux disease) Hoarseness Lateral malleolar fracture Leukemia in remission Non-rheumatic aortic stenosis Osteoporosis PAF (paroxysmal atrial fibrillation) Primary osteoarthritis, left shoulder Primary osteoarthritis, right shoulder Pulmonary embolism Urgency-frequency syndrome Vitamin D deficiency Surgical History History of section History of ear surgery History of femur fracture Family History Family History Unknown Unknown family medical history Daughter Mental health disorder Social History Social History Household Members: Spouse Housing: Apartment Alcohol intake: former Patient Tobacco Use Status: Former Tobacco user Quit Date: 1999 e-Cigarette/Vaping Use: Never Used Advance Directives: No Advance Directives Information Provided: Yes Advance Directives Date on File: 06/15/04 service: No Current occupational status: disabled Cognitive needs: No Hearing needs: No Vision needs: Yes Physical Exam Vital Signs: Vital Signs: Last Vital Signs Temp 98.1 F 12/05/22 00:15 Pulse 114 H 12/05/22 01:21 Resp 16 12/05/22 01:21 BP 113/54 L 12/05/22 01:21 Pulse Ox 96 12/05/22 01:21 O2 Del Method Room Air 12/05/22 01:21 BMI result Body Mass Index 44.8 VITAL SIGNS: Reviewed. GENERAL: Elevated BMI, Well developed, well nourished, in no acute distress. HEAD: Normocephalic/atraumatic EYES: PERRLA, EOMI EARS: Ext canals without abnormality NOSE: Nares patent bilateral OROPHARYNX: no oral lesions noted, posterior pharynx clear NECK: Supple, no adenopathy LUNGS: Normal breath sounds. No adventitious sounds or accessory muscle use. SpO2<96> CARDIOVASCULAR: IRR rate and rhythm without noted murmurs, no JVD or lower extremity edema. ABDOMEN: Soft, non-tender, non-distended with bowel sounds. BACK: Tenderness of palpation over lumbar spine without noted step-offs MUSCULOSKELETAL: No tenderness, deformities, or effusions noted on gross inspection. EXTREMITIES: No cyanosis, clubbing or edema. SKIN: Inspection of the skin reveals no rashes NEUROLOGIC: Alert and oriented x 3. Strength and sensation to light touch were grossly intact x 4. Medications Administered Discontinued Medications Generic Name Dose Route Start Last Admin Trade Name Freq PRN Reason Stop Dose Admin Amiodarone HCl 150 mg/ 103 mls @ 618 mls/hr 12/05/22 01:21 12/05/22 02:08 Dextrose IV 12/05/22 01:30 Infused ONCE ONE Infusion Medical Decision Making Medical Decision Making MDM Narrative: 67-year-old female with paroxysmal atrial fibrillation as well as left bundle-branch block arrives with continued complaints of back pain after being discharged today and cleared for in-home services. Patient's initial EKG is noted to be atrial fibrillation with initially what appeared to be a few episodes of V-tach, patient remained hemodynamically stable and is otherwise communicating well. 0121: I was called over to bedside for concerns about sustained V-tach that was stable. Decision was made to treat with 150 mg of amiodarone. Labs are still pending. 0129: I discussed case with cardiology who feels that this is rate-related left bundle branch block and confirmed that patient is on anticoagulation. Patient received 5 mg of Lopressor and will receive evening dose of p.o. Lopressor that she missed. In addition, I gave patient evening/home dose of Eliquis and Lopressor. I discussed with the inpatient hospitalist who accepts admission. Differential Diagnosis Please see the discussion above Consult Healthcare Provider Management of the patient was discussed with: Hospitalist and Linen Clerk Please see the discussion above Lab Data Please see the discussion above 12/05/22 00:49 12/05/22 00:49 Labs: Lab Results 12/05/22 12/05/22 12/05/22 Range/Units 00:49 00:49 00:49 WBC 7.2 (4.8-10.8) X10*3/uL RBC 2.90 L (4.20-5.50) X10*6/uL Hgb 10.2 L (12.0-16.0) g/dl Hct 32.1 L (37.0-47.0) % MCV 110.7 H (80.0-98.0) fL MCH 35.2 H (27.0-33.0) pg MCHC 31.8 (31.0-35.0) g/dl RDW 14.9 (11.0-16.0) % Plt Count 209 D (160-400) X10*3/uL MPV 8.8 L (9.4-12.3) fL Immature Gran % (Auto) 0.4 (0.0-0.4) % Neut % (Auto) 73.6 H (45-73) % Lymph % (Auto) 16.0 L (20-40) % [place] % (Auto) 7.9 (2-11) % Eos % (Auto) 1.7 (0-4) % Baso % (Auto) 0.4 (0-2) % Lymph # (Auto) 1.2 (1.2-4.9) X10*3/uL [place] # (Auto) 0.6 (0.1-1.2) X10*3/uL Eos # (Auto) 0.1 (0.0-0.4) X10*3/uL Baso # (Auto) 0.0 (0.0-0.2) X10*3/uL Abs Immat Gran (auto) 0.03 (0.00-0.03) X10*3/uL Absolute Neuts (auto) 5.3 (2.0-8.3) x10*3/uL Absolute Nucleated RBC 0.000 (0.0-0.012) X10*3/uL Nucleated RBC % (auto) 0.0 (0.0-0.2) /100WBC PT (10.0-13.1) SEC INR (0.9-1.1) Sodium 141 (135-145) mmol/L Potassium 4.6 (3.3-5.1) mmol/L Chloride 104 (96-108) mmol/L Carbon Dioxide 28 (22-29) mmol/L Anion Gap 14 (12-20) BUN 21 H (9-16) mg/dL Creatinine 0.79 (0.5-1.4) mg/dL Estim Creat Clear Calc 63.3 Estimated GFR > 60 Random Glucose 99 (60-115) mg/dL Calcium 9.2 D (8.4-10.2) mg/dL Magnesium 1.6 (1.6-2.6) mg/dL Total Bilirubin 0.6 (0.0-1.0) mg/dL AST 25 (5-31) U/L ALT 28 (0-31) U/L Alkaline Phosphatase 68 (39-117) U/L Troponin I High Sens 59.1 H* (<3.5-17.0) ng/L Total Protein 5.8 L (6.5-8.0) g/dL Albumin 3.6 (3.5-5.0) g/dL 12/05/22 Range/Units 00:49 WBC (4.8-10.8) X10*3/uL RBC (4.20-5.50) X10*6/uL Hgb (12.0-16.0) g/dl Hct (37.0-47.0) % MCV (80.0-98.0) fL MCH (27.0-33.0) pg MCHC (31.0-35.0) g/dl RDW (11.0-16.0) % Plt Count (160-400) X10*3/uL MPV (9.4-12.3) fL Immature Gran % (Auto) (0.0-0.4) % Neut % (Auto) (45-73) % Lymph % (Auto) (20-40) % [place] % (Auto) (2-11) % Eos % (Auto) (0-4) % Baso % (Auto) (0-2) % Lymph # (Auto) (1.2-4.9) X10*3/uL [place] # (Auto) (0.1-1.2) X10*3/uL Eos # (Auto) (0.0-0.4) X10*3/uL Baso # (Auto) (0.0-0.2) X10*3/uL Abs Immat Gran (auto) (0.00-0.03) X10*3/uL Absolute Neuts (auto) (2.0-8.3) x10*3/uL Absolute Nucleated RBC (0.0-0.012) X10*3/uL Nucleated RBC % (auto) (0.0-0.2) /100WBC PT 13.2 H (10.0-13.1) SEC INR 1.1 (0.9-1.1) Sodium (135-145) mmol/L Potassium (3.3-5.1) mmol/L Chloride (96-108) mmol/L Carbon Dioxide (22-29) mmol/L Anion Gap (12-20) BUN (9-16) mg/dL Creatinine (0.5-1.4) mg/dL Estim Creat Clear Calc Estimated GFR Random Glucose (60-115) mg/dL Calcium (8.4-10.2) mg/dL Magnesium (1.6-2.6) mg/dL Total Bilirubin (0.0-1.0) mg/dL AST (5-31) U/L ALT (0-31) U/L Alkaline Phosphatase (39-117) U/L Troponin I High Sens (<3.5-17.0) ng/L Total Protein (6.5-8.0) g/dL Albumin (3.5-5.0) g/dL Independent Interpretation I performed an independent interpretation of an: EKG Interpretation: Sinus tachycardia with paroxysmal atrial fibrillation and a few beats of rate-related left bundle branch block. Radiology Impression Radiologist Impression: My interpretation is in agreement with radiology's impression. Discharge Plan Discharge Clinical Impression: Atrial fibrillation with RVR, LBBB (left bundle branch block), Intractable back pain Patient Disposition: Admitted As Inpatient Prescriptions: No Action omeprazole 40 mg capsule,delayed release(DR/EC) 40 mg PO DAILY Qty: 90 0RF Eliquis 5 mg tablet 5 mg PO BID Qty: 180 1RF gabapentin 800 mg Tablet 800 mg PO TID venlafaxine 75 mg capsule,extended release 24hr 75 mg PO DAILY Rx Instructions: take along with 150 mg venlafaxine for total dose 225 mg cyanocobalamin (vitamin B-12) 1,000 mcg tablet 1,000 mcg PO DAILY melatonin 3 mg tablet 3 - 9 mg PO BEDTIME metoprolol tartrate 50 mg tablet 50 mg PO BID nystatin-triamcinolone 100,000-0.1 unit/g-% cream 1 appl topical BID nystatin 100,000 unit/gram powder 1 appl topical BID aripiprazole 10 mg tablet 10 mg PO DAILY rosuvastatin 10 mg tablet 10 mg PO DAILY calcium carbonate-vitamin D3 [Calcium 500 With D] 500 mg-10 mcg (400 unit) tablet 1 tab PO DAILY Ferretts 325 mg (106 mg iron) tablet 325 mg PO DAILY imatinib 400 mg tablet 400 mg PO DAILY tramadol 50 mg tablet 50 mg PO BID PRN (Reason: pain) Qty: 7 0RF buspirone 10 mg tablet 10 mg PO TID PRN (Reason: Anxiety) venlafaxine 150 mg capsule,extended release 24hr 150 mg PO DAILY Rx Instructions: TAKE ALONG WITH 75 MG VENLAFAXINE FOR 225 MG DAILY DOSE oxybutynin chloride 15 mg tablet extended release 24hr 15 mg PO DAILY 90 Days Qty: 90 3RF Myrbetriq 50 mg tablet extended release 24 hr 50 mg PO DAILY 90 Days Qty: 90 3RF trazodone 100 mg tablet 300 mg PO BEDTIME
[2022-12-05 01:07] LABS: MANUAL DIFF FLAG NO
[2022-12-05 01:13] LABS: Basophils Percent Auto 0.4 % (0-2); Eosinophils Absolute Auto 0.1 X10*3/uL (0.0-0.4); Eosinophils Percent Auto 1.7 % (0-4); Hematocrit 32.1 % (37.0-47.0); Hemoglobin 10.2 g/dl (12.0-16.0); Imm Gran Abs Auto 0.03 X10*3/uL (0.00-0.03); Imm Gran Pct Auto 0.4 % (0.0-0.4); Lymphocytes Absolute Auto 1.2 X10*3/uL (1.2-4.9); Mean Corpuscular HGB Conc 31.8 g/dl (31.0-35.0); Mean Corpuscular Hemoglobin 35.2 pg (27.0-33.0); Mean Corpuscular Volume 110.7 fL (80.0-98.0); Mean Platelet Volume 8.8 fL (9.4-12.3); Monocytes Absolute Auto 0.6 X10*3/uL (0.1-1.2); Monocytes Percent Auto 7.9 % (2-11); Neutrophils Absolute Auto 5.3 x10*3/uL (2.0-8.3); Neutrophils Percent Auto 73.6 % (45-73); Platelet Count 209 X10*3/uL (160-400); Red Cell Distribution Width 14.9 % (11.0-16.0); White Blood Count 7.2 X10*3/uL (4.8-10.8)
[2022-12-05 01:19] LABS: INTERNATIONAL NORM RATIO 1.1 (0.9-1.1); Prothrombin Time 13.2 SEC (10.0-13.1)
[2022-12-05 01:24] LABS: Alanine Aminotransferase 28 U/L (0-31); Albumin Level 3.6 g/dL (3.5-5.0); Alkaline Phosphatase 68 U/L (39-117); Anion Gap 14 (12-20); Aspartate Amino Transferase 25 U/L (5-31); Bilirubin Total 0.6 mg/dL (0.0-1.0); Blood Urea Nitrogen 21 mg/dL (9-16); Calcium 9.2 mg/dL (8.4-10.2); Carbon Dioxide 28 mmol/L (22-29); Chloride 104 mmol/L (96-108); Creatinine Clr Calc Pharmacy 63.3; Estimated Glomerular Filt Rate > 60; Glucose Random 99 mg/dL (60-115); Magnesium 1.6 mg/dL (1.6-2.6); Potassium 4.6 mmol/L (3.3-5.1); Sodium 141 mmol/L (135-145); Total Protein 5.8 g/dL (6.5-8.0)
[2022-12-05 01:31] LABS: Troponin-I High Sensitivity 59.1 ng/L (<3.5-17.0)
--- NOTE | 2022-12-05 01:37 | PC.NURSE ---
pt biba from home c/o back pain. pt discharged from overflow unit today supposed to go to STR but decided not to. pt returns because unable to get self up from couch d/t pain and weakness. pt found to be in Afib for ems and in A fib with runs of angel on arrival to ED. pt states she has Hx of afib, did not take her meds this evening prior to arrival. pt states she usually takes metoprolol for rate control. HR anywhere from 110-185 in ED. runs of MD angel at bedside. pt on ekg monitor tech. 150mg amiodarone administered will CTM closely
[2022-12-05] MEDS: Metoprolol Tartrate 5 MG/5 ML VIAL IVPUSH (02:15)
[2022-12-05 03:08] LABS: B Type Natriuretic Peptide 243 pg/mL (<100)
[2022-12-05] MEDS: Metoprolol Tartrate 50 MG TABLET PO ×3 (03:18→21:03)
[2022-12-05] MEDS: Enoxaparin Sodium 40 MG/0.4 ML SYRINGE SUBCUT (03:18)
[2022-12-05] MEDS: Apixaban 5 MG TABLET PO ×3 (03:18→21:03)
--- NOTE | 2022-12-05 04:52 | PC.NURSE ---
pt resting comfortably on stretcher ringing call butler appropriately. placed on bed lomas multiple times but pt c/o back pain with constant movement so purewick placed instead for urination. pt tolerating well/ on clerical office HR down to 80s-80. will CTM.
--- NOTE | 2022-12-05 05:35 | PC.NURSE ---
nurse to nurse report called to c RN
[2022-12-05 05:40] LABS: Alanine Aminotransferase 26 U/L (0-31); Albumin Level 3.2 g/dL (3.5-5.0); Alkaline Phosphatase 60 U/L (39-117); Anion Gap 10 (12-20); Aspartate Amino Transferase 20 U/L (5-31); Bilirubin Total 0.4 mg/dL (0.0-1.0); Blood Urea Nitrogen 19 mg/dL (9-16); Calcium 8.6 mg/dL (8.4-10.2); Carbon Dioxide 30 mmol/L (22-29); Chloride 105 mmol/L (96-108); Creatinine Clr Calc Pharmacy 68.5; Estimated Glomerular Filt Rate > 60; Glucose Random 98 mg/dL (60-115); Potassium 3.8 mmol/L (3.3-5.1); Sodium 141 mmol/L (135-145)
--- NOTE | 2022-12-05 06:36 | P.HPHOSP_ITS ---
History of Present Illness Date of Service: 12/05/22 Chief Complaint: inability to ambulate 67-year-old female with past medical history of AFib on Eliquis, left bundle branch block, hypertension, bilateral frozen shoulder pain, chronic hip pain who initially presented to the hospital on 11/29 for evaluation of back pain for 3 days, patient was evaluated in the ED, was placed under observation, case management followed patient, patient was recommended short-term rehab, but patient felt that the facilities that were offered were too far decided along with her son to go back home. Patient had medically been cleared was sent home on 12/04. She returns to the hospital on the same day after: The ambulance st ating that she is unable to get out of her couch. On arrival of the EMT patient was found to be in AFib with RVR, therefore patient was brought into the hospital. Patient reports that she does not feel her palpitations, denies any shortness of breath, denies any chest pain, no dizziness, headache or change in vision, no abdominal pain nausea or vomiting, no diarrhea constipation, no recent urinary symptoms, and no lower extremity edema. Per ED rhythm strip patient noted to have sustained V-tach, but at the time patient was asymptomatic, completely stable. Patient was given 150 mg of amioda alex, After discussion was cardiology felt to have rate related left bundle branch block, patient had intermittent episode of tachycardia, therefore given Lopressor p.o. which is her home medications that she missed with a better controlled heart rate. Patient will be admitted for further evaluation Labs reviewed unremarkable Review of Systems 2 Review of Systems: Yes all other systems are reviewed and are negative [facility] Medical History Acute on chronic anemia Anxiety Bipolar 1 disorder Chronic diastolic (congestive) heart failure CML in remission Colon cancer screening Erythema intertrigo Gait instability GERD (gastroesophageal reflux disease) Hoarseness Lateral malleolar fracture Leukemia in remission Non-rheumatic aortic stenosis Osteoporosis PAF (paroxysmal atrial fibrillation) Primary osteoarthritis, left shoulder Primary osteoarthritis, right shoulder Pulmonary embolism Urgency-frequency syndrome Vitamin D deficiency Family History Unknown Unknown family medical history Daughter Mental health disorder Surgical History History of section History of ear surgery History of femur fracture Social History Household Members: Spouse Housing: Apartment Alcohol intake: former Patient Tobacco Use Status: Former Tobacco user Quit Date: 1999 Smoked in Last 30 Days: No e-Cigarette/Vaping Use: Never Used Advance Directives: No Advance Directives Information Provided: Yes Advance Directives Date on File: 06/15/04 Nutrition Risks: No Nutritional Risk service: No Current occupational status: disabled Cognitive needs: No Hearing needs: No Vision needs: Yes Meds Allergies Allergy/AdvReac Type Severity Reaction Status Date / Time simvastatin [SIMVASTATIN] Allergy Intermediate MUSCLE PAIN Verified 12/05/22 00:17 lamotrigine AdvReac Intermediate NIGHTMARES Verified 12/05/22 00:17 celecoxib [From CELEBREX] AdvReac Mild DIZZY, Verified 12/05/22 00:17 TIRED Darvon Allergy Unknown Unknown Uncoded 10/21/22 22:57 Active Medications: Current Medications Acetaminophen (Acetaminophen 325 Mg Tablet) 650 mg PO Q6H PRN PRN Reason: Pain, Mild (Pain Scale 1-3) Docusate Sodium (Docusate Sodium 100 Mg Capsule) 100 mg PO DAILY PRN PRN Reason: Constipation Enoxaparin Sodium (Enoxaparin Sodium 40 Mg/0.4 Ml Syringe) 40 mg SUBCUT Q24H [facility] Last Admin: 12/05/22 03:18 Dose: 40 mg Magnesium Sulfate (Magnesium Sulfate/H2o) 2 gm in 50 mls @ 25 mls/hr IV ONCE ONE Stop: 12/05/22 08:32 Ondansetron HCl (Ondansetron Hcl 4 Mg/2 Ml Vial) 4 mg IVPUSH Q8H PRN PRN Reason: Nausea and Vomiting Potassium Chloride (Potassium Chloride Packet 20 Meq Packet) 40 meq PO ONCE ONE Stop: 12/05/22 06:34 Sodium Chloride (0.9 % Sodium Chloride Flush 3 Ml Syringe) [facility] Medications Medication Instructions Recorded Confirmed Last Taken Type gabapentin 800 mg tablet 800 mg PO TID 04/11/20 11/29/22 04/16/20 History buspirone 10 mg tablet 10 mg PO TID PRN Anxiety 07/30/22 11/29/22 Unknown History venlafaxine 150 mg 150 mg PO DAILY 07/30/22 11/29/22 Unknown History capsule,extended release 24 hr trazodone 100 mg tablet 300 mg PO BEDTIME 08/14/22 12/05/22 Unknown History aripiprazole 10 mg tablet 10 mg PO DAILY 11/29/22 12/05/22 Unknown History calcium carbonate 500 mg-vitamin 1 tab PO DAILY 11/29/22 12/05/22 Unknown History D3 10 mcg (400 unit) tablet (Calcium 500 With D) cyanocobalamin (vitamin B-12) 1,000 mcg PO DAILY 11/29/22 12/05/22 Unknown History 1,000 mcg tablet ferrous fumarate 325 mg (106 mg 325 mg PO DAILY 11/29/22 12/05/22 Unknown History iron) tablet (Ferretts) imatinib 400 mg tablet 400 mg PO DAILY 11/29/22 12/05/22 Unknown History melatonin 3 mg tablet 3 - 9 mg PO BEDTIME insomnia 11/29/22 12/05/22 Unknown History metoprolol tartrate 50 mg tablet 50 mg PO BID 11/29/22 12/05/22 Unknown History nystatin 100,000 unit/gram topical 1 appl topical BID 11/29/22 12/05/22 Unknown History powder nystatin-triamcinolone 100,000 1 appl topical BID 11/29/22 12/05/22 Unknown History unit/g-0.1 % topical cream rosuvastatin 10 mg tablet 10 mg PO DAILY 11/29/22 12/05/22 Unknown History venlafaxine 75 mg capsule,extended 75 mg PO DAILY 11/29/22 12/05/22 Unknown History release 24 hr Physical Exam Vital Signs and Narrative: Vital Signs: Last Vital Signs Temp 98.7 F 12/05/22 06:03 Pulse 96 12/05/22 06:03 Resp 18 12/05/22 06:03 BP 118/66 12/05/22 06:03 Pulse Ox 96 12/05/22 06:03 O2 Del Method Nasal Cannula 12/05/22 06:03 O2 Flow Rate 2 12/05/22 06:03 BMI result Body Mass Index 44.4 Const: General: cooperative and no acute distress Orientation/consciousness: patient oriented x3 Eyes: General: appearance normal, both eyes and all related structures Resp: Effort & Inspection: normal respiratory effort Auscultation: clear to auscultation bilaterally Cardio: Other: Intermittent episodes of tachycardia, GI: Palpation (GI): Soft to palpation Auscultation: normal bowel sounds Skin: General skin exam: no rashes or lesions noted Neuro: General: patient oriented x3 Cognition (Neuro): normal cognition Extrem: General: Yes normal to inspection and Yes no pedal edema Results Labs 12/05/22 00:49 12/05/22 05:09 Labs: Laboratory Results - last 24 hr 12/05/22 12/05/22 12/05/22 00:49 00:49 00:49 MCV 110.7 H MCH 35.2 H MCHC 31.8 RDW 14.9 Plt Count 209 D MPV 8.8 L Immature Gran % (Auto) 0.4 Neut % (Auto) 73.6 H Lymph % (Auto) 16.0 L [place] % (Auto) 7.9 Eos % (Auto) 1.7 Baso % (Auto) 0.4 Lymph # (Auto) 1.2 [place] # (Auto) 0.6 Eos # (Auto) 0.1 Baso # (Auto) 0.0 Abs Immat Gran (auto) 0.03 Absolute Neuts (auto) 5.3 Absolute Nucleated RBC 0.000 Nucleated RBC % (auto) 0.0 PT INR Anion Gap 14 Estim Creat Clear Calc 63.3 Estimated GFR > 60 Random Glucose 99 Calcium 9.2 D Magnesium 1.6 Total Bilirubin 0.6 AST 25 ALT 28 Alkaline Phosphatase 68 Troponin I High Sens 59.1 H* B-Natriuretic Peptide Total Protein 5.8 L Albumin 3.6 12/05/22 12/05/22 12/05/22 00:49 00:49 03:03 MCV MCH MCHC RDW Plt Count MPV Immature Gran % (Auto) Neut % (Auto) Lymph % (Auto) [place] % (Auto) Eos % (Auto) Baso % (Auto) Lymph # (Auto) [place] # (Auto) Eos # (Auto) Baso # (Auto) Abs Immat Gran (auto) Absolute Neuts (auto) Absolute Nucleated RBC Nucleated RBC % (auto) PT 13.2 H INR 1.1 Anion Gap Estim Creat Clear Calc Estimated GFR Random Glucose Calcium Magnesium Total Bilirubin AST ALT Alkaline Phosphatase Troponin I High Sens 58.0 H* B-Natriuretic Peptide 243 H Total Protein Albumin 12/05/22 05:09 MCV MCH MCHC RDW Plt Count MPV Immature Gran % (Auto) Neut % (Auto) Lymph % (Auto) [place] % (Auto) Eos % (Auto) Baso % (Auto) Lymph # (Auto) [place] # (Auto) Eos # (Auto) Baso # (Auto) Abs Immat Gran (auto) Absolute Neuts (auto) Absolute Nucleated RBC Nucleated RBC % (auto) PT INR Anion Gap 10 L Estim Creat Clear Calc 68.5 Estimated GFR > 60 Random Glucose 98 Calcium 8.6 D Magnesium Total Bilirubin 0.4 AST 20 ALT 26 Alkaline Phosphatase 60 Troponin I High Sens B-Natriuretic Peptide Total Protein 5.0 L Albumin 3.2 L Imaging Radiologist's Impressions: Impressions Chest X-Ray 12/05/22 01:08 IMPRESSION: No acute cardiopulmonary findings. Assessment and Plan (1) Atrial fibrillation with RVR: Status: Acute (2) Intractable back pain: Status: Acute (3) Unable to ambulate: Status: Acute Plan 67-year-old female with past medical history of AFib on anticoagulation as well as history of back pain, presents the hospital with complaints of inability to ambulate, found to have AFib with RVR and episodes of sustained V-tach # AFib with RVR/V-tach -magnesium and potassium show normal levels - no evidence of acute infection - will maintain magnesium above 2.5 and potassium above 4.0 - cardiology consult for further recommendations - continue Eliquis and home metoprolol # intractable back pain/inability to ambulate - patient was recommended to go to short-term rehab but refused due to distant - will consult case management specialist DVT prophylaxis: Eliquis Time Spent With Patient Time: Total time managing care of this patient today ____ minutes. Quality Stroke Does the patient have a stroke diagnosis?: No VTE Prior VTE?: No VTE Risk Level:: Medical - moderate - high VTE Device Contraindication: Treatment Not Indicated VTE Drug Contraindication: N/A - Med Ordered
[2022-12-05] MEDS: Magnesium Sulfate/H2O 2 GM/50 ML PIGGYBACK IV (06:44)
--- NOTE | 2022-12-05 07:25 | PHA.MEDREC ---
Pharmacy Consult ? Medication Reconciliation Pharmacy has reviewed the medication reconciliation. Added venlafaxine 150 mg as the 75 mg indicates they should be taken together, Patient also had claim history for recent 90 days of oxybutyin and mirabegron
--- NOTE | 2022-12-05 08:54 | MHC.CM.PN ---
CM met with Patient at bedside and addressed NYE with her, providing her with the original and placing a copy on the chart. Patient lives alone in an apartment with the assist of hall cleaner/ 4 hours per day from both [facility] and [facility]. Patient is documented to require the assist of 2 for mobility and will likely benefit from a PT eval to assist with disposition. Patient is Joel valenzuela'tommy X2 and her PCP is Dr. Vandana Gomez.HCP is on file. Patient doers not use home O2.
[2022-12-05] MEDS: Cyanocobalamin (Vitamin B-12) 1,000 MCG TABLET 1000 MCG PO (09:05)
[2022-12-05] MEDS: ARIPiprazole 10 MG TABLET PO (09:05)
[2022-12-05] MEDS: Atorvastatin Calcium 40 MG TABLET PO (09:05)
[2022-12-05] MEDS: Venlafaxine HCl ER 75 MG CAP.ER.24H PO (09:05)
[2022-12-05] MEDS: 0.9 % Sodium Chloride Flush 3 ML SYRINGE IVFLUSH ×2 (09:05→17:46)
[2022-12-05] MEDS: Calcium + Vitamin D 250 MG TABLET PO (09:06)
[2022-12-05] MEDS: Acetaminophen 325 MG TABLET 975 MG PO ×2 (09:06→15:53)
[2022-12-05] MEDS: Lidocaine 4 % Patch ADH..PATCH 1 PATCH TRANSDERMA (09:07)
[2022-12-05] MEDS: Potassium Chloride Packet 20 MEQ PACKET 40 MEQ PO (09:07)
--- NOTE | 2022-12-05 10:03 | PM.CNCAR ---
History of Present Illness History of Present Illness Date of Service: 12/05/22 Requesting physician: Sophie Churchill Consult reason: atrial fibrillation Chief complaint: SVT Narrative: I was consulted to see Zhane boyce in cardiology consultation today for because of short runs of recurrent atrial fibrillation. She came to the hospital as she called the EMS yesterday to help overall the couch. She was recently admitted to the hospital with severe early lower pain and was noted to have compression fracture of the lumbar vertebrae and was subsequently released home on her request. She he has sick current get off the couch in could get family help. She call EMS. When they arrived that she was noted to have rapid heart rate while she was advised to come to the emergency room and she did. In the emergency room she had asymptomatic episodes of fast heart rate, initially thought that this was VT. However reviewing the EKG strip appears to be PACs with aberrancy and probably short burst of atrial fibrillation with aberrancy. She does have prior history of left bundle-branch block and paroxysmal atrial fibrillation. She continues to have intractable back pain. She is currently getting medications for it. She remains minimally active. She is worried about future outcome. She is very anxious about it overall. She is currently taking Eliquis and metoprolol. Review of Systems Constitutional: Constitutional: Reports no additional constitutional complaints Cardiovascular: Cardiovascular: Reports no additional cardiovascular complaints Respiratory: Respiratory: Reports no additional respiratory complaints Genitourinary: Genitourinary: Reports no additional female genitourinary complaints Musculoskeletal: Musculoskeletal: Reports back pain and Reports other (Inability to move) Integumentary/Breasts: Skin/Breast: Reports system reviewed and no additional complaints, except as docu Psychiatric: Psychiatric: Reports anxiety PMFSH Past Medical History Medical History Acute on chronic anemia Anxiety Bipolar 1 disorder Chronic diastolic (congestive) heart failure CML in remission Colon cancer screening Erythema intertrigo Gait instability GERD (gastroesophageal reflux disease) Hoarseness Lateral malleolar fracture Leukemia in remission Non-rheumatic aortic stenosis Osteoporosis PAF (paroxysmal atrial fibrillation) Primary osteoarthritis, left shoulder Primary osteoarthritis, right shoulder Pulmonary embolism Urgency-frequency syndrome Vitamin D deficiency Family History Family History Unknown Unknown family medical history Daughter Mental health disorder Surgical History Surgical History History of section History of ear surgery History of femur fracture Social History Social History Household Members: Spouse Housing: Apartment Alcohol intake: former Patient Tobacco Use Status: Former Tobacco user Quit Date: 1999 Smoked in Last 30 Days: No e-Cigarette/Vaping Use: Never Used Advance Directives: No Advance Directives Information Provided: Yes Advance Directives Date on File: 06/15/04 Nutrition Risks: No Nutritional Risk service: No Current occupational status: disabled Cognitive needs: No Hearing needs: No Vision needs: Yes Meds Allergies Allergy/AdvReac Type Severity Reaction Status Date / Time simvastatin [SIMVASTATIN] Allergy Intermediate MUSCLE PAIN Verified 12/05/22 00:17 lamotrigine AdvReac Intermediate NIGHTMARES Verified 12/05/22 00:17 celecoxib [From CELEBREX] AdvReac Mild DIZZY, Verified 12/05/22 00:17 TIRED Darvon Allergy Unknown Unknown Uncoded 10/21/22 22:57 Active Medications: Current Medications Acetaminophen (Acetaminophen 325 Mg Tablet) 975 mg PO Q8H [facility] Last Admin: 12/05/22 09:06 Dose: 975 mg Apixaban (Apixaban 5 Mg Tablet) 5 mg PO BID [facility] Last Admin: 12/05/22 09:05 Dose: 5 mg Aripiprazole (Aripiprazole 10 Mg Tablet) 10 mg PO DAILY [facility] Last Admin: 12/05/22 09:05 Dose: 10 mg Atorvastatin Calcium (Atorvastatin Calcium 40 Mg Tablet) 40 mg PO DAILY [facility] Last Admin: 12/05/22 09:05 Dose: 40 mg Calcium Carbonate/Cholecalciferol (Calcium + Vitamin D 250 Mg Tablet) 250 mg PO DAILY [facility] Last Admin: 12/05/22 09:06 Dose: 250 mg Cyanocobalamin (Cyanocobalamin (Vitamin B-12) 1,000 Mcg Tablet) 1,000 mcg PO DAILY [facility] Last Admin: 12/05/22 09:05 Dose: 1,000 mcg Docusate Sodium (Docusate Sodium 100 Mg Capsule) 100 mg PO DAILY PRN PRN Reason: Constipation Lidocaine (Lidocaine 4 % Patch Adh..Patch) 1 patch TRANSDERMA DAILY [facility]; Protocol Last Admin: 12/05/22 09:07 Dose: 1 patch Melatonin (Melatonin 3 Mg Tablet) 9 mg PO BEDTIME [facility] Metoprolol Tartrate (Metoprolol Tartrate 50 Mg Tablet) 50 mg PO BID [facility]; Protocol Last Admin: 12/05/22 09:06 Dose: 50 mg Non-Formulary Medication (Ferrous Fumarate [Ferretts]) 325 mg PO DAILY [facility] Non-Formulary Medication (Imatinib) 400 mg PO DAILY [facility] Nystatin (Nystatin Powder 15 Gm Bottle) 1 appl TOPICAL BID [facility]; Protocol Nystatin/Triamcinolone Acetonide (Nystatin/Triamcinolone Cream 15 Gm Tube) 1 appl TOPICAL BID [facility]; Protocol Ondansetron HCl (Ondansetron Hcl 4 Mg/2 Ml Vial) 4 mg IVPUSH Q8H PRN PRN Reason: Nausea and Vomiting Oxycodone HCl (Oxycodone Hcl Immed Release 5 Mg Tablet) 5 mg PO BID PRN PRN Reason: Pain, Mild (Pain Scale 1-3) Polyethylene Glycol (Polyethylene Glycol 3350 17 Gm Powd.Pack) 17 gm PO DAILY [facility] Last Admin: 12/05/22 09:07 Dose: Not Given Sodium Chloride (0.9 % Sodium Chloride Flush 3 Ml Syringe) 3 ml IVFLUSH QSHIFT [facility] Last Admin: 12/05/22 09:05 Dose: 3 ml Tramadol HCl (Tramadol Hcl 50 Mg Tablet) 50 mg PO BID PRN PRN Reason: Pain, Severe (Pain Scale 7-10) Trazodone HCl (Trazodone Hcl 100 Mg Tablet) 300 mg PO BEDTIME [facility] Venlafaxine HCl (Venlafaxine Hcl Er 75 Mg Cap.Er.24h) 75 mg PO DAILY [facility] Last Admin: 12/05/22 09:05 Dose: 75 mg Home Medications Medication Instructions Recorded Confirmed Last Taken Type gabapentin 800 mg tablet 800 mg PO TID 04/11/20 12/05/22 04/16/20 History buspirone 10 mg tablet 10 mg PO TID PRN Anxiety 07/30/22 12/05/22 Unknown History venlafaxine 150 mg 150 mg PO DAILY 07/30/22 12/05/22 Unknown History capsule,extended release 24 hr trazodone 100 mg tablet 300 mg PO BEDTIME 08/14/22 12/05/22 Unknown History aripiprazole 10 mg tablet 10 mg PO DAILY 11/29/22 12/05/22 Unknown History calcium carbonate 500 mg-vitamin 1 tab PO DAILY 11/29/22 12/05/22 Unknown History D3 10 mcg (400 unit) tablet (Calcium 500 With D) cyanocobalamin (vitamin B-12) 1,000 mcg PO DAILY 11/29/22 12/05/22 Unknown History 1,000 mcg tablet ferrous fumarate 325 mg (106 mg 325 mg PO DAILY 11/29/22 12/05/22 Unknown History iron) tablet (Ferretts) imatinib 400 mg tablet 400 mg PO DAILY 11/29/22 12/05/22 Unknown History melatonin 3 mg tablet 3 - 9 mg PO BEDTIME insomnia 11/29/22 12/05/22 Unknown History metoprolol tartrate 50 mg tablet 50 mg PO BID 11/29/22 12/05/22 Unknown History nystatin 100,000 unit/gram topical 1 appl topical BID 11/29/22 12/05/22 Unknown History powder nystatin-triamcinolone 100,000 1 appl topical BID 11/29/22 12/05/22 Unknown History unit/g-0.1 % topical cream rosuvastatin 10 mg tablet 10 mg PO DAILY 11/29/22 12/05/22 Unknown History venlafaxine 75 mg capsule,extended 75 mg PO DAILY 11/29/22 12/05/22 Unknown History release 24 hr Physical Exam Vital Signs: Vital Signs: Last Vital Signs Temp 97.3 F 12/05/22 07:03 Pulse 87 12/05/22 07:03 Resp 20 12/05/22 07:03 BP 121/72 12/05/22 07:03 Pulse Ox 98 12/05/22 07:03 O2 Del Method Nasal Cannula 12/05/22 07:03 O2 Flow Rate 2 12/05/22 07:03 BMI result Body Mass Index 44.4 Const: General: cooperative, comfortable, no acute distress, alert, awake and anxious Nutritional Appearance: obese Orientation/consciousness: patient oriented x3 HEENT: Head: Yes normocephalic and Yes atraumatic Neck: Neck: Yes trachea midline, Yes supple and Yes no JVD Resp: Effort & Inspection: decreased respiratory effort Auscultation: clear to auscultation bilaterally Cardio: Jugular venous distension: no JVD Rate: regular rate Rhythm: abnormal rhythm with ectopic beats Heart sounds: S1 normal heart sound present, S2 normal heart sound present, no click, no gallops and no murmurs GI: Inspection: Yes obesity Auscultation: normal bowel sounds Neuro: General: patient oriented x3 and no focal motor deficits Extrem: General: Yes no clubbing, cyanosis or edema Objective Labs and Meds 12/05/22 00:49 12/05/22 05:09 Lab results: Laboratory Results - last 24 hr 12/05/22 12/05/22 12/05/22 00:49 00:49 00:49 WBC 7.2 RBC 2.90 L Hgb 10.2 L Hct 32.1 L MCV 110.7 H MCH 35.2 H MCHC 31.8 RDW 14.9 Plt Count 209 D MPV 8.8 L Immature Gran % (Auto) 0.4 Neut % (Auto) 73.6 H Lymph % (Auto) 16.0 L Montgomery % (Auto) 7.9 Eos % (Auto) 1.7 Baso % (Auto) 0.4 Lymph # (Auto) 1.2 Montgomery # (Auto) 0.6 Eos # (Auto) 0.1 Baso # (Auto) 0.0 Abs Immat Gran (auto) 0.03 Absolute Neuts (auto) 5.3 Absolute Nucleated RBC 0.000 Nucleated RBC % (auto) 0.0 PT INR Sodium 141 Potassium 4.6 Chloride 104 Carbon Dioxide 28 Anion Gap 14 BUN 21 H Creatinine 0.79 Estim Creat Clear Calc 63.3 Estimated GFR > 60 Random Glucose 99 Calcium 9.2 D Magnesium 1.6 Total Bilirubin 0.6 AST 25 ALT 28 Alkaline Phosphatase 68 Troponin I High Sens 59.1 H* B-Natriuretic Peptide Total Protein 5.8 L Albumin 3.6 12/05/22 12/05/22 12/05/22 00:49 00:49 03:03 WBC RBC Hgb Hct MCV MCH MCHC RDW Plt Count MPV Immature Gran % (Auto) Neut % (Auto) Lymph % (Auto) Montgomery % (Auto) Eos % (Auto) Baso % (Auto) Lymph # (Auto) Montgomery # (Auto) Eos # (Auto) Baso # (Auto) Abs Immat Gran (auto) Absolute Neuts (auto) Absolute Nucleated RBC Nucleated RBC % (auto) PT 13.2 H INR 1.1 Sodium Potassium Chloride Carbon Dioxide Anion Gap BUN Creatinine Estim Creat Clear Calc Estimated GFR Random Glucose Calcium Magnesium Total Bilirubin AST ALT Alkaline Phosphatase Troponin I High Sens 58.0 H* B-Natriuretic Peptide 243 H Total Protein Albumin 12/05/22 05:09 WBC RBC Hgb Hct MCV MCH MCHC RDW Plt Count MPV Immature Gran % (Auto) Neut % (Auto) Lymph % (Auto) Montgomery % (Auto) Eos % (Auto) Baso % (Auto) Lymph # (Auto) Montgomery # (Auto) Eos # (Auto) Baso # (Auto) Abs Immat Gran (auto) Absolute Neuts (auto) Absolute Nucleated RBC Nucleated RBC % (auto) PT INR Sodium 141 Potassium 3.8 Chloride 105 Carbon Dioxide 30 H Anion Gap 10 L BUN 19 H Creatinine 0.73 Estim Creat Clear Calc 68.5 Estimated GFR > 60 Random Glucose 98 Calcium 8.6 D Magnesium Total Bilirubin 0.4 AST 20 ALT 26 Alkaline Phosphatase 60 Troponin I High Sens B-Natriuretic Peptide Total Protein 5.0 L Albumin 3.2 L Imaging Radiologist's impression: Impressions Chest X-Ray 12/05/22 01:08 IMPRESSION: No acute cardiopulmonary findings. Assessment and Plan (1) PAF (paroxysmal atrial fibrillation): Status: Acute Paroxysmal atrial fibrillation which is most likely exacerbated by her pain as well as anxiety. I would recommend to start on Multaq 400 mg b.i.d. to prevent recurrent atrial fibrillation episode in addition to metoprolol therapy. Continue full oral anticoagulation with Eliquis. Aggressively pursue pain control and consider treatment for lumbar compression fracture. Also consider PT evaluation to see if she can move on her own. Discussed with patient about stress mitigation strategies. Will sign of the case at this point time. Thank you for allowing me to partake in the care Time Spent With Patient Time: Total time managing care of this patient today ____ minutes. Procedures Date of Service Date of Service: 12/05/22
--- NOTE | 2022-12-05 15:44 | MHC.CM.PN ---
PER UR NURSE PT NOW INPT, IMM DELIVERED TO BEDSIDE 12/05/22.
[2022-12-05] MEDS: oxyCODONE HCl Immed Release 5 MG TABLET PO ×2 (15:54→21:05)
--- NOTE | 2022-12-05 17:22 | PM.EVENT ---
Event Note Date of Service: 12/05/22 Event Note: Patient already seen by hospitalist service this morning Seen and examined Any chest pain shortness breath or fever chills Back pain ? Diarrhea AFib seems to be improving Physical exam: Unchanged from H&P plan: Seen by Cardiology: Added Multaq Back pain-added PT evaluation, pain medications. Patient was strongly advised to get out bed. Added get GI panel for diarrhea. Time Spent With Patient Time: Total time managing care of this patient today ____ minutes.
--- NOTE | 2022-12-05 18:18 | PM.EVENT ---
Event Note Date of Service: 12/05/22 Event Note: called by RN- frequent PVCs and frequent runs of SVT no symptoms, BP stable plan: rather than dronaderone, will start amiodarone IV load/infusion. check K/Mg Time Spent With Patient Time: Total time managing care of this patient today ____ minutes.
[2022-12-05] MEDS: Amiodarone/Dextrose 150 MG/100 ML PLAST..BAG 600 MG IV (18:44)
[2022-12-05] MEDS: Amiodarone HCL 900 MG in 0.9 % Sodium Chloride 500 ML 34.53 MG IVCONT (19:07)
[2022-12-05 19:15] LABS: Anion Gap 12 (12-20); Blood Urea Nitrogen 19 mg/dL (9-16); Carbon Dioxide 25 mmol/L (22-29); Chloride 102 mmol/L (96-108); Creatinine Clr Calc Pharmacy 72.1; Estimated Glomerular Filt Rate > 60; Glucose Random 145 mg/dL (60-115); Magnesium 1.9 mg/dL (1.6-2.6); Potassium 4.2 mmol/L (3.3-5.1); Sodium 135 mmol/L (135-145)
[2022-12-05] MEDS: Melatonin 3 MG TABLET 9 MG PO (21:03)
[2022-12-05] MEDS: traZODone HCL 100 MG TABLET 300 MG PO (21:03)
[2022-12-06] VITALS (8 sets, daily range): BP systolic 134–143; BP diastolic 61–82; PULSE 75–107; RESP 17–20; TEMP 35.8–37.1; O2SAT 94–98
--- NOTE | 2022-12-06 | ECG_ITS ---
Test Reason : tachy Blood Pressure : / mmHG Vent. Rate : 092 BPM Atrial Rate : 092 BPM P-R Int : 156 ms QRS Dur : 082 ms QT Int : 360 ms P-R-T Axes : 056 -12 037 degrees QTc Int : 445 ms Sinus rhythm with Premature atrial complexes with Aberrant conduction Anterior infarct (cited on or before 05-DEC-2022) Abnormal ECG When compared with ECG of 05-DEC-2022 00:14, Nonspecific T wave abnormality no longer evident in Lateral leads Referred By: Shen Braswell Electronically Signed By:GILBERTO STALEY MD
[2022-12-06] MEDS: 0.9 % Sodium Chloride Flush 3 ML SYRINGE IVFLUSH ×3 (09:45→23:44)
[2022-12-06] MEDS: Acetaminophen 325 MG TABLET 975 MG PO ×3 (09:45→23:49)
[2022-12-06] MEDS: Amiodarone HCL 900 MG in 0.9 % Sodium Chloride 500 ML 17.27 MG IVCONT (09:46)
[2022-12-06] MEDS: Calcium + Vitamin D 250 MG TABLET PO (09:48)
[2022-12-06] MEDS: Cyanocobalamin (Vitamin B-12) 1,000 MCG TABLET 1000 MCG PO (09:49)
[2022-12-06] MEDS: ARIPiprazole 10 MG TABLET PO (09:49)
[2022-12-06] MEDS: Atorvastatin Calcium 40 MG TABLET PO (09:49)
[2022-12-06] MEDS: Apixaban 5 MG TABLET PO ×2 (09:50→19:53)
[2022-12-06] MEDS: Metoprolol Tartrate 50 MG TABLET PO ×2 (09:50→19:53)
[2022-12-06] MEDS: Venlafaxine HCl ER 75 MG CAP.ER.24H PO (09:50)
[2022-12-06] MEDS: polyethylene glycoL 3350 17 GM POWD.PACK PO (09:51)
[2022-12-06] MEDS: Lidocaine 4 % Patch ADH..PATCH 1 PATCH TRANSDERMA (09:54)
--- NOTE | 2022-12-06 10:58 | MHC.CM.PN ---
PT is recommending STR and CM will continue to follow.
--- NOTE | 2022-12-06 11:01 | PM.PNCARD ---
Subjective Subjective Date of Service: 12/06/22 Principal diagnosis: Paroxysmal atrial fibrillation. Interval history: Patient continues to be in significant pain with lumbar discomfort. Minimal mobility. Had more episodes of wide complex rhythm which appears to be atrial fibrillation with aberrancy. No significant electrolyte abnormality. Was started on IV amiodarone yesterday. Tolerating that well. Denies any other complaints of palpitations. Review of Systems Constitutional: Reports no additional constitutional complaints Cardiovascular: Denies chest pain, Denies palpitations and Denies dyspnea Respiratory: Reports no additional respiratory complaints and Denies dyspnea Musculoskeletal: Reports back pain Endocrine: Denies palpitations Physical Exam Vital Signs: Last Vital Signs Temp 97.4 F 12/06/22 07:37 Pulse 87 12/06/22 10:15 Resp 20 12/06/22 07:37 BP 140/79 H 12/06/22 10:15 Pulse Ox 98 12/06/22 10:15 O2 Del Method Nasal Cannula 12/06/22 07:37 O2 Flow Rate 2 12/06/22 07:37 BMI result Body Mass Index 44.4 Const General: cooperative, comfortable, no acute distress, alert, awake and anxious Nutritional Appearance: obese Orientation/consciousness: patient oriented x3 Neck Neck: Yes trachea midline, Yes supple and Yes no JVD Resp Effort & Inspection: decreased respiratory effort Auscultation: clear to auscultation bilaterally Cardio Jugular venous distension: no JVD Rate: regular rate Rhythm: abnormal rhythm with ectopic beats Heart sounds: S1 normal heart sound present, S2 normal heart sound present, no click, no gallops and no murmurs GI Inspection: Yes obesity Neuro General: patient oriented x3 and no focal motor deficits Objective Labs and Meds 12/05/22 00:49 12/05/22 18:39 Lab results: Laboratory Results - last 24 hr 12/05/22 18:39 Sodium 135 Potassium 4.2 Chloride 102 Carbon Dioxide 25 Anion Gap 12 BUN 19 H Creatinine 0.69 Estim Creat Clear Calc 72.1 Estimated GFR > 60 Random Glucose 145 H Calcium 9.0 Magnesium 1.9 Progress Note: A&P Assessment and plan (1) PAF (paroxysmal atrial fibrillation): Status: Acute Assessment and Plan: paroxysmal atrial fibrillation with recurrent episodes most likely related to significant pain and catecholamine stimulation. Would switch her to p.o. amiodarone 400 mg b.i.d. for 2 weeks followed by 200 mg daily for rhythm control for now. Once her pain is better control and she is able to ambulate in her anxiety is under control will as outpatient switch to an alternative antiarrhythmic see if she continues to have episodes of atrial fibrillation. Continue full oral anticoagulation with Eliquis. Continue aggressive pain control. Continue antianxiety medications. Consider physical therapy consultation. Maintain potassium over 4 and magnesium over 2 Will follow up as need be. Will follow as outpatient. Time Spent With Patient Time: Total time managing care of this patient today ____ minutes. Progress Note: Quality Stroke Does the patient have a stroke diagnosis?: No Procedures Date of Service Date of Service: 12/06/22
--- NOTE | 2022-12-06 13:09 | MHC.CM.PN ---
Patient's Son/Juan can be reached at [phone].
--- NOTE | 2022-12-06 13:16 | MHC.CM.PN ---
Per MD, Patient is medically cleared for dc to SNF/STR; broad SNF search is in progress and CM will follow.
--- NOTE | 2022-12-06 15:13 | MHC.CM.PN ---
KISHA has discussed dc planning with Patient and with Patient's permission, her Son/Juan @ [phone]. [facility] is asking questions and considering accepting Patient(they would need an OON contract with [facility] and there are considerations regarding Patient's med/Imatinib). Per Juan, this is a med that Patient takes 1/day and is set up on auto-refill(not available for bulk picker until 12/10/2022). KISHA has relayed this information to [facility] & MD. KISHA will follow.
--- NOTE | 2022-12-06 17:22 | P.PNIM_ITS ---
Subjective Subjective Date of Service: 12/07/22 Interval History: AFib, back pain Review of Systems Back pain similar but somewhat improving Yesterday had multiple episode of AFib with aberrancy so started on amiodarone drip This morning denies any chest pain or shortness breath or palpitations. Physical Exam Vital Signs: Vital Signs: Last Vital Signs Temp 96.5 F L 12/06/22 15:22 Pulse 104 H 12/06/22 15:22 Resp 17 12/06/22 15:22 BP 135/61 12/06/22 15:22 Pulse Ox 95 12/06/22 15:22 O2 Del Method Nasal Cannula 12/06/22 15:22 O2 Flow Rate 2 12/06/22 11:36 BMI result Body Mass Index 44.4 Appearance: Alert.? Oriented X3.? cvs: rrr, [id number]. res: clear to auscultation ,no rhonchii or wheezing abd: no rebound or guarding ,nt, bs present. ext pulses present , no cyanosis has back pain. neuro: axo3 , nonfocal. Objective Data Active Medications Acetaminophen (Acetaminophen 325 Mg Tablet) 975 mg PO Q8H [facility] Last Admin: 12/06/22 16:40 Dose: 975 mg Documented By: AUGIE Amiodarone HCl (Amiodarone Hcl 200 Mg Tablet) 400 mg PO BID [facility] Apixaban (Apixaban 5 Mg Tablet) 5 mg PO BID [facility] Last Admin: 12/06/22 09:50 Dose: 5 mg Documented By: JUNG Aripiprazole (Aripiprazole 10 Mg Tablet) 10 mg PO DAILY [facility] Last Admin: 12/06/22 09:49 Dose: 10 mg Documented By: JUNG Atorvastatin Calcium (Atorvastatin Calcium 40 Mg Tablet) 40 mg PO DAILY [facility] Last Admin: 12/06/22 09:49 Dose: 40 mg Documented By: JUNG Calcium Carbonate/Cholecalciferol (Calcium + Vitamin D 250 Mg Tablet) 250 mg PO DAILY [facility] Last Admin: 12/06/22 09:48 Dose: 250 mg Documented By: JUNG Cyanocobalamin (Cyanocobalamin (Vitamin B-12) 1,000 Mcg Tablet) 1,000 mcg PO DAILY [facility] Last Admin: 12/06/22 09:49 Dose: 1,000 mcg Documented By: JUNG Docusate Sodium (Docusate Sodium 100 Mg Capsule) 100 mg PO DAILY PRN PRN Reason: Constipation Lidocaine (Lidocaine 4 % Patch Adh..Patch) 1 patch TRANSDERMA DAILY [facility]; Protocol Last Admin: 12/06/22 09:54 Dose: 1 patch Documented By: JUNG Melatonin (Melatonin 3 Mg Tablet) 9 mg PO BEDTIME [facility] Last Admin: 12/05/22 21:03 Dose: 9 mg Documented By: MIGUEL Metoprolol Tartrate (Metoprolol Tartrate 50 Mg Tablet) 50 mg PO BID [facility]; Protocol Last Admin: 12/06/22 09:50 Dose: 50 mg Documented By: JUNG Non-Formulary Medication (Ferrous Fumarate [Ferretts]) 325 mg PO DAILY [facility] Non-Formulary Medication (Imatinib) 400 mg PO DAILY [facility] Nystatin (Nystatin Powder 15 Gm Bottle) 1 appl TOPICAL BID [facility]; Protocol Last Admin: 12/06/22 09:50 Dose: Not Given Documented By: JUNG Non-Admin Reason: Patient Refused Nystatin/Triamcinolone Acetonide (Nystatin/Triamcinolone Cream 15 Gm Tube) [address] TOPICAL BID [facility]; Protocol Last Admin: 12/06/22 09:51 Dose: Not Given Documented By: JUNG Non-Admin Reason: Patient Refused Ondansetron HCl (Ondansetron Hcl 4 Mg/2 Ml Vial) 4 mg IVPUSH Q8H PRN PRN Reason: Nausea and Vomiting Oxycodone HCl (Oxycodone Hcl Immed Release 5 Mg Tablet) 5 mg PO BID PRN PRN Reason: Pain, Mild (Pain Scale 1-3) Last Admin: 12/05/22 21:05 Dose: 5 mg Documented By: MIGUEL Polyethylene Glycol (Polyethylene Glycol 3350 17 Gm Powd.Pack) 17 gm PO DAILY [facility] Last Admin: 12/06/22 09:51 Dose: 17 gm Documented By: JUNG Sodium Chloride (0.9 % Sodium Chloride Flush 3 Ml Syringe) 3 ml IVFLUSH QSHIFT [facility] Last Admin: 12/06/22 15:33 Dose: 3 ml Documented By: AUGIE Tramadol HCl (Tramadol Hcl 50 Mg Tablet) 50 mg PO BID PRN PRN Reason: Pain, Severe (Pain Scale 7-10) Trazodone HCl (Trazodone Hcl 100 Mg Tablet) 300 mg PO BEDTIME [facility] Last Admin: 12/05/22 21:03 Dose: 300 mg Documented By: MIGUEL Venlafaxine HCl (Venlafaxine Hcl Er 75 Mg Cap.Er.24h) 75 mg PO DAILY [facility] Last Admin: 12/06/22 09:50 Dose: 75 mg Documented By: JUNG Labs 12/05/22 00:49 12/05/22 18:39 Labs: Laboratory Results - last 24 hr 12/05/22 18:39 Anion Gap 12 Estim Creat Clear Calc 72.1 Estimated GFR > 60 Random Glucose 145 H Calcium 9.0 Magnesium 1.9 Assessment and Plan (1) Atrial fibrillation with RVR: Status: Acute (2) Unable to ambulate: Status: Acute (3) Intractable back pain: Status: Acute Plan 67-year-old female with past medical history of AFib on anticoagulation as well as history of back pain, presents the hospital with complaints of inability to ambulate, found to have AFib with RVR and episodes of sustained V-tach AFib with RVR/V-tach Patient keep having episode of AFib with aberrancy yesterday so was on amiodarone drip. This morning seen by Cardiology: AFib seems to be improving, switched to p.o. amiodarone, continue Eliquis and home metoprolol. back pain/inability to ambulate Continue Tylenol, adduction patch, oxycodone for pain control. Patient was strongly advised to ambulate. Morbid obesity: Strongly encouraged to lose weight. DVT prophylaxis: Eliquis. In patient need: Patient is awaiting rehab placement. Time Spent With Patient Time: Total time managing care of this patient today ____ minutes. Quality Stroke Does the patient have a stroke diagnosis?: No VTE Prior VTE?: No VTE Risk Level:: Medical - moderate - high VTE Device Contraindication: Treatment Not Indicated VTE Drug Contraindication: N/A - Med Ordered
[2022-12-06] MEDS: oxyCODONE HCl Immed Release 5 MG TABLET PO (17:35)
--- NOTE | 2022-12-06 18:13 | PC.NURSE ---
Patient gets anxious and restless on and off,heart rate went up to 160 on 2 occasions,down to 107 at present
[2022-12-06] MEDS: LORazepam 0.5 MG TABLET PO (18:28)
[2022-12-06] MEDS: Melatonin 3 MG TABLET 9 MG PO (19:52)
[2022-12-06] MEDS: traZODone HCL 100 MG TABLET 300 MG PO (19:53)
[2022-12-06] MEDS: Amiodarone HCL 200 MG TABLET 400 MG PO (19:53)
[2022-12-06] MEDS: Nystatin/Triamcinolone Cream 15 GM TUBE 1 APPL TOPICAL (19:56)
[2022-12-06] MEDS: Nystatin Powder 15 GM BOTTLE 1 APPL TOPICAL (19:56)
[2022-12-06 21:21] LABS: Anion Gap 13 (12-20); Blood Urea Nitrogen 12 mg/dL (9-16); Calcium 9.2 mg/dL (8.4-10.2); Carbon Dioxide 27 mmol/L (22-29); Chloride 104 mmol/L (96-108); Creatinine Clr Calc Pharmacy 75.3; Estimated Glomerular Filt Rate > 60; Glucose Random 116 mg/dL (60-115); Magnesium 1.6 mg/dL (1.6-2.6); Potassium 3.8 mmol/L (3.3-5.1); Sodium 140 mmol/L (135-145)
[2022-12-06 21:55] LABS: Troponin-I High Sensitivity 51.9 ng/L (<3.5-17.0)
[2022-12-06] MEDS: Potassium Chloride Packet 20 MEQ PACKET 40 MEQ PO (22:42)
[2022-12-06] MEDS: Magnesium Sulfate/D5W 1 GM/100 ML PIGGYBACK IV (22:42)
--- NOTE | 2022-12-06 23:03 | PC.NURSE ---
patient resting at present,IV Magnesium infusing as ordered
--- NOTE | 2022-12-06 23:41 | PC.NURSE ---
Patient had a episode of SVT at 2030 which lasted a few minutes,Dr. Braswell was notified,Ekg obtained,troponin 51.[address] Ivory
[2022-12-07] VITALS (7 sets, daily range): BP systolic 119–162; BP diastolic 57–80; PULSE 63–98; RESP 18–20; TEMP 36.2–36.8; O2SAT 96–99
[2022-12-07] MEDS: ondansetron HCL 4 MG/2 ML VIAL IVPUSH (06:19)
[2022-12-07] MEDS: Lidocaine 4 % Patch ADH..PATCH 1 PATCH TRANSDERMA (10:36)
[2022-12-07] MEDS: Calcium + Vitamin D 250 MG TABLET PO (10:36)
[2022-12-07] MEDS: oxyCODONE HCl Immed Release 5 MG TABLET PO (10:37)
[2022-12-07] MEDS: Amiodarone HCL 200 MG TABLET 400 MG PO ×2 (10:37→20:18)
[2022-12-07] MEDS: polyethylene glycoL 3350 17 GM POWD.PACK PO (10:37)
[2022-12-07] MEDS: Cyclobenzaprine HCl 5 MG TABLET PO (10:37)
[2022-12-07] MEDS: Atorvastatin Calcium 40 MG TABLET PO (10:38)
[2022-12-07] MEDS: Metoprolol Tartrate 50 MG TABLET PO ×2 (10:38→20:18)
[2022-12-07] MEDS: Acetaminophen 325 MG TABLET 975 MG PO ×2 (10:38→15:39)
[2022-12-07] MEDS: ARIPiprazole 10 MG TABLET PO (10:38)
[2022-12-07] MEDS: Apixaban 5 MG TABLET PO ×2 (10:38→20:18)
[2022-12-07] MEDS: 0.9 % Sodium Chloride Flush 3 ML SYRINGE IVFLUSH ×3 (10:39→20:19)
[2022-12-07] MEDS: Capsaicin 0.025% Cream 60 GM TUBE 1 APPL TOPICAL ×2 (11:11→20:18)
[2022-12-07] MEDS: Nystatin Powder 15 GM BOTTLE 1 APPL TOPICAL ×2 (11:11→20:19)
[2022-12-07] MEDS: Cyanocobalamin (Vitamin B-12) 1,000 MCG TABLET 1000 MCG PO (11:11)
[2022-12-07] MEDS: Venlafaxine HCl ER 75 MG CAP.ER.24H PO (11:11)
[2022-12-07] MEDS: Nystatin/Triamcinolone Cream 15 GM TUBE 1 APPL TOPICAL ×2 (11:12→20:19)
--- NOTE | 2022-12-07 12:32 | HO.PM.IMPN ---
Subjective Subjective Date of Service: 12/07/22 Interval History: AFib, back pain Review of Systems Back pain similar but somewhat improving Strongly encouraged to get out of bed to chair, and ambulate as possible no fevers or chills Physical Exam Vital Signs: Vital Signs: Last Vital Signs Temp 98.1 F 12/07/22 11:25 Pulse 86 12/07/22 11:25 Resp 20 12/07/22 11:25 BP 122/59 L 12/07/22 11:25 Pulse Ox 98 12/07/22 11:25 O2 Del Method Nasal Cannula 12/07/22 11:25 O2 Flow Rate 2 12/07/22 11:25 BMI result Body Mass Index 44.4 Back pain similar but somewhat improving Yesterday had multiple episode of AFib with aberrancy so started on amiodarone drip This morning denies any chest pain or shortness breath or palpitations. Objective Data Active Medications Acetaminophen (Acetaminophen 325 Mg Tablet) 975 mg PO Q8H [facility] Last Admin: 12/07/22 10:38 Dose: 975 mg Documented By: JEMIMA Amiodarone HCl (Amiodarone Hcl 200 Mg Tablet) 400 mg PO BID [facility] Last Admin: 12/07/22 10:37 Dose: 400 mg Documented By: JEMIMA Apixaban (Apixaban 5 Mg Tablet) 5 mg PO BID [facility] Last Admin: 12/07/22 10:38 Dose: 5 mg Documented By: JEMIMA Aripiprazole (Aripiprazole 10 Mg Tablet) 10 mg PO DAILY [facility] Last Admin: 12/07/22 10:38 Dose: 10 mg Documented By: JEMIMA Atorvastatin Calcium (Atorvastatin Calcium 40 Mg Tablet) 40 mg PO DAILY [facility] Last Admin: 12/07/22 10:38 Dose: 40 mg Documented By: JEMIMA Calcium Carbonate/Cholecalciferol (Calcium + Vitamin D 250 Mg Tablet) 250 mg PO DAILY [facility] Last Admin: 12/07/22 10:36 Dose: 250 mg Documented By: JEMIMA Capsaicin (Capsaicin 0.025% Cream 60 Gm Tube) 1 appl TOPICAL QID [facility]; Protocol Last Admin: 12/07/22 11:11 Dose: 1 appl Documented By: JEMIMA Cyanocobalamin (Cyanocobalamin (Vitamin B-12) 1,000 Mcg Tablet) 1,000 mcg PO DAILY [facility] Last Admin: 12/07/22 11:11 Dose: 1,000 mcg Documented By: JEMIMA Cyclobenzaprine HCl (Cyclobenzaprine Hcl 5 Mg Tablet) 5 mg PO ONCE PRN PRN Reason: muscle pain Last Admin: 12/07/22 10:37 Dose: 5 mg Documented By: JEMIMA Docusate Sodium (Docusate Sodium 100 Mg Capsule) 100 mg PO DAILY PRN PRN Reason: Constipation Lidocaine (Lidocaine 4 % Patch Adh..Patch) 1 patch TRANSDERMA DAILY [facility]; Protocol Last Admin: 12/07/22 10:36 Dose: 1 patch Documented By: JEMIMA Melatonin (Melatonin 3 Mg Tablet) 9 mg PO BEDTIME [facility] Last Admin: 12/06/22 19:52 Dose: 9 mg Documented By: AUGIE Metoprolol Tartrate (Metoprolol Tartrate 50 Mg Tablet) 50 mg PO BID [facility]; Protocol Last Admin: 12/07/22 10:38 Dose: 50 mg Documented By: JEMIMA Non-Formulary Medication (Ferrous Fumarate [Ferretts]) 325 mg PO DAILY [facility] Non-Formulary Medication (Imatinib) 400 mg PO DAILY [facility] Nystatin (Nystatin Powder 15 Gm Bottle) 1 appl TOPICAL BID [facility]; Protocol Last Admin: 12/07/22 11:11 Dose: 1 appl Documented By: JEMIMA Nystatin/Triamcinolone Acetonide (Nystatin/Triamcinolone Cream 15 Gm Tube) 1 appl TOPICAL BID [facility]; Protocol Last Admin: 12/07/22 11:12 Dose: 1 appl Documented By: JEMIMA Ondansetron HCl (Ondansetron Hcl 4 Mg/2 Ml Vial) 4 mg IVPUSH Q8H PRN PRN Reason: Nausea and Vomiting Last Admin: 12/07/22 06:19 Dose: 4 mg Documented By: CATRACHITO Oxycodone HCl (Oxycodone Hcl Immed Release 5 Mg Tablet) 5 mg PO BID PRN PRN Reason: Pain, Mild (Pain Scale 1-3) Last Admin: 12/07/22 10:37 Dose: 5 mg Documented By: JEMIMA Polyethylene Glycol (Polyethylene Glycol 3350 17 Gm Powd.Pack) 17 gm PO DAILY [facility] Last Admin: 12/07/22 10:37 Dose: 17 gm Documented By: JEMIMA Sodium Chloride (0.9 % Sodium Chloride Flush 3 Ml Syringe) 3 ml IVFLUSH QSHIFT [facility] Last Admin: 12/07/22 10:39 Dose: 3 ml Documented By: JEMIMA Tramadol HCl (Tramadol Hcl 50 Mg Tablet) 50 mg PO BID PRN PRN Reason: Pain, Severe (Pain Scale 7-10) Trazodone HCl (Trazodone Hcl 100 Mg Tablet) 300 mg PO BEDTIME [facility] Last Admin: 12/06/22 19:53 Dose: 300 mg Documented By: AUGIE Venlafaxine HCl (Venlafaxine Hcl Er 75 Mg Cap.Er.24h) 75 mg PO DAILY [facility] Last Admin: 12/07/22 11:11 Dose: 75 mg Documented By: JEMIMA Labs 12/05/22 00:49 12/06/22 20:54 Labs: Laboratory Results - last 24 hr 12/06/22 12/06/22 20:54 20:54 Anion Gap 13 Estim Creat Clear Calc 75.3 Estimated GFR > 60 Random Glucose 116 H Calcium 9.2 Magnesium 1.6 Troponin I High Sens 51.9 H* Assessment and Plan (1) Back pain: Status: Inactive Plan 67-year-old female with past medical history of AFib on anticoagulation as well as history of back pain, presents the hospital with complaints of inability to ambulate, found to have AFib with RVR and episodes of sustained V-tach ?AFib with RVR/V-tach Patient keep having episode of AFib with aberrancy yesterday so was on amiodarone drip.? This morning seen by Cardiology:? AFib seems to be improving, switched to p.o. amiodarone, continue Eliquis and home metoprolol. ?back pain/inability to ambulate Continue Tylenol, adduction patch, oxycodone for pain control.? Patient was strongly advised to ambulate. Pt recomended str to maximise function. Morbid obesity:? Strongly encouraged to lose weight. DVT prophylaxis: Eliquis. In patient need:? Patient is awaiting rehab placement. Time Spent With Patient Time: Total time managing care of this patient today ____ minutes. Quality Stroke Does the patient have a stroke diagnosis?: No VTE Prior VTE?: No VTE Risk Level:: Medical - moderate - high VTE Device Contraindication: Treatment Not Indicated VTE Drug Contraindication: N/A - Med Ordered
[2022-12-07] MEDS: Magnesium Oxide 400 MG TABLET 800 MG PO (18:35)
[2022-12-07] MEDS: traZODone HCL 100 MG TABLET 300 MG PO (20:17)
[2022-12-07] MEDS: Melatonin 3 MG TABLET 9 MG PO (20:18)
[2022-12-08] MEDS: Acetaminophen 325 MG TABLET 975 MG PO ×4 (02:43→18:12)
[2022-12-08 04:00] VITALS: BP 148/74; PULSE 80; RESP 18; TEMP 36.6; O2SAT 98
[2022-12-08 07:39] VITALS: BP 145/67; PULSE 92; RESP 20; TEMP 36.9; O2SAT 98
[2022-12-08] MEDS: Calcium + Vitamin D 250 MG TABLET PO (09:33)
[2022-12-08] MEDS: Metoprolol Tartrate 50 MG TABLET PO ×2 (09:33→18:05)
[2022-12-08] MEDS: Venlafaxine HCl ER 75 MG CAP.ER.24H PO (09:33)
[2022-12-08] MEDS: Atorvastatin Calcium 40 MG TABLET PO (09:33)
[2022-12-08] MEDS: Cyanocobalamin (Vitamin B-12) 1,000 MCG TABLET 1000 MCG PO (09:33)
[2022-12-08] MEDS: Amiodarone HCL 200 MG TABLET 400 MG PO ×2 (09:33→18:04)
[2022-12-08] MEDS: Magnesium Oxide 400 MG TABLET 800 MG PO ×2 (09:34→18:10)
[2022-12-08] MEDS: Lidocaine 4 % Patch ADH..PATCH 1 PATCH TRANSDERMA (09:34)
[2022-12-08] MEDS: ARIPiprazole 10 MG TABLET PO (09:34)
[2022-12-08] MEDS: Nystatin/Triamcinolone Cream 15 GM TUBE 1 APPL TOPICAL (09:36)
[2022-12-08] MEDS: Capsaicin 0.025% Cream 60 GM TUBE 1 APPL TOPICAL (09:36)
[2022-12-08] MEDS: Nystatin Powder 15 GM BOTTLE 1 APPL TOPICAL (09:36)
[2022-12-08] MEDS: 0.9 % Sodium Chloride Flush 3 ML SYRINGE IVFLUSH ×2 (09:36→16:40)
[2022-12-08] MEDS: Apixaban 5 MG TABLET PO ×2 (09:36→20:03)
[2022-12-08 11:26] VITALS: BP 140/81; PULSE 83; RESP 18; TEMP 36.1; O2SAT 97
--- NOTE | 2022-12-08 12:46 | P.PNIM_ITS ---
Subjective Subjective Date of Service: 12/08/22 Interval History: AFib, back pain Review of Systems Back pain seems to be improving Heart rate also improving Physical Exam Vital Signs: Vital Signs: Last Vital Signs Temp 96.9 F 12/08/22 11:26 Pulse 83 12/08/22 11:26 Resp 18 12/08/22 11:26 BP 140/81 H 12/08/22 11:26 Pulse Ox 97 12/08/22 11:26 O2 Del Method Nasal Cannula 12/08/22 11:26 O2 Flow Rate 2 12/08/22 11:26 BMI result Body Mass Index 44.4 Appearance: Alert.? Oriented X3.? cvs: irregular rythem, [id number]. res: clear to auscultation ,no rhonchii or wheezing abd: no rebound or guarding ,nt, bs present. ext pulses present , no cyanosis has back pain. neuro: axo3 , nonfocal. Objective Data Active Medications Acetaminophen (Acetaminophen 325 Mg Tablet) 975 mg PO Q8H [facility] Last Admin: 12/08/22 09:32 Dose: 975 mg Documented By: JEMIMA Amiodarone HCl (Amiodarone Hcl 200 Mg Tablet) 400 mg PO BID [facility] Last Admin: 12/08/22 09:33 Dose: 400 mg Documented By: JEMIMA Apixaban (Apixaban 5 Mg Tablet) 5 mg PO BID [facility] Last Admin: 12/08/22 09:36 Dose: 5 mg Documented By: JEMIMA Aripiprazole (Aripiprazole 10 Mg Tablet) 10 mg PO DAILY [facility] Last Admin: 12/08/22 09:34 Dose: 10 mg Documented By: JEMIMA Atorvastatin Calcium (Atorvastatin Calcium 40 Mg Tablet) 40 mg PO DAILY [facility] Last Admin: 12/08/22 09:33 Dose: 40 mg Documented By: JEMIMA Calcium Carbonate/Cholecalciferol (Calcium + Vitamin D 250 Mg Tablet) 250 mg PO DAILY [facility] Last Admin: 12/08/22 09:33 Dose: 250 mg Documented By: JEMIMA Capsaicin (Capsaicin 0.025% Cream 60 Gm Tube) 1 appl TOPICAL QID [facility]; Protocol Last Admin: 12/08/22 09:36 Dose: 1 appl Documented By: JEMIMA Cyanocobalamin (Cyanocobalamin (Vitamin B-12) 1,000 Mcg Tablet) 1,000 mcg PO DAILY [facility] Last Admin: 12/08/22 09:33 Dose: 1,000 mcg Documented By: JEMIMA Cyclobenzaprine HCl (Cyclobenzaprine Hcl 5 Mg Tablet) 5 mg PO ONCE PRN PRN Reason: muscle pain Last Admin: 12/07/22 10:37 Dose: 5 mg Documented By: JEMIMA Docusate Sodium (Docusate Sodium 100 Mg Capsule) 100 mg PO DAILY PRN PRN Reason: Constipation Lidocaine (Lidocaine 4 % Patch Adh..Patch) 1 patch TRANSDERMA DAILY [facility]; Protocol Last Admin: 12/08/22 09:34 Dose: 1 patch Documented By: JEMIMA Magnesium Oxide (Magnesium Oxide 400 Mg Tablet) 800 mg PO BIDPC [facility] Last Admin: 12/08/22 09:34 Dose: 800 mg Documented By: JEMIMA Melatonin (Melatonin 3 Mg Tablet) 9 mg PO BEDTIME [facility] Last Admin: 12/07/22 20:18 Dose: 9 mg Documented By: SHAMEKA Metoprolol Tartrate (Metoprolol Tartrate 50 Mg Tablet) 50 mg PO BID [facility]; Pr otocol Last Admin: 12/08/22 09:33 Dose: 50 mg Documented By: JEMIMA Non-Formulary Medication (Ferrous Fumarate [Ferretts]) 325 mg PO DAILY [facility] Non-Formulary Medication (Imatinib) 400 mg PO DAILY [facility] Nystatin (Nystatin Powder 15 Gm Bottle) 1 appl TOPICAL BID [facility]; Protocol Last Admin: 12/08/22 09:36 Dose: 1 appl Documented By: JEMIMA Nystatin/Triamcinolone Acetonide (Nystatin/Triamcinolone Cream 15 Gm Tube) 1 appl TOPICAL BID [facility]; Protocol Last Admin: 12/08/22 09:36 Dose: 1 appl Documented By: JEMIMA Ondansetron HCl (Ondansetron Hcl 4 Mg/2 Ml Vial) 4 mg IVPUSH Q8H PRN PRN Reason: Nausea and Vomiting Last Admin: 12/07/22 06:19 Dose: 4 mg Documented By: CATRACHITO Oxycodone HCl (Oxycodone Hcl Immed Release 5 Mg Tablet) 5 mg PO BID PRN PRN Reason: Pain, Mild (Pain Scale 1-3) Last Admin: 12/07/22 10:37 Dose: 5 mg Documented By: JEMIMA Polyethylene Glycol (Polyethylene Glycol 3350 17 Gm Powd.Pack) 17 gm PO DAILY [facility] Last Admin: 12/08/22 09:46 Dose: Not Given Documented By: JEMIMA Non-Admin Reason: Patient Refused Sodium Chloride (0.9 % Sodium Chloride Flush 3 Ml Syringe) 3 ml IVFLUSH QSHIFT [facility] Last Admin: 12/08/22 09:36 Dose: 3 ml Documented By: JEMIMA Tramadol HCl (Tramadol Hcl 50 Mg Tablet) 50 mg PO BID PRN PRN Reason: Pain, Severe (Pain Scale 7-10) Trazodone HCl (Trazodone Hcl 100 Mg Tablet) 300 mg PO BEDTIME [facility] Last Admin: 12/07/22 20:17 Dose: 300 mg Documented By: SHAMEKA Venlafaxine HCl (Venlafaxine Hcl Er 75 Mg Cap.Er.24h) 75 mg PO DAILY [facility] Last Admin: 12/08/22 09:33 Dose: 75 mg Documented By: JEMIMA Labs 12/05/22 00:49 12/06/22 20:54 Assessment and Plan (1) Back pain: Status: Inactive Plan 67-year-old female with past medical history of AFib on anticoagulation as well as history of back pain, presents the hospital with complaints of inability to ambulate, found to have AFib with RVR and episodes of sustained V-tach ?AFib with RVR/V-tach Patient keep having episode of AFib with aberrancy yesterday so was on amiodarone drip.? Cardiology recomend :? AFib seems to be improving, switched to p.o. amiodarone, continue Eliquis and home metoprolol. potassium,magnesium seems normal. ?back pain/inability to ambulate Continue Tylenol, adduction patch, oxycodone for pain control.? Patient was strongly advised to ambulate. Pt recomended str to maximise function. Morbid obesity:? Strongly encouraged to lose weight. DVT prophylaxis: Eliquis. In patient need:? Patient is awaiting rehab placement. Time Spent With Patient Time: Total time managing care of this patient today ____ minutes. Quality Stroke Does the patient have a stroke diagnosis?: No VTE Prior VTE?: No VTE Risk Level:: Medical - moderate - high VTE Device Contraindication: Treatment Not Indicated VTE Drug Contraindication: N/A - Med Ordered
[2022-12-08 13:23] LABS: Anion Gap 14 (12-20); Blood Urea Nitrogen 13 mg/dL (9-16); Calcium 9.1 mg/dL (8.4-10.2); Carbon Dioxide 26 mmol/L (22-29); Chloride 102 mmol/L (96-108); Creatinine Clr Calc Pharmacy 71.1; Estimated Glomerular Filt Rate > 60; Glucose Random 107 mg/dL (60-115); Potassium 4.5 mmol/L (3.3-5.1); Sodium 137 mmol/L (135-145)
[2022-12-08 15:50] VITALS: BP 131/59; PULSE 87; RESP 20; TEMP 36.7; O2SAT 97
[2022-12-08 19:38] VITALS: BP 124/75; PULSE 80; RESP 20; TEMP 37.2; O2SAT 98
[2022-12-08] MEDS: Melatonin 3 MG TABLET 9 MG PO (20:03)
[2022-12-08] MEDS: traZODone HCL 100 MG TABLET 300 MG PO (20:03)
[2022-12-08] MEDS: oxyCODONE HCl Immed Release 5 MG TABLET PO (20:04)
--- NOTE | 2022-12-08 22:34 | PC.NURSE ---
Patient become very restless ,anxious and agitated this afternoon, she called her daughter Tiffany and requested to go home . After lengthy conversation with the daughter ,RN and doctor Zhao , pt agreed to stay till tomorrow morning. She is refusing to go to the rehab, she want to go to her home. There were few episodes this afternoon when she went to the [facility] hr 160's and back to the [facility] on her own. Patient denied any chest pain ,no sob at that time , she was on the bedpan when thus happened and the second time she was just eating dinner . Dr Churchill was notified and he instructed to give Bedtime cardiac meds given early. After dinner patient refused to get up to the recliner , she refused to use the commode , she requested bedpan
[2022-12-08 23:16] VITALS: BP 123/57; PULSE 76; RESP 18; TEMP 36.6; O2SAT 99
[2022-12-09] MEDS: Acetaminophen 325 MG TABLET 975 MG PO ×3 (00:09→17:23)
[2022-12-09] MEDS: 0.9 % Sodium Chloride Flush 3 ML SYRINGE IVFLUSH ×4 (00:12→20:27)
[2022-12-09 03:18] VITALS: BP 122/82; PULSE 99; RESP 18; TEMP 36.7; O2SAT 98
[2022-12-09 08:58] VITALS: BP 117/69; PULSE 90; RESP 18; TEMP 36.4; O2SAT 99
--- NOTE | 2022-12-09 10:48 | MHC.CM.PN ---
Patient is medically cleared for dc to SNF/STR; SNF search has been updated and expanded. CM will continue to follow.
[2022-12-09] MEDS: ARIPiprazole 10 MG TABLET PO (10:57)
[2022-12-09] MEDS: Apixaban 5 MG TABLET PO ×2 (10:57→20:28)
[2022-12-09] MEDS: Metoprolol Tartrate 50 MG TABLET PO ×2 (10:58→20:28)
[2022-12-09] MEDS: Atorvastatin Calcium 40 MG TABLET PO (10:58)
[2022-12-09] MEDS: oxyCODONE HCl Immed Release 5 MG TABLET PO (10:58)
[2022-12-09] MEDS: Calcium + Vitamin D 250 MG TABLET PO (10:58)
[2022-12-09] MEDS: Magnesium Oxide 400 MG TABLET 800 MG PO ×2 (10:58→17:23)
[2022-12-09] MEDS: Cyanocobalamin (Vitamin B-12) 1,000 MCG TABLET 1000 MCG PO (10:58)
[2022-12-09] MEDS: Amiodarone HCL 200 MG TABLET 400 MG PO ×2 (10:59→20:28)
[2022-12-09] MEDS: Lidocaine 4 % Patch ADH..PATCH 1 PATCH TRANSDERMA (10:59)
[2022-12-09] MEDS: Venlafaxine HCl ER 75 MG CAP.ER.24H PO (10:59)
[2022-12-09 11:45] VITALS: TEMP 36.4
--- NOTE | 2022-12-09 12:03 | MHC.CM.PN ---
CM met with Patient at bedside and with her approval, spoke with Son/Juan @ [phone] regarding dc planning and PT's recommendation for STR. [facility] is not able to offer a bed, but their sister facility/[facility],who IS contracted with Patient's insurance and [facility] are offering a bed. CM presented these two facilities to Patient and she expressed that they are too far away. CM spoke with Juan, who also stated that these facilities are too far away and he explained that as of last night, Patient planned to leave AMA today. CM again explained PT's recommendation and CM's job to present a safe dc plan to Patient. Both Patient and Juan are agreeable to [facility](Closer of the 2 facilities) attempting to get insurance authorization and if that occurs, Patient will then need to decide if she accepts the bed offer. CM will continue to follow.
--- NOTE | 2022-12-09 12:13 | MHC.CM.PN ---
ADDENDUM: CM addressed IMM with Patient verbally at bedside and gave her the original and placed a copy on the chart.
[2022-12-09] MEDS: traMADoL HCL 50 MG TABLET PO (14:28)
--- NOTE | 2022-12-09 15:28 | MHC.CM.PN ---
Patient has been accepted at and insurance has authorized Patient to dc to SNF/STR. Patient will dc to [facility] tomorrow at 11 AM, via [facility]. Patient and her Son/uJan are aware of the dc plan. Patient requested timer to speak with her 2 children before dc.CM will follow.
[2022-12-09 15:47] VITALS: BP 160/80; PULSE 86; RESP 20; TEMP 36; O2SAT 93
--- NOTE | 2022-12-09 15:52 | P.PNIM_ITS ---
Subjective Subjective Date of Service: 12/09/22 Interval History: AFib, back pain Review of Systems Denies any new complaints Resting well no Chest pain or shortness breath. Physical Exam Vital Signs: Vital Signs: Last Vital Signs Temp 96.8 F 12/09/22 15:47 Pulse 86 12/09/22 15:47 Resp 20 12/09/22 15:47 BP 160/80 H 12/09/22 15:47 Pulse Ox 93 12/09/22 15:47 O2 Del Method Nasal Cannula 12/09/22 15:47 O2 Flow Rate 1 12/09/22 15:47 BMI result Body Mass Index 44.4 Appearance: Alert.? Oriented X3.? cvs: irregular rythem, [id number]. res: clear to auscultation ,no rhonchii or wheezing abd: no rebound or guarding ,nt, bs present. ext pulses present , no cyanosis has back pain. neuro: axo3 , nonfocal. Objective Data Active Medications Acetaminophen (Acetaminophen 325 Mg Tablet) 975 mg PO Q8H [facility] Last Admin: 12/09/22 10:58 Dose: 975 mg Documented By: CARMEN Amiodarone HCl (Amiodarone Hcl 200 Mg Tablet) 400 mg PO BID [facility] Last Admin: 12/09/22 10:59 Dose: 400 mg Documented By: CARMEN Apixaban (Apixaban 5 Mg Tablet) 5 mg PO BID [facility] Last Admin: 12/09/22 10:57 Dose: 5 mg Documented By: CARMEN Aripiprazole (Aripiprazole 10 Mg Tablet) 10 mg PO DAILY [facility] Last Admin: 12/09/22 10:57 Dose: 10 mg Documented By: CARMEN Atorvastatin Calcium (Atorvastatin Calcium 40 Mg Tablet) 40 mg PO DAILY [facility] Last Admin: 12/09/22 10:58 Dose: 40 mg Documented By: CARMEN Calcium Carbonate/Cholecalciferol (Calcium + Vitamin D 250 Mg Tablet) 250 mg PO DAILY [facility] Last Admin: 12/09/22 10:58 Dose: 250 mg Documented By: CARMEN Capsaicin (Capsaicin 0.025% Cream 60 Gm Tube) 1 appl TOPICAL QID [facility]; Protocol Last Admin: 12/09/22 12:11 Dose: Not Given Documented By: CARMEN Non-Admin Reason: Patient Refused Cyanocobalamin (Cyanocobalamin (Vitamin B-12) 1,000 Mcg Tablet) 1,000 mcg PO DAILY [facility] Last Admin: 12/09/22 10:58 Dose: 1,000 mcg Documented By: CARMEN Cyclobenzaprine HCl (Cyclobenzaprine Hcl 5 Mg Tablet) 5 mg PO ONCE PRN PRN Reason: muscle pain Last Admin: 12/07/22 10:37 Dose: 5 mg Documented By: JEMIMA Docusate Sodium (Docusate Sodium 100 Mg Capsule) 100 mg PO DAILY PRN PRN Reason: Constipation Lidocaine (Lidocaine 4 % Patch Adh..Patch) 1 patch TRANSDERMA DAILY [facility]; Protocol Last Admin: 12/09/22 10:59 Dose: 1 patch Documented By: CARMEN Magnesium Oxide (Magnesium Oxide 400 Mg Tablet) 800 mg PO BIDPC [facility] Last Admin: 12/09/22 10:58 Dose: 800 mg Documented By: CARMEN Melatonin (Melatonin 3 Mg Tablet) 9 mg PO BEDTIME [facility] Last Admin: 12/08/22 20:03 Dose: 9 mg Documented By: LAUREN Metoprolol Tartrate (Metoprolol Tartrate 50 Mg Tablet) 50 mg PO BID [facility]; Protocol Last Admin: 12/09/22 10:58 Dose: 50 mg Documented By: CARMEN Non-Formulary Medication (Ferrous Fumarate [Ferretts]) 325 mg PO DAILY [facility] Non-Formulary Medication (Imatinib) 400 mg PO DAILY [facility] Nystatin (Nystatin Powder 15 Gm Bottle) 1 appl TOPICAL BID [facility]; Protocol Last Admin: 12/09/22 11:12 Dose: Not Given Documented By: CARMEN Non-Admin Reason: Patient Refused Nystatin/Triamcinolone Acetonide (Nystatin/Triamcinolone Cream 15 Gm Tube) 1 appl TOPICAL BID [facility]; Protocol Last Admin: 12/09/22 11:12 Dose: Not Given Documented By: CARMEN Non-Admin Reason: Patient Refused Ondansetron HCl (Ondansetron Hcl 4 Mg/2 Ml Vial) 4 mg IVPUSH Q8H PRN PRN Reason: Nausea and Vomiting Last Admin: 12/07/22 06:19 Dose: 4 mg Documented By: CATRACHITO Oxycodone HCl (Oxycodone Hcl Immed Release 5 Mg Tablet) 5 mg PO BID PRN PRN Reason: Pain, Mild (Pain Scale 1-3) Last Admin: 12/09/22 10:58 Dose: 5 mg Documented By: CARMEN Polyethylene Glycol (Polyethylene Glycol 3350 17 Gm Powd.Pack) 17 gm PO DAILY [facility] Last Admin: 12/09/22 11:13 Dose: Not Given Documented By: CARMEN Non-Admin Reason: Patient Refused Sodium Chloride (0.9 % Sodium Chloride Flush 3 Ml Syringe) 3 ml IVFLUSH QSHIFT [facility] Last Admin: 12/09/22 10:59 Dose: 3 ml Documented By: CARMEN Tramadol HCl (Tramadol Hcl 50 Mg Tablet) 50 mg PO BID PRN PRN Reason: Pain, Severe (Pain Scale 7-10) Last Admin: 12/09/22 14:28 Dose: 50 mg Documented By: CARMEN Trazodone HCl (Trazodone Hcl 100 Mg Tablet) 300 mg PO BEDTIME [facility] Last Admin: 12/08/22 20:03 Dose: 300 mg Documented By: LAUREN Venlafaxine HCl (Venlafaxine Hcl Er 75 Mg Cap.Er.24h) 75 mg PO DAILY [facility] Last Admin: 12/09/22 10:59 Dose: 75 mg Documented By: CARMEN Labs 12/05/22 00:49 12/08/22 12:53 Assessment and Plan (1) Back pain: Status: Inactive Plan 67-year-old female with past medical history of AFib on anticoagulation as well as history of back pain, presents the hospital with complaints of inability to ambulate, found to have AFib with RVR and episodes of sustained V-tach ?AFib with RVR/V-tach Patient keep having episode of AFib with aberrancy yesterday so was on amiodarone drip.? Cardiology recomend :? AFib seems to be improving, switched to p.o. amiodarone, continue Eliquis and home metoprolol. potassium,magnesium seems normal. ?back pain/inability to ambulate Continue Tylenol, adduction patch, oxycodone for pain control.? Patient was strongly advised to ambulate. Pt recomended str to maximise function. Morbid obesity:? Strongly encouraged to lose weight. DVT prophylaxis: Eliquis. In patient need:? Patient is awaiting rehab placement- possible discharge in am if have bed . Time Spent With Patient Time: Total time managing care of this patient today ____ minutes. Quality Stroke Does the patient have a stroke diagnosis?: No VTE Prior VTE?: No VTE Risk Level:: Medical - moderate - high VTE Device Contraindication: Treatment Not Indicated VTE Drug Contraindication: N/A - Med Ordered
[2022-12-09 20:00] VITALS: BP 120/53; PULSE 75; RESP 20; TEMP 36; O2SAT 94
[2022-12-09] MEDS: traZODone HCL 100 MG TABLET 300 MG PO (20:27)
[2022-12-09] MEDS: Melatonin 3 MG TABLET 9 MG PO (20:28)
[2022-12-09 23:39] VITALS: BP 116/64; PULSE 73; RESP 18; TEMP 36.3; O2SAT 97
[2022-12-10] MEDS: Acetaminophen 325 MG TABLET 975 MG PO ×2 (00:38→10:42)
[2022-12-10 04:00] VITALS: BP 129/75; PULSE 96; RESP 20; TEMP 36.1; O2SAT 98
--- NOTE | 2022-12-10 09:34 | P.DS_ITS ---
DS: Providers Provider Date of Service: 12/10/22 Date of admission: 12/05/22 15:35 Primary care physician: Vandana Gomez MD Consults: 12/05/22 02:40 Consult to Cardiology Routine Consulting Provider: [facility] Reason for consultation: svt Has provider been notified: Yes DS: Diagnosis Discharge Diagnosis (1) Back pain: Status: Inactive DS: Summary Hospital Course Hospital Course: Chief Complaint: inability to ambulate 67-year-old female with past medical history of AFib on Eliquis, left bundle branch block, hypertension, bilateral frozen shoulder pain, chronic hip pain who initially presented to the hospital on 11/29 for evaluation of back pain for 3 days, patient was evaluated in the ED, was placed under observation, case management followed patient, patient was recommended short-term rehab, but patient felt that the facilities that were offered were too far decided along with her son to go back home.? Patient had medically been cleared was sent home on 12/04.? She returns to the hospital on the same day after:? The ambulance stating that she is unable to get out of her couch.? On arrival of the EMT patient was found to be in AFib with RVR, therefore patient was brought into the hospital.? Patient reports that she does not feel her palpitations, denies any shortness of breath, denies any chest pain, no dizziness, headache or change in vision, no abdominal pain nausea or vomiting, no diarrhea constipation, no recent urinary symptoms, and no lower extremity edema. Per ED rhythm strip patient noted to have sustained V-tach, but at the time shruthi ent was asymptomatic, completely stable.? Patient was given 150 mg of amiodarone, After discussion was cardiology felt to have rate related left bundle branch block, patient had intermittent episode of tachycardia, therefore given Lopressor p.o. which is her home medications that she missed with a better controlled heart rate.? Patient will be admitted for further evaluation Labs reviewed unremarkable Hospital course: Patient has been previously seen in the ED with back pain and noted to have L3 compression fracture and at that time was offered Kyphoplaty but declineb and she was to go to rehab at that time but she declined and went home only to return to the ED with persistent pain and difficulty walking and was also noted to have AFIB with RVR # AFib with RVR/V-tach--Patient with known permaneent AFIB and presented with AFIB with RVR, in ED given amiodarone 150 mg x 1, and is now on oral loading of amiodarone 400 mg bid x 2 weeks, then 200 mg daily, and to continue metoprolol at 50 mg twice daily with rate under controll and she is to continue Eliquis 5 mg bid for stroke. # Intractable Pain, prior imaging from november 29 showed a compression fracture and as discussed earlier declining Kyphoplasty, she has been getting out of bed, she does needs assistance to ambulate. If her pain continue to she may need reevaluation for Kyphoplastly on outpatient basis #Mood desorder to continue Venlafaxine, Trazadone To short [facility] rehab for less than 30 days Time Spent with Patient Time attestation: Total time managing care of this patient today ____ minutes. Discharge coordination time: Greater than 30 minutes Quality: Safe Use of Opioids Does Pt have an Active Cancer Diagnosis on the Problem List?: No Quality: Stroke Does the patient have a stroke diagnosis?: No Physical Exam Vital Signs: Vital Signs: Last Vital Signs Temp 97.0 F 12/10/22 04:00 Pulse 96 12/10/22 04:00 Resp 20 12/10/22 04:00 BP 129/75 12/10/22 04:00 Pulse Ox 98 12/10/22 04:00 O2 Del Method Nasal Cannula 12/10/22 04:00 O2 Flow Rate 1 12/10/22 04:00 BMI result Body Mass Index 44.4 DS: Data Data Completed and Pending Completed studies during hospitalization [Text1]: Procedures Transfusion of Nonautologous Red Blood Cells into Peripheral Vein, Percutaneous Approach (04/11/20) Discharge Plan Discharge Anticipated Discharge Date/Time: 12/10/22 09:36 Patient Disposition: Xfer SNF Discharge Diagnosis: AFib with RVR, back pain Referrals: [facility] [Outside] - 1 Week Physician,Unknown J [Physician] - 1 Week Discharge Medications: New amiodarone 400 mg tablet 400 mg PO BID Qty: 28 0RF Rx Instructions: CONTINUE amiodarone 400 mg p.o. b.i.d. until12/19/22. then switch to amiodarone 200 mg daily acetaminophen 325 mg Tablet 975 mg PO Q8H PRN (Reason: pain) Qty: 10 0RF oxycodone 5 mg Tablet 5 mg PO BID PRN (Reason: Pain, Mild (Pain Scale 1-3)) Qty: 10 0RF Rx Instructions: Partial Fill upon patient request. docusate sodium [Colace] 100 mg capsule 100 mg PO DAILY Qty: 30 0RF polyethylene glycol 3350 [Miralax] 17 gram/dose powder 17 g PO DAILY PRN (Reason: constipation) Qty: 119 0RF amiodarone 200 mg tablet 200 mg PO DAILY Qty: 30 0RF Rx Instructions: Start amiodarone 200 mg p.o. daily on 12/20/2022 oxycodone 5 mg tablet 5 mg PO BID PRN (Reason: pain (scale score 7-10)) Qty: 14 0RF Rx Instructions: Partial Fill upon patient request. Continued omeprazole 40 mg capsule,delayed release(DR/EC) 40 mg PO DAILY Qty: 90 0RF Eliquis 5 mg tablet 5 mg PO BID Qty: 180 1RF gabapentin 800 mg Tablet 800 mg PO TID venlafaxine 75 mg capsule,extended release 24hr 75 mg PO DAILY Rx Instructions: take along with 150 mg venlafaxine for total dose 225 mg cyanocobalamin (vitamin B-12) 1,000 mcg tablet 1,000 mcg PO DAILY melatonin 3 mg tablet 3 - 9 mg PO BEDTIME metoprolol tartrate 50 mg tablet 50 mg PO BID nystatin-triamcinolone 100,000-0.1 unit/g-% cream 1 appl topical BID nystatin 100,000 unit/gram powder 1 appl topical BID aripiprazole 10 mg tablet 10 mg PO DAILY rosuvastatin 10 mg tablet 10 mg PO DAILY calcium carbonate-vitamin D3 [Calcium 500 With D] 500 mg-10 mcg (400 unit) tablet 1 tab PO DAILY Ferretts 325 mg (106 mg iron) tablet 325 mg PO DAILY imatinib 400 mg tablet 400 mg PO DAILY tramadol 50 mg tablet 50 mg PO BID PRN (Reason: pain) Qty: 7 0RF buspirone 10 mg tablet 10 mg PO TID PRN (Reason: Anxiety) venlafaxine 150 mg capsule,extended release 24hr 150 mg PO DAILY Rx Instructions: TAKE ALONG WITH 75 MG VENLAFAXINE FOR 225 MG DAILY DOSE oxybutynin chloride 15 mg tablet extended release 24hr 15 mg PO DAILY 90 Days Qty: 90 3RF Myrbetriq 50 mg tablet extended release 24 hr 50 mg PO DAILY 90 Days Qty: 90 3RF trazodone 100 mg tablet 300 mg PO BEDTIME Discharge Orders: Discharge Order (Routine); Ordered 12/10/22 Ordered By: Adriel Duran Diet: Advance to usual diet Activity on Discharge: As tolerated Stand Alone Forms: Patient Portal Discharge page Care Plan Goals: Patient came to the hospital -found to have AFib with RVR also, has back pain: Patient AFib with RVR-treated with IV amiodarone and seems to be improving, subsequently switched to p.o. amiodarone-seen by Cardiology: patient will need amiodarone 400 mg p.o. b.i.d. until 12/19/2022 then switch to amiodarone 200 mg p.o. daily. Patient has back pain:Mild superior endplate compression fracture L3 vertebra of indeterminate age. Discussed with the patient-started on pain medications back pain seems to be somewhat improving, seen by PT-recommended rehab. Also discussed with the patient about kyphoplasty currently patient does not seem interested, hopefully with rehab gets better. Continue pain medications Tylenol, oxycodone, bowel regimen and patient will need PT for that recent going to rehab for less than 30 days Health Concerns: As above. Plan of Treatment: As above. Assessment: As above. Patient Instructions: A-fib (Atrial Fibrillation) (DC), Back Pain (ED) Discharge Date/Time: 12/10/22 13:33
[2022-12-10 09:59] LABS: COVID-19 Test Negative (Negative); IDNOW Serial# 55D5AD1C
[2022-12-10 10:00] VITALS: BP 149/71; PULSE 98; RESP 20; TEMP 36.1; O2SAT 93
[2022-12-10] MEDS: Venlafaxine HCl ER 75 MG CAP.ER.24H PO (10:42)
[2022-12-10] MEDS: Cyanocobalamin (Vitamin B-12) 1,000 MCG TABLET 1000 MCG PO (10:42)
[2022-12-10] MEDS: Calcium + Vitamin D 250 MG TABLET PO (10:43)
[2022-12-10] MEDS: Metoprolol Tartrate 50 MG TABLET PO (10:43)
[2022-12-10] MEDS: Apixaban 5 MG TABLET PO (10:43)
[2022-12-10] MEDS: Atorvastatin Calcium 40 MG TABLET PO (10:43)
[2022-12-10] MEDS: Amiodarone HCL 200 MG TABLET 400 MG PO (10:44)
[2022-12-10] MEDS: polyethylene glycoL 3350 17 GM POWD.PACK PO (10:44)
[2022-12-10] MEDS: Magnesium Oxide 400 MG TABLET 800 MG PO (10:44)
[2022-12-10] MEDS: Lidocaine 4 % Patch ADH..PATCH 1 PATCH TRANSDERMA (10:45)
[2022-12-10] MEDS: ARIPiprazole 10 MG TABLET PO (10:45)
--- NOTE | 2022-12-10 15:32 | MHC.CM.PN ---
Oxycodone script has been successfully faxed to the Pharmacy at [phone] for [facility].
--- NOTE | 2022-12-10 15:39 | MHC.CM.PN ---
CM spoke with Son/Juan, who was looking to confirm the name, address, and phone # of [facility]; KISHA provided Juan with this information.
== END 2022-12-10 13:33 | disposition skilled nursing facility (03) | DRG 543 ==
LOC: HO.ED 12-05 02:44 → HO.EDOVER 12-05 02:54 → HO.IMC 12-05 05:24
PROVIDERS: Family Medicine; Internal Medicine; Admitting Provider Internal Medicine; Emergency Provider Student in an Organized Health Care Education/Training Program; PCP Internal Medicine; Visit Provider Internal Medicine
DX: M48.56XA Collapsed vertebra, not elsewhere classified, lumbar region, initial encounter for fracture (principal); C92.10 Chronic myeloid leukemia, BCR/ABL-positive, not having achieved remission; I47.20 Ventricular tachycardia, unspecified; Z68.41 Body mass index [BMI] 40.0-44.9, adult; I50.32 Chronic diastolic (congestive) heart failure; F31.9 Bipolar disorder, unspecified; I11.0 Hypertensive heart disease with heart failure; I48.0 Paroxysmal atrial fibrillation; I44.7 Left bundle-branch block, unspecified; E66.01 Morbid (severe) obesity due to excess calories; Z20.822 Contact with and (suspected) exposure to COVID-19; Z79.01 Long term (current) use of anticoagulants; Z79.899 Other long term (current) drug therapy
CPT/HCPCS: 36415; 71045; 80048; 80053; 83735; 83880; 84484; 85025; 85610; 87635; 93005; 97162; 99285; J0282; J0283; J1650; J2405; J3475

== ENCOUNTER → 2024-03-11 14:12 | Outpatient (RCR) | payer OTHER, SELFPAY ==
[2020-12-12 14:10] VITALS: BP 182/77; PULSE 106; RESP 12; TEMP 36.6; O2SAT 97; BMI 45.1
[2020-12-12 14:38] LABS: MANUAL DIFF FLAG NO
[2020-12-12 14:52] LABS: Basophils Percent Auto 0.7 % (0-2); Eosinophils Percent Auto 0.7 % (0-4); Hematocrit 29.6 % (37-47); Hemoglobin 8.6 g/dl (12.0-16.0); Imm Gran Abs Auto 0.02 X10*3/uL (0.00-0.03); Imm Gran Pct Auto 0.4 % (0.0-0.4); Lymphocytes Absolute Auto 0.9 X10*3/uL (1.2-4.9); Lymphocytes Percent Auto 15.4 % (20-40); Mean Corpuscular HGB Conc 29.1 g/dl (31.0-35.0); Mean Corpuscular Volume 92.8 fL (80-98); Mean Platelet Volume 8.6 fL (9.4-12.3); Monocytes Absolute Auto 0.6 X10*3/uL (0.1-1.2); Monocytes Percent Auto 9.6 % (2-11); Neutrophils Absolute Auto 4.2 X10*3/uL (2.0-8.3); Neutrophils Percent Auto 73.2 % (45-73); Platelet Count 206 X10*3/uL (160-400); Red Blood Count 3.19 X10*6/uL (4.20-5.50); Red Cell Distribution Width 20.7 % (11.0-16.0); White Blood Count 5.7 X10*3/uL (4.8-10.8)
--- NOTE | 2020-12-12 15:06 | P.CNHO_ITS ---
Subjective - Subjective Chief complaint: Anemia Patient: new to practice Consult date: 12/12/20 Requesting Physician: Dr. Gomez Primary Care Provider: Vandana Gomez MD HPI - Consult Narrative Reason for consult: iron deficiency anemia Narrative: Cristal Valenzuela is a 65 year old female referred for management of worsening anemia. She has a diagnosis of chronic myelogenous leukemia and is under the care of net architect at [facility]. She has been on Gleevec for over 10 years and she says that her cancer is in remission. She sees her net architect every 6 months. She was told that she has anemia but lately her PCP notice that it has been getting worse. She was just started on oral iron s upplementation. She denies any complaints such as excessive fatigue, hematochezia melena. No abdominal discomfort. No change in bowel habits. She is on the same medications. She denies any recent infections. No hematuria. She has not been on any antibiotics. She has had colonoscopy not too long ago. Review of Systems - Constitutional Reports as per HPI, Reports no additional constitutional complaints Oncology Screenings - ECOG Performance Status ECOG Performance Status: 1 [facility] Medical History: Medical History (Last Reviewed 12/10/20 @ 22:22 by Vandana Gomez MD) Acute on chronic anemia Acute respiratory failure with hypoxia Anemia Anxiety Atrial fibrillation Atrial tachycardia Bipolar 1 disorder Chronic diastolic (congestive) heart failure Gait instability GERD (gastroesophageal reflux disease) Lateral malleolar fracture Leukemia in remission Non-rheumatic aortic stenosis Osteoporosis PAF (paroxysmal atrial fibrillation) Primary osteoarthritis, left shoulder Primary osteoarthritis, right shoulder Pulmonary embolism Vitamin D deficiency Family History: Family History (Last Reviewed 12/10/20 @ 22:22 by Vandana Gomez MD) Unknown Unknown family medical history Surgical History: Surgical History (Last Reviewed 12/10/20 @ 22:22 by Vandana Gomez MD) History of section History of ear surgery History of femur fracture Social History: Social History (Last Updated 12/12/20 @ 14:14 by Alondra Zaman) Living Situation History: Household Members: Spouse Housing: Apartment Alcohol History: Alcohol intake: former Alcohol History Details: Alcohol intake frequency: does not drink Tobacco History: Patient Tobacco Use Status: Former Tobacco user Cigarettes Per Day: 1 Smoke Quit Date: 1999 Substance Use History: Use of substances other than those prescribed or required for medical reasons : No Advance Directives: Advance Directives Date on File: 06/15/04 Occupation Assessmet: service: No Current occupational status: disabled Home Medications and Allergies Home Medications Medication Instructions Recorded Confirmed Type Latuda 40 mg PO DAILY 04/11/20 12/12/20 History gabapentin 800 mg PO TID 04/11/20 12/12/20 History trazodone 300 mg PO BEDTIME 04/11/20 12/12/20 History venlafaxine 75 mg PO DAILY 04/11/20 12/12/20 History imatinib 400 mg tablet 400 mg PO DAILY 06/13/20 12/12/20 History buspirone 5 mg tablet 10 mg PO TID tab 07/12/20 12/12/20 History Allergies Allergy/AdvReac Type Severity Reaction Status Date / Time simvastatin [SIMVASTATIN] Allergy Intermediate MUSCLE PAIN Verified 12/10/20 21:33 lamotrigine AdvReac Intermediate NIGHTMARES Verified 12/10/20 21:33 celecoxib [From CELEBREX] AdvReac Mild DIZZY, Verified 12/10/20 21:33 TIRED Darvon Allergy Unknown Unknown Uncoded 11/28/20 13:00 Physical Exam Vital signs: Vital Signs Temp 97.9 F 12/12/20 14:10 Pulse 106 H 12/12/20 14:10 Resp 12 12/12/20 14:10 BP 182/77 H 12/12/20 14:10 Pulse Ox 97 12/12/20 14:10 Intake & Output 12/11/20 12/12/20 12/12/20 18:59 06:59 18:59 Other: Weight 91.2 kg Weight in Grams 93794 Weight 91.2 kg Narrative: Well-nourished woman appears somewhat pale and anxious. - Constitutional Present: no acute distress - Routine HEENT Exam Head: Present: normal inspection Eye: Present: EOMI, PERRL - Routine Neck Exam Present: supple. Absent: lymphadenopathy - Routine Respiratory Exam Present: CTAB - Routine Cardiovascular Exam Cardiovascular: Present: S1, S2 Hem/Onc Consult Result - Labs CBC & Chem 7: 12/12/20 14:36 Labs: Short CBC 12/12/20 Range/Units 14:36 WBC 5.7 (4.8-10.8) X10*3/uL Hgb 8.6 L (12.0-16.0) g/dl Hct 29.6 L (37-47) % Plt Count 206 (160-400) X10*3/uL Assessment and Plan (1) Anemia Status: Acute Qualifiers: Anemia type: iron deficiency 1. This is a 65-year-old woman with a history of chronic myelogenous leukemia found to have worsening anemia. She has normocytic anemia with evidence of iron deficiency. She has mild macrocytosis related to being on imatinib / Gleevec. She says she sees a net architect Dr. Andujar at [facility]. She usually sees him every 6 months. Her iron levels are low, she has been started on ferrous sulfate 325 mg 1 tablet daily. I have asked her to increase it to twice daily, take with vitamin-C to enhance absorption. I have advised that she follow-up with Dr. Andujar sooner than her scheduled appointment. Rest of blood work shows normal kidney and liver functions. There is no evidence of hemolysis. Her WBC and platelet counts are normal. She will also need workup for iron deficiency with EGD and colonoscopy. Since she is not overtly symptomatic from her anemia, parenteral iron therapy is being deferred. Follow-up in 1 month.
[2020-12-12 15:33] LABS: Ferritin 15 ng/mL (10-250)
== END | disposition home or self-care (01) ==
LOC: HO.ONC 12-12 13:57
PROVIDERS: PCP Internal Medicine; Referring Provider Internal Medicine; Visit Provider Internal Medicine
DX: D64.9 Anemia, unspecified (principal); D75.89 Other specified diseases of blood and blood-forming organs; C92.11 Chronic myeloid leukemia, BCR/ABL-positive, in remission; Z79.899 Other long term (current) drug therapy
CPT/HCPCS: 36415; 82728; 85025; 99202